=== PATIENT | female | born 1970 | race Caucasian/White ===

== ENCOUNTER 2016-09-13 15:00 | Inpatient (IN) | payer MEDICARE, OTHER ==
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
[2016-09-13 15:48] LABS: Basophils % (A) 1 %; CH 33.2; Eosinophils # (A) 0.1 k/uL (0-0.7); Eosinophils % (A) 1 %; HDW 2.71; HGB 14.3 gm/dL (11.4-16.0); Luc # (Auto) 0.13; Luc % (Auto) 2; Lymphocytes # (A) 1.9 k/uL (1.0-4.8); Lymphocytes % (A) 33 %; MCH 33.4 pg (25.0-35.0); MCV 98.1 fL (80.0-100.0); Mean Platelet Volume 8.1; Monocytes # (A) 0.3 k/uL (0-1.0); Monocytes % (A) 6 %; Neutrophils # (A) 3.3 k/uL (1.3-7.7); Neutrophils % (A) 57 %; RBC 4.28 m/uL (3.80-5.40); RDW 13.9 % (11.5-15.5); WBC 5.8 k/uL (3.8-10.6); WBC (Perox) 5.85
[2016-09-13 15:58] LABS: ALT 16 U/L (9-52); AST 13 U/L (14-36); Alkaline Phosphatase 43 U/L (38-126); Anion Gap 12 mmol/L; Blood Urea Nitrogen 17 mg/dL (7-17); Calcium 9.7 mg/dL (8.4-10.2); Carbon Dioxide 22 mmol/L (22-30); Chloride 106 mmol/L (98-107); Glucose 129 mg/dL (74-99); Magnesium 1.9 mg/dL (1.6-2.3); Non-African American GFR(MDRD) >60 (>60 ml/min/1.73 sqM); Sodium 140 mmol/L (137-145); Total Bilirubin 0.5 mg/dL (0.2-1.3)
[2016-09-13 16:15] LABS: Appearance,Urine Clear (Clear); Bacteria,Urine Rare /hpf; Bilirubin,Urine Negative (Negative); Glucose,Urine (UA) Negative (Negative); Ketones,Urine Negative (Negative); Leukocyte Esterase,Urine Negative (Negative); Mucus,Urine Occasional /hpf; Nitrite,Urine Negative (Negative); PH, Urine 5.5 (5.0-8.0); Particle Count 8878; Protein,Urine Trace (Negative); RBC,Urine >182 /hpf (0-5); Specific Gravity,Urine 1.015 (1.001-1.035); Squamous Epithelial Cell,Urine 1 /hpf (0-4); UA Billing (MACRO vs. MICRO) MICRO; WBC,Urine 2 /hpf (0-5)
--- NOTE | 2016-09-13 16:40 | CT ---
EXAMINATION TYPE: CT brain wo con DATE OF EXAM: 09/13/2016 4:35 PM COMPARISON: 06/30/2016 HISTORY: seizure today CT DLP: 1046 mGycm Automated exposure control for dose reduction was used. FINDINGS: There is diffuse cerebral cortical atrophy. There is no mass effect nor midline shift. There is no ev idence of intracranial hemorrhage. The calvarium is intact. IMPRESSION: Cerebral atrophy. No acute intracranial abnormality. No change.
[2016-09-13] MEDS ORDERED: LORazepam 2 MG/ML SYRINGE IV STA (16:47)
[2016-09-13] MEDS ORDERED: LORazepam 2 MG/ML SYRINGE IV PRN (17:28)
[2016-09-13] MEDS ORDERED: NALOXONE 0.4 MG/ML 1 ML VIAL IV PRN (17:28)
[2016-09-13] MEDS ORDERED: SODIUM CHLORIDE 0.9% 1,000 ML IV ONE (17:28)
[2016-09-13] MEDS ORDERED: diphenhydrAMINE 50 MG CAP PO PRN (19:01)
[2016-09-13] MEDS ORDERED: IBUPROFEN 800 MG TAB PO PRN (19:01)
[2016-09-13] MEDS ORDERED: VALPROATE SODIUM 500 MG in SODIUM CHLORIDE 0.9% 50 ML IVPB STA (19:08)
[2016-09-13] MEDS: CHOLECALCIFEROL 1,000 UNIT TAB PO SCH (20:35)
[2016-09-13] MEDS: TOPIRAMATE 25 MG TAB PO SCH (20:36)
[2016-09-13] MEDS: OXcarbazepine 300 MG TAB PO SCH (20:36)
[2016-09-13] MEDS: DIVALPROEX 250 MG TABLET.DR PO SCH (22:08)
[2016-09-14] MEDS: ACETAMINOPHEN TAB 325 MG TAB PO PRN ×3 (00:24→18:03)
[2016-09-14 01:07] VITALS: BMI 29.0
[2016-09-14] MEDS: OXcarbazepine 300 MG TAB PO SCH ×2 (07:40→21:02)
[2016-09-14] MEDS: FOLIC ACID 1 MG TAB PO SCH (07:40)
[2016-09-14] MEDS: ARIPiprazole 10 MG TAB PO SCH (07:40)
[2016-09-14] MEDS: PANTOPRAZOLE 40 MG TABLET PO SCH (07:40)
[2016-09-14] MEDS: DIVALPROEX 250 MG TABLET.DR PO SCH ×2 (07:40→21:01)
[2016-09-14] MEDS: LEVOTHYROXINE 100 MCG TAB PO SCH (07:40)
[2016-09-14] MEDS: LORATADINE 10 MG TAB PO SCH (07:40)
[2016-09-14] MEDS: TOPIRAMATE 25 MG TAB PO SCH ×2 (07:40→21:01)
[2016-09-14] MEDS ORDERED: VALPROATE SODIUM 1,000 MG in SODIUM CHLORIDE 0.9% 50 ML IVPB STA (14:44)
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
[2016-09-14] MEDS: CHOLECALCIFEROL 1,000 UNIT TAB PO SCH (21:01)
--- NOTE | 2016-09-14 22:55 | HP ---
DATE OF ADMISSION: 09/13/2016 CHIEF COMPLAINT: Seizure disorder. HISTORY OF PRESENT ILLNESS: This is another admission for this 45-year-old mentally incapacitated female from [facility]. She had a seizure. She is on Depakote. REVIEW OF SYSTEMS: She seems fine now and has no complaints of headaches, injuries to the extremities, etc. Past medical history, family history, and personal and social histories are all otherwise unremarkable or unchanged. PHYSICAL EXAM: Blood pressure 135/86 with a pulse of 74, respirations 19, and she is afebrile. GENERAL: She appeared to be overweight and awake and alert. Skin color is normal. Skin is warm and dry. Lymph nodes are not enlarged. Head, ears, eyes, nose, mouth, and throat were normal. NECK: Neck veins not distended. Thyroid is not enlarged. Chest is clear. Cardiac exam is normal. ABDOMEN: Soft and nontender. EXTREMITIES: Normal. IMPRESSION: 1. Seizure disorder. 2. Mental debility. PLAN: 1. Intravenous fluids. 2. Seizure precautions. 3. Increased Depakote.
--- NOTE | 2016-09-14 22:58 | PN ---
DATE OF SERVICE: 09/14/2016 CHIEF COMPLAINT: Seizure disorder. HISTORY OF PRESENT ILLNESS: This lady is doing well. She is having no new problems. She has had no seizures, and she is awake and alert. PHYSICAL EXAMINATION: CHEST: Clear. CARDIAC: Normal. ABDOMEN: Soft, nontender. EXTREMITIES: Normal. IMPRESSION: 1. Seizure disorder. 2. Developmental abnormality. PLAN: Probably back to long-term tomorrow.
[2016-09-15] MEDS: ACETAMINOPHEN TAB 325 MG TAB PO PRN (02:17)
[2016-09-15] MEDS: FOLIC ACID 1 MG TAB PO SCH (08:07)
[2016-09-15] MEDS: LORATADINE 10 MG TAB PO SCH (08:07)
[2016-09-15] MEDS: ARIPiprazole 10 MG TAB PO SCH (08:07)
[2016-09-15] MEDS: DIVALPROEX 250 MG TABLET.DR PO SCH (08:07)
[2016-09-15] MEDS: OXcarbazepine 300 MG TAB PO SCH (08:07)
[2016-09-15] MEDS: LEVOTHYROXINE 100 MCG TAB PO SCH (08:07)
[2016-09-15] MEDS: TOPIRAMATE 25 MG TAB PO SCH (08:07)
[2016-09-15] MEDS: PANTOPRAZOLE 40 MG TABLET PO SCH (08:08)
[2016-09-15 08:55] VITALS: BP 123/73; PULSE 87; RESP 18; TEMP 98
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
--- NOTE | 2016-09-15 14:53 | PN ---
CHIEF COMPLAINT: Grand mal seizure. HISTORY OF PRESENT ILLNESS: This lady is doing well and she is fully awake and alert and can probably go back to the alf today. PHYSICAL EXAM: Chest is clear. Cardiac exam is normal and the abdomen is soft, nontender. IMPRESSION: 1. Questionable grand mal seizure. 2. Developmental abnormality. PLAN: Back to alf today and this will be arranged by the nurse practitioner.
== END 2016-09-15 15:10 | disposition home or self-care (01) | DRG 100 ==
LOC: EC 15:00 → 4MS4W 17:29
PROVIDERS: ADMIT Family Medicine; ATTEND Family Medicine
DX: G40.219 Localization-related (focal) (partial) symptomatic epilepsy and epileptic syndromes with complex partial seizures, intractable, without status epilepticus (principal); G93.40 Encephalopathy, unspecified; E72.20 Disorder of urea cycle metabolism, unspecified; E03.9 Hypothyroidism, unspecified; I27.2 Other secondary pulmonary hypertension; F43.10 Post-traumatic stress disorder, unspecified; F79 Unspecified intellectual disabilities; K21.9 Gastro-esophageal reflux disease without esophagitis; Z79.899 Other long term (current) drug therapy
CPT/HCPCS: 36415; 70450; 80048; 80164; 80165; 80183; 80306; 81001; 81025; 82140; 82247; 83690; 83735; 84075; 84443; 84450; 84460; 85025; 87086; 93005; 96374; 99285

== ENCOUNTER 2016-11-21 12:34 | Inpatient (IN) | payer MEDICARE, OTHER ==
[2016-11-21] MEDS ORDERED: LORazepam 2 MG/ML SYRINGE IV STA (13:32)
[2016-11-21] MEDS ORDERED: SODIUM CHLORIDE 0.9% 1,000 ML IV STA (13:32)
[2016-11-21] MEDS ORDERED: KETOROLAC 30 MG/ML 1 ML VIAL IVP STA (13:35)
--- NOTE | 2016-11-21 13:35 | ED ---
Seizure HPI - General Chief Complaint: Seizure Stated Complaint: Seizure Time Seen by Provider: 11/21/16 13:05 Source: patient, RN notes reviewed Mode of arrival: ambulatory - History of Present Illness Initial Comments: 46-year-old female with a chief complaint of seizure. Patient has history of epilepsy. Patient has had 2 seizures lasting more than 5 minutes over the past few days. The patient is currently being treated with antibiotics for UTI. Patient states that she does have back and neck pain. This is chronic pain however it is flared about possibly following the seizures. There is been no nausea or vomiting and the patient. They deny any fevers. She otherwise been acting appropriately. They were concerned due to the extent patient seizures. They should be evaluated. Patient denies any recent fever, chills, shortness of breath, chest pain, back pain, abdominal pain, nausea vomiting, numbness or tingling, dysuria or hematuria, constipation or diarrhea, headaches or visual changes, or any other current symptoms. - Related Data Home Medications Medication Instructions Recorded Confirmed ARIPiprazole [Abilify] 10 mg PO DAILY@79902/10/15 09/13/16 Folic Acid 1 mg PO DAILY@79902/10/15 09/13/16 Levothyroxine Sodium [Synthroid] 100 mcg PO DAILY@79902/10/15 09/13/16 Omeprazole [PriLOSEC] 20 mg PO DAILY@79902/10/15 09/13/16 Topiramate [Topamax] 25 mg PO BID@799,199902/10/15 09/13/16 OXcarbazepine [Trileptal] 300 mg PO BID@799,199909/09/15 09/13/16 Cholecalciferol [Vitamin D3] 2,000 unit PO HS@199906/30/16 09/13/16 Ibuprofen [Motrin] 800 mg PO TID PRN 06/30/16 09/13/16 Divalproex [Depakote] 750 mg PO BID@08,199909/13/16 09/13/16 Loratadine [Claritin] 10 mg PO DAILY@0800 09/13/16 09/13/16 diphenhydrAMINE [Benadryl] 50 mg PO DAILY PRN 09/13/16 09/13/16 fluvoxaMINE MALEATE [Luvox] 100 mg PO BID@0800,199909/13/16 09/13/16 Previous Rx's Medication Instructions Recorded Acetaminophen Tab [Tylenol] 325 mg PO Q4HR PRN #0 tab 09/15/16 Allergies Allergy/AdvReac Type Severity Reaction Status Date / Time Barbiturates Allergy Unknown Verified 11/21/16 13:18 clindamycin palmitate HCl Allergy Unknown Verified 11/21/16 13:18 [From Cleocin] clindamycin phosphate Allergy Unknown Verified 11/21/16 13:18 [From Cleocin] Penicillins Allergy Unknown Verified 11/21/16 13:18 phenobarbital Allergy Unknown Verified 11/21/16 13:18 Review of Systems ROS Statement: Those systems with pertinent positive or pertinent negative responses have been documented in the HPI. ROS Other: All systems not noted in ROS Statement are negative. Past Medical History Past Medical History: GERD/Reflux, Osteoarthritis (OA), Pneumonia, Seizure Disorder, Thyroid Disorder Additional Past Medical History / Comment(s): Pt is developmentally challenged and has a legal guardian-Jayda Langlade. Per dictation, DANNA Montelongo states pt is to be a full code. She states to use medical history from pt's last admission. TREMORS FROM MEDS, hypothyroid, falls, head injury r/t fall, sinusitis. History of Any Multi-Drug Resistant Organisms: None Reported Past Surgical History: No Surgical Hx Reported Past Anesthesia/Blood Transfusion Reactions: No Reported Reaction Additional Past Anesthesia/Blood Transfusion Reaction / Comment(s): NEVER HAD AA Past Psychological History: Anxiety, Depression, PTSD Additional Psychological History / Comment(s): DEVELOPEMENTALLY CHALLENGED. states pt lives in home of her own with other residence. She has caregivers that take care of her. Pt states she performs her own ADLs and feeds herself. Her caretakers manage her medications. She uses no assistive device. She does not drive-caretakers take her to appts. Smoking Status: Never smoker Past Alcohol Use History: None Reported Past Drug Use History: None Reported - Past Family History Father Additional Family Medical History / Comment(s): WAS A DRINKER FROM CIRRHOSIS Mother Family Medical History: Cancer Additional Family Medical History / Comment(s): BREAST-mother is living. General Exam - General Exam Comments Initial Comments: General: The patient is awake and alert, in no distress, and does not appear acutely ill. Eye: Pupils are equal, round and reactive to light, extra-ocular movements are intact; there is normal conjunctiva bilaterally. No signs of icterus. Ears, nose, mouth and throat: There are moist mucous membranes and no oral lesions. Neck: The neck is supple, there is no tenderness. Cardiovascular: There is a regular rate and rhythm. No murmur, rub or gallop is appreciated. Respiratory: Lungs are clear to auscultation, respirations are non-labored, breath sounds are equal. No wheezes, stridor, rales, or rhonchi. Gastrointestinal: Soft, non-distended, non-tender abdomen without masses or organomegaly noted. There is no rebound or guarding present. No CVA tenderness. Bowel sounds are unremarkable. Back: There is no tenderness to palpation in the midline. There is no obvious deformity. No rashes noted. Musculoskeletal: Normal ROM, no tenderness, There is no pedal edema. There is no calf tenderness or swelling. Sensation intact. Pulses equal bilaterally 2+. Neurological: CN II-XII intact, There are no obvious motor or sensory deficits. Coordination appears grossly intact. Speech is normal. Skin: Skin is warm and dry and no rashes or lesions are noted. Psychiatric: Cooperative, appropriate mood & affect, normal judgment. Course Vital Signs 11/21/16 13:14 Temperature 98.2 F Pulse Rate 72 Respiratory 18 Rate Blood Pressure 118/76 O2 Sat by Pulse 97 Oximetry Medical Decision Making - Medical Decision Making 46-year-old female presents with seizure with history of epilepsy. At this time the patient did present for seizure. This time patient has an elevated Depakote level. This and will continue fluids and have a repeat level in 6 hours to reevaluate. At this time we discussed this with patient and family and they stated they understood. They're going to look into this. - Lab Data Result diagrams: 11/21/16 13:49 11/21/16 13:49 Lab Results 11/21/16 11/21/16 11/21/16 Range/Units 13:49 13:49 13:49 WBC 6.4 (3.8-10.6) k/uL RBC 4.08 (3.80-5.40) m/uL Hgb 13.3 (11.4-16.0) gm/dL Hct 39.9 (34.0-46.0) % MCV 97.7 (80.0-100.0) fL MCH 32.5 (25.0-35.0) pg MCHC 33.3 (31.0-37.0) g/dL RDW 13.2 (11.5-15.5) % Plt Count 138 L (150-450) k/uL Neutrophils % 46 % Lymphocytes % 45 % Monocytes % 5 % Eosinophils % 1 % Basophils % 1 % Neutrophils # 2.9 (1.3-7.7) k/uL Lymphocytes # 2.9 (1.0-4.8) k/uL Monocytes # 0.3 (0-1.0) k/uL Eosinophils # 0.1 (0-0.7) k/uL Basophils # 0.0 (0-0.2) k/uL Sodium 139 (137-145) mmol/L Potassium 5.1 (3.5-5.1) mmol/L Chloride 106 (98-107) mmol/L Carbon Dioxide 26 (22-30) mmol/L Anion Gap 7 mmol/L BUN 23 H (7-17) mg/dL Creatinine 0.90 (0.52-1.04) mg/dL Est GFR (MDRD) Af Amer >60 (>60 ml/min/1.73 sqM) Est GFR (MDRD) Non-Af >60 (>60 ml/min/1.73 sqM) Glucose 78 (74-99) mg/dL Calcium 9.8 (8.4-10.2) mg/dL Total Bilirubin 0.2 (0.2-1.3) mg/dL AST 11 L (14-36) U/L ALT 18 (9-52) U/L Alkaline Phosphatase 43 (38-126) U/L Total Protein 6.3 (6.3-8.2) g/dL Albumin 3.8 (3.5-5.0) g/dL Urine Color Yellow Urine Appearance Turbid H (Clear) Urine pH 7.5 (5.0-8.0) Ur Specific Ferriday 1.017 (1.001-1.035) Urine Protein Trace H (Negative) Urine Glucose (UA) Negative (Negative) Urine Ketones Negative (Negative) Urine Blood Moderate H (Negative) Urine Nitrite Negative (Negative) Urine Bilirubin Negative (Negative) Urine Urobilinogen 3.0 (<2.0) mg/dL Ur Leukocyte Esterase Negative (Negative) Ur Squamous Epith Cells 12 H (0-4) /hpf Urine Bacteria Few H (None) /hpf Urine Yeast (Budding) Many H (None) /hpf Valproic Acid 111.6 H* ug/mL Disposition Clinical Impression: Valproic acid toxicity, Epileptic seizure Disposition: ADMITTED IP TO THIS HOSP Condition: Stable Referrals: None,Stated [Primary Care Provider] - 1-2 days Time of Disposition: 14:56 Decision Date: 11/21/16 Decision Time: 14:56
[2016-11-21 14:08] LABS: Basophils % (A) 1 %; CH 32.6; CHCM 33.5; Eosinophils # (A) 0.1 k/uL (0-0.7); Eosinophils % (A) 1 %; HCT 39.9 % (34.0-46.0); HDW 2.49; HGB 13.3 gm/dL (11.4-16.0); Luc # (Auto) 0.12; Luc % (Auto) 2; Lymphocytes # (A) 2.9 k/uL (1.0-4.8); Lymphocytes % (A) 45 %; MCH 32.5 pg (25.0-35.0); MCHC 33.3 g/dL (31.0-37.0); MCV 97.7 fL (80.0-100.0); Mean Platelet Volume 7.6; Monocytes # (A) 0.3 k/uL (0-1.0); Monocytes % (A) 5 %; Neutrophils # (A) 2.9 k/uL (1.3-7.7); Neutrophils % (A) 46 %; RBC 4.08 m/uL (3.80-5.40); RDW 13.2 % (11.5-15.5); WBC 6.4 k/uL (3.8-10.6); WBC (Perox) 6.19
[2016-11-21 14:11] LABS: Appearance,Urine Turbid (Clear); Bacteria,Urine Few /hpf; Bilirubin,Urine Negative (Negative); Glucose,Urine (UA) Negative (Negative); Ketones,Urine Negative (Negative); Leukocyte Esterase,Urine Negative (Negative); Nitrite,Urine Negative (Negative); PH, Urine 7.5 (5.0-8.0); Particle Count 17422; Protein,Urine Trace (Negative); Specific Gravity,Urine 1.017 (1.001-1.035); Squamous Epithelial Cell,Urine 12 /hpf (0-4); UA Billing (MACRO vs. MICRO) MICRO
[2016-11-21 14:18] LABS: ALT 18 U/L (9-52); AST 11 U/L (14-36); Alkaline Phosphatase 43 U/L (38-126); Anion Gap 7 mmol/L; Blood Urea Nitrogen 23 mg/dL (7-17); Calcium 9.8 mg/dL (8.4-10.2); Carbon Dioxide 26 mmol/L (22-30); Chloride 106 mmol/L (98-107); Glucose 78 mg/dL (74-99); Non-African American GFR(MDRD) >60 (>60 ml/min/1.73 sqM); Potassium 5.1 mmol/L (3.5-5.1); Sodium 139 mmol/L (137-145); Total Bilirubin 0.2 mg/dL (0.2-1.3); Total Protein 6.3 g/dL (6.3-8.2)
[2016-11-21] MEDS ORDERED: ONDANSETRON 4 MG/2 ML VIAL IVP PRN (14:56)
[2016-11-21] MEDS ORDERED: ACETAMINOPHEN TAB 325 MG TAB PO PRN (14:56)
[2016-11-21] MEDS ORDERED: NALOXONE 0.4 MG/ML 1 ML VIAL IV PRN (14:56)
[2016-11-21] MEDS ORDERED: LORazepam 2 MG/ML SYRINGE IV PRN (14:56)
[2016-11-21 16:54] VITALS: BMI 32.9
[2016-11-21] MEDS: SODIUM CHLORIDE 0.9% 1,000 ML IV SCH (17:11)
[2016-11-21] MEDS ORDERED: IBUPROFEN 800 MG TAB PO PRN (17:52)
[2016-11-21] MEDS ORDERED: diphenhydrAMINE 50 MG CAP PO PRN (17:52)
[2016-11-21] MEDS: TOPIRAMATE 25 MG TAB PO SCH (20:31)
[2016-11-21] MEDS: OXcarbazepine 300 MG TAB PO SCH (20:31)
[2016-11-21] MEDS: CHOLECALCIFEROL 1,000 UNIT TAB PO SCH (20:31)
[2016-11-22] MEDS: SODIUM CHLORIDE 0.9% 1,000 ML IV SCH ×3 (00:46→20:09)
[2016-11-22 05:02] LABS: Basophils % (A) 1 %; CH 32.1; CHCM 32.8; Eosinophils # (A) 0.1 k/uL (0-0.7); Eosinophils % (A) 2 %; HCT 39.2 % (34.0-46.0); HDW 2.51; HGB 12.9 gm/dL (11.4-16.0); Luc # (Auto) 0.15; Luc % (Auto) 2; Lymphocytes # (A) 3.8 k/uL (1.0-4.8); Lymphocytes % (A) 57 %; MCH 32.2 pg (25.0-35.0); MCHC 32.8 g/dL (31.0-37.0); MCV 98.3 fL (80.0-100.0); Mean Platelet Volume 7.5; Monocytes # (A) 0.3 k/uL (0-1.0); Monocytes % (A) 5 %; Neutrophils # (A) 2.2 k/uL (1.3-7.7); Neutrophils % (A) 33 %; RBC 3.99 m/uL (3.80-5.40); RDW 13.3 % (11.5-15.5); WBC 6.7 k/uL (3.8-10.6); WBC (Perox) 7.07
[2016-11-22 05:32] LABS: ALT 17 U/L (9-52); AST 9 U/L (14-36); Alkaline Phosphatase 36 U/L (38-126); Anion Gap 7 mmol/L; Blood Urea Nitrogen 23 mg/dL (7-17); Calcium 9.1 mg/dL (8.4-10.2); Carbon Dioxide 23 mmol/L (22-30); Chloride 110 mmol/L (98-107); Glucose 79 mg/dL (74-99); Non-African American GFR(MDRD) >60 (>60 ml/min/1.73 sqM); Potassium 4.7 mmol/L (3.5-5.1); Sodium 140 mmol/L (137-145); Total Bilirubin 0.3 mg/dL (0.2-1.3); Total Protein 5.5 g/dL (6.3-8.2)
[2016-11-22 07:52] VITALS: RESP 16
[2016-11-22] MEDS: LORATADINE 10 MG TAB PO SCH (08:27)
[2016-11-22] MEDS: LEVOTHYROXINE 112 MCG TAB PO SCH (08:27)
[2016-11-22] MEDS: FOLIC ACID 1 MG TAB PO SCH (08:27)
[2016-11-22] MEDS: TOPIRAMATE 25 MG TAB PO SCH ×2 (08:27→20:07)
[2016-11-22] MEDS: PANTOPRAZOLE 40 MG TABLET PO SCH (08:27)
[2016-11-22] MEDS: BENZTROPINE MESYLATE 0.5 MG TAB PO SCH (08:27)
[2016-11-22] MEDS: OXcarbazepine 300 MG TAB PO SCH ×2 (08:27→20:07)
[2016-11-22] MEDS: ARIPiprazole 5 MG TAB PO SCH (08:27)
--- NOTE | 2016-11-22 14:38 | P.CNNES ---
History of Present Illness Consult date: 11/22/16 Requesting physician: Damaso Sarah Reason for Consult: Seizure History of Present Illness: Patient is a pleasant 46-year-old female who is being evaluated by the neurology service on 11/22/2016 per the request of Dr. Sarah for seizures. Patient has history of epilepsy and states she sees Dr. Wayne on an outpatient basis. Patient is developmentally challenged and has a legal guardian. Reportedly patient had 2 tonic-clonic seizures lasting more than 5 minutes over the past few days. Patient informs me she lives in a [facility] with caregivers. Patient is currently being treated with antibiotics for urinary tract infection. Patient came to [facility] emergency room because caregivers were concerned about the extent of the patient's seizures. Labs on admission or WBC 6.4, RBCs 4.08, hemoglobin 13.3, hematocrit 39.9, and platelet count 138. BUN is 23 creatinine is 0.90. Valproic acid level was 111.6. Patient's home medications include Depakote 750 mg twice a day, Trileptal 300 mg twice a day, and Topamax 25 mg twice a day. Patient also takes Cogentin 0.5 mg daily for extrapyramidal movements. At the time of my evaluation, patient's resting comfortably in bed and appears to be in no acute distress. Review of Systems REVIEW OF SYSTEMS: Otherwise unremarkable and noncontributory. Past Medical History Past Medical History: GERD/Reflux, Osteoarthritis (OA), Pneumonia, Seizure Disorder, Thyroid Disorder Additional Past Medical History / Comment(s): Pt is developmentally challenged and has a legal guardian-Jayda Aguirre. Per dictation, DANNA Montelongo states pt is to be a full code. She states to use medical history from pt's last admission. TREMORS FROM MEDS, hypothyroid, falls, head injury r/t fall, sinusitis. PARKINSONS, OCCASIONAL DIZZY SPELLS, PAST RIGHT LEG CELLULITIS, AND DARKENED PIGMENTATION RIGHT LEG. History of Any Multi-Drug Resistant Organisms: None Reported Past Surgical History: No Surgical Hx Reported Past Anesthesia/Blood Transfusion Reactions: No Reported Reaction Additional Past Anesthesia/Blood Transfusion Reaction / Comment(s): NEVER HAD AA Past Psychological History: Anxiety, Depression, PTSD Additional Psychological History / Comment(s): DEVELOPEMENTALLY CHALLENGED. states pt lives in home of her own with other residence. She has caregivers that take care of her. Pt states she performs her own ADLs and feeds herself. Her caretakers manage her medications. She uses no assistive device. She does not drive-caretakers take her to appts. Smoking Status: Never smoker Past Alcohol Use History: None Reported Past Drug Use History: None Reported - Past Family History Father Additional Family Medical History / Comment(s): WAS A DRINKER FROM CIRRHOSIS Mother Family Medical History: Cancer Additional Family Medical History / Comment(s): BREAST-mother is living. Medications and Allergies Home Medications Medication Instructions Recorded Confirmed Type Folic Acid 1 mg PO DAILY@0800 02/10/15 11/21/16 History Omeprazole [PriLOSEC] 20 mg PO DAILY@0800 02/10/15 11/21/16 History Topiramate [Topamax] 25 mg PO BID@0800,199902/10/15 11/21/16 History OXcarbazepine [Trileptal] 300 mg PO BID@0800,199909/09/15 11/21/16 History Cholecalciferol [Vitamin D3] 2,000 unit PO HS@199906/30/16 11/21/16 History Ibuprofen [Motrin] 800 mg PO TID PRN 06/30/16 11/21/16 History Divalproex [Depakote] 750 mg PO BID@0800,199909/13/16 11/21/16 History Loratadine [Claritin] 10 mg PO DAILY@0800 09/13/16 11/21/16 History diphenhydrAMINE [Benadryl] 50 mg PO DAILY PRN 09/13/16 11/21/16 History fluvoxaMINE MALEATE [Luvox] 100 mg PO BID@0800,199909/13/16 11/21/16 History ARIPiprazole [Abilify] 5 mg PO DAILY@0800 11/21/16 11/21/16 History Benztropine Mesylate [Cogentin] 0.5 mg PO DAILY 11/21/16 11/21/16 History Levothyroxine Sodium [Synthroid] 112 mcg PO DAILY@0800 11/21/16 11/21/16 History Allergies Allergy/AdvReac Type Severity Reaction Status Date / Time Barbiturates Allergy Unknown Verified 11/21/16 13:18 clindamycin palmitate HCl Allergy Unknown Verified 11/21/16 13:18 [From Cleocin] clindamycin phosphate Allergy Unknown Verified 11/21/16 13:18 [From Cleocin] Penicillins Allergy Unknown Verified 11/21/16 13:18 Physical Examination - Vital Signs Vital Signs: Vital Signs Temp Pulse Pulse Resp BP BP Pulse Ox 11/22/16 08:00 16 11/22/16 07:00 97.1 F L 92 16 107/57 98 11/22/16 00:00 18 11/21/16 23:00 98.9 F 72 18 119/46 97 11/21/16 17:12 18 11/21/16 16:16 98.2 F 80 18 116/68 98 Intake and Output 11/21/16 11/22/16 11/22/16 22:59 06:59 14:59 Intake Total 325 425 Balance 325 425 Intake: Oral 325 425 Other: # Voids 2 3 # Bowel Movements 2 1 Weight 87.09 kg PHYSICAL EXAM: GENERAL APPEARANCE: Patient is a well-developed, female who appears to be in no acute distress. HEENT: Normocephalic, atraumatic, no facial asymmetry is seen. Neck is supple with no masses felt. CARDIOVASCULAR: Regular rate and rhythm. ABDOMEN: Nontender, nondistended. EXTREMITIES: Show no edema or clubbing. NEUROLOGICAL EXAM: Patient is awake, alert, and oriented 2. Patient does not know the year. Speech and language are normal. Strength is 5-/5 in bilateral upper extremities and 4+/5 in bilateral lower extremities. Sensory exam to light touch is normal in all 4 extremities. No facial asymmetry is seen on cranial nerve testing. Extrapyramidal movements noticed in all 4 extremities. No further seizure activity reported. Results - Laboratory Findings CBC and BMP: 11/22/16 04:47 11/22/16 04:47 Abnormal Lab Findings: Abnormal Labs 11/21/16 11/21/16 11/21/16 13:49 13:49 13:49 Plt Count 138 L Chloride BUN 23 H AST 11 L Alkaline Phosphatase Total Protein Albumin Urine Appearance Turbid H Urine Protein Trace H Urine Blood Moderate H Ur Squamous Epith Cells 12 H Urine Bacteria Few H Urine Yeast (Budding) Many H Valproic Acid 111.6 H* 11/22/16 11/22/16 04:47 04:47 Plt Count 131 L Chloride 110 H BUN 23 H AST 9 L Alkaline Phosphatase 36 L Total Protein 5.5 L Albumin 3.2 L Urine Appearance Urine Protein Urine Blood Ur Squamous Epith Cells Urine Bacteria Urine Yeast (Budding) Valproic Acid Assessment and Plan Plan: Impression: 1. Seizure disorder 2. Tremors 3. Hypothyroid Recommendations: It appears patient experienced 2 seizures lasting 5 minutes each in the home setting. Patient was brought to [facility] for further evaluation. Patient's valproic acid level on admission was 111.6. Even though normal range is 50 to 100, up to 125 is widely accepted. I recommend continuing Depakote at 750 mg twice a day. The seizure was probably caused by the antibiotic she was receiving for her UTI. She currently takes a very small dose of Topamax. I will increase to Topamax 50 mg twice a day. Eventually the goal would be to get to Topamax 100 mg twice a day. This should be titrated up slowly. I will order an EEG and Trileptal level. Continue neurological checks. Continue seizure precautions. I will continue to follow with you. Further recommendations to follow. Thank you for allowing me to participate in the care of your patient. Feel free to call with any questions or concerns. I performed an examination of the patient and discussed the management with the POWER HAIR CLIPPER. I have reviewed the POWER HAIR CLIPPER notes and agree with the findings and plan of care.
--- NOTE | 2016-11-22 16:41 | HP ---
DATE OF ADMISSION: 11/21/2016 PRESENTING COMPLAINT: Recurrent seizure. HISTORY OF PRESENTING COMPLAINT: This is a pleasant 46-year-old patient with a history of some mental retardation, hypothyroid, GERD, and history of grand mal seizures; also some anxiety and depression. Patient has had 2 seizure episodes at the assisted where she lives. She is admitted for the same. Patient's valproic acid level came back at 111.6. Patient admitted for the same. Patient also has a shaking disorder; it is not clear what it is at this time, but apparently patient does follow with Dr. Brian Wayne, ( ). REVIEW OF SYSTEMS: CONSTITUTIONAL: Tired. HEENT: None. RESPIRATORY: None. CARDIOVASCULAR: None. GASTROINTESTINAL: None. GENITOURINARY: None. MUSCULOSKELETAL: None. DERMATOLOGIC: None. HEMATOLOGIC: None. LYMPHATIC: None. PSYCHIATRY: Slightly slow. NEUROLOGICAL: Patient has tremors at rest; somewhat better with activity. PAST MEDICAL HISTORY: 1. GERD. 2. Osteoarthritis. 3. Seizure disorder. 4. Hypothyroid. 5. Developmentally challenged. 6. Tremors from side effects of medications. PAST SURGICAL HISTORY: None. PAST PSYCHOLOGICAL HISTORY: 1. Anxiety. 2. Depression. 3. PTSD. SOCIAL HISTORY: Patient lives in a assisted. Patient has Jayda ( ) as her legal guardian. No smoking. No alcohol. FAMILY HISTORY: Cirrhosis from drinking. HOME MEDICATIONS: 1. Luvox 100 mg p.o. b.i.d. 2. Benadryl 50 mg p.o. daily. 3. Topamax 25 mg p.o. b.i.d. 4. Prilosec 20 mg p.o. daily. 5. Trileptal 300 mg p.o. b.i.d. 6. Claritin 10 mg p.o. daily. 7. Synthroid 112 mcg p.o. daily. 8. Motrin 800 mg p.o. t.i.d. 9. Folic acid 1 mg p.o. daily. 10. Depakote 750 mg p.o. b.i.d. 11. Vitamin D3, 2000 units p.o. at bedtime. 12. Cogentin 0.5 mg p.o. daily. 13. Abilify 5 mg p.o. daily ALLERGIES: 1. BARBITURATES. 2. CLINDAMYCIN. 3. PENICILLIN. PHYSICAL EXAMINATION: VITAL SIGNS ON PRESENTATION: Temperature 98.2, pulse 72, respiration 18, blood pressure 108/76, pulse ox 97% on room air. GENERAL APPEARANCE: Well built; BMI 33.0. Lying in bed. Awake. Some tremors are present. EYES: Pupils equal. Conjunctivae normal. HEENT: Oral cavity normal. NECK: JVD not raised. Mass not palpable. RESPIRATORY: Effort normal. Lungs are clear. CARDIOVASCULAR: First and second sounds normal. No edema. ABDOMEN: Soft, nontender. Liver and spleen not palpable. LYMPHATIC: No lymph node palpable in neck or axillae. PSYCHIATRY: Alert and oriented x3. Mood and affect normal. NEUROLOGICAL: Pupils equal. Cranial grossly intact. Power and sensation grossly intact. Tremors are present, more so at rest. They are not the pill-rolling type, though somewhat better with activity. INVESTIGATIONS: White count 6.7, hemoglobin 12.9, platelets 131. Potassium 4.7. BUN 23, creatinine 0.80. TSH 0.816. Valproic acid - last one was 111.6. Repeat today is 38.4. ASSESSMENT: 1. Recurrent seizure in a patient with known grand mal seizures. 2. Valproic acid toxicity, present on admission. 3. Tremor disorder, side effect of medication. This does not appear to be Parkinson-like. 4. Hypothyroidism. 5. Gastroesophageal reflux disease. 6. Mild mental retardation. 7. Anxiety, depression not otherwise specified. PLAN: Home medications are resumed. Neurology is consulted. Neuro checks are in place. Patient has seizure precautions. Given that patient's TSH is actually on the lower side; it should be closer ( ) will cut back on Synthroid to 100 mcg a day. Care was discussed with the patient.
[2016-11-22] MEDS: CHOLECALCIFEROL 1,000 UNIT TAB PO SCH (20:07)
[2016-11-22] MEDS: DIVALPROEX 250 MG TABLET.DR PO SCH (20:07)
[2016-11-23 07:49] VITALS: BP 93/57; PULSE 85; TEMP 97.5
[2016-11-23] MEDS: LEVOTHYROXINE 112 MCG TAB PO SCH (07:54)
[2016-11-23] MEDS: DIVALPROEX 250 MG TABLET.DR PO SCH (07:54)
[2016-11-23] MEDS: PANTOPRAZOLE 40 MG TABLET PO SCH (07:54)
[2016-11-23] MEDS: TOPIRAMATE 25 MG TAB PO SCH (07:54)
[2016-11-23] MEDS: BENZTROPINE MESYLATE 0.5 MG TAB PO SCH (07:55)
[2016-11-23] MEDS: OXcarbazepine 300 MG TAB PO SCH (07:55)
[2016-11-23] MEDS: ARIPiprazole 5 MG TAB PO SCH (07:55)
[2016-11-23] MEDS: LORATADINE 10 MG TAB PO SCH (07:55)
[2016-11-23] MEDS: FOLIC ACID 1 MG TAB PO SCH (07:55)
--- NOTE | 2016-11-23 10:48 | P.PN ---
Subjective Principal diagnosis: Patient is a pleasant 46-year-old developmentally challenged female who is being followed by the neurology service for seizures. Patient has history of epilepsy and had 2 tonic-clonic seizures lasting more than 5 minutes over the past few days and was brought to [facility]. Patient does live in a care home with caregivers. Patient was being treated as an outpatient for urinary tract infection. Patient has not had any further seizures since admission. Seizure activity most likely related to UTI treatment. At the time of my evaluation, patient is resting comfortably in bed in appears to be in no acute distress. Objective - Vital Signs Vital signs: Vital Signs Temp 97.5 F L 11/23/16 07:00 Pulse 85 11/23/16 07:00 Resp 16 11/23/16 07:58 BP 93/57 11/23/16 07:00 Pulse Ox 97 11/23/16 07:00 Intake & Output 11/22/16 11/23/16 11/23/16 18:59 06:59 18:59 Intake Total 650 Balance 650 Intake: Oral 650 Other: # Voids 5 2 # Bowel Movements 1 - Exam PHYSICAL EXAM: GENERAL APPEARANCE: Patient is a well-developed, developmentally challenged, female who appears to be in no acute distress. HEENT: Normocephalic, atraumatic, no facial asymmetry is seen. Neck is supple with no masses felt. CARDIOVASCULAR: Regular rate and rhythm. ABDOMEN: Nontender, nondistended. EXTREMITIES: Show no edema or clubbing. NEUROLOGICAL EXAM: Patient is awake, alert, and oriented 2. Patient does not recall the year. Speech and language are normal. Strength is 5-/5 in bilateral upper extremities and 4+/5 in bilateral lower extremities. Sensory exam is normal to light touch in all 4 extremities. No facial asymmetry seen on cranial nerve testing. Extrapyramidal movements noted for which she is on Cogentin. No seizure-like activity is seen or reported. - Labs CBC & Chem 7: 11/22/16 04:47 11/22/16 04:47 Labs: Microbiology - Last 24 Hours (Table) 11/21/16 13:49 Urine Culture - Final Urine,Voided Assessment and Plan Plan: Impression: 1. Seizure disorder 2. Tremors 3. Hypothyroid Recommendations: It appears patient experienced 2 seizures lasting 5 minutes each in the home setting. Patient was brought to [facility] for further evaluation. Patient's valproic acid level on admission was 111.6. Even though normal range is 50 to 100, up to 125 is widely accepted. I recommend continuing Depakote at 750 mg twice a day. The seizure was probably caused by the antibiotic she was receiving for her UTI. She currently takes a very small dose of Topamax. I will increase to Topamax 50 mg twice a day. Eventually the goal would be to get to Topamax 100 mg twice a day. This should be titrated up slowly. Continue neurological checks. Continue seizure precautions. I recommend she continue to follow with neurology as an outpatient. I'll continue to follow with you on an as-needed basis. Feel free to call with any questions or concerns. I performed an examination of the patient and discussed the management with the TACK PULLER. I have reviewed the TACK PULLER notes and agree with the findings and plan of care.
[2016-11-23] MEDS: SODIUM CHLORIDE 0.9% 1,000 ML IV SCH (11:47)
--- NOTE | 2016-11-25 09:57 | DS ---
DATE OF ADMISSION: 11/21/2016 DATE OF DISCHARGE: 11/23/2016 FINAL DIAGNOSES: 1. Recurrent seizures in a patient with known grand mal seizures. 2. Valproic acid toxicity present on admission, probably from antibiotics. 3. Tremor disorder, chronic from side effect of medications, does not appear to be Parkinson's. 4. Hypothyroidism. 5. Gastroesophageal reflux disease. 6. Mild mental retardation. 7. Anxiety, depression, not otherwise specified. HOSPITAL COURSE: This patient present with couple of seizure activity, seen by Dr. Ashwini donahue. Vincent to be probably from antibiotics changing the levels of the antiepileptic drugs. The dose of Topamax was increased. Patient doing well at the time of discharge. On exam, lungs are clear. CARDIOVASCULAR: First and second sounds normal. Patient had several tremors which is not that of Parkinson's disease. DISCHARGE MEDICATIONS: 1. Folic acid 1 mg p.o. daily. 2. Prilosec 20 mg p.o. daily. 3. Trileptal 300 mg p.o. b.i.d. 4. Vitamin D3 two thousand p.o. q.h.s. 5. Motrin 800 mg p.o. t.i.d. p.r.n. 6. Depakote 750 mg p.o. b.i.d. 7. Claritin 10 mg a day. 8. Benadryl 50 mg p.o. daily p.r.n. 9. Luvox 100 mg p.o. b.i.d. 10. Abilify 5 mg p.o. daily. 11. Cogentin 0.5 mg p.o. daily. 12. Synthroid 100 mcg p.o. daily, new dose. 13. Topamax 50 mg p.o. b.i.d. Patient is to follow up with her family doctor and follow with Dr. Brian Wayne in 10 days.
== END 2016-11-23 15:17 | disposition home or self-care (01) | DRG 101 ==
LOC: EC 12:34 → 4MS4W 15:23
PROVIDERS: ADMIT Hospitalist; ATTEND Hospitalist
DX: G40.409 Other generalized epilepsy and epileptic syndromes, not intractable, without status epilepticus (principal); N39.0 Urinary tract infection, site not specified; G20 Parkinson's disease; F32.9 Major depressive disorder, single episode, unspecified; E03.9 Hypothyroidism, unspecified; F43.10 Post-traumatic stress disorder, unspecified; G89.29 Other chronic pain; K21.9 Gastro-esophageal reflux disease without esophagitis; M19.90 Unspecified osteoarthritis, unspecified site; M54.2 Cervicalgia; M54.9 Dorsalgia, unspecified; F41.9 Anxiety disorder, unspecified; F70 Mild intellectual disabilities; T42.6X5A Adverse effect of other antiepileptic and sedative-hypnotic drugs, initial encounter; G25.2 Other specified forms of tremor; T50.905A Adverse effect of unspecified drugs, medicaments and biological substances, initial encounter; T36.95XA Adverse effect of unspecified systemic antibiotic, initial encounter; Z79.899 Other long term (current) drug therapy; Z88.1 Allergy status to other antibiotic agents; Z88.0 Allergy status to penicillin; Z88.8 Allergy status to other drugs, medicaments and biological substances; Y92.009 Unspecified place in unspecified non-institutional (private) residence as the place of occurrence of the external cause
CPT/HCPCS: 36415; 80053; 80164; 80183; 81001; 84443; 85025; 87086; 93005

== ENCOUNTER → 2017-02-02 | Outpatient (CLI) | payer MEDICARE, OTHER ==
[2017-02-02 08:52] LABS: Basophils # (A) 0.1 k/uL (0-0.2); Basophils % (A) 1 %; CH 31.3; CHCM 32.7; Eosinophils # (A) 0.1 k/uL (0-0.7); Eosinophils % (A) 1 %; HCT 41.7 % (34.0-46.0); HDW 2.52; Luc # (Auto) 0.13; Luc % (Auto) 2; Lymphocytes # (A) 3.3 k/uL (1.0-4.8); Lymphocytes % (A) 45 %; MCH 32.2 pg (25.0-35.0); MCHC 33.5 g/dL (31.0-37.0); MCV 96.1 fL (80.0-100.0); Mean Platelet Volume 7.4; Monocytes # (A) 0.3 k/uL (0-1.0); Monocytes % (A) 4 %; Neutrophils # (A) 3.4 k/uL (1.3-7.7); Neutrophils % (A) 47 %; RBC 4.34 m/uL (3.80-5.40); RDW 13.8 % (11.5-15.5); WBC 7.3 k/uL (3.8-10.6); WBC (Perox) 8.18
== END | disposition home or self-care (01) ==
LOC: LABWHC1 08:00
PROVIDERS: ATTEND Psychiatry & Neurology Neurology
DX: G40.209 Localization-related (focal) (partial) symptomatic epilepsy and epileptic syndromes with complex partial seizures, not intractable, without status epilepticus (principal)
CPT/HCPCS: 36415; 80164; 80183; 84295; 84450; 84460; 85025

== ENCOUNTER 2017-03-26 16:00 | Emergency (ER) | payer MEDICARE, OTHER ==
[2017-03-26] MEDS ORDERED: SODIUM CHLORIDE 0.9% 500 ML IV ONE (16:44)
[2017-03-26 16:49] LABS: Glucose,Whole Blood 93 mg/dL (75-99)
--- NOTE | 2017-03-26 16:49 | ED ---
General Adult HPI - General Source: RN notes reviewed, Caregiver Mode of arrival: ambulatory Limitations: altered mental status <Aris Craven - Last Filed: 03/26/17 20:03> <Gabriel De Jesus - Last Filed: 03/26/17 23:16> - General Chief complaint: Altered Mental Status Stated complaint: mental health/abdominal pain Time Seen by Provider: 03/26/17 16:15 - History of Present Illness Initial comments: This is a 46-year-old female who comes to the emergency department from a longterm. According to the staff she has a history of seizures PTSD and depression. According to staff she also is normally alert and oriented 2. Staff believes that her mental status is been altered over the last couple of months but more recently over the last 2 weeks is gotten significantly worse. She insists that she just got out of the hospital a few days ago even though that is not true and she is calling people by the wrong name in the longterm. Patient also is noticing things that aren't there such as a cat on her bed which was just a couple of pillows. Patient has had no recent fever or chills she's not complaining of any pain there is no headache there is no chest pain there's no abdominal pain. Patient did have one episode of vomiting last week about one week ago but there has been no diarrhea. There's been no recent falls. The patient had a recent head CT and it was read as normal per the staff I will check into this. (Aris Craven) - Related Data Home Medications Medication Instructions Recorded Confirmed Folic Acid 1 mg PO DAILY@79902/10/15 03/26/17 Omeprazole [PriLOSEC] 20 mg PO DAILY@79902/10/15 03/26/17 OXcarbazepine [Trileptal] 300 mg PO BID@799,199909/09/15 03/26/17 Cholecalciferol [Vitamin D3] 2,000 unit PO HS@199906/30/16 03/26/17 Divalproex [Depakote] 750 mg PO BID@799,199909/13/16 03/26/17 Loratadine [Claritin] 10 mg PO DAILY@79909/13/16 03/26/17 fluvoxaMINE MALEATE [Luvox] 100 mg PO BID@799,199909/13/16 03/26/17 ARIPiprazole [Abilify] 5 mg PO DAILY@0811/21/16 03/26/17 Benztropine Mesylate [Cogentin] 0.5 mg PO DAILY 11/21/16 03/26/17 Acetaminophen Tab [Tylenol Tab] 650 mg PO Q4H PRN 03/26/17 03/26/17 Levothyroxine Sodium [Synthroid] 112 mcg PO DAILY@0803/26/17 03/26/17 Loperamide [Imodium] 2 mg PO QID PRN 03/26/17 03/26/17 Magnesium Hydroxide [Milk of 2,400 mg PO Q6H PRN 03/26/17 03/26/17 Magnesia] Polyethylene Glycol 3350 [Miralax] 17 gm PO DAILY 03/26/17 03/26/17 Sennosides-Docusate Sodium 2 tab PO DAILY PRN 03/26/17 03/26/17 [Senokot-S] Topiramate [Topamax] 50 mg PO BID 03/26/17 03/26/17 Allergies Allergy/AdvReac Type Severity Reaction Status Date / Time Barbiturates Allergy Unknown Verified 03/26/17 17:39 carbamazepine [From Tegretol] Allergy Unknown Verified 03/26/17 17:39 clindamycin palmitate HCl Allergy Unknown Verified 03/26/17 17:39 [From Cleocin] clindamycin phosphate Allergy Unknown Verified 03/26/17 17:39 [From Cleocin] Penicillins Allergy Unknown Verified 03/26/17 17:39 phenobarbital Allergy Unknown Verified 03/26/17 17:39 phenytoin [From Dilantin] Allergy Unknown Verified 03/26/17 17:39 primidone [From Mysoline] Allergy Unknown Verified 03/26/17 17:39 Review of Systems ROS Other: All systems not noted in ROS Statement are negative. <Aris Craven - Last Filed: 03/26/17 20:03> ROS Other: All systems not noted in ROS Statement are negative. <Gabriel De Jesus - Last Filed: 03/26/17 23:16> ROS Statement: Those systems with pertinent positive or pertinent negative responses have been documented in the HPI. Past Medical History Past Medical History: GERD/Reflux, Osteoarthritis (OA), Pneumonia, Seizure Disorder, Thyroid Disorder Additional Past Medical History / Comment(s): Pt is developmentally challenged and has a legal guardian-Jayda Aguirre. Per dictation, DANNA Montelongo states pt is to be a full code. She states to use medical history from pt's last admission. TREMORS FROM MEDS, hypothyroid, falls, head injury r/t fall, sinusitis. PARKINSONS, OCCASIONAL DIZZY SPELLS, PAST RIGHT LEG CELLULITIS, AND DARKENED PIGMENTATION RIGHT LEG. History of Any Multi-Drug Resistant Organisms: None Reported Past Surgical History: No Surgical Hx Reported Past Anesthesia/Blood Transfusion Reactions: No Reported Reaction Additional Past Anesthesia/Blood Transfusion Reaction / Comment(s): NEVER HAD AA Past Psychological History: Anxiety, Depression, PTSD Smoking Status: Never smoker Past Alcohol Use History: None Reported Past Drug Use History: None Reported - Past Family History Father Additional Family Medical History / Comment(s): WAS A DRINKER FROM CIRRHOSIS Mother Family Medical History: Cancer Additional Family Medical History / Comment(s): BREAST-mother is living. <Aris Craven - Last Filed: 03/26/17 20:03> General Exam Limitations: altered mental status <Aris Craven - Last Filed: 03/26/17 20:03> <Gabriel De Jesus - Last Filed: 03/26/17 23:16> - General Exam Comments Initial Comments: GENERAL: Patient is well-developed and well-nourished. Patient is nontoxic and well- hydrated and is in no acute distress. ENT: Neck is soft and supple. No significant lymphadenopathy is noted. Oropharynx is clear. Moist mucous membranes. Neck has full range of motion without eliciting any pain. EYES: The sclera were anicteric and conjunctiva were pink and moist. Extraocular movements were intact and pupils were equal round and reactive to light. Eyelids were unremarkable. PULMONARY: Unlabored respirations. Good breath sounds bilaterally. No audible rales rhonchi or wheezing was noted. CARDIOVASCULAR: There is a regular rate and rhythm without any murmurs gallops or rubs. ABDOMEN: Soft and nontender with normal bowel sounds. No palpable organomegaly was noted. There is no palpable pulsatile mass. SKIN: Skin is clear with no lesions or rashes and otherwise unremarkable. NEUROLOGIC: Patient is alert and oriented 2. Cranial nerves II through XII are grossly intact. Motor and sensory are also intact. Normal speech, volume and content. Symmetrical smile. MUSCULOSKELETAL: Normal extremities with adequate strength and full range of motion. LYMPHATICS: No significant lymphadenopathy is noted PSYCHIATRIC: Patient denies any suicidal homicidal ideations (Aris Craven) Medical Decision Making - Lab Data Result diagrams: 03/26/17 16:55 03/26/17 16:55 <Aris Craven - Last Filed: 03/26/17 20:03> - Lab Data Result diagrams: 03/26/17 16:55 03/26/17 16:55 <Gabriel De Jesus - Last Filed: 03/26/17 23:16> - Medical Decision Making EKG shows normal sinus rhythm at 73 bpm MS interval is on a 34 QRS is 70 QT interval 370 QTC is 407. Patient's EKG shows no ST segment elevation or depression no T-wave abnormalities are noted. Dr. Roach will be taking over the care of this patient at 9 PM (Aris Craven) Receive this patient as a sign out, with the understanding that the patient would be seen by behavioral health and disposition per their discretion as to whether patient would require admission or continuing outpatient care. I did receive a call from behavioral health and they will have the patient seeing psychiatry as an outpatient. (Gabriel De Jesus) - Lab Data Lab Results 03/26/17 03/26/17 03/26/17 Range/Units 16:47 16:55 16:55 WBC 6.8 (3.8-10.6) k/uL RBC 4.17 (3.80-5.40) m/uL Hgb 13.5 (11.4-16.0) gm/dL Hct 39.5 (34.0-46.0) % MCV 94.8 (80.0-100.0) fL MCH 32.4 (25.0-35.0) pg MCHC 34.2 (31.0-37.0) g/dL RDW 13.9 (11.5-15.5) % Plt Count 140 L (150-450) k/uL Neutrophils % 46 % Lymphocytes % 45 % Monocytes % 6 % Eosinophils % 1 % Basophils % 1 % Neutrophils # 3.1 (1.3-7.7) k/uL Lymphocytes # 3.1 (1.0-4.8) k/uL Monocytes # 0.4 (0-1.0) k/uL Eosinophils # 0.1 (0-0.7) k/uL Basophils # 0.0 (0-0.2) k/uL PT (9.0-12.0) sec INR (<1.2) APTT (22.0-30.0) sec Sodium (137-145) mmol/L Potassium (3.5-5.1) mmol/L Chloride (98-107) mmol/L Carbon Dioxide (22-30) mmol/L Anion Gap mmol/L BUN (7-17) mg/dL Creatinine (0.52-1.04) mg/dL Est GFR (MDRD) Af Amer (>60 ml/min/1.73 sqM) Est GFR (MDRD) Non-Af (>60 ml/min/1.73 sqM) Glucose (74-99) mg/dL POC Glucose (mg/dL) 93 (75-99) mg/dL POC Glu Business Banking Officer ID Roxana Wren Calcium (8.4-10.2) mg/dL Total Bilirubin (0.2-1.3) mg/dL AST (14-36) U/L ALT (9-52) U/L Alkaline Phosphatase (38-126) U/L Total Creatine Kinase 29 L (30-135) U/L CK-MB (CK-2) 0.2 (0.0-2.4) ng/mL CK-MB (CK-2) Rel Index 0.7 Troponin I <0.012 (0.000-0.034) ng/mL Total Protein (6.3-8.2) g/dL Albumin (3.5-5.0) g/dL Urine Color Urine Appearance (Clear) Urine pH (5.0-8.0) Ur Specific [place] (1.001-1.035) Urine Protein (Negative) Urine Glucose (UA) (Negative) Urine Ketones (Negative) Urine Blood (Negative) Urine Nitrite (Negative) Urine Bilirubin (Negative) Urine Urobilinogen (<2.0) mg/dL Ur Leukocyte Esterase (Negative) Urine Opiates Screen (NotDetected) Ur Oxycodone Screen (NotDetected) Urine Methadone Screen (NotDetected) Ur Propoxyphene Screen (NotDetected) Ur Barbiturates Screen (NotDetected) Valproic Acid ug/mL U Tricyclic Antidepress (NotDetected) Ur Phencyclidine Scrn (NotDetected) Ur Amphetamines Screen (NotDetected) U Methamphetamines Scrn (NotDetected) U Benzodiazepines Scrn (NotDetected) Urine Cocaine Screen (NotDetected) U Marijuana (THC) Screen (NotDetected) Serum Alcohol mg/dL 03/26/17 03/26/17 03/26/17 Range/Units 16:55 16:55 17:07 WBC (3.8-10.6) k/uL RBC (3.80-5.40) m/uL Hgb (11.4-16.0) gm/dL Hct (34.0-46.0) % MCV (80.0-100.0) fL MCH (25.0-35.0) pg MCHC (31.0-37.0) g/dL RDW (11.5-15.5) % Plt Count (150-450) k/uL Neutrophils % % Lymphocytes % % Monocytes % % Eosinophils % % Basophils % % Neutrophils # (1.3-7.7) k/uL Lymphocytes # (1.0-4.8) k/uL Monocytes # (0-1.0) k/uL Eosinophils # (0-0.7) k/uL Basophils # (0-0.2) k/uL PT 11.1 (9.0-12.0) sec INR 1.1 (<1.2) APTT 25.0 (22.0-30.0) sec Sodium 132 L (137-145) mmol/L Potassium 4.4 (3.5-5.1) mmol/L Chloride 101 (98-107) mmol/L Carbon Dioxide 20 L (22-30) mmol/L Anion Gap 11 mmol/L BUN 18 H (7-17) mg/dL Creatinine 0.80 (0.52-1.04) mg/dL Est GFR (MDRD) Af Amer >60 (>60 ml/min/1.73 sqM) Est GFR (MDRD) Non-Af >60 (>60 ml/min/1.73 sqM) Glucose 89 (74-99) mg/dL POC Glucose (mg/dL) (75-99) mg/dL POC Glu Business Banking Officer ID Calcium 9.5 (8.4-10.2) mg/dL Total Bilirubin 0.2 (0.2-1.3) mg/dL AST 14 (14-36) U/L ALT 18 (9-52) U/L Alkaline Phosphatase 42 (38-126) U/L Total Creatine Kinase (30-135) U/L CK-MB (CK-2) (0.0-2.4) ng/mL CK-MB (CK-2) Rel Index Troponin I (0.000-0.034) ng/mL Total Protein 6.1 L (6.3-8.2) g/dL Albumin 3.7 (3.5-5.0) g/dL Urine Color Yellow Urine Appearance Clear (Clear) Urine pH 7.0 (5.0-8.0) Ur Specific [place] 1.011 (1.001-1.035) Urine Protein Negative (Negative) Urine Glucose (UA) Negative (Negative) Urine Ketones Negative (Negative) Urine Blood Negative (Negative) Urine Nitrite Negative (Negative) Urine Bilirubin Negative (Negative) Urine Urobilinogen <2.0 (<2.0) mg/dL Ur Leukocyte Esterase Negative (Negative) Urine Opiates Screen Not Detected (NotDetected) Ur Oxycodone Screen Not Detected (NotDetected) Urine Methadone Screen Not Detected (NotDetected) Ur Propoxyphene Screen Not Detected (NotDetected) Ur Barbiturates Screen Not Detected (NotDetected) Valproic Acid 103.8 H* ug/mL U Tricyclic Antidepress Not Detected (NotDetected) Ur Phencyclidine Scrn Not Detected (NotDetected) Ur Amphetamines Screen Not Detected (NotDetected) U Methamphetamines Scrn Not Detected (NotDetected) U Benzodiazepines Scrn Not Detected (NotDetected) Urine Cocaine Screen Not Detected (NotDetected) U Marijuana (THC) Screen Not Detected (NotDetected) Serum Alcohol mg/dL 03/26/17 Range/Units 20:50 WBC (3.8-10.6) k/uL RBC (3.80-5.40) m/uL Hgb (11.4-16.0) gm/dL Hct (34.0-46.0) % MCV (80.0-100.0) fL MCH (25.0-35.0) pg MCHC (31.0-37.0) g/dL RDW (11.5-15.5) % Plt Count (150-450) k/uL Neutrophils % % Lymphocytes % % Monocytes % % Eosinophils % % Basophils % % Neutrophils # (1.3-7.7) k/uL Lymphocytes # (1.0-4.8) k/uL Monocytes # (0-1.0) k/uL Eosinophils # (0-0.7) k/uL Basophils # (0-0.2) k/uL PT (9.0-12.0) sec INR (<1.2) APTT (22.0-30.0) sec Sodium (137-145) mmol/L Potassium (3.5-5.1) mmol/L Chloride (98-107) mmol/L Carbon Dioxide (22-30) mmol/L Anion Gap mmol/L BUN (7-17) mg/dL Creatinine (0.52-1.04) mg/dL Est GFR (MDRD) Af Amer (>60 ml/min/1.73 sqM) Est GFR (MDRD) Non-Af (>60 ml/min/1.73 sqM) Glucose (74-99) mg/dL POC Glucose (mg/dL) (75-99) mg/dL POC Glu Business Banking Officer ID Calcium (8.4-10.2) mg/dL Total Bilirubin (0.2-1.3) mg/dL AST (14-36) U/L ALT (9-52) U/L Alkaline Phosphatase (38-126) U/L Total Creatine Kinase (30-135) U/L CK-MB (CK-2) (0.0-2.4) ng/mL CK-MB (CK-2) Rel Index Troponin I (0.000-0.034) ng/mL Total Protein (6.3-8.2) g/dL Albumin (3.5-5.0) g/dL Urine Color Urine Appearance (Clear) Urine pH (5.0-8.0) Ur Specific [place] (1.001-1.035) Urine Protein (Negative) Urine Glucose (UA) (Negative) Urine Ketones (Negative) Urine Blood (Negative) Urine Nitrite (Negative) Urine Bilirubin (Negative) Urine Urobilinogen (<2.0) mg/dL Ur Leukocyte Esterase (Negative) Urine Opiates Screen (NotDetected) Ur Oxycodone Screen (NotDetected) Urine Methadone Screen (NotDetected) Ur Propoxyphene Screen (NotDetected) Ur Barbiturates Screen (NotDetected) Valproic Acid ug/mL U Tricyclic Antidepress (NotDetected) Ur Phencyclidine Scrn (NotDetected) Ur Amphetamines Screen (NotDetected) U Methamphetamines Scrn (NotDetected) U Benzodiazepines Scrn (NotDetected) Urine Cocaine Screen (NotDetected) U Marijuana (THC) Screen (NotDetected) Serum Alcohol <10 mg/dL Disposition <Aris Craven - Last Filed: 03/26/17 20:03> <Gabriel De Jesus - Last Filed: 03/26/17 23:16> Clinical Impression: Altered mental status Disposition: HOME SELF-CARE Condition: Fair Instructions: Altered Mental Status (ED) Referrals: Nick Smith MD [Primary Care Provider] - 1-2 days Rosy Wayne MD [STAFF PHYSICIAN] - 1-2 days
[2017-03-26 17:15] LABS: Basophils % (A) 1 %; CH 32.5; CHCM 34.4; Eosinophils # (A) 0.1 k/uL (0-0.7); Eosinophils % (A) 1 %; HCT 39.5 % (34.0-46.0); HDW 2.53; HGB 13.5 gm/dL (11.4-16.0); Luc # (Auto) 0.14; Luc % (Auto) 2; Lymphocytes # (A) 3.1 k/uL (1.0-4.8); Lymphocytes % (A) 45 %; MCH 32.4 pg (25.0-35.0); MCHC 34.2 g/dL (31.0-37.0); MCV 94.8 fL (80.0-100.0); Mean Platelet Volume 7.1; Monocytes # (A) 0.4 k/uL (0-1.0); Monocytes % (A) 6 %; Neutrophils # (A) 3.1 k/uL (1.3-7.7); Neutrophils % (A) 46 %; RBC 4.17 m/uL (3.80-5.40); RDW 13.9 % (11.5-15.5); WBC 6.8 k/uL (3.8-10.6); WBC (Perox) 7.12
[2017-03-26 17:17] LABS: Appearance,Urine Clear (Clear); Bilirubin,Urine Negative (Negative); Glucose,Urine (UA) Negative (Negative); Ketones,Urine Negative (Negative); Leukocyte Esterase,Urine Negative (Negative); Nitrite,Urine Negative (Negative); Protein,Urine Negative (Negative); Specific Gravity,Urine 1.011 (1.001-1.035); UA Billing (MACRO vs. MICRO) CHEM; Urobilinogen,Urine <2.0 mg/dL (<2.0)
[2017-03-26 17:34] LABS: ALT 18 U/L (9-52); AST 14 U/L (14-36); Alkaline Phosphatase 42 U/L (38-126); Anion Gap 11 mmol/L; Blood Urea Nitrogen 18 mg/dL (7-17); Calcium 9.5 mg/dL (8.4-10.2); Carbon Dioxide 20 mmol/L (22-30); Chloride 101 mmol/L (98-107); Glucose 89 mg/dL (74-99); INR 1.1 (<1.2); Non-African American GFR(MDRD) >60 (>60 ml/min/1.73 sqM); Potassium 4.4 mmol/L (3.5-5.1); Prothrombin Time 11.1 sec (9.0-12.0); Sodium 132 mmol/L (137-145); Total Bilirubin 0.2 mg/dL (0.2-1.3); Total Protein 6.1 g/dL (6.3-8.2)
[2017-03-26 17:41] LABS: Creatine Kinase 29 U/L (30-135)
[2017-03-26 17:54] LABS: Creatine Kinase MB 0.2 ng/mL (0.0-2.4); Troponin I <0.012 ng/mL (0.000-0.034)
--- NOTE | 2017-03-26 18:17 | XR ---
EXAMINATION TYPE: XR chest 2V DATE OF EXAM: 03/26/2017 COMPARISON: 07/01/2016 HISTORY: Altered mental status TECHNIQUE: Frontal and lateral views of the chest are obtained. FINDINGS: Heart and mediastinum are normal. Lungs are clear. Diaphragm is normal. Bony thorax is int act. There is small linear density over the heart on the lateral view that is probably in the right m iddle lobe. IMPRESSION: Minimal right middle lobe subsegmental atelectasis is probably new compared to old exam. Normal heart..
[2017-03-26 19:15] VITALS: RESP 18
--- NOTE | 2017-03-26 19:38 | CT ---
EXAMINATION TYPE: CT brain wo con DATE OF EXAM: 03/26/2017 COMPARISON: 09/13/2016 HISTORY: Altered mental status. Seizure. CT DLP: 930.3 mGycm. Automated Exposure Control for Dose Reduction was Utilized. TECHNIQUE: CT scan of the head is performed without contrast. FINDINGS: There is cerebral cortical atrophy. There is no mass effect nor midline shift. There is n o sign of intracranial hemorrhage. The calvarium is intact. IMPRESSION: Cerebral atrophy. No acute intracranial abnormality. No change..
[2017-03-26] MEDS ORDERED: DIVALPROEX 500 MG TABLET.DR PO STA (21:59)
[2017-03-26] MEDS ORDERED: OXcarbazepine 300 MG TAB PO STA (22:08)
[2017-03-26] MEDS ORDERED: DIVALPROEX 250 MG TABLET.DR PO STA (22:09)
[2017-03-26] MEDS ORDERED: TOPIRAMATE 25 MG TAB PO STA (22:09)
[2017-03-26 22:31] VITALS: BP 122/57; PULSE 65; TEMP 98.1
[2017-03-27] MEDS ORDERED: TOPIRAMATE 25 MG TAB PO SCH (09:00)
[2017-03-27] MEDS ORDERED: OXcarbazepine 300 MG TAB PO SCH (09:00)
== END 2017-03-26 23:20 | disposition home or self-care (01) ==
LOC: EC 16:00
DX: R41.82 Altered mental status, unspecified (principal); F43.10 Post-traumatic stress disorder, unspecified; F32.9 Major depressive disorder, single episode, unspecified; K21.9 Gastro-esophageal reflux disease without esophagitis; M19.90 Unspecified osteoarthritis, unspecified site; E07.9 Disorder of thyroid, unspecified; G40.909 Epilepsy, unspecified, not intractable, without status epilepticus; F41.9 Anxiety disorder, unspecified; Z88.0 Allergy status to penicillin; Z88.1 Allergy status to other antibiotic agents; Z88.8 Allergy status to other drugs, medicaments and biological substances; Z79.899 Other long term (current) drug therapy
CPT/HCPCS: 36415; 70450; 71020; 80053; 80164; 80306; 80320; 81003; 82550; 82553; 84484; 85025; 85610; 85730; 93005; 99285

== ENCOUNTER → 2017-03-31 | Outpatient (CLI) | payer MEDICARE, OTHER ==
--- NOTE | 2017-03-31 07:48 | MR ---
EXAMINATION TYPE: MR brain wo con DATE OF EXAM: 03/31/2017 COMPARISON: CT brain dated 03/26/2017 HISTORY: partial epilepsy, memory loss TECHNIQUE: Multiplanar, multisequence images of the brain and brainstem is performed without intravenous contras t. FINDINGS: Diffusion weighted images demonstrate no evidence of a recent infarct or other diffusion ab normality. There is no extra-axial fluid collection. Mild periventricular white matter changes seen near the atria of the lateral ventricles. No vasogenic or cytotoxic edema. Cerebellopontine angles an d mesial temporal lobes appear symmetric.. The ventricular system and cisternal spaces are symmetric ally prominent with corresponding thinning of the corpus callosum all compatible with mild atrophy. Midline structures demonstrate normal morphology. The craniocervical junction appears within normal limits. The globes are intact. Small amount of mucosal thickening is seen within the maxillary sinuse s and ethmoid sinuses. Frontal and sphenoid sinuses are well aerated. Scant amount of fluid is presen t within the mastoid air cells. IMPRESSION: 1. No evidence of acute territorial infarct, midline shift or mass effect. 2. Mild cerebral atrophy and minimal periventricular nonspecific white matter change. 3. Mild paranasal sinus disease and minimal fluid within the mastoid air cells that should be correla judy clinically for mastoiditis. 4. Unremarkable cerebellopontine angles are mesial temporal lobes.
== END ==
LOC: RADMRIMAIN 05:56
PROVIDERS: ATTEND Psychiatry & Neurology Neurology
DX: G31.9 Degenerative disease of nervous system, unspecified (principal); R90.89 Other abnormal findings on diagnostic imaging of central nervous system
CPT/HCPCS: 70551

== ENCOUNTER → 2017-04-03 | Outpatient (CLI) | payer MEDICARE, OTHER ==
--- NOTE | 2017-04-06 11:29 | MM ---
Reason for exam: screening (asymptomatic). Last mammogram was performed 5 years and 6 months ago. History: Patient is nulliparous. Taking hormonal contraceptives. Physical Findings: A clinical breast exam by your physician is recommended on an annual basis and results should be correlated with mammographic findings. MG Screening Mammo w CAD Bilateral CC and MLO view(s) were taken. Prior study comparison: September 18, 2011, bilateral digital screening mammo w/CAD. January 04, 2007, bilateral screening mammogram w/CAD. The breast tissue is heterogeneously dense. This may lower the sensitivity of mammography. Finding: There are typically benign round calcifications in the left breast. There is no discrete abnormality. ASSESSMENT: Benign, BI-RAD 2 RECOMMENDATION: Routine screening mammogram of both breasts in 1 year.
== END | disposition home or self-care (01) ==
LOC: RADMAMWWP 13:11
PROVIDERS: ATTEND General Practice
DX: Z12.31 Encounter for screening mammogram for malignant neoplasm of breast (principal); E03.9 Hypothyroidism, unspecified; F43.21 Adjustment disorder with depressed mood; F70 Mild intellectual disabilities; G40.909 Epilepsy, unspecified, not intractable, without status epilepticus; J30.2 Other seasonal allergic rhinitis; K21.9 Gastro-esophageal reflux disease without esophagitis; K59.00 Constipation, unspecified; H91.93 Unspecified hearing loss, bilateral; E66.9 Obesity, unspecified

== ENCOUNTER → 2017-09-02 | Outpatient (CLI) | payer MEDICARE, OTHER ==
[2017-09-02 08:11] LABS: HCT 38.2 % (34.0-46.0); MCH 31.4 pg (25.0-35.0); MCHC 33.9 g/dL (31.0-37.0); MCV 92.5 fL (80.0-100.0); Mean Platelet Volume 7.5; Platelet Count 167 k/uL (150-450); RBC 4.13 m/uL (3.80-5.40); RDW 13.9 % (11.5-15.5); WBC 6.6 k/uL (3.8-10.6)
[2017-09-02 08:55] LABS: Anisocytosis (M) Present; Lymphocytes # (M) 4.16 k/uL (1.0-4.8); Myelocytes # (M) 0.07 k/uL (0); Myelocytes % 1 %; Neutrophils # (M) 2.11 k/uL (1.3-7.7); Neutrophils % (M) 32 %; Nucleated Red Blood Cells 0 /100 WBC (0-0); Poikilocytosis (M) Present; Total Cells Counted 200
[2017-09-02 11:20] LABS: Valproic Acid (Depakene) 80.1 ug/mL
== END | disposition home or self-care (01) ==
LOC: LABWHC1 07:23
PROVIDERS: ATTEND Psychiatry & Neurology Neurology
DX: G40.209 Localization-related (focal) (partial) symptomatic epilepsy and epileptic syndromes with complex partial seizures, not intractable, without status epilepticus (principal)
CPT/HCPCS: 36415; 80164; 80183; 80201; 84295; 84450; 84460; 85025

== ENCOUNTER → 2018-03-11 | Outpatient (CLI) | payer MEDICARE, OTHER ==
--- NOTE | 2018-03-11 13:59 | XR ---
Thoracic spine HISTORY: Neck and back pain, unsteady gait, unspecified fall 3 views of the thoracic spine Thoracic vertebral bodies show preserved height and alignment, bone mineralization. There is multilev el spondylosis. Disc spaces are maintained. Some distortion of the posterior left second and third ri bs on the left may represent remote fracture with healing, bone scan could be performed for better ev aluation as indicated. IMPRESSION: No acute fracture or subluxation in the thoracic spine. Suspect old second rib fracture o n the left, possible posterior third rib fracture.
--- NOTE | 2018-03-11 14:03 | XR ---
Cervical spine HISTORY: Neck and back pain 5 views of the cervical spine, correlation thoracic spine same date Posterior left second rib shows irregularity suggestive of fracture possibly with healing. Posterior third rib shows fracture of indeterminate acuity. There is no significant foraminal encroachment on o blique views. Minimal retrolisthesis grade 1 C3-4. Prevertebral soft tissues are normal. Disc heights are maintained. C7-T1 is included on thoracic spine same date. IMPRESSION: Correlate for point tenderness posterior third rib on the left. Minimal listhesis may be physiologic. Follow-up as indicated.
== END | disposition home or self-care (01) ==
LOC: RADXRMAIN 10:46
PROVIDERS: ATTEND Internal Medicine
DX: M54.9 Dorsalgia, unspecified (principal)
CPT/HCPCS: 72050; 72072

== ENCOUNTER → 2018-04-12 | Outpatient (CLI) | payer MEDICARE, OTHER ==
--- NOTE | 2018-04-12 13:35 | MR ---
EXAMINATION TYPE: MR brain wo/w con DATE OF EXAM: 04/12/2018 COMPARISON: MR brain 03/31/2017 HISTORY: partial epilepsy w/impairment of consciousness TECHNIQUE: Multiplanar, multisequence images of the brain and brainstem is performed without and with IV contras t, utilizing 9 mL intravenous Gadavist . FINDINGS: Diffusion weighted images demonstrate no evidence of a recent infarct or other diffusion ab normality. There is no extra-axial fluid collection or significant white matter signal abnormality, brain signal is stable. The ventricular system and cisternal spaces are normal in size and appearanc e. The brain volume is stable, there is some cortical atrophy, cerebellar atrophy could be due to ch ronic Dilantin therapy. Midline structures demonstrate similar morphology, corpus callosum is somewhat thinned as on prior. The craniocervical junction appears within normal limits. Post contrast images demonstrate no abnorm al enhancement. The dural venous sinuses appear patent. The visualized sinuses are remarkable for min imal mucosal disease in the ethmoid air cells, inflammatory change present within the mastoid air leigh ls right greater than left similar to prior exam, and the globes are intact. IMPRESSION: Essentially stable findings. Correlate for possible chronic Dilantin therapy, there is co rtical atrophy, cerebellar atrophy present.
== END | disposition home or self-care (01) ==
LOC: RADMRIMAIN 12:22
PROVIDERS: ATTEND Psychiatry & Neurology Neurology
DX: G31.9 Degenerative disease of nervous system, unspecified (principal); G40.209 Localization-related (focal) (partial) symptomatic epilepsy and epileptic syndromes with complex partial seizures, not intractable, without status epilepticus
CPT/HCPCS: 70553; A9581

== ENCOUNTER → 2018-04-26 | Outpatient (CLI) | payer MEDICARE, OTHER ==
--- NOTE | 2018-04-26 12:14 | US ---
EXAMINATION TYPE: US abdomen complete DATE OF EXAM: 04/26/2018 COMPARISON: NONE CLINICAL HISTORY: D69.6 Thrombocytopenia unspecified. EXAM MEASUREMENTS: Liver Length: 17.0 cm Gallbladder Wall: 0.2 cm CBD: 0.3 cm Spleen: 10.2x 11.3 x 3.2 cm Right Kidney: 10.5 x 6.3 x 4.2 cm Left Kidney: 10.3 x 4.8 x 5.3 cm Pancreas: hyperechoic and tail obscured by overlying bowel gas Liver: no masses seen Gallbladder: wnl; Phrygian Cap is noted Evidence for sonographic Brizuela's sign: no CBD: wnl Spleen: wnl Right Kidney: prominent renal pelvis is noted at 1.1cm A/P and is post void Left Kidney: wnl Upper IVC: wnl Abd Aorta: size is wnl; common iliac bifurcation is gassed out IMPRESSION: 1. Mild prominence of the right renal pelvis on post micturition images.
== END | disposition home or self-care (01) ==
LOC: RADUSWWP 10:48
PROVIDERS: ATTEND Internal Medicine Hematology & Oncology
DX: D69.6 Thrombocytopenia, unspecified (principal); Z88.1 Allergy status to other antibiotic agents; Z88.8 Allergy status to other drugs, medicaments and biological substances
CPT/HCPCS: 76700

== ENCOUNTER 2021-05-29 18:14 | Observation (INO) | payer MEDICARE, OTHER ==
[2021-05-29] MEDS ORDERED: SODIUM CHLORIDE 0.9% 1,000 ML IV ONE (19:06)
[2021-05-29] MEDS ORDERED: ONDANSETRON 4 MG/2 ML VIAL IVP STA (19:08)
[2021-05-29 19:36] LABS: ALT 12 U/L (4-34); AST 56 U/L (14-36); African American GFR (CKD) 63 (>60 ml/min/1.73 sqM); Albumin 4.6 g/dL (3.5-5.0); Alcohol <10 mg/dL; Alkaline Phosphatase 41 U/L (38-126); Anion Gap 12 mmol/L; Blood Urea Nitrogen 18 mg/dL (7-17); Calcium 10.3 mg/dL (8.4-10.2); Carbon Dioxide 28 mmol/L (22-30); Chloride 90 mmol/L (98-107); Glucose 109 mg/dL (74-99); Non-African American GFR(CKD) 55 (>60 ml/min/1.73 sqM); Sodium 130 mmol/L (137-145); Total Bilirubin 1.3 mg/dL (0.2-1.3); Total Protein 7.8 g/dL (6.3-8.2)
[2021-05-29 19:38] LABS: Potassium 3.9 mmol/L (3.5-5.1)
[2021-05-29 21:06] LABS: Glucose,Whole Blood 119 mg/dL (75-99)
[2021-05-29 21:07] LABS: Lactic Acid, Venous 1.2 mmol/L (0.7-2.0)
[2021-05-29 21:07] LABS: Appearance,Urine Clear (Clear); Bilirubin,Urine Negative (Negative); Blood,Urine Negative (Negative); Color,Urine Yellow; Glucose,Urine (UA) Negative (Negative); Ketones,Urine Negative (Negative); Leukocyte Esterase,Urine Negative (Negative); Nitrite,Urine Negative (Negative); Protein,Urine Negative (Negative); Specific Gravity,Urine 1.012 (1.001-1.035); Urobilinogen,Urine <2.0 mg/dL (<2.0)
[2021-05-29 21:19] LABS: Amphetamine Screen,Urine Not Detected (NotDetected); Barbiturate Screen,Urine Not Detected (NotDetected); Benzodiazepines Screen,Urine Not Detected (NotDetected); Cocaine Screen,Urine Not Detected (NotDetected); Methadone Screen, Urine Not Detected (NotDetected); Opiate Screen,Urine Not Detected (NotDetected); Oxycodone Screen, Urine Not Detected (NotDetected); Phencyclidine Screen,Urine Not Detected (NotDetected); Tricyclic Antidepressant,Urine Not Detected (NotDetected); Urn Cannabinoid Scrn Not Detected (NotDetected)
--- NOTE | 2021-05-29 21:35 | XR ---
EXAMINATION TYPE: XR chest 2V DATE OF EXAM: 05/29/2021 COMPARISON: 03/26/2017 HISTORY: Altered mental status TECHNIQUE: FINDINGS: There is no heart failure nor confluent pneumonic infiltrate. There is some mild linear den sity in the lingula left upper lobe. Heart size is normal. There is no pleural effusion. IMPRESSION: Minimal subsegmental atelectasis lingula left upper lobe appears new compared to old exam .
--- NOTE | 2021-05-29 21:38 | CT ---
EXAMINATION TYPE: CT brain wo con DATE OF EXAM: 05/29/2021 COMPARISON: None HISTORY: Behavioral changes CT DLP: 1182.4 mGycm Automated exposure control for dose reduction was used. There is some cerebral cortical atrophy. There is no mass effect nor midline shift. There is no sign of intracranial hemorrhage. Calvarium is intact. There is normal aeration of the mastoid sinuses. Sku ll base is intact. IMPRESSION: Cerebral atrophy. No acute intracranial abnormality. No change.
[2021-05-29 21:56] LABS: Basophils % (A) 0 %; Eosinophils % (A) 0 %; Lymphocytes # (A) 2.9 k/uL (1.0-4.8); Lymphocytes % (A) 30 %; MCH 32.6 pg (25.0-35.0); MCHC 35.2 g/dL (31.0-37.0); MCV 92.4 fL (80.0-100.0); Mean Platelet Volume 8.6; Monocytes # (A) 0.6 k/uL (0-1.0); Monocytes % (A) 6 %; Neutrophils # (A) 5.9 k/uL (1.3-7.7); Neutrophils % (A) 61 %; Platelet Count 274 k/uL (150-450); RDW 14.5 % (11.5-15.5); WBC 9.6 k/uL (3.8-10.6)
[2021-05-29 22:16] LABS: INR 0.9 (<1.2); Prothrombin Time 9.9 sec (9.0-12.0)
[2021-05-29 22:21] LABS: Partial Thromboplastin Time 20.2 sec (22.0-30.0)
--- NOTE | 2021-05-29 22:35 | ED ---
General Adult HPI - General Chief complaint: Altered Mental Status Stated complaint: behavioral changes Time Seen by Provider: 05/29/21 18:43 Source: EMS, RN notes reviewed, old records reviewed Mode of arrival: EMS Limitations: altered mental status - History of Present Illness Initial comments: Patient is a 50-year-old female with past medical history remarkable for seizure disorder, pseudoseizure disorder, developmental delay who presents from [facility] home over concern for possible mental status. Patient was apparently throwing up in her hands at the facility as well as had an episode of incontinence. She does have a history UTIs and he became concerned that she may have one and therefore sent her to the emergency department for evaluation. Patient is a limited historian secondary to her prior medical history. She has no acute complaints at this time though. She is interactive with staff at this time.Per EMS, patient is at her baseline mental status. She is alert and responds in short phrases or 1 words. - Related Data Home Medications Medication Instructions Recorded Confirmed Folic Acid 1 mg PO DAILY 02/10/15 05/29/21 Loratadine [Claritin] 10 mg PO DAILY 09/13/16 05/29/21 fluvoxaMINE MALEATE [Luvox] 100 mg PO BID 09/13/16 05/29/21 ARIPiprazole [Abilify] 5 mg PO DAILY 11/21/16 05/29/21 Acetaminophen Tab [Tylenol Tab] 650 mg PO Q4H PRN 03/26/17 05/29/21 Levothyroxine Sodium [Synthroid] 112 mcg PO DAILY 03/26/17 05/29/21 Loperamide [Imodium] 2 mg PO QID PRN 03/26/17 05/29/21 Topiramate [Topamax] 50 mg PO BID 03/26/17 05/29/21 polyethylene glycoL 3350 [Miralax] 17 gm PO DAILY PRN 03/26/17 05/29/21 ARIPiprazole [Abilify] 20 mg PO DAILY 05/29/21 05/29/21 Albuterol Nebulized [Ventolin 2.5 mg INHALATION RT-Q4H PRN 05/29/21 05/29/21 Nebulized] Albuterol Sulfate [Ventolin HFA] 1 - 2 puff INHALATION RT-Q4H PRN 05/29/21 05/29/21 Atorvastatin [Lipitor] 10 mg PO HS 05/29/21 05/29/21 Benztropine Mesylate [Cogentin] 1 mg PO DAILY 05/29/21 05/29/21 Brivaracetam [Briviact] 25 mg PO BID 05/29/21 05/29/21 Cholecalciferol [Vitamin D3 (25 50 mcg PO HS 05/29/21 05/29/21 Mcg = 1000 Iu)] Divalproex Sodium [Depakote] 500 mg PO BID 05/29/21 05/29/21 Docusate [Colace] 100 mg PO BID 05/29/21 05/29/21 Eslicarbazepine Acetate [Aptiom] 600 mg PO HS 05/29/21 05/29/21 Famotidine 20 mg PO BID 05/29/21 05/29/21 Fenofibrate [Lofibra] 54 mg PO HS 05/29/21 05/29/21 Furosemide [Lasix] 40 mg PO DAILY 05/29/21 05/29/21 Ibuprofen [Motrin] 400 mg PO BID PRN 05/29/21 05/29/21 Meclizine HCl 25 mg PO BID PRN 05/29/21 05/29/21 Melatonin 5 mg PO HS PRN 05/29/21 05/29/21 Midodrine HCl [ProAmatine] 10 mg PO TID@0800,1200,1600 05/29/21 05/29/21 Montelukast [Singulair] 10 mg PO HS 05/29/21 05/29/21 Multivitamins, Thera [Multivitamin 1 tab PO HS 05/29/21 05/29/21 (formulary)] Pantoprazole Sodium 40 mg PO DAILY 05/29/21 05/29/21 Potassium Chloride ER [K-Dur 10] 10 meq PO DAILY 05/29/21 05/29/21 Selenium Sulfide 1% Shampoo 1 applic TOPICAL Q7D 05/29/21 05/29/21 calcium polycarbophiL [Fibercon] 625 mg PO DAILY 05/29/21 05/29/21 metOLazone [Zaroxolyn] 5 mg PO DAILY 05/29/21 05/29/21 Allergies Allergy/AdvReac Type Severity Reaction Status Date / Time Barbiturates Allergy Unknown Verified 05/29/21 21:51 carbamazepine [From Tegretol] Allergy Unknown Verified 05/29/21 21:51 clindamycin palmitate HCl Allergy Unknown Verified 05/29/21 21:51 [From Cleocin] clindamycin phosphate Allergy Unknown Verified 05/29/21 21:51 [From Cleocin] Penicillins Allergy Unknown Verified 05/29/21 21:51 phenobarbital Allergy Unknown Verified 05/29/21 21:51 phenytoin [From Dilantin] Allergy Unknown Verified 05/29/21 21:51 primidone [From Mysoline] Allergy Unknown Verified 05/29/21 21:51 Review of Systems ROS Statement: Those systems with pertinent positive or pertinent negative responses have been documented in the HPI. Difficult to obtain secondary to patient's critical status. Patient does have chronic developmental delay. She has no acute complaints that I can ascertain at this time. ROS Other: All systems not noted in ROS Statement are negative. Past Medical History Past Medical History: GERD/Reflux, Osteoarthritis (OA), Pneumonia, Seizure Disorder, Thyroid Disorder Additional Past Medical History / Comment(s): Pt is developmentally challenged and has a legal guardian-Jaydaher Aguirre. Per dictation, DANNA Montelongo states pt is to be a full code. She states to use medical history from pt's last admission. TREMORS FROM MEDS, hypothyroid, falls, head injury r/t fall, sinusitis. PARKINSONS, OCCASIONAL DIZZY SPELLS, PAST RIGHT LEG CELLULITIS, AND DARKENED PIGMENTATION RIGHT LEG. History of Any Multi-Drug Resistant Organisms: None Reported Past Surgical History: No Surgical Hx Reported Past Anesthesia/Blood Transfusion Reactions: No Reported Reaction Additional Past Anesthesia/Blood Transfusion Reaction / Comment(s): NEVER HAD AA Past Psychological History: Anxiety, Depression, PTSD Past Alcohol Use History: None Reported Past Drug Use History: None Reported - Past Family History Father Additional Family Medical History / Comment(s): WAS A DRINKER FROM CIRRHOSIS Mother Family Medical History: Cancer Additional Family Medical History / Comment(s): BREAST-mother is living. General Exam - General Exam Comments Initial Comments: General: Appears in no acute distress. HEAD: Normal with no signs of head trauma. EYES: PERRLA, EOMI, conjunctiva normal, no discharge. ENT: Hearing grossly intact, normal oropharynx. RESPIRATORY: Clear breath sounds bilaterally. No wheezes, rales, or rhonchi. C/V: Regular rate and rhythm. S1 and S2 auscultated, no edema, peripheral pulses 2+ and intact throughout ABD: Abd is soft, nontender, nondistended EXT: Normal range of motion, no obvious deformity SKIN: No rashes or lesions observed on exposed skin. NEURO: Alert. Acting appropriately with staff. Cooperative. Moving all extremities. No obvious deficits. Appears to be at baseline per EMS. Limitations: altered mental status Course Vital Signs 05/29/21 18:29 Temperature 97.7 F Pulse Rate 85 Respiratory 18 Rate Blood Pressure 109/73 O2 Sat by Pulse 99 Oximetry Medical Decision Making - Medical Decision Making Based on the patient's presentation and physical exam, I'm concerned for acute causes of potential altered mental status. This includes infection. History is limited and therefore brought workup will be obtained. This includes CT head as well as lactate large number of laboratory studies. Patient will be given an IV fluid bolus as well as IV Zofran. She seems to be in agreement with plan. We'll attempt to contact the fpc. EKG shows no signs of acute ischemia. Chest x-ray shows no acute cardiopulmonary process. Head CT shows no acute cranial process. Laboratory studies were remarkable for mild hyponatremia of 130 with hypochloremia of 90. Patient is a mild SALLY with a creatinine of 1.17 which is about her baseline. Remainder of her labs are unremarkable. Urinalysis is negative. Covid is negative. Troponin is indeterminate. Repeat will be obtained. Reevaluation come patient remains unchanged. We were able to contact the patient's before meals home, spoke with the service desk manager. She states that she has frequent episodes of self-induced vomiting and behavioral issues with the desire to come to the emergency department for evaluation. She states that the patient was being cared for by new caretakers who were unfamiliar with her history and actions, who called EMS. Patient appears to be at her baseline based on the description provided to me by the [facility] home performance laborer. She states that the patient is welcome back to the facility whenever medically cleared. I explained that due to her her dehydration, i would like her admitted to observation which she was in agreement. I spoke with the admitting physician, Dr. Henry who accepted the patient. Patient was admitted to observation stable condition. - Lab Data Result diagrams: 05/29/21 21:51 05/29/21 19:24 Lab Results 05/29/21 05/29/21 05/29/21 Range/Units 19:24 19:24 20:35 WBC (3.8-10.6) k/uL RBC (3.80-5.40) m/uL Hgb (11.4-16.0) gm/dL Hct (34.0-46.0) % MCV (80.0-100.0) fL MCH (25.0-35.0) pg MCHC (31.0-37.0) g/dL RDW (11.5-15.5) % Plt Count (150-450) k/uL MPV Neutrophils % % Lymphocytes % % Monocytes % % Eosinophils % % Basophils % % Neutrophils # (1.3-7.7) k/uL Lymphocytes # (1.0-4.8) k/uL Monocytes # (0-1.0) k/uL Eosinophils # (0-0.7) k/uL Basophils # (0-0.2) k/uL PT (9.0-12.0) sec INR (<1.2) APTT (22.0-30.0) sec Sodium 130 L (137-145) mmol/L Potassium 3.9 (3.5-5.1) mmol/L Chloride 90 L (98-107) mmol/L Carbon Dioxide 28 (22-30) mmol/L Anion Gap 12 mmol/L BUN 18 H (7-17) mg/dL Creatinine 1.17 H (0.52-1.04) mg/dL Est GFR (CKD-EPI)AfAm 63 (>60 ml/min/1.73 sqM) Est GFR (CKD-EPI)NonAf 55 (>60 ml/min/1.73 sqM) Glucose 109 H (74-99) mg/dL POC Glucose (mg/dL) (75-99) mg/dL POC Glu Application Design Engineer ID Plasma Lactic Acid Ankur 1.2 (0.7-2.0) mmol/L Calcium 10.3 H (8.4-10.2) mg/dL Total Bilirubin 1.3 (0.2-1.3) mg/dL AST 56 H (14-36) U/L ALT 12 (4-34) U/L Alkaline Phosphatase 41 (38-126) U/L Ammonia 49 H (<30) umol/L Troponin I 0.029 (0.000-0.034) ng/mL Total Protein 7.8 (6.3-8.2) g/dL Albumin 4.6 (3.5-5.0) g/dL Urine Color Urine Appearance (Clear) Urine pH (5.0-8.0) Ur Specific [place] (1.001-1.035) Urine Protein (Negative) Urine Glucose (UA) (Negative) Urine Ketones (Negative) Urine Blood (Negative) Urine Nitrite (Negative) Urine Bilirubin (Negative) Urine Urobilinogen (<2.0) mg/dL Ur Leukocyte Esterase (Negative) Urine HCG, Qual (Not Detectd) Urine Opiates Screen (NotDetected) Ur Oxycodone Screen (NotDetected) Urine Methadone Screen (NotDetected) Ur Propoxyphene Screen (NotDetected) Ur Barbiturates Screen (NotDetected) U Tricyclic Antidepress (NotDetected) Ur Phencyclidine Scrn (NotDetected) Ur Amphetamines Screen (NotDetected) U Methamphetamines Scrn (NotDetected) U Benzodiazepines Scrn (NotDetected) Urine Cocaine Screen (NotDetected) U Marijuana (THC) Screen (NotDetected) Serum Alcohol <10 mg/dL Coronavirus (PCR) (Not Detectd) 05/29/21 05/29/21 05/29/21 Range/Units 21:05 21:51 21:51 WBC 9.6 (3.8-10.6) k/uL RBC 4.00 (3.80-5.40) m/uL Hgb 13.0 (11.4-16.0) gm/dL Hct 37.0 (34.0-46.0) % MCV 92.4 (80.0-100.0) fL MCH 32.6 (25.0-35.0) pg MCHC 35.2 (31.0-37.0) g/dL RDW 14.5 (11.5-15.5) % Plt Count 274 (150-450) k/uL MPV 8.6 Neutrophils % 61 % Lymphocytes % 30 % Monocytes % 6 % Eosinophils % 0 % Basophils % 0 % Neutrophils # 5.9 (1.3-7.7) k/uL Lymphocytes # 2.9 (1.0-4.8) k/uL Monocytes # 0.6 (0-1.0) k/uL Eosinophils # 0.0 (0-0.7) k/uL Basophils # 0.0 (0-0.2) k/uL PT 9.9 (9.0-12.0) sec INR 0.9 (<1.2) APTT 20.2 L (22.0-30.0) sec Sodium (137-145) mmol/L Potassium (3.5-5.1) mmol/L Chloride (98-107) mmol/L Carbon Dioxide (22-30) mmol/L Anion Gap mmol/L BUN (7-17) mg/dL Creatinine (0.52-1.04) mg/dL Est GFR (CKD-EPI)AfAm (>60 ml/min/1.73 sqM) Est GFR (CKD-EPI)NonAf (>60 ml/min/1.73 sqM) Glucose (74-99) mg/dL POC Glucose (mg/dL) 119 H (75-99) mg/dL POC Glu Application Design Engineer ID Dionna Osorio Plasma Lactic Acid Ankur (0.7-2.0) mmol/L Calcium (8.4-10.2) mg/dL Total Bilirubin (0.2-1.3) mg/dL AST (14-36) U/L ALT (4-34) U/L Alkaline Phosphatase (38-126) U/L Ammonia (<30) umol/L Troponin I (0.000-0.034) ng/mL Total Protein (6.3-8.2) g/dL Albumin (3.5-5.0) g/dL Urine Color Urine Appearance (Clear) Urine pH (5.0-8.0) Ur Specific [place] (1.001-1.035) Urine Protein (Negative) Urine Glucose (UA) (Negative) Urine Ketones (Negative) Urine Blood (Negative) Urine Nitrite (Negative) Urine Bilirubin (Negative) Urine Urobilinogen (<2.0) mg/dL Ur Leukocyte Esterase (Negative) Urine HCG, Qual (Not Detectd) Urine Opiates Screen (NotDetected) Ur Oxycodone Screen (NotDetected) Urine Methadone Screen (NotDetected) Ur Propoxyphene Screen (NotDetected) Ur Barbiturates Screen (NotDetected) U Tricyclic Antidepress (NotDetected) Ur Phencyclidine Scrn (NotDetected) Ur Amphetamines Screen (NotDetected) U Methamphetamines Scrn (NotDetected) U Benzodiazepines Scrn (NotDetected) Urine Cocaine Screen (NotDetected) U Marijuana (THC) Screen (NotDetected) Serum Alcohol mg/dL Coronavirus (PCR) (Not Detectd) 05/29/21 05/29/21 05/29/21 Range/Units Unknown Unknown Unknown WBC (3.8-10.6) k/uL RBC (3.80-5.40) m/uL Hgb (11.4-16.0) gm/dL Hct (34.0-46.0) % MCV (80.0-100.0) fL MCH (25.0-35.0) pg MCHC (31.0-37.0) g/dL RDW (11.5-15.5) % Plt Count (150-450) k/uL MPV Neutrophils % % Lymphocytes % % Monocytes % % Eosinophils % % Basophils % % Neutrophils # (1.3-7.7) k/uL Lymphocytes # (1.0-4.8) k/uL Monocytes # (0-1.0) k/uL Eosinophils # (0-0.7) k/uL Basophils # (0-0.2) k/uL PT (9.0-12.0) sec INR (<1.2) APTT (22.0-30.0) sec Sodium (137-145) mmol/L Potassium (3.5-5.1) mmol/L Chloride (98-107) mmol/L Carbon Dioxide (22-30) mmol/L Anion Gap mmol/L BUN (7-17) mg/dL Creatinine (0.52-1.04) mg/dL Est GFR (CKD-EPI)AfAm (>60 ml/min/1.73 sqM) Est GFR (CKD-EPI)NonAf (>60 ml/min/1.73 sqM) Glucose (74-99) mg/dL POC Glucose (mg/dL) (75-99) mg/dL POC Glu Application Design Engineer ID Plasma Lactic Acid [place] (0.7-2.0) mmol/L Calcium (8.4-10.2) mg/dL Total Bilirubin (0.2-1.3) mg/dL AST (14-36) U/L ALT (4-34) U/L Alkaline Phosphatase (38-126) U/L Ammonia (<30) umol/L Troponin I (0.000-0.034) ng/mL Total Protein (6.3-8.2) g/dL Albumin (3.5-5.0) g/dL Urine Color Yellow Urine Appearance Clear (Clear) Urine pH 6.0 (5.0-8.0) Ur Specific [place] 1.012 (1.001-1.035) Urine Protein Negative (Negative) Urine Glucose (UA) Negative (Negative) Urine Ketones Negative (Negative) Urine Blood Negative (Negative) Urine Nitrite Negative (Negative) Urine Bilirubin Negative (Negative) Urine Urobilinogen <2.0 (<2.0) mg/dL Ur Leukocyte Esterase Negative (Negative) Urine HCG, Qual Not Detected (Not Detectd) Urine Opiates Screen Not Detected (NotDetected) Ur Oxycodone Screen Not Detected (NotDetected) Urine Methadone Screen Not Detected (NotDetected) Ur Propoxyphene Screen Not Detected (NotDetected) Ur Barbiturates Screen Not Detected (NotDetected) U Tricyclic Antidepress Not Detected (NotDetected) Ur Phencyclidine Scrn Not Detected (NotDetected) Ur Amphetamines Screen Not Detected (NotDetected) U Methamphetamines Scrn Not Detected (NotDetected) U Benzodiazepines Scrn Not Detected (NotDetected) Urine Cocaine Screen Not Detected (NotDetected) U Marijuana (THC) Screen Not Detected (NotDetected) Serum Alcohol mg/dL Coronavirus (PCR) Not Detected (Not Detectd) - EKG Data -: EKG Interpreted by Me EKG Comments: 12-lead Electrocardiogram Interpretation Note EKG was reviewed and interpreted by myself. 12-lead ECG performed at 1935 is interpreted by me as revealing normal sinus rhythm at a rate of 78 beats per minute. [place] is normal. MO interval is 130 ms, QRS duration 76 ms, QTc is 450 ms.. There were no ST or T wave abnormalities to suggest myocardial ischemia or injury. R wave progression across the precordium was satisfactory. By my interpretation this EKG is non-diagnostic for acute ischemia. There is a good deal of baseline artifact present and some the precordial leads which makes interpretation difficult. Disposition Clinical Impression: SALLY (acute kidney injury), Dehydration Disposition: ADMITTED IP TO THIS HOSP Condition: Stable Referrals: [facility] [Primary Care Provider] - 1-2 days
[2021-05-29] MEDS ORDERED: SODIUM CHLORIDE 0.9% 1,000 ML IV STA (22:43)
[2021-05-29] MEDS ORDERED: NALOXONE 0.4 MG/ML 1 ML VIAL IV PRN (22:45)
[2021-05-29] MEDS ORDERED: ACETAMINOPHEN TAB 325 MG TAB PO PRN (22:46)
[2021-05-29] MEDS ORDERED: LOPERAMIDE 2 MG CAP PO PRN (22:46)
[2021-05-29] MEDS ORDERED: MELATONIN 5 MG TABLET PO PRN (22:46)
[2021-05-29] MEDS ORDERED: MECLIZINE 25 MG TAB PO PRN (22:46)
[2021-05-30 02:40] LABS: Basophils % (A) 0 %; Eosinophils # (A) 0.1 k/uL (0-0.7); Eosinophils % (A) 1 %; HCT 34.9 % (34.0-46.0); Hyperchromasia Slight; Lymphocytes # (A) 2.7 k/uL (1.0-4.8); Lymphocytes % (A) 34 %; MCH 31.9 pg (25.0-35.0); MCHC 34.4 g/dL (31.0-37.0); MCV 92.7 fL (80.0-100.0); Mean Platelet Volume 8.2; Monocytes # (A) 0.6 k/uL (0-1.0); Monocytes % (A) 7 %; Neutrophils # (A) 4.4 k/uL (1.3-7.7); Neutrophils % (A) 56 %; Platelet Count 251 k/uL (150-450); RBC 3.77 m/uL (3.80-5.40); RDW 15.3 % (11.5-15.5); WBC 7.8 k/uL (3.8-10.6)
[2021-05-30 03:03] LABS: Calcium 9.7 mg/dL (8.4-10.2)
[2021-05-30 03:23] LABS: Potassium 2.4 mmol/L (3.5-5.1)
[2021-05-30] MEDS ORDERED: POTASSIUM CHLORIDE ER 20 MEQ TAB.ER PO STA ×3 (04:15→11:36)
[2021-05-30] MEDS: POTASSIUM CHLORIDE 100 ML IVPB SCH ×3 (05:41→11:43)
[2021-05-30] MEDS: LEVOTHYROXINE 112 MCG TAB PO SCH (06:29)
[2021-05-30 07:14] LABS: Basophils % (A) 0 %; Eosinophils % (A) 0 %; HCT 35.6 % (34.0-46.0); HGB 12.1 gm/dL (11.4-16.0); Lymphocytes % (A) 29 %; MCH 31.9 pg (25.0-35.0); MCV 93.9 fL (80.0-100.0); Mean Platelet Volume 8.1; Monocytes # (A) 0.6 k/uL (0-1.0); Monocytes % (A) 8 %; Neutrophils % (A) 60 %; Platelet Count 227 k/uL (150-450); RBC 3.79 m/uL (3.80-5.40); RDW 14.4 % (11.5-15.5); WBC 6.6 k/uL (3.8-10.6)
[2021-05-30 07:52] LABS: African American GFR (CKD) >90 (>60 ml/min/1.73 sqM); Anion Gap 10 mmol/L; Blood Urea Nitrogen 16 mg/dL (7-17); Calcium 9.7 mg/dL (8.4-10.2); Carbon Dioxide 26 mmol/L (22-30); Chloride 93 mmol/L (98-107); Glucose 102 mg/dL (74-99); Non-African American GFR(CKD) 80 (>60 ml/min/1.73 sqM); Sodium 129 mmol/L (137-145)
[2021-05-30 08:12] LABS: Potassium 2.8 mmol/L (3.5-5.1)
[2021-05-30] MEDS ORDERED: FUROSEMIDE 40 MG TAB PO SCH (09:00)
[2021-05-30] MEDS: PANTOPRAZOLE 40 MG TABLET PO SCH (10:06)
[2021-05-30] MEDS: LORATADINE 10 MG TAB PO SCH (10:06)
[2021-05-30] MEDS: FAMOTIDINE 20 MG TAB PO SCH ×2 (10:06→21:19)
[2021-05-30] MEDS: DIVALPROEX 500 MG TABLET.DR PO SCH ×2 (10:06→21:19)
[2021-05-30] MEDS: POTASSIUM CHLORIDE ER 10 MEQ TAB.ER.PRT PO SCH (10:07)
[2021-05-30] MEDS: DOCUSATE 100 MG CAP PO SCH ×2 (10:07→21:19)
[2021-05-30] MEDS: MIDODRINE 5 MG TAB PO SCH ×3 (10:07→17:55)
[2021-05-30] MEDS: metOLazone 5 MG TAB PO SCH (10:09)
[2021-05-30] MEDS: TOPIRAMATE 25 MG TAB PO SCH ×2 (10:10→21:19)
[2021-05-30] MEDS: ARIPiprazole 5 MG TAB PO SCH (10:18)
[2021-05-30] MEDS: BENZTROPINE MESYLATE 1 MG TAB PO SCH (10:18)
--- NOTE | 2021-05-30 10:51 | P.HPIM ---
History of Present Illness H&P Date: 05/30/21 History of present illness 50 years old patient of [facility] with past medical history of seizure disorder, pseudoseizure, developmental delay was brought in by EMS for possible concern for mental status change. Patient was noted to have an episode of vomiting where she apparently threw in her hands he was also noted to have an episode of incontinence. Per EMS patient was at her baseline when she was brought in. She is otherwise alert and responds in short phrases or single words. Patient was evaluated this morning, it appears to be a poor historian but denies any discomfort off any abdominal pain, nausea or vomiting. No episodes of fever noted overnight. Vitals were reviewed patient had a temp of 98 pulse 80 respiratory rate 16 blood pressure 92/60 oxygen saturation 98% labs are reviewed patient has WBC 7.8 hemoglobin 12 platelet 251 sodium 1:30 potassium is 2.4 chloride 92 glucose 105 troponin 2 is negative urine was negative for infection UDS was negative: COVID-19 was negative. ROS Constitutional: Denies chills, Denies fever, Denies lethargy, Denies malaise, Denies poor appetite, Denies weakness, Denies weight loss Eyes: denies decreased vision, denies diplopia, denies discharge, denies pain Ears: deny: decreased hearing Ears, nose, mouth and throat: Denies dental pain, Denies headache, Denies nasal discharge, Denies nose pain Cardiovascular: Denies chest pain, Denies decreased exercise tolerance, Denies edema, Denies high blood pressure, Denies irregular heart beat, Denies palpitations, Denies paroxysmal nocturnal dyspnea, Denies rapid heart beat, Den ies shortness of breath Respiratory: Denies congestion, Denies cough, Denies cough with sputum, Denies dyspnea, Denies home oxygen, Denies wheezing Gastrointestinal: Denies abdominal pain, Denies change in bowel habits, Denies coffee ground emesis, Denies early satiety, Denies excessive gas, Denies heartburn, Denies hematemesis, Denies hematochezia, Denies loss of appetite, Denies nausea, Denies vomiting Genitourinary: Denies dysuria, Denies flank pain, Denies kidney stones, Denies menorrhagia, Denies urgency, Denies urinary frequency Musculoskeletal: Denies gait dysfunction, Denies limitation of motion, Denies morning stiffness, Denies muscle cramps Integumentary: Denies rash, Denies wounds, Denies brittle nails, Denies change in hair/nails, Denies darkening of skin Neurological: Denies balance difficulties, Denies change in speech, Denies double vision, Denies gait dysfunction, Denies loss of vision, Denies motor disturbance, Denies numbness, Denies paralysis, Denies paresthesias, Denies seizures Psychiatric: Denies anxiety, Denies depression Endocrine: Denies excessive sweating, Denies excessive thirst, Denies high blood sugars, Denies palpitations Hematologic/Lymphatic: Denies easy bruising, Denies lymphadenopathy Social history Nonsmoker Nonalcoholic Family history father of cirrhosis mother has breast cancer Physical exam - Constitutional General appearance: cooperative, no acute distress, obese - EENT Eyes: anicteric sclerae, PERRLA, normal appearance ENT: hearing grossly normal - Neck Neck: no lymphadenopathy, normal ROM, no other, no rigidity, no stridor, no thyromegaly - Respiratory Respiratory: bilateral: CTA, negative: diminished, dullness, rales, rhonchi - Cardiovascular Rhythm: regular Heart sounds: normal: S1, S2 Abnormal Heart Sounds: no systolic murmur, no diastolic murmur, no rub, no S3 Gallop, no S4 Gallop, no click, no other - Gastrointestinal General gastrointestinal: normal bowel sounds, soft - Integumentary Integumentary: no rash - Neurologic Neurologic: CNII-XII intact - Musculoskeletal Musculoskeletal: gait normal, strength equal bilaterally - Psychiatric Psychiatric: A&O x's 3, appropriate affect Assessment and plan Intractable nausea and vomiting - Zofran 4 mg IV every 6 hours as needed - Continue IV fluids at 100 mL/h - Patient is able to tolerate regular meal today Critical hypokalemia - Secondary to diuresis hold Lasix and metolazone - Status post 100 mEq of oral potassium - No IV line could be obtained, IV potassium replacement could not be done - 40 mEq potassium twice a day ordered - Repeat CMP tomorrow Seizure - Mentation at baseline -Continue eslicarbamazepine 600 daily at bedtime - Continue Oxandrin milligrams by mouth twice a day - Topamax 25 mg twice a day - On Depakote 500 twice a day - Briviact 25 twice a day - Patient is on multiple psych medication which need follow-up with neurology as outpatient Hypothyroidism Continue Synthyroid 112 g by mouth daily Hyper lipidemia - Continue fenofibrate 54 daily at bedtime Mood disorder - On Abilify 20 mg daily and Abilify 5 mg by mouth daily -On benztropine CODE STATUS full code DVT prophylaxis with heparin every 12 Disposition likely discharge tomorrow More than 30 minutes were spent making assessment and plan for the patient and counseling the patient Past Medical History Past Medical History: GERD/Reflux, Osteoarthritis (OA), Pneumonia, Seizure Di sorder, Thyroid Disorder Additional Past Medical History / Comment(s): Pt is developmentally challenged and has a legal guardian-Jayda Aguirre. Per dictation, DANNA Montelongo states pt is to be a full code. She states to use medical history from pt's last admission. TREMORS FROM MEDS, hypothyroid, falls, head injury r/t fall, sinusitis. PARKINSONS, OCCASIONAL DIZZY SPELLS, PAST RIGHT LEG CELLULITIS, AND DARKENED PIGMENTATION RIGHT LEG. History of Any Multi-Drug Resistant Organisms: None Reported Past Surgical History: No Surgical Hx Reported Past Anesthesia/Blood Transfusion Reactions: No Reported Reaction Additional Past Anesthesia/Blood Transfusion Reaction / Comment(s): NEVER HAD AA Past Psychological History: Anxiety, Depression, PTSD Past Alcohol Use History: None Reported Past Drug Use History: None Reported - Past Family History Father Additional Family Medical History / Comment(s): WAS A DRINKER FROM CIRRHOSIS Mother Family Medical History: Cancer Additional Family Medical History / Comment(s): BREAST-mother is living. Medications and Allergies Home Medications Medication Instructions Recorded Confirmed Type Folic Acid 1 mg PO DAILY 02/10/15 05/29/21 History Loratadine [Claritin] 10 mg PO DAILY 09/13/16 05/29/21 History fluvoxaMINE MALEATE [Luvox] 100 mg PO BID 09/13/16 05/29/21 History ARIPiprazole [Abilify] 5 mg PO DAILY 11/21/16 05/29/21 History Acetaminophen Tab [Tylenol Tab] 650 mg PO Q4H PRN 03/26/17 05/29/21 History Levothyroxine Sodium [Synthroid] 112 mcg PO DAILY 03/26/17 05/29/21 History Loperamide [Imodium] 2 mg PO QID PRN 03/26/17 05/29/21 History Topiramate [Topamax] 50 mg PO BID 03/26/17 05/29/21 History polyethylene glycoL 3350 [Miralax] 17 gm PO DAILY PRN 03/26/17 05/29/21 History ARIPiprazole [Abilify] 20 mg PO DAILY 05/29/21 05/29/21 History Albuterol Nebulized [Ventolin 2.5 mg INHALATION RT-Q4H PRN 05/29/21 05/29/21 History Nebulized] Albuterol Sulfate [Ventolin HFA] 1 - 2 puff INHALATION RT-Q4H PRN 05/29/21 05/29/21 History Atorvastatin [Lipitor] 10 mg PO HS 05/29/21 05/29/21 History Benztropine Mesylate [Cogentin] 1 mg PO DAILY 05/29/21 05/29/21 History Brivaracetam [Briviact] 25 mg PO BID 05/29/21 05/29/21 History Cholecalciferol [Vitamin D3 (25 50 mcg PO HS 05/29/21 05/29/21 History Mcg = 1000 Iu)] Divalproex Sodium [Depakote] 500 mg PO BID 05/29/21 05/29/21 History Docusate [Colace] 100 mg PO BID 05/29/21 05/29/21 History Eslicarbazepine Acetate [Aptiom] 600 mg PO HS 05/29/21 05/29/21 History Famotidine 20 mg PO BID 05/29/21 05/29/21 History Fenofibrate [Lofibra] 54 mg PO HS 05/29/21 05/29/21 History Furosemide [Lasix] 40 mg PO DAILY 05/29/21 05/29/21 History Ibuprofen [Motrin] 400 mg PO BID PRN 05/29/21 05/29/21 History Meclizine HCl 25 mg PO BID PRN 05/29/21 05/29/21 History Melatonin 5 mg PO HS PRN 05/29/21 05/29/21 History Midodrine HCl [ProAmatine] 10 mg PO TID@0800,1200,1600 05/29/21 05/29/21 History Montelukast [Singulair] 10 mg PO HS 05/29/21 05/29/21 History Multivitamins, Thera [Multivitamin 1 tab PO HS 05/29/21 05/29/21 History (formulary)] Pantoprazole Sodium 40 mg PO DAILY 05/29/21 05/29/21 History Potassium Chloride ER [K-Dur 10] 10 meq PO DAILY 05/29/21 05/29/21 History Selenium Sulfide 1% Shampoo 1 applic TOPICAL Q7D 05/29/21 05/29/21 History calcium polycarbophiL [Fibercon] 625 mg PO DAILY 05/29/21 05/29/21 History metOLazone [Zaroxolyn] 5 mg PO DAILY 05/29/21 05/29/21 History Allergies Allergy/AdvReac Type Severity Reaction Status Date / Time Barbiturates Allergy Unknown Verified 05/29/21 21:51 carbamazepine [From Tegretol] Allergy Unknown Verified 05/29/21 21:51 clindamycin palmitate HCl Allergy Unknown Verified 05/29/21 21:51 [From Cleocin] clindamycin phosphate Allergy Unknown Verified 05/29/21 21:51 [From Cleocin] Penicillins Allergy Unknown Verified 05/29/21 21:51 phenobarbital Allergy Unknown Verified 05/29/21 21:51 phenytoin [From Dilantin] Allergy Unknown Verified 05/29/21 21:51 primidone [From Mysoline] Allergy Unknown Verified 05/29/21 21:51 Physical Exam Vitals: Vital Signs Temp Pulse Pulse Resp BP BP Pulse Ox 05/30/21 05:03 98 F 80 16 92/60 98 05/30/21 01:00 97.8 F 81 20 119/71 92 L 05/29/21 23:28 88 17 118/84 100 05/29/21 23:00 80 18 05/29/21 18:29 97.7 F 85 18 109/73 99 Intake and Output 05/29/21 05/30/21 05/30/21 22:59 06:59 14:59 Intake Total 600 Balance 600 Intake: Intake, IV Titration 600 Amount Sodium Chloride 0.9% 1, 600 000 ml @ 100 mls/hr IV . Q10H STA Rx#:[id number] Other: Voiding Method Bedside Commode # Voids 1 Weight 81.647 kg Results CBC & Chem 7: 05/30/21 06:58 05/30/21 06:58 Labs: Abnormal Lab Results - Last 24 Hours (Table) 05/29/21 05/29/21 05/29/21 Range/Units 19:24 20:35 21:05 RBC (3.80-5.40) m/uL APTT (22.0-30.0) sec Sodium 130 L (137-145) mmol/L Potassium (3.5-5.1) mmol/L Chloride 90 L (98-107) mmol/L BUN 18 H (7-17) mg/dL Creatinine 1.17 H (0.52-1.04) mg/dL Glucose 109 H (74-99) mg/dL POC Glucose (mg/dL) 119 H (75-99) mg/dL Calcium 10.3 H (8.4-10.2) mg/dL AST 56 H (14-36) U/L Ammonia 49 H (<30) umol/L 05/29/21 05/30/21 05/30/21 Range/Units 21:51 02:24 02:24 RBC 3.77 L (3.80-5.40) m/uL APTT 20.2 L (22.0-30.0) sec Sodium 130 L (137-145) mmol/L Potassium 2.4 L* (3.5-5.1) mmol/L Chloride 92 L (98-107) mmol/L BUN (7-17) mg/dL Creatinine (0.52-1.04) mg/dL Glucose 105 H (74-99) mg/dL POC Glucose (mg/dL) (75-99) mg/dL Calcium (8.4-10.2) mg/dL AST (14-36) U/L Ammonia (<30) umol/L Thrombosis Risk Factor Assmnt - Choose All That Apply Any of the Below Risk Factors Present?: Yes Each Factor Represents 1 point: Age 41-60 years Thrombosis Risk Factor Assessment Total Risk Factor Score: 1 Thrombosis Risk Factor Assessment Level: Low Risk
[2021-05-30] MEDS: BRIVARACETAM 25 MG PO SCH ×2 (17:55→21:20)
[2021-05-30] MEDS ORDERED: POTASSIUM CHLORIDE ER 20 MEQ TAB.ER PO SCH (21:00)
[2021-05-30] MEDS ORDERED: ATORVASTATIN 10 MG TAB PO SCH (21:00)
[2021-05-30] MEDS ORDERED: NON FORMULARY DRUG (Eslicarbazepine Acetate [Aptiom] 600 MG Tablet) PO SCH (21:00)
[2021-05-30] MEDS ORDERED: MONTELUKAST 10 MG TAB PO SCH (21:00)
[2021-05-31 05:21] VITALS: BP 132/82; PULSE 84; RESP 20; TEMP 97
[2021-05-31] MEDS: LEVOTHYROXINE 112 MCG TAB PO SCH (06:07)
[2021-05-31] MEDS: MIDODRINE 5 MG TAB PO SCH (07:55)
[2021-05-31] MEDS: LORATADINE 10 MG TAB PO SCH (07:56)
[2021-05-31] MEDS: DOCUSATE 100 MG CAP PO SCH (07:56)
[2021-05-31] MEDS: PANTOPRAZOLE 40 MG TABLET PO SCH (07:56)
[2021-05-31] MEDS: FAMOTIDINE 20 MG TAB PO SCH (07:56)
[2021-05-31] MEDS: POTASSIUM CHLORIDE ER 10 MEQ TAB.ER.PRT PO SCH (07:56)
[2021-05-31] MEDS: DIVALPROEX 500 MG TABLET.DR PO SCH (07:56)
[2021-05-31] MEDS: TOPIRAMATE 25 MG TAB PO SCH (07:57)
[2021-05-31] MEDS: ARIPiprazole 5 MG TAB PO SCH (07:57)
[2021-05-31] MEDS: metOLazone 5 MG TAB PO SCH (07:57)
[2021-05-31] MEDS: BENZTROPINE MESYLATE 1 MG TAB PO SCH (07:57)
[2021-05-31] MEDS: BRIVARACETAM 25 MG PO SCH (08:58)
--- NOTE | 2021-05-31 12:10 | P.DS ---
Providers Date of admission: 05/29/21 22:45 Attending physician: Cristina Henry MD Primary care physician: [facility] Course: History of present illness 50 years old patient of [facility] with past medical history of seizure disorder, pseudoseizure, developmental delay was brought in by EMS for possible concern for mental status change. Patient was noted to have an episode of vomiting where she apparently threw in her hands he was also noted to have an episode of incontinence. Per EMS patient was at her baseline when she was brought in. She is otherwise alert and responds in short phrases or single words. Patient was evaluated this morning, it appears to be a poor historian but denies any discomfort off any abdominal pain, nausea or vomiting. No episodes of fever noted overnight. Vitals were reviewed patient had a temp of 98 pulse 80 respiratory rate 16 blood pressure 92/60 oxygen saturation 98% labs are reviewed patient has WBC 7.8 hemoglobin 12 platelet 251 sodium 1:30 potassium is 2.4 chloride 92 glucose 105 troponin 2 is negative urine was negative for infection UDS was negative: COVID-19 was negative. 05/31 patient examined bedside. She denies any use episodes of nausea vomiting since hospitalization. Patient denies any abdominal pain or any urinary discomfort. Patient's a poor historian but appears to be comfortable at this moment. Labs are reviewed patient's potassium replacement. Patient has received has improved to 3.4 with potassium replacement. We'll discharge patient on 40 mEq of potassium every day. We'll hold Zaroxolyn and continue patient on Lasix 40 by mouth daily. Patient to have repeat labs in a week. Follow-up with primary care physician in a week. Physical exam - Constitutional General appearance: cooperative, no acute distress, obese - Neck Neck: no lymphadenopathy, normal ROM, no other, no rigidity, no stridor, no thyromegaly - Respiratory Respiratory: bilateral: CTA, negative: diminished, dullness, rales, rhonchi - Cardiovascular Rhythm: regular Heart sounds: normal: S1, S2 Abnormal Heart Sounds: no systolic murmur, no diastolic murmur, no rub, no S3 Gallop, no S4 Gallop, no click, no other - Gastrointestinal General gastrointestinal: normal bowel sounds, soft - Psychiatric Psychiatric: A&O x's 3, appropriate affect Discharge diagnosis Intractable nausea and vomiting Critical hypokalemia Seizure Hypothyroidism Hyper lipidemia Mood disorder Disposition discharge to assisted living facility today More than 30 minutes were spent making assessment and plan for the patient and counseling the patient Patient Condition at Discharge: Stable Plan - Discharge Summary New Discharge Prescriptions: Continue Folic Acid 1 mg PO DAILY fluvoxaMINE MALEATE [Luvox] 100 mg PO BID Loratadine [Claritin] 10 mg PO DAILY ARIPiprazole [Abilify] 5 mg PO DAILY Acetaminophen Tab [Tylenol] 650 mg PO Q4H PRN PRN Reason: Pain Levothyroxine Sodium [Synthroid] 112 mcg PO DAILY Loperamide [Imodium] 2 mg PO QID PRN PRN Reason: Loose Stool polyethylene glycoL 3350 [Miralax] 17 gm PO DAILY PRN PRN Reason: Constipation Topiramate [Topamax] 50 mg PO BID Multivitamins, Thera [Multivitamin (formulary)] 1 tab PO HS Selenium Sulfide 1% Shampoo 1 applic TOPICAL Q7D Famotidine 20 mg PO BID Meclizine HCl 25 mg PO BID PRN PRN Reason: Vertigo Furosemide [Lasix] 40 mg PO DAILY Benztropine Mesylate [Cogentin] 1 mg PO DAILY Albuterol Sulfate [Ventolin HFA] 1 - 2 puff INHALATION RT-Q4H PRN PRN Reason: Shortness Of Breath ARIPiprazole [Abilify] 20 mg PO DAILY Brivaracetam [Briviact] 25 mg PO BID Divalproex Sodium [Depakote] 500 mg PO BID Eslicarbazepine Acetate [Aptiom] 600 mg PO HS Midodrine HCl [ProAmatine] 10 mg PO TID@0800,1200,1600 Cholecalciferol [Vitamin D3 (25 Mcg = 1000 Iu)] 50 mcg PO HS Montelukast [Singulair] 10 mg PO HS Melatonin 5 mg PO HS PRN PRN Reason: SLEEP Ibuprofen [Motrin] 400 mg PO BID PRN PRN Reason: Pain Or Fever > 100.5 Atorvastatin [Lipitor] 10 mg PO HS Fenofibrate [Lofibra] 54 mg PO HS Albuterol Nebulized [Ventolin Nebulized] 2.5 mg INHALATION RT-Q4H PRN PRN Reason: Shortness Of Breath calcium polycarbophiL [Fibercon] 625 mg PO DAILY Docusate [Colace] 100 mg PO BID Pantoprazole Sodium 40 mg PO DAILY Changed Potassium Chloride ER [K-Dur 10] 40 meq PO DAILY #0 Discontinued metOLazone [Zaroxolyn] 5 mg PO DAILY Discharge Medication List Folic Acid 1 mg PO DAILY 02/10/15 [History] Loratadine [Claritin] 10 mg PO DAILY 09/13/16 [History] fluvoxaMINE MALEATE [Luvox] 100 mg PO BID 09/13/16 [History] ARIPiprazole [Abilify] 5 mg PO DAILY 11/21/16 [History] Acetaminophen Tab [Tylenol] 650 mg PO Q4H PRN 03/26/17 [History] Levothyroxine Sodium [Synthroid] 112 mcg PO DAILY 03/26/17 [History] Loperamide [Imodium] 2 mg PO QID PRN 03/26/17 [History] Topiramate [Topamax] 50 mg PO BID 03/26/17 [History] polyethylene glycoL 3350 [Miralax] 17 gm PO DAILY PRN 03/26/17 [History] ARIPiprazole [Abilify] 20 mg PO DAILY 05/29/21 [History] Albuterol Nebulized [Ventolin Nebulized] 2.5 mg INHALATION RT-Q4H PRN 05/29/21 [History] Albuterol Sulfate [Ventolin HFA] 1 - 2 puff INHALATION RT-Q4H PRN 05/29/21 [Hi story] Atorvastatin [Lipitor] 10 mg PO HS 05/29/21 [History] Benztropine Mesylate [Cogentin] 1 mg PO DAILY 05/29/21 [History] Brivaracetam [Briviact] 25 mg PO BID 05/29/21 [History] Cholecalciferol [Vitamin D3 (25 Mcg = 1000 Iu)] 50 mcg PO HS 05/29/21 [History] Divalproex Sodium [Depakote] 500 mg PO BID 05/29/21 [History] Docusate [Colace] 100 mg PO BID 05/29/21 [History] Eslicarbazepine Acetate [Aptiom] 600 mg PO HS 05/29/21 [History] Famotidine 20 mg PO BID 05/29/21 [History] Fenofibrate [Lofibra] 54 mg PO HS 05/29/21 [History] Furosemide [Lasix] 40 mg PO DAILY 05/29/21 [History] Ibuprofen [Motrin] 400 mg PO BID PRN 05/29/21 [History] Meclizine HCl 25 mg PO BID PRN 05/29/21 [History] Melatonin 5 mg PO HS PRN 05/29/21 [History] Midodrine HCl [ProAmatine] 10 mg PO TID@0800,1200,1600 05/29/21 [History] Montelukast [Singulair] 10 mg PO HS 05/29/21 [History] Multivitamins, Thera [Multivitamin (formulary)] 1 tab PO HS 05/29/21 [History] Pantoprazole Sodium 40 mg PO DAILY 05/29/21 [History] Selenium Sulfide 1% Shampoo 1 applic TOPICAL Q7D 05/29/21 [History] calcium polycarbophiL [Fibercon] 625 mg PO DAILY 05/29/21 [History] Potassium Chloride ER [K-Dur 10] 40 meq PO DAILY #0 05/31/21 [Rx] Follow up Appointment(s)/Referral(s): [facility] [Primary Care Provider] - 1-2 days Activity/Diet/Wound Care/Special Instructions: pt will be d/c via wheel chair van - to [address], [id number] - phone number to martín (caregiver) Discharge Disposition: HOME SELF-CARE
== END 2021-05-31 11:58 | disposition home or self-care (01) ==
LOC: EC 18:14 → 5NMEDONC 22:45
PROVIDERS: ADMIT Internal Medicine; ATTEND Internal Medicine
DX: R11.2 Nausea with vomiting, unspecified (principal); T50.2X5A Adverse effect of carbonic-anhydrase inhibitors, benzothiadiazides and other diuretics, initial encounter; E87.6 Hypokalemia; E03.9 Hypothyroidism, unspecified; G20 Parkinson's disease; F02.80 Dementia in other diseases classified elsewhere, unspecified severity, without behavioral disturbance, psychotic disturbance, mood disturbance, and anxiety; E86.0 Dehydration; R62.50 Unspecified lack of expected normal physiological development in childhood; K21.9 Gastro-esophageal reflux disease without esophagitis; G40.909 Epilepsy, unspecified, not intractable, without status epilepticus; M19.90 Unspecified osteoarthritis, unspecified site; E78.5 Hyperlipidemia, unspecified; N17.9 Acute kidney failure, unspecified; Z20.822 Contact with and (suspected) exposure to COVID-19; E87.1 Hypo-osmolality and hyponatremia; F32.A Depression, unspecified; R32 Unspecified urinary incontinence; E87.8 Other disorders of electrolyte and fluid balance, not elsewhere classified; J98.11 Atelectasis; F43.10 Post-traumatic stress disorder, unspecified; Z79.899 Other long term (current) drug therapy; Z79.890 Hormone replacement therapy; Z88.0 Allergy status to penicillin; Z88.1 Allergy status to other antibiotic agents; Z88.5 Allergy status to narcotic agent; Z88.8 Allergy status to other drugs, medicaments and biological substances; Z88.4 Allergy status to anesthetic agent; Z87.440 Personal history of urinary (tract) infections; Z87.01 Personal history of pneumonia (recurrent); Z80.3 Family history of malignant neoplasm of breast; Z83.79 Family history of other diseases of the digestive system; Y84.8 Other medical procedures as the cause of abnormal reaction of the patient, or of later complication, without mention of misadventure at the time of the procedure
CPT/HCPCS: 99285; 96361 ×2; 96374; 36415; 93005; 80164; 80053; 80048; 82140; 83605; 83735; 84132; 84484 ×2; 85025 ×2; 85610; 85730; 81003; 81025; 87040; 80306; 87635; 71046; 70450; G0378 ×3; G0480; J2405; J3480; 80320

== ENCOUNTER → 2022-01-02 | Outpatient (CLI) | payer MEDICARE, OTHER ==
--- NOTE | 2022-01-03 14:35 | MM ---
Reason for Exam: Screening (asymptomatic). Last mammogram was performed 4 year(s) and 9 month(s) ago. Patient History: Menarche at age 13. Patient has no children. Currently using Hormonal Contraceptives. Risk Values: Fifi 5 year model risk: 1.1%. NCI Lifetime model risk: 9.9%. Prior Study Comparison: 01/04/2007 Bilateral Screening Mammogram, [facility]. 09/18/2011 Bilateral Screening Mammogram, [facility]. 04/03/2017 Bilateral Screening Mammogram, [facility]. Tissue Density: The breast tissue is extremely dense which could obscure a lesion on mammography. Findings: Analyzed By CAD. Findings are symmetrical and stable. Benign calcifications present within the bilateral breasts. No suspicious groups of microcalcifications, spiculated or lobular masses, architectural distortion or other secondary signs of malignancy are mammographically apparent. Overall Assessment: Benign, BI-RAD 2 Management: Screening Mammogram of both breasts in 1 year. A negative mammogram report should not preclude additional follow up of suspicious palpable abnormalities. Patient should continue monthly self breast exam. A clinical breast exam by your physician is recommended on an annual basis and results should be correlated with mammographic findings. Electronically signed and approved by: Subhash Wang D.O. Radiologis
== END | disposition home or self-care (01) ==
LOC: RADMAMWWP 12:54
PROVIDERS: ATTEND Family Medicine
DX: Z12.31 Encounter for screening mammogram for malignant neoplasm of breast (principal)
CPT/HCPCS: 77067

== ENCOUNTER 2022-10-07 17:44 | Emergency (ER) | payer MEDICARE, OTHER ==
[2022-10-07 18:04] VITALS: RESP 18; TEMP 97.5
[2022-10-07] MEDS ORDERED: SODIUM CHLORIDE 0.9% 500 ML 500 ML IV STA (18:18)
[2022-10-07 18:59] VITALS: BP 132/87; PULSE 104
[2022-10-07] MEDS ORDERED: levETIRAcetam IV 1,000 MG in SALINE 1 100ML.BAG IVPB STA (19:05)
--- NOTE | 2022-10-07 19:05 | ED ---
Seizure HPI - General Chief Complaint: Seizure Stated Complaint: Seizures Time Seen by Provider: 10/07/22 18:17 Source: EMS, RN notes reviewed, old records reviewed Mode of arrival: EMS Limitations: no limitations - History of Present Illness Initial Comments: This is a 59-year-old female to the emergency department for evaluation patient presents today for evaluation regards to underlying altered mental status, patient presents for recurrent seizures known history of seizures and increasing seizure about. Patient is a poor historian history obtained by caregiver at bedside MD Complaint: seizure, possible seizure, shaking -: unknown Description of Episode: tonic-clonic movement -: second(s), minutes(s) Witnessed: yes - by bystander Seizure History: known seizure disorder Place: home Possible Precipitating Event: none Associated Symptoms: chest pain Treatments Prior to Arrival: none - Related Data Home Medications Medication Instructions Recorded Confirmed Folic Acid 1 mg PO DAILY 02/10/15 05/29/21 Loratadine [Claritin] 10 mg PO DAILY 09/13/16 05/29/21 fluvoxaMINE MALEATE [Luvox] 100 mg PO BID 09/13/16 05/29/21 ARIPiprazole [Abilify] 5 mg PO DAILY 11/21/16 05/29/21 Acetaminophen Tab [Tylenol] 650 mg PO Q4H PRN 03/26/17 05/29/21 Levothyroxine Sodium [Synthroid] 112 mcg PO DAILY 03/26/17 05/29/21 Loperamide [Imodium] 2 mg PO QID PRN 03/26/17 05/29/21 Topiramate [Topamax] 50 mg PO BID 03/26/17 05/29/21 polyethylene glycoL 3350 [Miralax] 17 gm PO DAILY PRN 03/26/17 05/29/21 ARIPiprazole [Abilify] 20 mg PO DAILY 05/29/21 05/29/21 Albuterol Nebulized [Ventolin 2.5 mg INHALATION RT-Q4H PRN 05/29/21 05/29/21 Nebulized] Albuterol Sulfate [Ventolin HFA] 1 - 2 puff INHALATION RT-Q4H PRN 05/29/21 05/29/21 Atorvastatin [Lipitor] 10 mg PO HS 05/29/21 05/29/21 Benztropine Mesylate [Cogentin] 1 mg PO DAILY 05/29/21 05/29/21 Brivaracetam [Briviact] 25 mg PO BID 05/29/21 05/29/21 Cholecalciferol [Vitamin D3 (25 50 mcg PO HS 05/29/21 05/29/21 Mcg = 1000 Iu)] Divalproex Sodium [Depakote] 500 mg PO BID 05/29/21 05/29/21 Docusate [Colace] 100 mg PO BID 05/29/21 05/29/21 Eslicarbazepine Acetate [Aptiom] 600 mg PO HS 05/29/21 05/29/21 Famotidine 20 mg PO BID 05/29/21 05/29/21 Fenofibrate [Lofibra] 54 mg PO HS 05/29/21 05/29/21 Furosemide [Lasix] 40 mg PO DAILY 05/29/21 05/29/21 Ibuprofen [Motrin] 400 mg PO BID PRN 05/29/21 05/29/21 Meclizine HCl 25 mg PO BID PRN 05/29/21 05/29/21 Melatonin 5 mg PO HS PRN 05/29/21 05/29/21 Midodrine HCl [ProAmatine] 10 mg PO TID@0800,1200,1600 05/29/21 05/29/21 Montelukast [Singulair] 10 mg PO HS 05/29/21 05/29/21 Multivitamins, Thera [Multivitamin 1 tab PO HS 05/29/21 05/29/21 (formulary)] Pantoprazole Sodium 40 mg PO DAILY 05/29/21 05/29/21 Selenium Sulfide 1% Shampoo 1 applic TOPICAL Q7D 05/29/21 05/29/21 calcium polycarbophiL [Fibercon] 625 mg PO DAILY 05/29/21 05/29/21 Previous Rx's Medication Instructions Recorded Potassium Chloride ER [K-Dur 10] 40 meq PO DAILY #0 05/31/21 Allergies Allergy/AdvReac Type Severity Reaction Status Date / Time Barbiturates Allergy Unknown Verified 10/07/22 18:04 carbamazepine [From Tegretol] Allergy Unknown Verified 10/07/22 18:04 clindamycin palmitate HCl Allergy Unknown Verified 10/07/22 18:04 [From Cleocin] clindamycin phosphate Allergy Unknown Verified 10/07/22 18:04 [From Cleocin] Penicillins Allergy Unknown Verified 10/07/22 18:04 phenobarbital Allergy Unknown Verified 10/07/22 18:04 phenytoin [From Dilantin] Allergy Unknown Verified 10/07/22 18:04 primidone [From Mysoline] Allergy Unknown Verified 10/07/22 18:04 Review of Systems ROS Statement: Those systems with pertinent positive or pertinent negative responses have been documented in the HPI. ROS Other: All systems not noted in ROS Statement are negative. Past Medical History Past Medical History: GERD/Reflux, Osteoarthritis (OA), Pneumonia, Seizure Disorder, Thyroid Disorder Additional Past Medical History / Comment(s): Pt is developmentally challenged and has a legal guardian-Jayda Aguirre. Per dictation, DANNA Montelongo states pt is to be a full code. She states to use medical history from pt's last admission. TREMORS FROM MEDS, hypothyroid, falls, head injury r/t fall, sinusitis. PARKINSONS, OCCASIONAL DIZZY SPELLS, PAST RIGHT LEG CELLULITIS, AND DARKENED PIGMENTATION RIGHT LEG. History of Any Multi-Drug Resistant Organisms: None Reported Past Surgical History: No Surgical Hx Reported Past Anesthesia/Blood Transfusion Reactions: No Reported Reaction Additional Past Anesthesia/Blood Transfusion Reaction / Comment(s): NEVER HAD AA Past Psychological History: Anxiety, Depression, PTSD Past Alcohol Use History: None Reported Past Drug Use History: None Reported - Past Family History Father Additional Family Medical History / Comment(s): WAS A DRINKER FROM CIRRHOSIS Mother Family Medical History: Cancer Additional Family Medical History / Comment(s): BREAST-mother is living. General Exam General appearance: alert, in no apparent distress Head exam: Present: atraumatic, normocephalic, normal inspection Eye exam: Present: normal appearance, PERRL, EOMI. Absent: scleral icterus, conjunctival injection, periorbital swelling ENT exam: Present: normal exam, mucous membranes moist Neck exam: Present: normal inspection. Absent: tenderness, meningismus, lymphadenopathy Respiratory exam: Present: normal lung sounds bilaterally. Absent: respiratory distress, wheezes, rales, rhonchi, stridor Cardiovascular Exam: Present: normal rhythm, tachycardia, normal heart sounds. Absent: systolic murmur, diastolic murmur, rubs, gallop, clicks GI/Abdominal exam: Present: soft, normal bowel sounds. Absent: distended, tenderness, guarding, rebound, rigid Extremities exam: Present: normal inspection, full ROM, normal capillary refill. Absent: tenderness, pedal edema, joint swelling, calf tenderness Back exam: Present: normal inspection Neurological exam: Present: alert, oriented X3, CN II-XII intact Psychiatric exam: Present: normal affect, normal mood Skin exam: Present: warm, dry, intact, normal color. Absent: rash Course Vital Signs 10/07/22 10/07/22 18:00 18:59 Temperature 97.5 F L Pulse Rate 115 H 104 H Respiratory 18 18 Rate Blood Pressure 128/90 132/87 O2 Sat by Pulse 96 95 Oximetry - Reevaluation(s) Reevaluation #1: 10/07/22 19:02 medical record is reviewed Reevaluation #2: 10/07/22 19:03 No recurrent seizures here in the ER Reevaluation #3: 10/07/22 20:36 Patient informed results and questions answered Reevaluation #4: 10/07/22 19:03 Was pt. sent in by a medical professional or institution? @ -no Did you speak to anyone other than the patient for history? @ -no Did you review nursing and triage notes? @ -agree Were old charts reviewed? @ -yes prior ED visits and admits Differential Diagnosis? @ -no EKG interpreted by me (3pts min.)? @ -no X-rays interpreted by me (1pt min.)? @ -no CT interpreted by me (1pt min.)? @ -no U/S interpreted by me (1pt. min.)? @ -no What testing was considered but not performed? (CT, X-rays, U/S, labs)? Why? @ no What meds were considered but not given? Why? @ -no Did you discuss the management of the patient with other professionals? @ -no Did you reconcile home meds? @ -no Was smoking cessation discussed for >3mins.? @ -no Was critical care preformed (if so, how long)? @ -no Were there social determinants of health that impacted care today? How? (Homelessness, low income, unemployed, alcoholism, drug addiction, transportation, low edu. Level, literacy, decrease access to med. care, residential, rehab)? @ -no Was there de-escalation of care discussed even if they declined? (Discuss DNR or withdrawal of care, Hospice)? @ -no What co-morbidities impacted this encounter? (DM, HTN, Smoking, COPD, CAD, Cancer, CVA, Hep., AIDS, mental health diagnosis, sleep apnea, morbid obesity)? @ -no Was patient admitted / discharged? @ -dc Undiagnosed new problem with uncertain prognosis? @ -no Drug Therapy requiring intensive monitoring for toxicity (Heparin, Nitro, Insulin, Cardizem)? @ -no Were any procedures done? @ -no Diagnosis/symptom? @ -recurrent sizures Acute, or Chronic, or Acute on Chronic? @ -chronic Uncomplicated (without systemic symptoms) or Complicated (systemic symptoms)? @ -uncomplicated Side effects of treatment? @ -no Exacerbation, Progression, or Severe Exacerbation] @ -exacerbation Poses a threat to life or bodily function? @ -[no] Medical Decision Making - Medical Decision Making 52 female with recurrent seizure-like activity, patient has no recurrent seizures here in the ER patient informed results questions answered patient can be discharged home - Lab Data Result diagrams: 10/07/22 18:30 Lab Results 10/07/22 10/07/22 Range/Units 18:30 18:30 WBC 5.6 (3.8-10.6) k/uL RBC 4.82 (3.80-5.40) m/uL Hgb 14.7 (11.4-16.0) gm/dL Hct 44.7 (34.0-46.0) % MCV 92.7 (80.0-100.0) fL MCH 30.5 (25.0-35.0) pg MCHC 32.9 (31.0-37.0) g/dL RDW 13.8 (11.5-15.5) % Plt Count 134 L (150-450) k/uL MPV 9.6 Neutrophils % 60 % Lymphocytes % 31 % Monocytes % 4 % Eosinophils % 1 % Basophils % 1 % Neutrophils # 3.4 (1.3-7.7) k/uL Lymphocytes # 1.7 (1.0-4.8) k/uL Monocytes # 0.2 (0-1.0) k/uL Eosinophils # 0.1 (0-0.7) k/uL Basophils # 0.0 (0-0.2) k/uL Urine Color Yellow Urine Appearance Clear (Clear) Urine pH 6.5 (5.0-8.0) Ur Specific [place] 1.018 (1.001-1.035) Urine Protein Negative (Negative) Urine Glucose (UA) Negative (Negative) Urine Ketones Negative (Negative) Urine Blood Negative (Negative) Urine Nitrite Negative (Negative) Urine Bilirubin Negative (Negative) Urine Urobilinogen 2.0 (<2.0) mg/dL Ur Leukocyte Esterase Large H (Negative) Urine RBC 2 (0-5) /hpf Urine WBC 27 H (0-5) /hpf Ur Squamous Epith Cells 1 (0-4) /hpf Urine Bacteria Rare H (None) /hpf Hyaline Casts 5 H (0-2) /lpf Urine Mucus Rare H (None) /hpf Urine Opiates Screen Not Detected (NotDetected) Ur Oxycodone Screen Not Detected (NotDetected) Urine Methadone Screen Not Detected (NotDetected) Ur Propoxyphene Screen Not Detected (NotDetected) Ur Barbiturates Screen Not Detected (NotDetected) U Tricyclic Antidepress Not Detected (NotDetected) Ur Phencyclidine Scrn Not Detected (NotDetected) Ur Amphetamines Screen Not Detected (NotDetected) U Methamphetamines Scrn Not Detected (NotDetected) U Benzodiazepines Scrn Not Detected (NotDetected) Urine Cocaine Screen Not Detected (NotDetected) U Marijuana (THC) Screen Not Detected (NotDetected) Disposition Clinical Impression: New onset seizure, Dehydration Disposition: HOME SELF-CARE Instructions (If sedation given, give patient instructions): Seizure/Epilepsy Discharge Instructions & Follow-Up, Recurrent Seizures in Adults (ED) Is patient prescribed a controlled substance at d/c from ED?: No Referrals: Demond Kline MD [Primary Care Provider] - 1-2 days Time of Disposition: 20:35
[2022-10-07 19:16] LABS: Basophils % (A) 1 %; Eosinophils # (A) 0.1 k/uL (0-0.7); Eosinophils % (A) 1 %; HCT 44.7 % (34.0-46.0); HGB 14.7 gm/dL (11.4-16.0); Lymphocytes # (A) 1.7 k/uL (1.0-4.8); Lymphocytes % (A) 31 %; MCH 30.5 pg (25.0-35.0); MCHC 32.9 g/dL (31.0-37.0); MCV 92.7 fL (80.0-100.0); Mean Platelet Volume 9.6; Monocytes # (A) 0.2 k/uL (0-1.0); Monocytes % (A) 4 %; Neutrophils # (A) 3.4 k/uL (1.3-7.7); Neutrophils % (A) 60 %; Platelet Count 134 k/uL (150-450); RBC 4.82 m/uL (3.80-5.40); RDW 13.8 % (11.5-15.5); WBC 5.6 k/uL (3.8-10.6)
[2022-10-07 19:37] LABS: Appearance,Urine Clear (Clear); Bacteria,Urine Rare /hpf; Bilirubin,Urine Negative (Negative); Blood,Urine Negative (Negative); Color,Urine Yellow; Glucose,Urine (UA) Negative (Negative); Hyaline Casts,Urine 5 /lpf (0-2); Ketones,Urine Negative (Negative); Leukocyte Esterase,Urine Large (Negative); Mucus,Urine Rare /hpf; Nitrite,Urine Negative (Negative); PH, Urine 6.5 (5.0-8.0); Protein,Urine Negative (Negative); RBC,Urine 2 /hpf (0-5); Specific Gravity,Urine 1.018 (1.001-1.035); Squamous Epithelial Cell,Urine 1 /hpf (0-4); WBC,Urine 27 /hpf (0-5)
[2022-10-07 19:38] LABS: Amphetamine Screen,Urine Not Detected (NotDetected); Barbiturate Screen,Urine Not Detected (NotDetected); Benzodiazepines Screen,Urine Not Detected (NotDetected); Cocaine Screen,Urine Not Detected (NotDetected); Methadone Screen, Urine Not Detected (NotDetected); Opiate Screen,Urine Not Detected (NotDetected); Oxycodone Screen, Urine Not Detected (NotDetected); Phencyclidine Screen,Urine Not Detected (NotDetected); Tricyclic Antidepressant,Urine Not Detected (NotDetected); Urn Cannabinoid Scrn Not Detected (NotDetected)
[2022-10-07] MEDS ORDERED: ACETAMINOPHEN TAB 325 MG TAB PO STA (19:55)
[2022-10-07 20:39] LABS: ALT 10 U/L (4-34); AST 22 U/L (14-36); African American GFR (CKD) 76 (>60 ml/min/1.73 sqM); Albumin 3.9 g/dL (3.5-5.0); Alcohol <10 mg/dL; Alkaline Phosphatase 53 U/L (38-126); Anion Gap 5 mmol/L; Blood Urea Nitrogen 32 mg/dL (7-17); Calcium 9.2 mg/dL (8.4-10.2); Carbamazepine (Tegretol) <3.0 ug/mL; Carbon Dioxide 29 mmol/L (22-30); Chloride 103 mmol/L (98-107); Glucose 94 mg/dL (74-99); Magnesium 2.2 mg/dL (1.6-2.3); Non-African American GFR(CKD) 66 (>60 ml/min/1.73 sqM); Phenytoin (Dilantin) <3.0 ug/mL; Potassium 4.4 mmol/L (3.5-5.1); Salicylate <1.0 mg/dL; Sodium 137 mmol/L (137-145); Total Bilirubin 0.3 mg/dL (0.2-1.3); Total Protein 6.4 g/dL (6.3-8.2)
[2022-10-07 20:42] LABS: Valproic Acid (Depakene) 53.1 ug/mL
== END 2022-10-07 21:06 | disposition home or self-care (01) ==
LOC: EC 17:44
DX: R56.9 Unspecified convulsions (principal); E86.0 Dehydration; E03.9 Hypothyroidism, unspecified; K21.9 Gastro-esophageal reflux disease without esophagitis; M19.90 Unspecified osteoarthritis, unspecified site; F41.9 Anxiety disorder, unspecified; F32.A Depression, unspecified; Z88.0 Allergy status to penicillin; Z88.1 Allergy status to other antibiotic agents; Z88.8 Allergy status to other drugs, medicaments and biological substances; Z79.890 Hormone replacement therapy; Z79.899 Other long term (current) drug therapy
CPT/HCPCS: 36415; 80156; 80164; 80053; 80185; 83735; 85025; 81001; 80306; 80179; 99285; 96374; 96361; G0480; J1953; 80320

== ENCOUNTER → 2023-01-12 | Outpatient (CLI) | payer MEDICARE, OTHER ==
--- NOTE | 2023-01-15 11:42 | MM ---
Reason for Exam: Screening (asymptomatic). Last mammogram was performed 1 year(s) and 1 month(s) ago. Patient History: Menarche at age 13. Patient has no children. Currently using Hormonal Contraceptives. Risk Values: Fifi 5 year model risk: 1.1%. NCI Lifetime model risk: 9.7%. Prior Study Comparison: 09/18/2011 Bilateral Screening Mammogram, [facility]. 04/03/2017 Bilateral Screening Mammogram, [facility]. 01/02/2022 Bilateral MG screening mammo w CAD, [facility]. Tissue Density: The breast tissue is heterogeneously dense. This may lower the sensitivity of mammography. Findings: Analyzed By CAD. There is no suspicious group of microcalcifications or new suspicious mass in either breast. Overall Assessment: Negative, BI-RAD 1 Management: Screening Mammogram of both breasts in [address] [facility] will attempt to contact patient to return for supplemental views and ultrasound if indicated. Patient should continue monthly self-breast exams. A clinical breast exam by your physician is recommended on an annual basis. This exam should not preclude additional follow-up of suspicious palpable abnormalities. Note on Fifi scores and lifetime risk: 1. A Fifi score greater than 3% is considered moderate risk. If this is the case, consider specialist referral to assess eligibility for a risk reducing agent. 2. If overall lifetime risk for the development of breast cancer is 20% or higher, the patient may qualify for future screening with alternating mammogram and breast MRI. Electronically signed and approved by: Hasmukh Narvaez DO
== END | disposition home or self-care (01) ==
LOC: RADMAMWWP 09:32
PROVIDERS: ATTEND General Practice
DX: Z12.31 Encounter for screening mammogram for malignant neoplasm of breast (principal)
CPT/HCPCS: 77067

== ENCOUNTER → 2023-03-17 | Outpatient (CLI) | payer MEDICARE, OTHER ==
--- NOTE | 2023-03-17 11:25 | MR ---
EXAMINATION TYPE: MR brain wo con DATE OF EXAM: 03/17/2023 COMPARISON: CT scan 03/31/2017, MR brain 03/31/2017 HISTORY: Seizures TECHNIQUE: T1-weighted sagittal, T2, FLAIR, and diffusion axial, and T2 coronal coronal views of the brain are submitted. FINDINGS: There is no evidence of acute ischemia. There is diffuse cerebellar atrophy. Moderate generalized cerebral atrophy. Medial temporal lobes are symmetric with no abnormal signal. Prominent cisterna magna. Sella turcica is normal. Craniocervical junction maintained. On changes of chronic mastoiditis. Mild changes of chronic sinusitis. Orbits are symmetric. IMPRESSION: 1. No acute intracranial process. There is generalized moderate degenerative change with a greater ce rebellar component. Findings similar to prior exams.
== END | disposition home or self-care (01) ==
LOC: RADMRIMAIN 09:39
PROVIDERS: ATTEND Psychiatry & Neurology Neurology
DX: G40.011 Localization-related (focal) (partial) idiopathic epilepsy and epileptic syndromes with seizures of localized onset, intractable, with status epilepticus (principal); Z86.79 Personal history of other diseases of the circulatory system
CPT/HCPCS: 70551

== ENCOUNTER → 2023-07-23 | Outpatient (CLI) | payer MEDICARE, OTHER ==
--- NOTE | 2023-07-24 08:33 | NM ---
EXAMINATION TYPE: NM DatScan Brain SPECT DATE OF EXAM: 07/23/2023 COMPARISON: NONE HISTORY: Tremor TECHNIQUE: 10 drops of Lugol's solution was administered 1 hour prior to injection as a thyroid bloc dany agent. After the administration of 4.37 mCi I-123 Ioflupane DaTscan. Images obtained 3 hours p ost injection. SPECT images of the brain were acquired with axial and coronal reconstructions. FINDINGS: The axial SPECT images demonstrate normal background activity. Accounting for head tilt, t here appears to be slight asymmetrically blunted comma-shaped appearance of the left corpus striatum. Z score analysis was performed. IMPRESSION: Slightly blunted striatal activity on the left may indicate early changes of idiopathic P arkinson's disease or Parkinsonian syndrome.
== END | disposition home or self-care (01) ==
LOC: RADNMMAIN 10:55
PROVIDERS: ATTEND Psychiatry & Neurology Neurology
DX: R25.1 Tremor, unspecified (principal)
CPT/HCPCS: 78803; A9584

== ENCOUNTER → 2023-08-07 | Outpatient (CLI) | payer MEDICARE, OTHER ==
[2023-08-07 16:33] LABS: ALT <5 U/L (8-44); AST 16 U/L (13-35); Albumin 4.3 g/dL (3.8-4.9); Albumin/Globulin Ratio 1.95 Ratio (1.60-3.17); Alkaline Phosphatase 39 U/L (41-126); Blood Urea Nitrogen 17.6 mg/dL (9.0-27.0); Calcium 10.2 mg/dL (8.7-10.3); Carbon Dioxide 23.1 mmol/L (21.6-31.8); Chloride 104 mmol/L (96-109); Globulin 2.2 g/dL (1.6-3.3); Glucose 87 mg/dL (70-110); Potassium 4.7 mmol/L (3.5-5.5); Sodium 137 mmol/L (135-145); Total Bilirubin 0.3 mg/dL (0.3-1.2); Total Protein 6.5 g/dL (6.2-8.2)
[2023-08-07 18:03] LABS: Valproic Acid (Depakene) 47.8 UG/ML (50.0-100.0)
== END | disposition home or self-care (01) ==
LOC: LABWHC1 08:24
PROVIDERS: ATTEND Nurse Practitioner Family
DX: E72.20 Disorder of urea cycle metabolism, unspecified (principal)
CPT/HCPCS: 36415; 80053; 80164; 80201; 82140

== ENCOUNTER → 2023-08-14 | Outpatient (CLI) | payer MEDICARE, OTHER ==
--- NOTE | 2023-08-14 08:41 | US ---
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 FINDINGS: EXAM MEASUREMENTS: Liver Length: 15.3 cm Gallbladder Wall: 0.3 cm CBD: 0.4 cm Spleen: 9.0 cm Right Kidney: 9.9 x 4.5 x 4.3 cm Left Kidney: 10.8 x 5.3 x 4.4 cm STRATEGIC PLANNING CONSULTANT NOTES: Pt has difficult mobility, difficult to scan Pancreas: wnl, tail obscured by overlying bowel gas Liver: Visualized portions appeared wnl Gallbladder: Probable polyps anterior wall Evidence for sonographic Brizuela's sign: No CBD: wnl Spleen: wnl Right Kidney: Mildly dilated renal pelvis Left Kidney: No evidence of hydro, difficult to visualize due to overlying bowel gas Upper IVC: wnl Abd Aorta: Proximal portion wnl, mid and distal portions gassed out The liver is homogenous. The intrahepatic portion of the IVC and proximal abdominal aorta are within normal limits. There is no evidence of cholelithiasis. Common bile duct is unremarkable. The visu alized portions of the pancreas are homogenous. The spleen is unremarkable. No renal lesions are see n. IMPRESSION: Mild dilatation right renal pelvis. Small gallbladder polyps difficult to exclude.
== END | disposition home or self-care (01) ==
LOC: RADUSWWP 08:00
PROVIDERS: ATTEND Family Medicine
DX: N28.89 Other specified disorders of kidney and ureter (principal); E72.20 Disorder of urea cycle metabolism, unspecified
CPT/HCPCS: 76700

== ENCOUNTER 2023-09-26 19:48 | Emergency (ER) | payer MEDICARE, OTHER ==
[2023-09-26 22:51] LABS: Basophils % (A) 1 %; Eosinophils # (A) 0.1 k/uL (0-0.7); Eosinophils % (A) 2 %; HCT 37.4 % (34.0-46.0); HGB 12.6 gm/dL (11.4-16.0); Lymphocytes % (A) 46 %; MCH 32.7 pg (25.0-35.0); MCHC 33.8 g/dL (31.0-37.0); MCV 96.9 fL (80.0-100.0); Monocytes # (A) 0.2 k/uL (0-1.0); Monocytes % (A) 4 %; Neutrophils # (A) 2.1 k/uL (1.3-7.7); Neutrophils % (A) 46 %; Platelet Count 102 k/uL (150-450); RBC 3.86 m/uL (3.80-5.40); RDW 13.2 % (11.5-15.5); WBC 4.4 k/uL (3.8-10.6)
[2023-09-26 23:05] LABS: ALT 9 U/L (4-34); AST 30 U/L (14-36); African American GFR (CKD) 83 (>60 ml/min/1.73 sqM); Albumin 3.6 g/dL (3.5-5.0); Alkaline Phosphatase 44 U/L (38-126); Anion Gap 7 mmol/L; Blood Urea Nitrogen 19 mg/dL (7-17); Calcium 9.4 mg/dL (8.4-10.2); Carbon Dioxide 20 mmol/L (22-30); Chloride 109 mmol/L (98-107); Glucose 82 mg/dL (74-99); Magnesium 1.9 mg/dL (1.6-2.3); Non-African American GFR(CKD) 72 (>60 ml/min/1.73 sqM); Potassium 4.3 mmol/L (3.5-5.1); Sodium 136 mmol/L (137-145); Total Bilirubin 0.6 mg/dL (0.2-1.3); Total Protein 5.9 g/dL (6.3-8.2)
--- NOTE | 2023-09-26 23:34 | ED ---
Seizure HPI - General Chief Complaint: Seizure Stated Complaint: Seizure Time Seen by Provider: 09/26/23 19:56 Source: patient, EMS Mode of arrival: EMS Limitations: altered mental status - History of Present Illness Initial Comments: This patient is 53-year-old woman with history of seizure disorder who arrives to have evaluation for having had seizure. Patient from [facility] home. They did give the patient dose of Valium with when they called EMS and the seizure did stop. Patient reported to be compliant with medications. No injury as result of seizure. MD Complaint: seizure -: minutes(s) Description of Episode: loss of consciousness, tonic-clonic movement -: minutes(s) Witnessed: yes - by bystander Trauma: No Seizure History: known seizure disorder Place: home Associated Symptoms: denies other symptoms Treatments Prior to Arrival: benzodiazepines - Related Data Home Medications Medication Instructions Recorded Confirmed Folic Acid 1 mg PO DAILY 02/10/15 05/29/21 Loratadine [Claritin] 10 mg PO DAILY 09/13/16 05/29/21 fluvoxaMINE MALEATE [Luvox] 100 mg PO BID 09/13/16 05/29/21 ARIPiprazole [Abilify] 5 mg PO DAILY 11/21/16 05/29/21 Acetaminophen Tab [Tylenol] 650 mg PO Q4H PRN 03/26/17 05/29/21 Levothyroxine Sodium [Synthroid] 112 mcg PO DAILY 03/26/17 05/29/21 Loperamide [Imodium] 2 mg PO QID PRN 03/26/17 05/29/21 Topiramate [Topamax] 50 mg PO BID 03/26/17 05/29/21 polyethylene glycoL 3350 [Miralax] 17 gm PO DAILY PRN 03/26/17 05/29/21 ARIPiprazole [Abilify] 20 mg PO DAILY 05/29/21 05/29/21 Albuterol Nebulized [Ventolin 2.5 mg INHALATION RT-Q4H PRN 05/29/21 05/29/21 Nebulized] Albuterol Sulfate [Ventolin HFA] 1 - 2 puff INHALATION RT-Q4H PRN 05/29/21 05/29/21 Atorvastatin [Lipitor] 10 mg PO HS 05/29/21 05/29/21 Benztropine Mesylate [Cogentin] 1 mg PO DAILY 05/29/21 05/29/21 Brivaracetam [Briviact] 25 mg PO BID 05/29/21 05/29/21 Cholecalciferol [Vitamin D3 (25 50 mcg PO HS 05/29/21 05/29/21 Mcg = 1000 Iu)] Divalproex Sodium [Depakote] 500 mg PO BID 05/29/21 05/29/21 Docusate [Colace] 100 mg PO BID 05/29/21 05/29/21 Eslicarbazepine Acetate [Aptiom] 600 mg PO HS 05/29/21 05/29/21 Famotidine 20 mg PO BID 05/29/21 05/29/21 Fenofibrate [Lofibra] 54 mg PO HS 05/29/21 05/29/21 Furosemide [Lasix] 40 mg PO DAILY 05/29/21 05/29/21 Ibuprofen [Motrin] 400 mg PO BID PRN 05/29/21 05/29/21 Meclizine HCl 25 mg PO BID PRN 05/29/21 05/29/21 Melatonin 5 mg PO HS PRN 05/29/21 05/29/21 Midodrine HCl [ProAmatine] 10 mg PO TID@0800,1200,1600 05/29/21 05/29/21 Montelukast [Singulair] 10 mg PO HS 05/29/21 05/29/21 Multivitamins, Thera [Multivitamin 1 tab PO HS 05/29/21 05/29/21 (formulary)] Pantoprazole Sodium 40 mg PO DAILY 05/29/21 05/29/21 Selenium Sulfide 1% Shampoo 1 applic TOPICAL Q7D 05/29/21 05/29/21 calcium polycarbophiL [Fibercon] 625 mg PO DAILY 05/29/21 05/29/21 Previous Rx's Medication Instructions Recorded Potassium Chloride ER [K-Dur 10] 40 meq PO DAILY #0 05/31/21 Allergies Allergy/AdvReac Type Severity Reaction Status Date / Time Barbiturates Allergy Unknown Verified 10/07/22 18:04 carbamazepine [From Tegretol] Allergy Unknown Verified 10/07/22 18:04 clindamycin palmitate HCl Allergy Unknown Verified 10/07/22 18:04 [From Cleocin] clindamycin phosphate Allergy Unknown Verified 10/07/22 18:04 [From Cleocin] Penicillins Allergy Unknown Verified 10/07/22 18:04 phenobarbital Allergy Unknown Verified 10/07/22 18:04 phenytoin [From Dilantin] Allergy Unknown Verified 10/07/22 18:04 primidone [From Mysoline] Allergy Unknown Verified 10/07/22 18:04 Review of Systems ROS Statement: Those systems with pertinent positive or pertinent negative responses have been documented in the HPI. ROS Other: All systems not noted in ROS Statement are negative. Limitations: ROS unobtainable due to patients medical condition Cardiovascular: Denies: chest pain Gastrointestinal: Denies: abdominal pain Musculoskeletal: Denies: back pain Neurological: Denies: headache Past Medical History Past Medical History: GERD/Reflux, Osteoarthritis (OA), Pneumonia, Seizure Disorder, Thyroid Disorder Additional Past Medical History / Comment(s): Pt is developmentally challenged and has a legal guardian-Jayda Aguirre. Per dictation, DANNA Montelongo states pt is to be a full code. She states to use medical history from pt's last admission. TREMORS FROM MEDS, hypothyroid, falls, head injury r/t fall, sinusitis. P ARKINSONS, OCCASIONAL DIZZY SPELLS, PAST RIGHT LEG CELLULITIS, AND DARKENED PIGMENTATION RIGHT LEG. History of Any Multi-Drug Resistant Organisms: None Reported Past Surgical History: No Surgical Hx Reported Past Anesthesia/Blood Transfusion Reactions: No Reported Reaction Additional Past Anesthesia/Blood Transfusion Reaction / Comment(s): NEVER HAD AA Past Psychological History: Anxiety, Depression, PTSD Past Alcohol Use History: None Reported Past Drug Use History: None Reported - Past Family History Father Additional Family Medical History / Comment(s): WAS A DRINKER FROM CIRRHOSIS Mother Family Medical History: Cancer Additional Family Medical History / Comment(s): BREAST-mother is living. General Exam Limitations: no limitations General appearance: alert, in no apparent distress Head exam: Present: atraumatic, normocephalic Eye exam: Present: normal appearance. Absent: scleral icterus, conjunctival injection ENT exam: Present: normal oropharynx Neck exam: Present: normal inspection, full ROM. Absent: tenderness Respiratory exam: Present: normal lung sounds bilaterally. Absent: respiratory distress, wheezes, rales, rhonchi, stridor Cardiovascular Exam: Present: regular rate, normal rhythm, normal heart sounds. Absent: systolic murmur, diastolic murmur, rubs, gallop GI/Abdominal exam: Present: soft. Absent: distended, tenderness, guarding, rebound, rigid, mass Extremities exam: Present: normal inspection, normal capillary refill. Absent: pedal edema, calf tenderness Back exam: Present: normal inspection. Absent: CVA tenderness (R), CVA tenderness (L), vertebral tenderness Neurological exam: Present: alert, CN II-XII intact. Absent: motor sensory deficit Expanded Patient oriented to: Present: person, place Speech: Present: fluid speech Cranial nerves: EOM's Intact: Normal Sensory exam: Upper Extremity Light Touch: Normal, Lower Extremity Light Touch: Normal Motor strength exam: RUE: 5, LUE: 5, RLE: 5, LLE: 5 Eye Response: (4) open spontaneously Motor Response: (6) obeys commands Verbal Response: (4) confused conversation Skin exam: Present: warm, dry, intact, normal color. Absent: rash Course Vital Signs 09/26/23 09/26/23 09/27/23 19:51 20:13 00:43 Temperature 97.7 F 97.9 F Pulse Rate 91 79 Respiratory 18 14 Rate Blood Pressure 183/120 161/120 117/90 O2 Sat by Pulse 100 97 Oximetry Medical Decision Making - Medical Decision Making Patient is 53-year-old woman with history of seizure disorder who did have what sounds like breakthrough seizure. Patient has returned to baseline. No injury as result of seizure. At this point stable for returning back to [facility]. The patient does have upcoming specialist appointment. Was pt. sent in by a medical professional or institution (, PA, ASSOCIATE DIRECTOR REGULATORY AFFAIRS, urgent care, hospital, or senior care...) When possible be specific @ -The patient is sent from [facility] home to have evaluation Did you speak to anyone other than the patient for history (EMS, parent, family, police, friend...)? What history was obtained from this source @ -[No] Did you review nursing and triage notes (agree or disagree)? Why? @ -[I reviewed and agree with nursing and triage notes] Were old charts reviewed (outside hosp., previous admission, EMS record, old EKG, old radiological studies, urgent care reports/EKG's, senior care records)? Report findings @ -[No old charts were reviewed] Differential Diagnosis (chest pain, altered mental status, abdominal pain women, abdominal pain men, vaginal bleeding, weakness, fever, dyspnea, syncope, headache, dizziness, GI bleed, back pain, seizure, CVA, palpatations, mental health, musculoskeletal)? @ -[Differential Seizure: Recurrent seizure disorder, febrile seizure, alcohol withdrawal, stimulants, meningitis, encephalitis, intercranial hemorrhage, intracranial tumor, stroke, eclampsia, thyrotoxicosis, hypocalcemia, hyponatremia, hypernatremia, hypomagnesemia, psychogenic, this is not meant to be an all-inclusive list. EKG interpreted by me (3pts min.). @ -[I interpreted as above] X-rays interpreted by me (1pt min.). @ -[None done] CT interpreted by me (1pt min.). @ -[None done] U/S interpreted by me (1pt. min.). @ -[None done] What testing was considered but not performed or refused? (CT, X-rays, U/S, labs)? Why? @ -[None] What meds were considered but not given or refused? Why? @ -[None] Did you discuss the management of the patient with other professionals (professionals i.e. , PA, ASSOCIATE DIRECTOR REGULATORY AFFAIRS, lab, RT, psych nurse, social sciences research scientist, barber instructor, teacher, chief sales officer, piano case maker)? Give summary @ -[No] Was smoking cessation discussed for >3mins.? @ -[No] Was critical care preformed (if so, how long)? @ -[No] Were there social determinants of health that impacted care today? How? (Homele ssness, low income, unemployed, alcoholism, drug addiction, transportation, low edu. Level, literacy, decrease access to med. care, fdc, rehab)? @ -[No] Was there de-escalation of care discussed even if they declined (Discuss DNR or withdrawal of care, Hospice)? DNR status @ -[No] What co-morbidities impacted this encounter? (DM, HTN, Smoking, COPD, CAD, Cancer, CVA, ARF, Chemo, Hep., AIDS, mental health diagnosis, sleep apnea, morbid obesity)? @ -[Seizure disorder Was patient admitted / discharged? Hospital course, mention meds given and route, prescriptions, significant lab abnormalities, going to OR and other pertinent info. @ -As above Undiagnosed new problem with uncertain prognosis? @ -[No] Drug Therapy requiring intensive monitoring for toxicity (Heparin, Nitro, Insulin, Cardizem)? @ -[No] Were any procedures done? @ -[No] Diagnosis/symptom? @ -[Generalized tonic-clonic seizure Acute, or Chronic, or Acute on Chronic? @ -[Acute on chronic Uncomplicated (without systemic symptoms) or Complicated (systemic symptoms)? @ -[Uncomplicated Side effects of treatment? @ -[No] Exacerbation, Progression, or Severe Exacerbation? @ -[No] Poses a threat to life or bodily function? How? (Chest pain, USA, IA, pneumonia, PE, COPD, DKA, ARF, appy, cholecystitis, CVA, Diverticulitis, Homicidal, Suicidal, threat to staff... and all critical care pts) @ -[No] - Lab Data Result diagrams: 09/26/23 22:40 09/26/23 22:40 Lab Results 09/26/23 09/26/23 Range/Units 22:40 22:40 WBC 4.4 (3.8-10.6) k/uL RBC 3.86 (3.80-5.40) m/uL Hgb 12.6 (11.4-16.0) gm/dL Hct 37.4 (34.0-46.0) % MCV 96.9 (80.0-100.0) fL MCH 32.7 (25.0-35.0) pg MCHC 33.8 (31.0-37.0) g/dL RDW 13.2 (11.5-15.5) % Plt Count 102 L (150-450) k/uL MPV 10.0 Neutrophils % 46 % Lymphocytes % 46 % Monocytes % 4 % Eosinophils % 2 % Basophils % 1 % Neutrophils # 2.1 (1.3-7.7) k/uL Lymphocytes # 2.0 (1.0-4.8) k/uL Monocytes # 0.2 (0-1.0) k/uL Eosinophils # 0.1 (0-0.7) k/uL Basophils # 0.0 (0-0.2) k/uL Sodium 136 L (137-145) mmol/L Potassium 4.3 (3.5-5.1) mmol/L Chloride 109 H (98-107) mmol/L Carbon Dioxide 20 L (22-30) mmol/L Anion Gap 7 mmol/L BUN 19 H (7-17) mg/dL Creatinine 0.92 (0.52-1.04) mg/dL Est GFR (CKD-EPI)AfAm 83 (>60 ml/min/1.73 sqM) Est GFR (CKD-EPI)NonAf 72 (>60 ml/min/1.73 sqM) Glucose 82 (74-99) mg/dL Calcium 9.4 (8.4-10.2) mg/dL Magnesium 1.9 (1.6-2.3) mg/dL Total Bilirubin 0.6 (0.2-1.3) mg/dL AST 30 (14-36) U/L ALT 9 (4-34) U/L Alkaline Phosphatase 44 (38-126) U/L Total Protein 5.9 L (6.3-8.2) g/dL Albumin 3.6 (3.5-5.0) g/dL - EKG Data -: EKG Interpreted by [facility] EKG shows normal: sinus rhythm, axis (Normal), intervals (Normal), QRS complexes (Normal) Rate: normal (Rate 82 bpm) Disposition Clinical Impression: Seizure Disposition: HOME SELF-CARE Condition: Good Instructions (If sedation given, give patient instructions): Recurrent Seizures in Adults (ED) Is patient prescribed a controlled substance at d/c from ED?: No Referrals: Demond Kline MD [Primary Care Provider] - 1-2 days Rosy Wayne MD [REFERRING] - 1-2 days
[2023-09-27 00:56] VITALS: BP 117/90; PULSE 79; RESP 14; TEMP 97.9
== END 2023-09-27 01:21 | disposition home or self-care (01) ==
LOC: EC 19:48
DX: G40.409 Other generalized epilepsy and epileptic syndromes, not intractable, without status epilepticus (principal); Z88.1 Allergy status to other antibiotic agents; Z88.0 Allergy status to penicillin; Z88.8 Allergy status to other drugs, medicaments and biological substances
CPT/HCPCS: 36415; 80053; 83735; 85025; 93005; 99284

== ENCOUNTER 2023-11-05 21:23 | Emergency (ER) | payer MEDICARE, OTHER ==
--- NOTE | 2023-11-05 22:12 | ED ---
Abdominal Pain HPI - General Chief Complaint: Abdominal Pain Stated Complaint: Constipation Time Seen by Provider: 11/05/23 21:32 Source: EMS Mode of arrival: EMS Limitations: no limitations - History of Present Illness Initial Comments: 53-year-old female with history of developmental delay is presenting via EMS from her snf for evaluation of constipation. Patient is accompanied by the [employer] home sales representative. The coordinator states that the patient's last bowel movement was 5 days ago. They have given her 2 suppositories and 1 Fleet enema and she has still not had a bowel movement with these interventions. Last week she did have an episode of vomiting, she has had no vomiting this week. She has had no complaints of abdominal pain. She has been eating and drinking normally. The patient is currently on stool softeners. History of co nstipation. She is scheduled for EGD and colonoscopy with Dr. Pham later this month. - Related Data Home Medications Medication Instructions Recorded Confirmed Folic Acid 1 mg PO DAILY 02/10/15 05/29/21 Loratadine [Claritin] 10 mg PO DAILY 09/13/16 05/29/21 fluvoxaMINE MALEATE [Luvox] 100 mg PO BID 09/13/16 05/29/21 ARIPiprazole [Abilify] 5 mg PO DAILY 11/21/16 05/29/21 Acetaminophen Tab [Tylenol] 650 mg PO Q4H PRN 03/26/17 05/29/21 Levothyroxine Sodium [Synthroid] 112 mcg PO DAILY 03/26/17 05/29/21 Loperamide [Imodium] 2 mg PO QID PRN 03/26/17 05/29/21 Topiramate [Topamax] 50 mg PO BID 03/26/17 05/29/21 polyethylene glycoL 3350 [Miralax] 17 gm PO DAILY PRN 03/26/17 05/29/21 ARIPiprazole [Abilify] 20 mg PO DAILY 05/29/21 05/29/21 Albuterol Nebulized [Ventolin 2.5 mg INHALATION RT-Q4H PRN 05/29/21 05/29/21 Nebulized] Albuterol Sulfate [Ventolin HFA] 1 - 2 puff INHALATION RT-Q4H PRN 05/29/21 05/29/21 Atorvastatin [Lipitor] 10 mg PO HS 05/29/21 05/29/21 Benztropine Mesylate [Cogentin] 1 mg PO DAILY 05/29/21 05/29/21 Brivaracetam [Briviact] 25 mg PO BID 05/29/21 05/29/21 Cholecalciferol [Vitamin D3 (25 50 mcg PO HS 05/29/21 05/29/21 Mcg = 1000 Iu)] Divalproex Sodium [Depakote] 500 mg PO BID 05/29/21 05/29/21 Docusate [Colace] 100 mg PO BID 05/29/21 05/29/21 Eslicarbazepine Acetate [Aptiom] 600 mg PO HS 05/29/21 05/29/21 Famotidine 20 mg PO BID 05/29/21 05/29/21 Fenofibrate [Lofibra] 54 mg PO HS 05/29/21 05/29/21 Furosemide [Lasix] 40 mg PO DAILY 05/29/21 05/29/21 Ibuprofen [Motrin] 400 mg PO BID PRN 05/29/21 05/29/21 Meclizine HCl 25 mg PO BID PRN 05/29/21 05/29/21 Melatonin 5 mg PO HS PRN 05/29/21 05/29/21 Midodrine HCl [ProAmatine] 10 mg PO TID@0800,1200,1600 05/29/21 05/29/21 Montelukast [Singulair] 10 mg PO HS 05/29/21 05/29/21 Multivitamins, Thera [Multivitamin 1 tab PO HS 05/29/21 05/29/21 (formulary)] Pantoprazole Sodium 40 mg PO DAILY 05/29/21 05/29/21 Selenium Sulfide 1% Shampoo 1 applic TOPICAL Q7D 05/29/21 05/29/21 calcium polycarbophiL [Fibercon] 625 mg PO DAILY 05/29/21 05/29/21 Previous Rx's Medication Instructions Recorded Potassium Chloride ER [K-Dur 10] 40 meq PO DAILY #0 05/31/21 Cephalexin [Keflex] 500 mg PO Q6HR #28 cap 11/08/23 Allergies Allergy/AdvReac Type Severity Reaction Status Date / Time Barbiturates Allergy Unknown Verified 11/07/23 17:11 carbamazepine [From Tegretol] Allergy Unknown Verified 11/07/23 17:11 clindamycin palmitate HCl Allergy Unknown Verified 11/07/23 17:11 [From Cleocin] clindamycin phosphate Allergy Unknown Verified 11/07/23 17:11 [From Cleocin] Penicillins Allergy Unknown Verified 11/07/23 17:11 phenobarbital Allergy Unknown Verified 11/07/23 17:11 phenytoin [From Dilantin] Allergy Unknown Verified 11/07/23 17:11 primidone [From Mysoline] Allergy Unknown Verified 11/07/23 17:11 Review of Systems ROS Statement: Those systems with pertinent positive or pertinent negative responses have been documented in the HPI. ROS Other: All systems not noted in ROS Statement are negative. Past Medical History Past Medical History: GERD/Reflux, Osteoarthritis (OA), Pneumonia, Seizure Disorder, Thyroid Disorder Additional Past Medical History / Comment(s): Pt is developmentally challenged and has a legal guardian-Jayda Aguirre. Per dictation, DANNA Montelongo states pt is to be a full code. She states to use medical history from pt's last admission. TREMORS FROM MEDS, hypothyroid, falls, head injury r/t fall, sinusitis. PARKINSONS, OCCASIONAL DIZZY SPELLS, PAST RIGHT LEG CELLULITIS, AND DARKENED PIGMENTATION RIGHT LEG. History of Any Multi-Drug Resistant Organisms: None Reported Past Surgical History: No Surgical Hx Reported Past Anesthesia/Blood Transfusion Reactions: No Reported Reaction Additional Past Anesthesia/Blood Transfusion Reaction / Comment(s): NEVER HAD AA Past Psychological History: Anxiety, Depression, PTSD Past Alcohol Use History: None Reported Past Drug Use History: None Reported - Past Family History Father Additional Family Medical History / Comment(s): WAS A DRINKER FROM CIRRHOSIS Mother Family Medical History: Cancer Additional Family Medical History / Comment(s): BREAST-mother is living. General Exam Limitations: physical limitation General appearance: alert, in no apparent distress Head exam: Present: atraumatic, normocephalic Eye exam: Present: normal appearance, EOMI Neck exam: Present: normal inspection. Absent: meningismus Respiratory exam: Absent: respiratory distress Cardiovascular Exam: Present: regular rate GI/Abdominal exam: Present: soft, distended. Absent: tenderness, guarding, rebound, rigid Neurological exam: Present: alert (Baseline mental status) Psychiatric exam: Present: normal affect, normal mood Skin exam: Present: warm, dry Course Vital Signs 11/05/23 11/05/23 11/06/23 21:25 22:29 00:00 Temperature 98.5 F Pulse Rate 99 102 H 77 Respiratory 18 16 18 Rate Blood Pressure 109/96 93/53 101/62 O2 Sat by Pulse 97 96 96 Oximetry 11/06/23 11/06/23 11/06/23 02:00 03:00 04:00 Temperature Pulse Rate 71 73 87 Respiratory 18 18 18 Rate Blood Pressure 102/62 100/66 105/63 O2 Sat by Pulse 96 95 Oximetry 11/06/23 11/06/23 05:00 08:06 Temperature 98.2 F Pulse Rate 74 78 Respiratory 74 H 18 Rate Blood Pressure 96/59 130/77 O2 Sat by Pulse 95 99 Oximetry Medical Decision Making - Medical Decision Making Was pt. sent in by a medical professional or institution (, PA, MORTUARY TECHNICIAN, urgent care, hospital, or residential...) When possible be specific @ -[No] Did you speak to anyone other than the patient for history (EMS, parent, family, police, friend...)? What history was obtained from this source @ -[No] Did you review nursing and triage notes (agree or disagree)? Why? @ -[I reviewed and agree with nursing and triage notes] Were old charts reviewed (outside hosp., previous admission, EMS record, old EKG, old radiological studies, urgent care reports/EKG's, residential records)? Report findings @ -[No old charts were reviewed] Differential Diagnosis (chest pain, altered mental status, abdominal pain women, abdominal pain men, vaginal bleeding, weakness, fever, dyspnea, syncope, headache, dizziness, GI bleed, back pain, seizure, CVA, palpatations, mental health, musculoskeletal)? @ -MDM Differential Abdominal Pain Women: Appendicitis, Cholecystitis, diverticulosis, ischemic bowel, pancreatitis, hepatitis, UTI, gastroenteritis, AAA, incarcerated hernia, bowel obstruction, constipation, inflammatory bowel, hepatitis, peptic ulcer disease, splenic infarction, perforated viscus, vulvitis, ovarian torsion, PID, kidney stone, placenta abruption... This is not meant to be an all-inclusive list EKG interpreted by me (3pts min.). @ -[As above] X-rays interpreted by me (1pt min.). @ -KUB x-ray shows overall nonspecific but favor nonobstructive bowel gas pattern. Mild to moderate mid colonic fecal stasis or constipation is seen CT interpreted by me (1pt min.). @ -Final report is pending, does appear to show great deal of constipation U/S interpreted by me (1pt. min.). @ -[None done] What testing was considered but not performed or refused? (CT, X-rays, U/S, labs)? Why? @ -[None] What meds were considered but not given or refused? Why? @ -[None] Did you discuss the management of the patient with other professionals (professionals i.e. DrKosta, PA, MORTUARY TECHNICIAN, lab, RT, psych nurse, mental health social worker, visual inspector, t eacher, radiation officer, bottle caser)? Give summary @ -[No] Was smoking cessation discussed for >3mins.? @ -[No] Was critical care preformed (if so, how long)? @ -[No] Were there social determinants of health that impacted care today? How? (Homelessness, low income, unemployed, alcoholism, drug addiction, transportation, low edu. Level, literacy, decrease access to med. care, detention, rehab)? @ -[No] Was there de-escalation of care discussed even if they declined (Discuss DNR or withdrawal of care, Hospice)? DNR status @ -[No] What co-morbidities impacted this encounter? (DM, HTN, Smoking, COPD, CAD, Cancer, CVA, ARF, Chemo, Hep., AIDS, mental health diagnosis, sleep apnea, morbid obesity)? @ -[None] Was patient admitted / discharged? Hospital course, mention meds given and route, prescriptions, significant lab abnormalities, going to OR and other pertinent info. @ -53-year-old female presenting with chief complaint of constipation. She is brought in by her [employer] home sales representative. KUB x-ray shows evidence of constipation. Patient was given an enema with no successful evacuation. The patient's developmental delay resulting in communication barrier, labs and CT were obtained. Lab work shows no leukocytosis or anemia. Final CT report is pending. By my interpretation this does appear consistent with constipation my attending Dr. De Jesus will follow up for the final reading prior to discharge. Undiagnosed new problem with uncertain prognosis? @ -[No] Drug Therapy requiring intensive monitoring for toxicity (Heparin, Nitro, Insulin, Cardizem)? @ -[No] Were any procedures done? @ -[No] Diagnosis/symptom? @ -[default] Acute, or Chronic, or Acute on Chronic? @ -[default] Uncomplicated (without systemic symptoms) or Complicated (systemic symptoms)? @ -[default] Side effects of treatment? @ -[No] Exacerbation, Progression, or Severe Exacerbation? @ -[No] Poses a threat to life or bodily function? How? (Chest pain, USA, NV, pneumonia, PE, COPD, DKA, ARF, appy, cholecystitis, CVA, Diverticulitis, Homicidal, Suicidal, threat to staff... and all critical care pts) @ -[No] - Lab Data Result diagrams: 11/06/23 02:02 11/06/23 02:02 Lab Results 11/06/23 11/06/23 11/06/23 Range/Units 02:02 02:02 02:02 WBC 6.6 (3.8-10.6) k/uL RBC 3.99 (3.80-5.40) m/uL Hgb 13.2 (11.4-16.0) gm/dL Hct 39.7 (34.0-46.0) % MCV 99.6 (80.0-100.0) fL MCH 33.0 (25.0-35.0) pg MCHC 33.1 (31.0-37.0) g/dL RDW 14.3 (11.5-15.5) % Plt Count 81 L (150-450) k/uL MPV 10.7 Neutrophils % 52 % Lymphocytes % 41 % Monocytes % 3 % Eosinophils % 1 % Basophils % 0 % Neutrophils # 3.5 (1.3-7.7) k/uL Lymphocytes # 2.7 (1.0-4.8) k/uL Monocytes # 0.2 (0-1.0) k/uL Eosinophils # 0.1 (0-0.7) k/uL Basophils # 0.0 (0-0.2) k/uL Macrocytosis Slight Sodium 140 (137-145) mmol/L Potassium 3.6 (3.5-5.1) mmol/L Chloride 112 H (98-107) mmol/L Carbon Dioxide 21 L (22-30) mmol/L Anion Gap 7 mmol/L BUN 13 (7-17) mg/dL Creatinine 0.90 (0.52-1.04) mg/dL Est GFR (CKD-EPI)AfAm 85 (>60 ml/min/1.73 sqM) Est GFR (CKD-EPI)NonAf 74 (>60 ml/min/1.73 sqM) Glucose 93 (74-99) mg/dL Calcium 9.8 (8.4-10.2) mg/dL Total Bilirubin 0.5 (0.2-1.3) mg/dL AST 24 (14-36) U/L ALT 10 (4-34) U/L Alkaline Phosphatase 48 (38-126) U/L Ammonia 15 (<30) umol/L Total Protein 6.2 L (6.3-8.2) g/dL Albumin 3.7 (3.5-5.0) g/dL Disposition Clinical Impression: Constipation Disposition: HOME SELF-CARE Condition: Good Instructions (If sedation given, give patient instructions): Constipation (ED) Additional Instructions: Follow-up with PCP and GI. Report back to ER with any new or worsening symptoms. Follow directions for preparation of GoLytely solution. Give 8 ounces every 4 hours until constipation is relieved. Is patient prescribed a controlled substance at d/c from ED?: No Referrals: Zuly Vega FNPBC [REFERRING] - 1-2 days
--- NOTE | 2023-11-05 22:28 | XR ---
EXAMINATION TYPE: XR KUB DATE OF EXAM: 11/05/2023 10:20 PM CLINICAL HISTORY: Constipation. TECHNIQUE: Two supine KUB images of the abdomen are obtained. COMPARISON: None. FINDINGS: Gas is seen in nondistended stomach. Scattered gas is seen in non-distended small bowel loo ps. Gas and fecal material is seen in non-distended colon. Mild to moderate fecal prominence in the t ransverse colon. Slightly prominent gas-filled colonic loops in the right abdomen. Dextroconvex scoli osis centered at L2-L3 level is identified. No suspicious calcifications. Lung bases are not included in field of view IMPRESSION: Overall nonspecific but favor nonobstructive bowel gas pattern. [id number] mid colonic fecal st asis or constipation is seen.
[2023-11-06 02:25] LABS: Basophils % (A) 0 %; Eosinophils # (A) 0.1 k/uL (0-0.7); Eosinophils % (A) 1 %; HCT 39.7 % (34.0-46.0); HGB 13.2 gm/dL (11.4-16.0); Lymphocytes # (A) 2.7 k/uL (1.0-4.8); Lymphocytes % (A) 41 %; MCHC 33.1 g/dL (31.0-37.0); MCV 99.6 fL (80.0-100.0); Macrocytosis Slight; Mean Platelet Volume 10.7; Monocytes # (A) 0.2 k/uL (0-1.0); Monocytes % (A) 3 %; Neutrophils # (A) 3.5 k/uL (1.3-7.7); Neutrophils % (A) 52 %; RBC 3.99 m/uL (3.80-5.40); RDW 14.3 % (11.5-15.5); WBC 6.6 k/uL (3.8-10.6)
[2023-11-06 02:28] LABS: Platelet Count 81 k/uL (150-450)
[2023-11-06 02:33] LABS: ALT 10 U/L (4-34); AST 24 U/L (14-36); African American GFR (CKD) 85 (>60 ml/min/1.73 sqM); Albumin 3.7 g/dL (3.5-5.0); Alkaline Phosphatase 48 U/L (38-126); Anion Gap 7 mmol/L; Blood Urea Nitrogen 13 mg/dL (7-17); Calcium 9.8 mg/dL (8.4-10.2); Carbon Dioxide 21 mmol/L (22-30); Chloride 112 mmol/L (98-107); Glucose 93 mg/dL (74-99); Non-African American GFR(CKD) 74 (>60 ml/min/1.73 sqM); Potassium 3.6 mmol/L (3.5-5.1); Sodium 140 mmol/L (137-145); Total Bilirubin 0.5 mg/dL (0.2-1.3); Total Protein 6.2 g/dL (6.3-8.2)
[2023-11-06] MEDS: PEG 3350 (236 GM/BTL) + LYTES 4,000 ML BOTTLE PO ONE (05:48)
--- NOTE | 2023-11-06 07:42 | CT ---
EXAMINATION TYPE: CT abdomen pelvis w con CT DLP: 995.4 mGycm, Automated exposure control for dose reduction was used. DATE OF EXAM: 11/06/2023 3:14 AM COMPARISON: None CLINICAL INDICATION:Female, 53 years old with history of no BM 1 week; pt arrives to ED via EMS frm [facility] for constipation LBM in 5 days. pt had suppose and enema w/ no reli ef. TECHNIQUE: Axial CT abdomen pelvis w con;Sagittal and coronal reformats were created on a separate w orkstation. Contrast used:100ml mL of Isovue 300 with IV Contrast, (none if empty) Oral contrast used: without Oral Contrast (none if empty) FINDINGS: LOWER CHEST: Unremarkable ABDOMEN LIVER: Unremarkable GALLBLADDER AND BILE DUCTS: Unremarkable. PANCREAS: Unremarkable. SPLEEN: Unremarkable. ADRENAL GLANDS: Unremarkable. KIDNEYS AND URETERS: No evidence of hydronephrosis or renal calculus. The ureters are unremarkable. PELVIS BLADDER: Unremarkable REPRODUCTIVE: Unremarkable. ABDOMEN & PELVIS STOMACH AND BOWEL: No evidence of bowel obstruction. Stool throughout the colon. PERITONEUM/RETROPERITONEUM: No evidence of pneumoperitoneum or free fluid. VASCULATURE: No evidence of aortic aneurysm. MUSCULOSKELETAL: No acute osseous abnormalities LYMPH NODES: No gross evidence for lymphadenopathy. SOFT TISSUE/ABDOMINAL WALL: Unremarkable IMPRESSION: 1. No evidence for acute process in the abdomen or pelvis. 2. Large amount of stool throughout the colon.
[2023-11-06 08:12] VITALS: BP 130/77; PULSE 78; RESP 18; TEMP 98.2
== END 2023-11-06 08:25 | disposition home or self-care (01) ==
LOC: EC 21:23 → SUPCPDRO 21:23 → EC 11-06 08:25
DX: K59.00 Constipation, unspecified (principal); Z88.1 Allergy status to other antibiotic agents; Z88.0 Allergy status to penicillin; Z88.8 Allergy status to other drugs, medicaments and biological substances
CPT/HCPCS: 36415; 80053; 82140; 85025; 74018; 74177; 99285; Q9967

== ENCOUNTER 2023-11-07 17:04 | Emergency (ER) | payer MEDICARE, OTHER ==
--- NOTE | 2023-11-07 18:39 | XR ---
EXAMINATION TYPE: XR abdomen 2V DATE OF EXAM: 11/07/2023 COMPARISON: 11/05/2023 INDICATION: Constipation x1 week TECHNIQUE: Abdomen is examined in supine and upright views FINDINGS: Nonspecific bowel gas pattern is present. No dilated loops of bowel are evident. No suspicious air-fl uid levels or differential air-fluid levels are present. No free air is evident and no mass effect is evident. No significant fecal retention is present. Psoas margins are normal. No organomegaly is present. IMPRESSION: 1. Nonspecific abdomen. 2. No suspicious changes for constipation or obstruction.
--- NOTE | 2023-11-07 18:53 | ED ---
General Adult HPI - General Source: EMS, RN notes reviewed, old records reviewed, Caregiver Mode of arrival: EMS Limitations: no limitations <Hasmukh Cyr - Last Filed: 11/08/23 16:17> <Gabriel De Jesus - Last Filed: 11/09/23 05:11> - General Chief complaint: Abdominal Pain Stated complaint: Constipation Time Seen by Provider: 11/07/23 17:42 - History of Present Illness Initial comments: 53-year-old female with a history of developmental delay history of seizures kidney injury dehydration UTI posttraumatic stress disorder anxiety depression who is here because of constipation. She apparently has not had a bowel movement since 30 October she had a tooth extracted last week she has been given multiple medications including suppositories enemas and GoLytely without apparent effect. Reports nausea vomiting fevers chills sweats she apparently's been eating and drinking normally. The patient himself is a poor historian. (Hasmukh Cyr) - Related Data Home Medications Medication Instructions Recorded Confirmed Folic Acid 1 mg PO DAILY 02/10/15 05/29/21 Loratadine [Claritin] 10 mg PO DAILY 09/13/16 05/29/21 fluvoxaMINE MALEATE [Luvox] 100 mg PO BID 09/13/16 05/29/21 ARIPiprazole [Abilify] 5 mg PO DAILY 11/21/16 05/29/21 Acetaminophen Tab [Tylenol] 650 mg PO Q4H PRN 03/26/17 05/29/21 Levothyroxine Sodium [Synthroid] 112 mcg PO DAILY 03/26/17 05/29/21 Loperamide [Imodium] 2 mg PO QID PRN 03/26/17 05/29/21 Topiramate [Topamax] 50 mg PO BID 03/26/17 05/29/21 polyethylene glycoL 3350 [Miralax] 17 gm PO DAILY PRN 03/26/17 05/29/21 ARIPiprazole [Abilify] 20 mg PO DAILY 05/29/21 05/29/21 Albuterol Nebulized [Ventolin 2.5 mg INHALATION RT-Q4H PRN 05/29/21 05/29/21 Nebulized] Albuterol Sulfate [Ventolin HFA] 1 - 2 puff INHALATION RT-Q4H PRN 05/29/21 05/29/21 Atorvastatin [Lipitor] 10 mg PO HS 05/29/21 05/29/21 Benztropine Mesylate [Cogentin] 1 mg PO DAILY 05/29/21 05/29/21 Brivaracetam [Briviact] 25 mg PO BID 05/29/21 05/29/21 Cholecalciferol [Vitamin D3 (25 50 mcg PO HS 05/29/21 05/29/21 Mcg = 1000 Iu)] Divalproex Sodium [Depakote] 500 mg PO BID 05/29/21 05/29/21 Docusate [Colace] 100 mg PO BID 05/29/21 05/29/21 Eslicarbazepine Acetate [Aptiom] 600 mg PO HS 05/29/21 05/29/21 Famotidine 20 mg PO BID 05/29/21 05/29/21 Fenofibrate [Lofibra] 54 mg PO HS 05/29/21 05/29/21 Furosemide [Lasix] 40 mg PO DAILY 05/29/21 05/29/21 Ibuprofen [Motrin] 400 mg PO BID PRN 05/29/21 05/29/21 Meclizine HCl 25 mg PO BID PRN 05/29/21 05/29/21 Melatonin 5 mg PO HS PRN 05/29/21 05/29/21 Midodrine HCl [ProAmatine] 10 mg PO TID@0800,1200,1600 05/29/21 05/29/21 Montelukast [Singulair] 10 mg PO HS 05/29/21 05/29/21 Multivitamins, Thera [Multivitamin 1 tab PO HS 05/29/21 05/29/21 (formulary)] Pantoprazole Sodium 40 mg PO DAILY 05/29/21 05/29/21 Selenium Sulfide 1% Shampoo 1 applic TOPICAL Q7D 05/29/21 05/29/21 calcium polycarbophiL [Fibercon] 625 mg PO DAILY 05/29/21 05/29/21 Previous Rx's Medication Instructions Recorded Potassium Chloride ER [K-Dur 10] 40 meq PO DAILY #0 05/31/21 Cephalexin [Keflex] 500 mg PO Q6HR #28 cap 11/08/23 Allergies Allergy/AdvReac Type Severity Reaction Status Date / Time Barbiturates Allergy Unknown Verified 11/07/23 17:11 carbamazepine [From Tegretol] Allergy Unknown Verified 11/07/23 17:11 clindamycin palmitate HCl Allergy Unknown Verified 11/07/23 17:11 [From Cleocin] clindamycin phosphate Allergy Unknown Verified 11/07/23 17:11 [From Cleocin] Penicillins Allergy Unknown Verified 11/07/23 17:11 phenobarbital Allergy Unknown Verified 11/07/23 17:11 phenytoin [From Dilantin] Allergy Unknown Verified 11/07/23 17:11 primidone [From Mysoline] Allergy Unknown Verified 11/07/23 17:11 Review of Systems ROS Other: All systems not noted in ROS Statement are negative. <Hasmukh Cyr - Last Filed: 11/08/23 16:17> ROS Other: All systems not noted in ROS Statement are negative. <Gabriel De Jesus - Last Filed: 11/09/23 05:11> ROS Statement: Those systems with pertinent positive or pertinent negative responses have been documented in the HPI. Past Medical History Past Medical History: GERD/Reflux, Osteoarthritis (OA), Pneumonia, Seizure Disorder, Thyroid Disorder Additional Past Medical History / Comment(s): Pt is developmentally challenged and has a legal guardian-Jayda Timothy. Per dictation, DANNA Jayda states pt is to be a full code. She states to use medical history from pt's last admission. TREMORS FROM MEDS, hypothyroid, falls, head injury r/t fall, sinusitis. PARKINSONS, OCCASIONAL DIZZY SPELLS, PAST RIGHT LEG CELLULITIS, AND DARKENED PIGMENTATION RIGHT LEG. History of Any Multi-Drug Resistant Organisms: None Reported Past Surgical History: No Surgical Hx Reported Past Anesthesia/Blood Transfusion Reactions: No Reported Reaction Additional Past Anesthesia/Blood Transfusion Reaction / Comment(s): NEVER HAD AA Past Psychological History: Anxiety, Depression, PTSD Smoking Status: Never smoker Past Alcohol Use History: None Reported Past Drug Use History: None Reported - Past Family History Father Additional Family Medical History / Comment(s): WAS A DRINKER FROM CIR RHOSIS Mother Family Medical History: Cancer Additional Family Medical History / Comment(s): BREAST-mother is living. <Hasmukh Cyr - Last Filed: 11/08/23 16:17> General Exam Limitations: no limitations General appearance: alert, in no apparent distress Head exam: Present: atraumatic, normocephalic, normal inspection Eye exam: Present: normal appearance, PERRL, EOMI. Absent: scleral icterus, conjunctival injection, periorbital swelling ENT exam: Present: mucous membranes dry, other (Emanation of oropharynx reveals the site of the tooth extraction on the right lower jaw no exudate seen mild tenderness of palpation no exudate) Neck exam: Present: normal inspection, full ROM. Absent: tenderness, meningismus, lymphadenopathy Respiratory exam: Present: normal lung sounds bilaterally. Absent: respiratory distress, wheezes, rales, rhonchi, stridor Cardiovascular Exam: Present: regular rate, normal rhythm, normal heart sounds. Absent: systolic murmur, diastolic murmur, rubs, gallop, clicks GI/Abdominal exam: Present: soft, normal bowel sounds. Absent: distended, te nderness, guarding, rebound, rigid, bruit, pulsatile mass Rectal exam: Present: normal inspection, normal rectal tone, other (The rectal vault is clear of obstruction masses or stool.). Absent: fecal impaction, mass, tenderness Extremities exam: Present: normal inspection, full ROM, normal capillary refill. Absent: tenderness, pedal edema, joint swelling, calf tenderness Back exam: Present: normal inspection Neurological exam: Present: alert, oriented X3, CN II-XII intact Psychiatric exam: Present: normal affect, normal mood Skin exam: Present: warm, dry, intact, other (Erythema noted to the right side of the forehead face some jaw tenderness noted also a rash over the integument underneath reassured.). Absent: rash <Hasmukh Cyr - Last Filed: 11/08/23 16:17> - General Exam Comments Initial Comments: This is a well-developed well-nourished awake alert female (Hasmukh Cyr) Course Vital Signs 11/07/23 11/07/23 11/07/23 17:06 17:27 20:00 Temperature 98.2 F 98.4 F Pulse Rate 76 73 63 Respiratory 18 18 20 Rate Blood Pressure 85/57 147/75 80/54 O2 Sat by Pulse 98 97 100 Oximetry 11/07/23 11/07/23 11/08/23 21:03 21:37 00:44 Temperature 98.5 F 98.4 F Pulse Rate 73 20 L 74 Respiratory 17 16 16 Rate Blood Pressure 91/56 96/53 98/74 O2 Sat by Pulse 98 82 L Oximetry Medical Decision Making - Lab Data Result diagrams: 11/07/23 20:42 <Hasmukh Cyr - Last Filed: 11/08/23 16:17> - Lab Data Result diagrams: 11/07/23 20:42 <Gabriel De Jesus - Last Filed: 11/09/23 05:11> - Medical Decision Making The IV was finally obtained by nursing with ultrasound guidance. Labs are pending. Patient does demonstrate some evidence of cellulitic processes. She did have the tooth extraction yesterday [facility]. IV Rocephin was given. Labs are pending I did review the x-ray which is nonspecific of the abdomen. The case is endorsed to Dr. De Jesus at her shift change. Of note the patient is afebrile at this time. The findings thus far and case discussed with the caregiver. Was pt. sent in by a medical professional or institution (, PA, CHEMIST INSTRUMENTATION, urgent care, hospital, or longterm...) When possible be specific @ -Yes Did you speak to anyone other than the patient for history (EMS, parent, family, police, friend...)? What history was obtained from this source @ -No Did you review nursing and triage notes (agree or disagree)? Why? @ -I reviewed and agree with nursing and triage notes Were old charts reviewed (outside hosp., previous admission, EMS record, old EKG, old radiological studies, urgent care reports/EKG's, longterm records)? Report findings @ -Old charts were reviewed Differential Diagnosis (chest pain, altered mental status, abdominal pain women, abdominal pain men, vaginal bleeding, weakness, fever, dyspnea, syncope, headache, dizziness, GI bleed, back pain, seizure, CVA, palpatations, mental health, musculoskeletal)? @ -Not applicable EKG interpreted by me (3pts min.). @ -Not indicated X-rays interpreted by me (1pt min.). @ -UB interpreted by me nonspecific bowel gas pattern] CT interpreted by me (1pt min.). @ -None done U/S interpreted by me (1pt. min.). @ -None done What testing was considered but not performed or refused? (CT, X-rays, U/S, labs)? Why? @ -None What meds were considered but not given or refused? Why? @ -None Did you discuss the management of the patient with other professionals (professionals i.e. DrKosta, PA, CHEMIST INSTRUMENTATION, lab, RT, psych nurse, web content & social media manager, esthetician permanent makeup artist, teacher, commissary officer, showcase maker)? Give summary @ -History with Dr. De Jesus at shift change Was smoking cessation discussed for >3mins.? @ -No Was critical care preformed (if so, how long)? @ -No Were there social determinants of health that impacted care today? How? (Homelessness, low income, unemployed, alcoholism, drug addiction, transportation, low edu. Level, literacy, decrease access to med. care, shelter, rehab)? @ -No Was there de-escalation of care discussed even if they declined (Discuss DNR or withdrawal of care, Hospice)? DNR status @ -No What co-morbidities impacted this encounter? (DM, HTN, Smoking, COPD, CAD, Cancer, CVA, ARF, Chemo, Hep., AIDS, mental health diagnosis, sleep apnea, morbid obesity)? @ -History of developmental delay, constipation Was patient admitted / discharged? Hospital course, mention meds given and route, prescriptions, significant lab abnormalities, going to OR and other pertinent info. @ -Hospital course patient was discharged home on antibiotics and instructed to follow-up with her doctor Undiagnosed new problem with uncertain prognosis? @ -Dental infection status postextraction Drug Therapy requiring intensive monitoring for toxicity (Heparin, Nitro, I nsulin, Cardizem)? @ -No Were any procedures done? @ -No Diagnosis/symptom? @ -Constipation, dental infection post tooth extraction Acute, or Chronic, or Acute on Chronic? @ -Acutechronic Uncomplicated (without systemic symptoms) or Complicated (systemic symptoms)? @ -Default Side effects of treatment? @ -No Exacerbation, Progression, or Severe Exacerbation? @ -No Poses a threat to life or bodily function? How? (Chest pain, [place], [place], pneumonia, PE, COPD, DKA, ARF, appy, cholecystitis, CVA, Diverticulitis, Homicidal, Suicidal, threat to staff... and all critical care pts) @ -No (Hasmukh Cyr) - Lab Data Lab Results 11/07/23 Range/Units 20:42 WBC 5.9 (3.8-10.6) k/uL RBC 4.10 (3.80-5.40) m/uL Hgb 13.1 (11.4-16.0) gm/dL Hct 40.6 (34.0-46.0) % MCV 99.0 (80.0-100.0) fL MCH 31.8 (25.0-35.0) pg MCHC 32.1 (31.0-37.0) g/dL RDW 13.9 (11.5-15.5) % Plt Count 88 L (150-450) k/uL MPV 9.8 Neutrophils % 66 % Lymphocytes % 23 % Monocytes % 3 % Eosinophils % 7 % Basophils % 0 % Neutrophils # 3.9 (1.3-7.7) k/uL Lymphocytes # 1.3 (1.0-4.8) k/uL Monocytes # 0.2 (0-1.0) k/uL Eosinophils # 0.4 (0-0.7) k/uL Basophils # 0.0 (0-0.2) k/uL Disposition Is patient prescribed a controlled substance at d/c from ED?: No Decision Date: 11/07/23 <Hasmukh Cyr - Last Filed: 11/08/23 16:17> <Gabriel De Jesus - Last Filed: 11/09/23 05:11> Clinical Impression: Constipation, Dental infection Disposition: HOME SELF-CARE Condition: Good Prescriptions: Cephalexin [Keflex] 500 mg PO Q6HR #28 cap Referrals: Ingrid Womack MD [Primary Care Provider] - 1-2 days
[2023-11-07] MEDS: SODIUM CHLORIDE 0.9% 1,000 ML IV STA (20:50)
[2023-11-07 20:58] LABS: Basophils % (A) 0 %; Eosinophils # (A) 0.4 k/uL (0-0.7); Eosinophils % (A) 7 %; HCT 40.6 % (34.0-46.0); HGB 13.1 gm/dL (11.4-16.0); Lymphocytes # (A) 1.3 k/uL (1.0-4.8); Lymphocytes % (A) 23 %; MCH 31.8 pg (25.0-35.0); MCHC 32.1 g/dL (31.0-37.0); Mean Platelet Volume 9.8; Monocytes # (A) 0.2 k/uL (0-1.0); Monocytes % (A) 3 %; Neutrophils # (A) 3.9 k/uL (1.3-7.7); Neutrophils % (A) 66 %; RDW 13.9 % (11.5-15.5); WBC 5.9 k/uL (3.8-10.6)
[2023-11-07] MEDS: ACETAMINOPHEN TAB 325 MG TAB PO STA (20:58)
[2023-11-07 21:05] LABS: Platelet Count 88 k/uL (150-450)
[2023-11-07] MEDS: cefTRIAXone IN SWFI 1,000 MG/10 ML SYRINGE IVP STA (21:39)
[2023-11-07 22:11] VITALS: RESP 16
[2023-11-08] MEDS: PEG 3350 (236 GM/BTL) + LYTES 4,000 ML BOTTLE PO ONE (00:36)
[2023-11-08 01:10] VITALS: BP 98/74; PULSE 74; TEMP 98.4
== END 2023-11-08 00:44 | disposition home or self-care (01) ==
LOC: EC 17:04
DX: K59.00 Constipation, unspecified (principal); K04.7 Periapical abscess without sinus; R21 Rash and other nonspecific skin eruption; Z88.8 Allergy status to other drugs, medicaments and biological substances; Z88.1 Allergy status to other antibiotic agents; Z88.0 Allergy status to penicillin
CPT/HCPCS: 36415; 85025; 74019; 99285; 96374; 96361 ×3; J0696

== ENCOUNTER 2023-11-25 11:46 | Day surgery (SDC) | payer MEDICARE, OTHER ==
[~2023-11-25 11:46] MED LIST: LIDOCAINE 1% (10MG/ML) FOR IV START INTRADERMA PRN
[2023-11-25 12:36] VITALS: RESP 16; TEMP 96.6
[2023-11-25] MEDS: LACTATED RINGERS 1,000 ML IV SCH (12:42)
[2023-11-25] MEDS ORDERED: PROPOFOL 10 MG/ML 20 ML VIAL IV ONE (13:47)
--- NOTE | 2023-11-25 14:15 | P.PCN ---
Date of Procedure: 11/25/23 Procedure(s) Performed: Brief history: Patient is a pleasant 53-year-old white female scheduled for an elective upper endoscopy as well as colonoscopy as a part of evaluation of intermittent episodes of nausea vomiting and change in bowel habits. Procedure performed: Esophagogastroduodenoscopy with biopsy Colonoscopy with biopsy Preoperative diagnosis: Intermittent episodes of nausea vomiting Change in bowel habits Anesthesia: MAC Procedure: After informed consent was obtained from the patient was brought into the endoscopy unit and IV sedation was administered by anesthesia under continuous monitoring. Initially upper endoscopy was done. The Olympus GF 160 video endoscope was inserted inserted into the mouth and esophagus intubated without any difficulty and was gradually advanced into the stomach and duodenum and carefully examined. The bulb and second part of the duodenum appeared normal. The scope was then withdrawn into the stomach adequately insufflated with air and upon careful examination the antrum had mild diffuse gastritis and biopsies were done from this area. Mucosa of the body, cardia and fundus appeared normal. The scope was then withdrawn into the esophagus. The GE junction was located at 40 cm to the incisors. It appeared regular with no erythema erosions or ulcerations. Rest of the esophagus appeared normal. Patient tolerated the procedure well. At this time the patient continued to remain sedation. Initial digital rectal examination was normal. Olympus CF 160 video colonoscope was then inserted into the rectum and gradually advanced to the cecum without any difficulty. Careful examination was performed as the scope was gradually being withdrawn. The prep was poor throughout the entire colon the cecum, small polyps measuring 3 and 4 mm in size were removed by cold biopsy. Rest of the ascending colon, transverse colon, descending colon, sigmoid colon and rectum appeared normal. Retroflexion was performed in the rectum and no lesions were noted. Patient tolerated the procedure well. Impression: 1. Upper endoscopy revealed mild diffuse gastritis but no evidence of esophagitis or peptic ulcer disease 2. Colonoscopy revealed 3 mm and 4 mm cecal polyp status post removal by cold biopsy and poor prep throughout the entire colon Recommendations: Findings of this examination were discussed with the patient as well as her caregiver. Advised to follow-up with the biopsy results. Follow-up in the office in 3 to 4 weeks. Repeat colonoscopy in 3 years because of the poor prep
[2023-11-25 15:32] VITALS: BP 110/78; PULSE 70
== END 2023-11-25 14:40 | disposition home or self-care (01) ==
LOC: ORWHC2ENDO 11:46
PROVIDERS: ATTEND Internal Medicine Gastroenterology
DX: D12.2 Benign neoplasm of ascending colon (principal); K29.50 Unspecified chronic gastritis without bleeding; K52.9 Noninfective gastroenteritis and colitis, unspecified; K21.00 Gastro-esophageal reflux disease with esophagitis, without bleeding; I25.10 Atherosclerotic heart disease of native coronary artery without angina pectoris; G20.A1 Parkinson's disease without dyskinesia, without mention of fluctuations; E07.9 Disorder of thyroid, unspecified; G40.909 Epilepsy, unspecified, not intractable, without status epilepticus; Z95.5 Presence of coronary angioplasty implant and graft; Z79.890 Hormone replacement therapy; Z79.899 Other long term (current) drug therapy; Z79.02 Long term (current) use of antithrombotics/antiplatelets; Z88.0 Allergy status to penicillin; Z88.8 Allergy status to other drugs, medicaments and biological substances
CPT/HCPCS: 81025; 88305; 84703; 45380; 43239; J2704

== ENCOUNTER 2023-12-04 08:51 | Inpatient (IN) | payer MEDICARE, OTHER ==
--- NOTE | 2023-12-04 09:59 | ED ---
General Adult HPI - General Chief complaint: Weakness Stated complaint: Weakness Time Seen by Provider: 12/04/23 09:04 Source: EMS, RN notes reviewed Mode of arrival: EMS Limitations: altered mental status - History of Present Illness Initial comments: Patient is a 53-year-old female present to the emergency department from care facility with concerns for weakness and confusion. Patient has had similar problems multiple times previously associated with hyperammonia. Patient is slightly drowsy. Patient has difficulty answering simple questions. Patient reportedly has not been walking the last couple of days. Patient has chronic constipation, no change with this. Patient is currently on lactulose 45 mg 3-4 times daily. - Related Data Home Medications Medication Instructions Recorded Confirmed Folic Acid 1 mg PO DAILY@0800 02/10/15 12/04/23 Loratadine [Claritin] 10 mg PO DAILY@0800 09/13/16 12/04/23 fluvoxaMINE MALEATE [Luvox] 100 mg PO BID@0800,199909/13/16 12/04/23 Levothyroxine Sodium [Synthroid] 112 mcg PO DAILY@0800 03/26/17 12/04/23 Atorvastatin [Lipitor] 10 mg PO HS@199905/29/21 12/04/23 Cholecalciferol [Vitamin D3 (25 50 mcg PO HS@199905/29/21 12/04/23 Mcg = 1000 Iu)] Divalproex Sodium [Depakote] 500 mg PO BID@0800,199905/29/21 12/04/23 Docusate [Colace] 100 mg PO BID@0800,199905/29/21 12/04/23 Famotidine 20 mg PO BID@0800,199905/29/21 12/04/23 Fenofibrate [Lofibra] 54 mg PO HS@199905/29/21 12/04/23 Montelukast [Singulair] 10 mg PO HS@199905/29/21 12/04/23 Multivitamins, Thera [Multivitamin 1 tab PO HS@199905/29/21 12/04/23 (formulary)] Aspirin [Adult Low Dose Aspirin EC] 81 mg PO DAILY@0800 11/23/23 12/04/23 Lactulose [Cephulac] 30 ml PO QID@08,12,14,20 11/23/23 12/04/23 PARoxetine HCL 30 mg PO DAILY@0800 11/23/23 12/04/23 Pregabalin [Lyrica] 150 mg PO TID@0800,1400,199911/23/23 12/04/23 rOPINIRole HCL [Requip] 3 mg PO TID@0800,1400,199911/23/23 12/04/23 ARIPiprazole [Abilify] 10 mg PO DAILY@0800 12/04/23 12/04/23 Brivaracetam [Briviact] 100 mg PO BID@0800,199912/04/23 12/04/23 Eslicarbazepine Acetate [Aptiom] 800 mg PO HS@199912/04/23 12/04/23 Sennosides [Senokot] 8.6 mg PO HS@199912/04/23 12/04/23 Topiramate [Topamax] 100 mg PO BID@0800,199912/04/23 12/04/23 diazePAM [Valtoco] 15 mg NASAL DIRECTED PRN 12/04/23 12/04/23 Allergies Allergy/AdvReac Type Severity Reaction Status Date / Time Barbiturates Allergy Unknown Verified 12/04/23 11:44 carbamazepine [From Tegretol] Allergy Unknown Verified 12/04/23 11:44 clindamycin palmitate HCl Allergy Unknown Verified 12/04/23 11:44 [From Cleocin] clindamycin phosphate Allergy Unknown Verified 12/04/23 11:44 [From Cleocin] lincomycin Allergy Unknown Verified 12/04/23 11:44 Penicillins Allergy Unknown Verified 12/04/23 11:44 phenobarbital Allergy Unknown Verified 12/04/23 11:44 phenytoin [From Dilantin] Allergy Unknown Verified 12/04/23 11:44 primidone [From Mysoline] Allergy Unknown Verified 12/04/23 11:44 Review of Systems ROS Statement: Those systems with pertinent positive or pertinent negative responses have been documented in the HPI. ROS Other: All systems not noted in ROS Statement are negative. Respiratory: Denies: cough, dyspnea Gastrointestinal: Reports: constipation. Denies: vomiting Past Medical History Past Medical History: GERD/Reflux, Musculoskeletal Disorder, Neurologic Disorder, Osteoarthritis (OA), Pneumonia, Seizure Disorder, Thyroid Disorder Additional Past Medical History / Comment(s): Pt is developmentally challenged and has a [facility] public legal guardian, Bambi Davis, who states to get PMH etc from caregiver, Alison Chaudhry. TREMORS FROM MEDS, hypothyroid, falls, head injury r/t fall, PARKINSONS, OCCASIONAL DIZZY SPELLS, PAST RIGHT LEG CELLULITIS, AND D ARKENED PIGMENTATION RIGHT LEG, last seizure 09/26/23 History of Any Multi-Drug Resistant Organisms: None Reported Past Surgical History: Heart Catheterization With Stent Additional Past Surgical History / Comment(s): possible cardiac stent, tooth extraction [facility] 11/04/23, bilateral cataract surgery in 2018 Past Anesthesia/Blood Transfusion Reactions: No Reported Reaction Additional Past Anesthesia/Blood Transfusion Reaction / Comment(s): NEVER HAD AA Date of Last Stent Placement:: 2016 or 2017 Past Psychological History: Anxiety, Depression, PTSD Smoking Status: Never smoker - Past Family History Father Additional Family Medical History / Comment(s): WAS A DRINKER FROM CIRRHOSIS Mother Family Medical History: Cancer Additional Family Medical History / Comment(s): BREAST-mother is living. General Exam Limitations: altered mental status General appearance: alert, in no apparent distress Head exam: Present: normocephalic Eye exam: Present: normal appearance, PERRL, EOMI ENT exam: Present: normal oropharynx Neck exam: Present: normal inspection. Absent: tenderness, meningismus Respiratory exam: Present: normal lung sounds bilaterally Cardiovascular Exam: Present: regular rate, normal rhythm GI/Abdominal exam: Present: soft, normal bowel sounds. Absent: tenderness Extremities exam: Present: normal inspection Neurological exam: Present: alert. Absent: motor sensory deficit Expanded Patient oriented to: Present: person. Absent: place, time Cranial nerves: EOM's Intact: Normal Motor strength exam: RUE: 5, LUE: 5, RLE: 5, LLE: 5 Psychiatric exam: Present: flat affect Skin exam: Present: normal color Course Vital Signs 12/04/23 12/04/23 08:52 12:00 Temperature 98.1 F Pulse Rate 71 74 Respiratory 16 16 Rate Blood Pressure 98/59 106/96 O2 Sat by Pulse 100 100 Oximetry EKG Findings - EKG Results: EKG: interpreted by ERMD, sinus rhythm, normal axis, normal QRS, normal ST/T Medical Decision Making - Medical Decision Making Was pt. sent in by a medical professional or institution (NIKKO Rodney, COMMUNITY DEVELOPMENT SPECIALIST, urgent care, hospital, or fpc...) When possible be specific @ -Patient sent from fpc Did you speak to anyone other than the patient for history (EMS, parent, family, police, friend...)? What history was obtained from this source @ -Surplus Property Disposal Agent provides majority of history and is a superior historian Did you review nursing and triage notes (agree or disagree)? Why? @ -[I reviewed and agree with nursing and triage notes] Were old charts reviewed (outside hosp., previous admission, EMS record, old EKG, old radiological studies, urgent care reports/EKG's, fpc records)? Report findings @ -[No old charts were reviewed] Differential Diagnosis (chest pain, altered mental status, abdominal pain women, abdominal pain men, vaginal bleeding, weakness, fever, dyspnea, syncope, headache, dizziness, GI bleed, back pain, seizure, CVA, palpatations, mental health, musculoskeletal)? @ -Differential Altered Mental Status: Hypoglycemia, DKA, hypercapnia, ETOH, overdose, CO poisoning, trauma, myxedema coma, HTN encephalopathy, infection, encephalitis, psychosis, intercranial hemorrhage, hepatic encephalopathy, meningitis, CVA, this is not meant to be an all-inclusive list EKG interpreted by me (3pts min.). @ -[As above] X-rays interpreted by me (1pt min.). @ -Chest x-ray shows nonspecific minimal interstitial change CT interpreted by me (1pt min.). @ -[None done] U/S interpreted by me (1pt. min.). @ -[None done] What testing was considered but not performed or refused? (CT, X-rays, U/S, labs)? Why? @ -[None] What meds were considered but not given or refused? Why? @ -[None] Did you discuss the management of the patient with other professionals (professionals i.e. NIKKO Rodney, COMMUNITY DEVELOPMENT SPECIALIST, lab, RT, psych nurse, social science teacher, torque tester, teacher, building drafting officer, shelter case manager)? Give summary @ -Case was discussed with Dr. Edwards who will admit covering hospital call Was smoking cessation discussed for >3mins.? @ -[No] Was critical care preformed (if so, how long)? @ -[No] Were there social determinants of health that impacted care today? How? (Homelessness, low income, unemployed, alcoholism, drug addiction, transport ation, low edu. Level, literacy, decrease access to med. care, long-term, rehab)? @ -[No] Was there de-escalation of care discussed even if they declined (Discuss DNR or withdrawal of care, Hospice)? DNR status @ -[No] What co-morbidities impacted this encounter? (DM, HTN, Smoking, COPD, CAD, Cancer, CVA, ARF, Chemo, Hep., AIDS, mental health diagnosis, sleep apnea, morbid obesity)? @ -[None] Was patient admitted / discharged? Hospital course, mention meds given and route, prescriptions, significant lab abnormalities, going to OR and other pertinent info. @ -Patient reevaluated. Patient and senior speech pathologist updated. Patient will be admitted. Admission orders written. Patient will need further investigation as far as causes of elevated ammonia levels. Possibly could be related to medications. Depakote will be held. Psychiatry will also be consulted. Undiagnosed new problem with uncertain prognosis? @ -[No] Drug Therapy requiring intensive monitoring for toxicity (Heparin, Nitro, Insulin, Cardizem)? @ -[No] Were any procedures done? @ -[No] Diagnosis/symptom? @ -Hyperammonia Acute, or Chronic, or Acute on Chronic? @ -Acute Uncomplicated (without systemic symptoms) or Complicated (systemic symptoms)? @ -Complicated with weakness and mental status change Side effects of treatment? @ -[No] Exacerbation, Progression, or Severe Exacerbation? @ -[No] Poses a threat to life or bodily function? How? (Chest pain, USA, GA, pneumonia, PE, COPD, DKA, ARF, appy, cholecystitis, CVA, Diverticulitis, Homicidal, Suicidal, threat to staff... and all critical care pts) @ -Threat to cognition and life - Lab Data Result diagrams: 12/04/23 11:20 12/04/23 11:20 Lab Results 12/04/23 12/04/23 12/04/23 Range/Units 11:00 11:20 11:20 WBC 4.2 (3.8-10.6) k/uL RBC 3.61 L (3.80-5.40) m/uL Hgb 11.5 (11.4-16.0) gm/dL Hct 36.3 (34.0-46.0) % MCV 100.3 H (80.0-100.0) fL MCH 31.9 (25.0-35.0) pg MCHC 31.8 (31.0-37.0) g/dL RDW 14.4 (11.5-15.5) % Plt Count 90 L (150-450) k/uL MPV 10.8 Neutrophils % 47 % Lymphocytes % 42 % Monocytes % 5 % Eosinophils % 4 % Basophils % 1 % Neutrophils # 2.0 (1.3-7.7) k/uL Lymphocytes # 1.8 (1.0-4.8) k/uL Monocytes # 0.2 (0-1.0) k/uL Eosinophils # 0.2 (0-0.7) k/uL Basophils # 0.0 (0-0.2) k/uL Manual Slide Review Performed Macrocytosis Slight PT 10.7 (10.0-12.5) sec INR 1.0 (<1.2) APTT 23.1 (22.0-30.0) sec Sodium (137-145) mmol/L Potassium (3.5-5.1) mmol/L Chloride (98-107) mmol/L Carbon Dioxide (22-30) mmol/L Anion Gap mmol/L BUN (7-17) mg/dL Creatinine (0.52-1.04) mg/dL Est GFR (CKD-EPI)AfAm (>60 ml/min/1.73 sqM) Est GFR (CKD-EPI)NonAf (>60 ml/min/1.73 sqM) Glucose (74-99) mg/dL Plasma Lactic Acid Ankur (0.7-2.0) mmol/L Calcium (8.4-10.2) mg/dL Phosphorus (2.5-4.5) mg/dL Magnesium (1.6-2.3) mg/dL Total Bilirubin (0.2-1.3) mg/dL AST (14-36) U/L ALT (4-34) U/L Alkaline Phosphatase (38-126) U/L Ammonia (<30) umol/L Troponin I (0.000-0.034) ng/mL Total Protein (6.3-8.2) g/dL Albumin (3.5-5.0) g/dL TSH (0.465-4.680) mIU/L Urine Color Yellow Urine Appearance Cloudy H (Clear) Urine pH 6.5 (5.0-8.0) Ur Specific [place] 1.016 (1.001-1.035) Urine Protein Negative (Negative) Urine Glucose (UA) Negative (Negative) Urine Ketones Negative (Negative) Urine Blood Negative (Negative) Urine Nitrite Negative (Negative) Urine Bilirubin Negative (Negative) Urine Urobilinogen 3.0 (<2.0) mg/dL Ur Leukocyte Esterase Moderate H (Negative) Urine WBC 14 H (0-5) /hpf Ur Squamous Epith Cells 1 (0-4) /hpf Amorphous Sediment Occasional H (None) /hpf Urine Bacteria Moderate H (None) /hpf Urine Mucus Rare H (None) /hpf Valproic Acid ug/mL 12/04/23 12/04/23 12/04/23 Range/Units 11:20 11:20 11:20 WBC (3.8-10.6) k/uL RBC (3.80-5.40) m/uL Hgb (11.4-16.0) gm/dL Hct (34.0-46.0) % MCV (80.0-100.0) fL MCH (25.0-35.0) pg MCHC (31.0-37.0) g/dL RDW (11.5-15.5) % Plt Count (150-450) k/uL MPV Neutrophils % % Lymphocytes % % Monocytes % % Eosinophils % % Basophils % % Neutrophils # (1.3-7.7) k/uL Lymphocytes # (1.0-4.8) k/uL Monocytes # (0-1.0) k/uL Eosinophils # (0-0.7) k/uL Basophils # (0-0.2) k/uL Manual Slide Review Macrocytosis PT (10.0-12.5) sec INR (<1.2) APTT (22.0-30.0) sec Sodium 144 (137-145) mmol/L Potassium 3.9 (3.5-5.1) mmol/L Chloride 114 H (98-107) mmol/L Carbon Dioxide 22 (22-30) mmol/L Anion Gap 8 mmol/L BUN 23 H (7-17) mg/dL Creatinine 0.88 (0.52-1.04) mg/dL Est GFR (CKD-EPI)AfAm 88 (>60 ml/min/1.73 sqM) Est GFR (CKD-EPI)NonAf 76 (>60 ml/min/1.73 sqM) Glucose 71 L (74-99) mg/dL Plasma Lactic Acid Ankur 1.0 (0.7-2.0) mmol/L Calcium 9.7 (8.4-10.2) mg/dL Phosphorus 3.9 (2.5-4.5) mg/dL Magnesium 2.1 (1.6-2.3) mg/dL Total Bilirubin 0.6 (0.2-1.3) mg/dL AST 28 (14-36) U/L ALT 9 (4-34) U/L Alkaline Phosphatase 52 (38-126) U/L Ammonia 119 H (<30) umol/L Troponin I <0.012 (0.000-0.034) ng/mL Total Protein 6.1 L (6.3-8.2) g/dL Albumin 3.6 (3.5-5.0) g/dL TSH 0.886 (0.465-4.680) mIU/L Urine Color Urine Appearance (Clear) Urine pH (5.0-8.0) Ur Specific [place] (1.001-1.035) Urine Protein (Negative) Urine Glucose (UA) (Negative) Urine Ketones (Negative) Urine Blood (Negative) Urine Nitrite (Negative) Urine Bilirubin (Negative) Urine Urobilinogen (<2.0) mg/dL Ur Leukocyte Esterase (Negative) Urine WBC (0-5) /hpf Ur Squamous Epith Cells (0-4) /hpf Amorphous Sediment (None) /hpf Urine Bacteria (None) /hpf Urine Mucus (None) /hpf Valproic Acid 65.4 ug/mL Disposition Clinical Impression: Hyperammonemia Disposition: ADMITTED IP TO THIS HOSP Is patient prescribed a controlled substance at d/c from ED?: No Referrals: None,Stated [Primary Care Provider] - 1-2 days Time of Disposition: 14:23
--- NOTE | 2023-12-04 10:36 | XR ---
EXAMINATION TYPE: XR chest 2V DATE OF EXAM: 12/04/2023 COMPARISON: 05/29/2021 TECHNIQUE: PA and lateral views submitted. HISTORY: Weakness FINDINGS: Limited inspiration with perihilar interstitial changes. Thickening or tiny amount of fluid in the mi nor fissure. Chronic deformity of the right clavicle with elevation of the clavicle correlate for AC joint separation or prior fracture\trauma. Chronic deformity of the left rib cage.. Osseous structure s demonstrate hypertrophic and degenerative changes of the spine. IMPRESSION: 1. Perihilar interstitial changes could be on the basis of reduced inspiration. Mild venous congestio n or interstitial pneumonitis not excluded.
[2023-12-04 11:32] LABS: Amorphous Sediment,Urine Occasional /hpf; Appearance,Urine Cloudy (Clear); Bacteria,Urine Moderate /hpf; Bilirubin,Urine Negative (Negative); Blood,Urine Negative (Negative); Color,Urine Yellow; Glucose,Urine (UA) Negative (Negative); Ketones,Urine Negative (Negative); Leukocyte Esterase,Urine Moderate (Negative); Mucus,Urine Rare /hpf; Nitrite,Urine Negative (Negative); PH, Urine 6.5 (5.0-8.0); Protein,Urine Negative (Negative); Specific Gravity,Urine 1.016 (1.001-1.035); Squamous Epithelial Cell,Urine 1 /hpf (0-4); WBC,Urine 14 /hpf (0-5)
[2023-12-04 11:45] LABS: ALT 9 U/L (4-34); AST 28 U/L (14-36); African American GFR (CKD) 88 (>60 ml/min/1.73 sqM); Albumin 3.6 g/dL (3.5-5.0); Alkaline Phosphatase 52 U/L (38-126); Blood Urea Nitrogen 23 mg/dL (7-17); Calcium 9.7 mg/dL (8.4-10.2); Carbon Dioxide 22 mmol/L (22-30); Glucose 71 mg/dL (74-99); Magnesium 2.1 mg/dL (1.6-2.3); Non-African American GFR(CKD) 76 (>60 ml/min/1.73 sqM); Phosphorus 3.9 mg/dL (2.5-4.5); Total Bilirubin 0.6 mg/dL (0.2-1.3); Total Protein 6.1 g/dL (6.3-8.2)
[2023-12-04 11:50] LABS: Valproic Acid (Depakene) 65.4 ug/mL
[2023-12-04 11:55] LABS: Anion Gap 8 mmol/L; Chloride 114 mmol/L (98-107); Partial Thromboplastin Time 23.1 sec (22.0-30.0); Potassium 3.9 mmol/L (3.5-5.1); Prothrombin Time 10.7 sec (10.0-12.5); Sodium 144 mmol/L (137-145)
[2023-12-04 12:04] LABS: Basophils % (A) 1 %; Eosinophils # (A) 0.2 k/uL (0-0.7); Eosinophils % (A) 4 %; HCT 36.3 % (34.0-46.0); HGB 11.5 gm/dL (11.4-16.0); Lymphocytes # (A) 1.8 k/uL (1.0-4.8); Lymphocytes % (A) 42 %; MCH 31.9 pg (25.0-35.0); MCHC 31.8 g/dL (31.0-37.0); MCV 100.3 fL (80.0-100.0); Macrocytosis Slight; Mean Platelet Volume 10.8; Monocytes # (A) 0.2 k/uL (0-1.0); Monocytes % (A) 5 %; Neutrophils % (A) 47 %; RBC 3.61 m/uL (3.80-5.40); RDW 14.4 % (11.5-15.5); WBC 4.2 k/uL (3.8-10.6)
[2023-12-04] MEDS: SODIUM CHLORIDE 0.9% 1,000 ML IV STA (13:09)
[2023-12-04 13:45] LABS: Platelet Count 90 k/uL (150-450)
[2023-12-04] MEDS ORDERED: DIAZEPAM MISCELLANE PRN (14:23)
[2023-12-04] MEDS ORDERED: NALOXONE 0.4 MG/ML 1 ML VIAL IV PRN (14:25)
[2023-12-04] MEDS: LACTULOSE 20 GM/30 ML CUP PO SCH (15:50)
[2023-12-04] MEDS: PREGABALIN 75 MG CAP PO SCH (19:41)
[2023-12-04] MEDS: SENNOSIDES 8.6 MG TAB PO SCH (19:41)
[2023-12-04] MEDS: ATORVASTATIN 10 MG TAB PO SCH (19:41)
[2023-12-04] MEDS: CHOLECALCIFEROL 25 MCG (1000 IU) TABLET PO SCH (19:41)
[2023-12-04] MEDS: MONTELUKAST 10 MG TAB PO SCH (19:41)
[2023-12-04] MEDS: MULTIVITAMINS, THERA 1 EACH TAB PO SCH (19:42)
[2023-12-04] MEDS: TOPIRAMATE 100 MG TAB PO SCH (19:42)
[2023-12-04] MEDS: FAMOTIDINE 20 MG TAB PO SCH (19:42)
[2023-12-04] MEDS: DOCUSATE 100 MG CAP PO SCH (19:42)
[2023-12-04] MEDS: SODIUM CHLORIDE 0.9% 1,000 ML IV SCH (19:52)
[2023-12-04] MEDS: ESLICARBAZEPINE ACETATE 800 MG PO SCH (21:17)
[2023-12-04] MEDS: FENOFIBRATE 54 MG TAB PO SCH (21:17)
[2023-12-04] MEDS: NON FORMULARY DRUG (Brivaracetam [Briviact] 100 MG Tablet) PO SCH (21:17)
--- NOTE | 2023-12-05 02:59 | HP ---
HISTORY AND PHYSICAL CHIEF COMPLAINT: Weakness. HISTORY OF PRESENT ILLNESS: This is a 53-year-old woman who was admitted with what appeared to be history of seizure disorder, was getting progressively weak. Apparently, the caregivers have been helping her out. Because of increasing weakness, the patient was taken to [facility] and was admitted for further evaluation and treatment. Serum ammonia level was found to be 119. The patient confused also. The patient has uncontrollable movement also. There is no history of any fever, rigors, or chills at this time. The patient is also taking lactulose previously. The patient had MRI of the brain, which showed degenerative changes with a greater cerebellar component. A SPECT scan was also done, early changes with idiopathic Parkinson's was suspected. There is no history of any fever, rigors, or chills. The patient is unable to give a coherent history, most history is taken by discussion with staff and discussion with the ER physician. The patient is also taking gabapentin. PAST MEDICAL HISTORY: Reviewed include neurologic disorder, seizure disorder. HOME MEDICATIONS: Reviewed include Valtoco, dose and rest of medications reviewed. ALLERGIES: Barbiturates, rest of allergies noted. Family history, social history, and review of systems could not be taken. PHYSICAL EXAMINATION: VITAL SIGNS: Pulse is 74, blood pressure 106/90, respirations 16. HEENT: Conjunctivae normal. NECK: No jugular venous distention. CARDIOVASCULAR: S1, S2. RESPIRATIONS: Diminished at the bases. ABDOMEN: Soft, nontender. LEGS: No edema, no swelling. NERVOUS SYSTEM: Diffusely weak, tremors, and abnormal movement present. SKIN: No ulcer, rash, bleeding. JOINTS: No active deforming arthropathy. LABORATORY DATA: WBC hemoglobin 11.2, rest of the labs are noted. ASSESSMENT: 1. Change in mental status and weakness, hyperammonemia. 2. Rule out congenital ammonia urea cycle enzyme deficiencies. 3. Possible idiopathic Parkinsonism on the SPECT scan. 4. 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 5. History of seizure disorder. 6. Family history of cirrhosis, rule out hemochromatosis. 7. History of DJD. 8. History of seizure disorder. 9. History of challenge. 10.Hypothyroidism. 11.History of CAD stent. 12.Anxiety, depression, PTSD. RECOMMENDATIONS AND DISCUSSION: This 53-year-old woman presented with multiple complex medical issues, we will monitor the patient closely. Continue the current management, continue symptomatic treatment with lactulose. Otherwise, we will hold the Depakote at this time per Neurology consultation. I would also recommend serum ceruloplasmin as well as copper estimation also. The prognosis is guarded. Further recommendations to follow. See orders for details. MMOSCARL / IJN: [id number] / MTDD
[2023-12-05] MEDS: LEVOTHYROXINE 112 MCG TAB PO SCH (07:52)
[2023-12-05] MEDS: FOLIC ACID 1 MG TAB PO SCH (07:53)
[2023-12-05] MEDS: PARoxetine 10 MG TAB PO SCH (07:53)
[2023-12-05] MEDS: ARIPiprazole 10 MG TAB PO SCH (07:53)
[2023-12-05] MEDS: LORATADINE 10 MG TAB PO SCH (07:53)
[2023-12-05] MEDS: ASPIRIN 81 MG PO SCH (07:53)
[2023-12-05 08:03] LABS: ALT 8 U/L (4-34); AST 24 U/L (14-36); African American GFR (CKD) 78 (>60 ml/min/1.73 sqM); Albumin 3.1 g/dL (3.5-5.0); Albumin/Globulin Ratio 1.5; Alkaline Phosphatase 52 U/L (38-126); Anion Gap 4 mmol/L; Blood Urea Nitrogen 24 mg/dL (7-17); Calcium 8.8 mg/dL (8.4-10.2); Carbon Dioxide 20 mmol/L (22-30); Chloride 116 mmol/L (98-107); Globulin 2.1 g/dL; Glucose 81 mg/dL (74-99); Non-African American GFR(CKD) 68 (>60 ml/min/1.73 sqM); Potassium 4.3 mmol/L (3.5-5.1); Sodium 140 mmol/L (137-145); Total Bilirubin 0.7 mg/dL (0.2-1.3); Total Protein 5.2 g/dL (6.3-8.2)
[2023-12-05 08:14] LABS: Basophils % (A) 1 %; Eosinophils # (A) 0.2 k/uL (0-0.7); Eosinophils % (A) 5 %; HCT 34.4 % (34.0-46.0); Hypochromasia Slight; Lymphocytes # (A) 2.1 k/uL (1.0-4.8); Lymphocytes % (A) 48 %; MCH 33.1 pg (25.0-35.0); MCHC 32.1 g/dL (31.0-37.0); MCV 103.2 fL (80.0-100.0); Macrocytosis Slight; Mean Platelet Volume 11.6; Monocytes # (A) 0.3 k/uL (0-1.0); Monocytes % (A) 6 %; Neutrophils # (A) 1.6 k/uL (1.3-7.7); Neutrophils % (A) 38 %; RBC 3.33 m/uL (3.80-5.40); RDW 14.2 % (11.5-15.5); WBC 4.4 k/uL (3.8-10.6)
[2023-12-05 08:20] LABS: Platelet Count 79 k/uL (150-450)
[2023-12-05] MEDS: SODIUM CHLORIDE 0.9% 500 ML 500 ML IV ONE ×3 (12:27→14:59)
--- NOTE | 2023-12-05 15:15 | XR ---
EXAMINATION TYPE: XR chest 1V portable DATE OF EXAM: 12/05/2023 COMPARISON: 12/04/2023 INDICATION: CHF TECHNIQUE: Single frontal view of the chest is obtained. FINDINGS: The heart size is normal. The pulmonary vasculature is normal. The lungs are clear. IMPRESSION: 1. No acute pulmonary process.
[2023-12-05] MEDS: levETIRAcetam 500 MG TAB PO SCH (15:48)
--- NOTE | 2023-12-05 15:48 | P.CN ---
Psychiatric Consult - . Consult date: 12/05/23 Consult:: 12/05/23 15:44 This is a 53-year-old female who was requested for a psychiatric assessment The reason for follow-up was given as psych history However patient is unable to participate in this assessment due to weakness and confusion Following is an excerpt from the assessment Done by the incinerator plant laborer which is included here for completeness: Patient has had similar problems multiple times previously associated with hyperammonia. Patient is slightly drowsy. Patient has difficulty answering simple questions. Patient reportedly has not been walking the last couple of days. Patient has chronic constipation, no change with this. Patient is currently on lactulose 45 mg 3-4 times daily. Mental status examination reveals a middle-aged female who appears very drowsy Patient made an attempt to respond to questions but her speech remains very halting and limited Patient only utters a few words and continues to repeat it over and over without giving any information Patient at this time does not appear to be stable for any further psychiatric assessment Diagnostic impression: Major neurocognitive disorder acute Developmental disorder Plan: The patient at this time may still be exhibiting signs of delirium and confusion related to hyperammonia and does not appear to be stable for psychiatric assessment at this time Please contact us for a reassessment when patient is medically stabilized Will also check on her periodically Thank you very much for your kind referral and please feel free to contact me if you have any further questions Harmeet Borges MD Active Medications Generic Name Dose Route Start Last Admin Trade Name Freq PRN Reason Stop Dose Admin Aripiprazole 10 mg 12/05/23 08:00 12/05/23 07:53 Aripiprazole 10 Mg Tab PO 10 mg DAILY@0800 [facility] Administration Aspirin 81 mg 12/05/23 08:00 12/05/23 07:53 Aspirin 81 Mg PO 81 mg DAILY@0800 [facility] Administration Atorvastatin Calcium 10 mg 12/04/23 20:00 12/04/23 19:41 Atorvastatin 10 Mg Tab PO 10 mg HS@1999 [facility] Administration Cholecalciferol 50 mcg 12/04/23 20:00 12/04/23 19:41 Cholecalciferol 25 Mcg (1000 Iu) Tablet PO 50 mcg HS@1999 [facility] Administration Docusate Sodium 100 mg 12/04/23 20:00 12/05/23 07:53 Docusate 100 Mg Cap PO 100 mg BID@ [facility] Administration Famotidine 20 mg 12/04/23 20:00 12/05/23 07:53 Famotidine 20 Mg Tab PO 20 mg BID@ [facility] Administration Fenofibrate 54 mg 12/04/23 20:00 12/04/23 21:17 Fenofibrate 54 Mg Tab PO 54 mg HS@1999 [facility] Administration Fluvoxamine Maleate 100 mg 12/04/23 20:00 12/05/23 07:53 Fluvoxamine 50 Mg Tab PO 100 mg BID@ [facility] Administration Folic Acid 1 mg 12/05/23 08:00 12/05/23 07:53 Folic Acid 1 Mg Tab PO 1 mg DAILY@08 [facility] Administration Sodium Chloride 1,000 mls @ 100 mls/hr 12/04/23 14:30 12/05/23 06:33 Saline 0.9% IV Not Given .Q10H [facility] Ceftriaxone Sodium 1 gm/ 50 mls @ 100 mls/hr 12/05/23 15:00 12/05/23 15:46 Sodium Chloride IVPB 100 mls/hr Q24H [facility] Administration Protocol Lactulose 30 gm 12/04/23 14:30 12/05/23 13:48 Lactulose 20 Gm/30 Ml Cup PO 30 gm QID [facility] Administration Levetiracetam 1,000 mg 12/05/23 16:00 Levetiracetam 500 Mg Tab PO Q12HR [facility] Levothyroxine Sodium 112 mcg 12/05/23 08:00 12/05/23 07:52 Levothyroxine 112 Mcg Tab PO 112 mcg DAILY@08 [facility] Administration Loratadine 10 mg 12/05/23 08:00 12/05/23 07:53 Loratadine 10 Mg Tab PO 10 mg DAILY@0800 [facility] Administration Montelukast Sodium 10 mg 12/04/23 20:00 12/04/23 19:41 Montelukast 10 Mg Tab PO 10 mg HS@1999 [facility] Administration Multivitamins 1 each 12/04/23 20:00 12/04/23 19:42 Multivitamins, Thera 1 Each Tab PO 1 each HS@1999 [facility] Administration Naloxone HCl 0.2 mg 12/04/23 14:25 Naloxone 0.4 Mg/Ml 1 Ml Vial IV Q2M PRN Opioid Reversal Non-Formulary Medication 100 mg 12/04/23 20:00 12/05/23 07:59 Brivaracetam [Briviact] PO Not Given BID@ [facility] Non-Formulary Medication 15 mg 12/04/23 14:23 Diazepam [Valtoco] MISCELLANE DAILY PRN seizure Non-Formulary Medication 800 mg 12/04/23 20:00 12/04/23 21:17 Eslicarbazepine Acetate [Aptiom] PO Not Given HS@1999 [facility] Paroxetine HCl 30 mg 12/05/23 08:00 12/05/23 07:53 Paroxetine 10 Mg Tab PO 30 mg DAILY@0800 [facility] Administration Pregabalin 150 mg 12/04/23 20:00 12/05/23 14:31 Pregabalin 75 Mg Cap PO Not Given TID@0800, [facility] Ropinirole HCl 3 mg 12/04/23 20:00 12/05/23 14:32 Ropinirole Hcl 1 Mg Tab PO Not Given TID@0800, [facility] Senna 8.6 mg 12/04/23 20:00 12/04/23 19:41 Sennosides 8.6 Mg Tab PO 8.6 mg HS@1999 [facility] Administration Topiramate 100 mg 12/04/23 20:00 12/05/23 07:53 Topiramate 100 Mg Tab PO 100 mg BID@ [facility] Administration
[2023-12-05] MEDS: ACETAMINOPHEN TAB 325 MG TAB PO PRN (18:22)
[2023-12-05] MEDS: ZINC OXIDE PASTE (Z-GUARD) 1 APPLIC TOPICAL SCH (18:22)
[2023-12-05] MEDS ORDERED: levETIRAcetam IV 1,000 MG in SODIUM CHLORIDE 0.9% 250 ML IVPB SCH (21:00)
--- NOTE | 2023-12-05 22:02 | PN ---
PROGRESS NOTE DATE OF SERVICE: 12/05/2023 SUBJECTIVE: This is a 53-year-old woman, who was admitted with hyperammonemia, change in mental status, being closely monitored at this time. The patient is hypotensive also. The patient's hypotension persists even after 2 boluses. White count is normal, but however, the patient has abnormal urine. PAST MEDICAL HISTORY: Reviewed. REVIEW OF SYSTEMS: Could not be taken. The patient is confused. CURRENT MEDICATIONS: Reviewed include Lipitor, dose and rest of medications noted. PHYSICAL EXAMINATION: VITAL SIGNS: Pulse is 64, blood pressure 88/53, respirations 17. HEENT: Conjunctivae normal. NECK: No JVD. CARDIOVASCULAR: S1, S2. RESPIRATIONS: Breath sounds diminished at the bases. A few scattered rhonchi. ABDOMEN: Soft. NERVOUS SYSTEM: Nonfocal. LABORATORY DATA: Noted. ASSESSMENT: 1. Change in mental status, weakness with possible hyperammonemia. 2. Hypotension, possible sepsis and urinary tract infection. 3. Rule out congenital ammonia urea cycle enzyme deficiencies. 4. Possible idiopathic Parkinsonism on SPECT scan recently. 5. 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 6. History of seizure disorder. 7. Family history of cirrhosis, rule out hemochromatosis. 8. History of degenerative joint disease. 9. History of seizure disorder. 10.History of hypothyroidism. 11.History of coronary artery disease stent. 12.Anxiety, depression, posttraumatic stress disorder. RECOMMENDATIONS AND DISCUSSION: Recommend to continue current medications and continue symptomatic treatment. Otherwise, at this time I will recommend continue with current medications. Continue symptomatic treatment. Otherwise, empiric antibiotics, cultures, Infectious Disease, Pulmonary, and Cardiology consultations. Prognosis extremely guarded. Neurology also has been consulted. I would also recommend a 2D echo and portable chest x-ray. See orders for further details. MMODL / IJN: [id number] /
--- NOTE | 2023-12-05 22:20 | P.CONS ---
History of Present Illness - Reason for Consult Consult date: 12/05/23 - History of Present Illness Patient is a 53-year-old female with a past medical history significant for developmentally challenged and did have a public guardian history of seizure disorder pneumonia and reflux patient has been brought into the hospital yesterday morning from the care facility for evaluation of weakness and confusion and this patient symptom has been going on for a day or 2 before the patient was brought into the hospital patient noticed to be more confused but no clear history of any fever patient at time of evaluation was afebrile when asked specifically she denies having any headache or URI symptoms no chest pain shortness of breath or cough some nausea but no vomiting no abdominal pain and no diarrhea has been reported not very clear about any urinary symptoms patient has been afebrile not tachycardic mildly hypotensive getting some fluid boluses not hypoxic or need for supplemental oxygen patient did have white count of 4.2 creatinine has been 0.88 liver enzymes are normal ammonia level is 119 repeat is 128 urine has been mildly positive patient did have a chest x-ray no acute cardiopulmonary process infectious disease was consulted this afternoon concerning for possible sepsis by admitting physician history is currently limited as the patient overall not a very good historian Past Medical History Past Medical History: GERD/Reflux, Musculoskeletal Disorder, Neurologic Disorder, Osteoarthritis (OA), Pneumonia, Seizure Disorder, Thyroid Disorder Additional Past Medical History / Comment(s): Pt is developmentally challenged and has a [facility] public legal guardian, Bambi Davis, who states to get PMH etc from caregiver, Alison Chaudhry. TREMORS FROM MEDS, hypothyroid, falls, head injury r/t fall, PARKINSONS, OCCASIONAL DIZZY SPELLS, PAST RIGHT LEG CELLULITIS, AND DARKENED PIGMENTATION RIGHT LEG, last seizure 09/26/23 History of Any Multi-Drug Resistant Organisms: None Reported Past Surgical History: Heart Catheterization With Stent Additional Past Surgical History / Comment(s): possible cardiac stent, tooth extraction [facility] 11/04/23, bilateral cataract surgery in 2018 Past Anesthesia/Blood Transfusion Reactions: No Reported Reaction Additional Past Anesthesia/Blood Transfusion Reaction / Comm: NEVER HAD AA Date of Last Stent Placement:: 2017 or 2018 Past Psychological History: Anxiety, Depression, PTSD Additional Psychological History / Comment(s): DEVELOPEMENTALLY CHALLENGED. LG states pt lives in home of her own with another residence at [facility]. She has caregivers that take care of her. Performs her own ADLs and feeds herself. Her caretakers manage her medications. She uses walker occasionally. She does not drive-caretakers take her to appts. Smoking Status: Never smoker Past Alcohol Use History: None Reported Past Drug Use History: None Reported - Past Family History Father Additional Family Medical History / Comment(s): WAS A DRINKER FROM CIRRHOSIS Mother Family Medical History: Cancer Additional Family Medical History / Comment(s): BREAST-mother is living. Medications and Allergies Home Medications Medication Instructions Recorded Confirmed Type Folic Acid 1 mg PO DAILY@0800 02/10/15 12/04/23 History Loratadine [Claritin] 10 mg PO DAILY@0800 09/13/16 12/04/23 History fluvoxaMINE MALEATE [Luvox] 100 mg PO BID@0800,199909/13/16 12/04/23 History Levothyroxine Sodium [Synthroid] 112 mcg PO DAILY@0800 03/26/17 12/04/23 History Atorvastatin [Lipitor] 10 mg PO HS@199905/29/21 12/04/23 History Cholecalciferol [Vitamin D3 (25 50 mcg PO HS@199905/29/21 12/04/23 History Mcg = 1000 Iu)] Divalproex Sodium [Depakote] 500 mg PO BID@0800,199905/29/21 12/04/23 History Docusate [Colace] 100 mg PO BID@0800,199905/29/21 12/04/23 History Famotidine 20 mg PO BID@0800,199905/29/21 12/04/23 History Fenofibrate [Lofibra] 54 mg PO HS@199905/29/21 12/04/23 History Montelukast [Singulair] 10 mg PO HS@199905/29/21 12/04/23 History Multivitamins, Thera [Multivitamin 1 tab PO HS@199905/29/21 12/04/23 History (formulary)] Aspirin [Adult Low Dose Aspirin EC] 81 mg PO DAILY@0800 11/23/23 12/04/23 History Lactulose [Cephulac] 30 ml PO QID@08,12,14,20 11/23/23 12/04/23 History PARoxetine HCL 30 mg PO DAILY@0800 11/23/23 12/04/23 History Pregabalin [Lyrica] 150 mg PO TID@0800,1400,199911/23/23 12/04/23 History rOPINIRole HCL [Requip] 3 mg PO TID@0800,1400,199911/23/23 12/04/23 History ARIPiprazole [Abilify] 10 mg PO DAILY@0800 12/04/23 12/04/23 History Brivaracetam [Briviact] 100 mg PO BID@0800,199912/04/23 12/04/23 History Eslicarbazepine Acetate [Aptiom] 800 mg PO HS@199912/04/23 12/04/23 History Sennosides [Senokot] 8.6 mg PO HS@199912/04/23 12/04/23 History Topiramate [Topamax] 100 mg PO BID@0800,199912/04/23 12/04/23 History diazePAM [Valtoco] 15 mg NASAL DIRECTED PRN 12/04/23 12/04/23 History Allergies Allergy/AdvReac Type Severity Reaction Status Date / Time Barbiturates Allergy Unknown Verified 12/04/23 11:44 carbamazepine [From Tegretol] Allergy Unknown Verified 12/04/23 11:44 clindamycin palmitate HCl Allergy Unknown Verified 12/04/23 11:44 [From Cleocin] clindamycin phosphate Allergy Unknown Verified 12/04/23 11:44 [From Cleocin] lincomycin Allergy Unknown Verified 12/04/23 11:44 Penicillins Allergy Unknown Verified 12/04/23 11:44 phenobarbital Allergy Unknown Verified 12/04/23 11:44 phenytoin [From Dilantin] Allergy Unknown Verified 12/04/23 11:44 primidone [From Mysoline] Allergy Unknown Verified 12/04/23 11:44 Physical Exam Vitals: Vital Signs Temp Pulse Pulse Resp BP BP Pulse Ox 12/05/23 14:32 73 86/56 12/05/23 13:01 97.8 F 64 17 88/53 98 12/05/23 07:04 97.6 F 74 17 82/51 100 12/05/23 02:00 16 88/55 97 12/04/23 18:18 97.4 F L 75 19 92/52 98 12/04/23 16:31 97.5 F L 63 19 92/55 97 12/04/23 16:00 98.4 F 67 18 92/56 100 Intake and Output 12/04/23 12/05/23 12/05/23 22:59 06:59 14:59 Intake Total 120 Balance 120 Intake: Oral 120 Other: Voiding Method Bedpan Incontinent Diaper External Catheter # Voids 2 1 # Bowel Movements 2 Weight 71.668 kg Results CBC & Chem 7: 12/05/23 07:11 12/05/23 07:11 Labs: Abnormal Lab Results - Last 24 Hours (Table) 12/05/23 12/05/23 12/05/23 Range/Units 07:11 07:11 07:11 RBC 3.33 L (3.80-5.40) m/uL Hgb 11.0 L (11.4-16.0) gm/dL MCV 103.2 H (80.0-100.0) fL Plt Count 79 L (150-450) k/uL Chloride 116 H (98-107) mmol/L Carbon Dioxide 20 L (22-30) mmol/L BUN 24 H (7-17) mg/dL Ammonia 128 H (<30) umol/L Total Protein 5.2 L (6.3-8.2) g/dL Albumin 3.1 L (3.5-5.0) g/dL Assessment and Plan Plan: 1patient presented to hospital with mental status changes in this patient who did have evidence of elevated ammonia level and apparently did have previous admission to the hospital with similar symptoms patient is currently not running any fever or any elevated white count mildly hypotensive did have a positive UA concerning for possible component of symptomatic UTI as currently no other obvious focus of infection abdomen was soft on clinical lamination chest x-ray negative no evidence of any cellulitis or joint swelling 2-patient with multiple antibiotic ALLERGIES that would limit the number of antibiotic safe to use 3-we will obtain inflammatory markers cultures obtained results will be followed 4-Rocephin 1 g daily while waiting for the culture to finalize We will follow on clinical condition and cultures to further adjust medication if needed Thank you for this consultation we will follow the patient along with you Dictation was produced using [employer] software. please excuse any grammatical, word or spelling errors. Time with Patient: Greater than 30
[2023-12-05] MEDS: BRIVARACETAM 100 MG PO SCH (22:42)
[2023-12-06 09:29] LABS: BUN/Creat Ratio 27.29 Ratio (12.00-20.00); Blood Urea Nitrogen 19.1 mg/dL (9.0-27.0); Carbon Dioxide 17.3 mmol/L (21.6-31.8); Chloride 117 mmol/L (96-109); Glucose 107 mg/dL (70-110); Potassium 3.7 mmol/L (3.5-5.5); Sodium 144 mmol/L (135-145)
[2023-12-06 09:30] LABS: ALT 7 U/L (8-44); AST 24 U/L (13-35); Albumin 3.3 g/dL (3.8-4.9); Albumin/Globulin Ratio 2.06 Ratio (1.60-3.17); Alkaline Phosphatase 46 U/L (41-126); Calcium 8.8 mg/dL (8.7-10.3); Globulin 1.6 g/dL (1.6-3.3); Total Bilirubin 0.2 mg/dL (0.3-1.2); Total Protein 4.9 g/dL (6.2-8.2)
--- NOTE | 2023-12-06 10:22 | P.CN ---
Psychiatric Consult - . Consult date: 12/06/23 Consult:: 12/06/23 10:16 Patient Name: Chantal Rome Date of : 72 Patient Status: Inpatient Attending Provider: Scot Lacy Initialization Date: 12/05/23 15:44 Psychiatric Consult Consult date: 12/06/23 Consult:: Assessment and mental status examination This is a follow-up on the psychiatric consultation on Chantal rome This is a 53-year-old female who was requested for a psychiatric assessment The reason for follow-up was given as psych history When seen today patient was sitting up in the Alaina chair She seemed to be slightly tremulous and anxious She was watching a cartoon show and the language was in [place] although patient does not understand any [place] She also has several coloring books all around her She was pleasant and greeted this web content writer with a loud hello Her responses were slow and punctuated and delayed Patient was able to express that she was here for seizures She could not give any further information beyond that When asked about where she will live patient continues to stutter about trying to find a word and then said several times as 'to how can I put it "" When I asked if she was living in a prison she immediately agreed and seemed to be struggling to find the word Patient was unable to give any other information when asked about any siblings patient stated after a long delay that she has 1 brother When asked about her parents she stated that she does not know Patient struggles with expressing herself and seemed to get stuck after the first word Thinking remains very concrete and simple Patient has significant speech impediment and delayed responses as well as difficulty forming words She is alert and oriented to place and person Patient denied depression or anxiety Diagnostic impression: Major neurocognitive disorder/delirium improved Developmental disorder Plan: Although we do not know her baseline level of functioning the patient most likely appears to be at her baseline level as far as her mental status is concerned At this time I do not believe that we can provide any more services from the psychiatric point of view and that she is already on psychotropic medications and does not seem to be exhibiting any side effects Patient is also in a prison where she is monitored and help with her ADLs and her basic needs Psychiatry will sign off Thank you very much for your kind referral and please feel free to contact me if you have any further questions Harmeet Jony MD
--- NOTE | 2023-12-06 10:41 | P.CNNES ---
History of Present Illness Consult date: 12/05/23 Requesting physician: Palomo Jefferson Reason for Consult: Carlos's History of Present Illness: Patient is a 53-year-old female with history of developmental delays, but very functional at baseline, seizure disorder, [facility], he is also highly functional, was brought to the hospital by ambulance yesterday at 8:51 AM. As per EMS flow sheet, it was reported that caregiver has mentioned that over the last 2 weeks, patient has been having behavioral changes, becoming increasing sensitive to touch, more aggressive behavior and increasing difficulty ambulating. Today patient has difficulty standing and is unable to ambulate. Patient is awake, alert oriented to her no rmal, history of developmental disability. Patient has no signs of distress or trauma. Tremors noted in the arms and legs. Patient has history of Parkinson's disease. Per staff, the tremors have increased in the last 2 weeks. Patient's blood glucose was 87 mg/dL. Her blood pressure was 84/42, and the repeat one was 86/51, pulse rate 77, respirations 16 and saturation 99%. Her blood test shows normal CBC with elevated MCV 100.3. PT/PTT normal, basic metabolic panel is normal. Hepatic panel normal. Ammonia was 119, which came up to 128. Troponin negative. TSH is normal, ceruloplasmin is 24.6. UA is negative. Depakote level is 65.4. EKG shows sinus rhythm, chest x-ray revealed perihilar interstitial changes could be on the basis of reduced inspiration. Mild venous congestion or interstitial pneumonitis not excluded. I spoke to patient's caregiver on the phone at the senior care, who provided extensive history. She mentions about her baseline level functioning as below. She states that although patient's memory is not the best, but she is very interactive, always wants to do something. She mentions that patient gets up every morning, makes her bed and wants to go shopping, walks fine. She goes to get her errands, goes to cooking classes, and is very independent. She does a lot of knitting, crocheting, fixes her own snacks or lunch. She is very bubbly, Jessica and always smiling. The caregiver knows her for last 4 years. She lives in a senior care, and no family has contacted. She has history of tremor for years. Patient has history of seizure disorder for a long time. She gets grand mal seizures, in which she falls and the seizure lasts for about 5-8 minutes. About 9 out of 10 times they have to call the EMS for prolonged seizure. The last seizure was documented on 09/26/2023. And prior to that was in June 2023. Patient usually gets her seizures about every 4-6 weeks although lately has been improved and less frequent. She does have a walker, but hardly ever uses it. She walks independently even when she goes out in the mall. Patient currently on Briviact, Aptiom, Depakote and Topamax for seizure disorder. She mentions that patient's condition has been declining for the last 8 months and has seen numerous doctors and has been to the hospital multiple times. Her condition is slowly deteriorating. After workup, she was found to have elevated ammonia in 200 range. Lactulose was started. The ammonia comes down and she becomes better, but then she gets worse in the ammonia level goes up again. Patient has been on Depakote for "TKA date". Patient lately has been screaming, hollering, kicking which is very unusual. She is not able to attend cooking classes because of mentation. Patient had undergone colonoscopy and has no abnormality found. Lactulose is not helping, as the ammonia continues to climb up. Review of Systems Patient is very groggy, not able to answer questions. She denies any headache, chest pain or abdominal pain. Rest of the review of systems very unreliable. The rest as mentioned by her caregiver. ROS unobtainable: due to mental status Past Medical History Past Medical History: GERD/Reflux, Musculoskeletal Disorder, Neurologic Disorder, Osteoarthritis (OA), Pneumonia, Seizure Disorder, Thyroid Disorder Additional Past Medical History / Comment(s): Pt is developmentally challenged and has a [facility] public legal guardian, Bambi Davis, who states to get PMH etc from caregiver, Alison Chaudhry. TREMORS FROM MEDS, hypothyroid, falls, head injury r/t fall, PARKINSONS, OCCASIONAL DIZZY SPELLS, PAST RIGHT LEG CELLULITIS, AND DARKENED PIGMENTATION RIGHT LEG, last seizure 09/26/23 History of Any Multi-Drug Resistant Organisms: None Reported Past Surgical History: Heart Catheterization With Stent Additional Past Surgical History / Comment(s): possible cardiac stent, tooth extraction [facility] 11/04/23, bilateral cataract surgery in 2018 Past Anesthesia/Blood Transfusion Reactions: No Reported Reaction Additional Past Anesthesia/Blood Transfusion Reaction / Comment(s): NEVER HAD AA Date of Last Stent Placement:: 2017 or 2018 Past Psychological History: Anxiety, Depression, PTSD Additional Psychological History / Comment(s): DEVELOPEMENTALLY CHALLENGED. LG states pt lives in home of her own with another residence at [facility]. She has caregivers that take care of her. Performs her own ADLs and feeds herself. Her caretakers manage her medications. She uses walker occasionally. She does not drive-caretakers take her to appts. Smoking Status: Never smoker Past Alcohol Use History: None Reported Past Drug Use History: None Reported - Past Family History Father Additional Family Medical History / Comment(s): WAS A DRINKER FROM CIRRHOSIS Mother Family Medical History: Cancer Additional Family Medical History / Comment(s): BREAST-mother is living. Medications and Allergies Home Medications Medication Instructions Recorded Confirmed Type Folic Acid 1 mg PO DAILY@0800 02/10/15 12/04/23 History Loratadine [Claritin] 10 mg PO DAILY@0800 09/13/16 12/04/23 History fluvoxaMINE MALEATE [Luvox] 100 mg PO BID@799,199909/13/16 12/04/23 History Levothyroxine Sodium [Synthroid] 112 mcg PO DAILY@0800 03/26/17 12/04/23 History Atorvastatin [Lipitor] 10 mg PO HS@199905/29/21 12/04/23 History Cholecalciferol [Vitamin D3 (25 50 mcg PO HS@199905/29/21 12/04/23 History Mcg = 1000 Iu)] Divalproex Sodium [Depakote] 500 mg PO BID@0800,199905/29/21 12/04/23 History Docusate [Colace] 100 mg PO BID@08,199905/29/21 12/04/23 History Famotidine 20 mg PO BID@0800,199905/29/21 12/04/23 History Fenofibrate [Lofibra] 54 mg PO HS@199905/29/21 12/04/23 History Montelukast [Singulair] 10 mg PO HS@199905/29/21 12/04/23 History Multivitamins, Thera [Multivitamin 1 tab PO HS@199905/29/21 12/04/23 History (formulary)] Aspirin [Adult Low Dose Aspirin EC] 81 mg PO DAILY@0800 11/23/23 12/04/23 History Lactulose [Cephulac] 30 ml PO QID@08,12,14,20 11/23/23 12/04/23 History PARoxetine HCL 30 mg PO DAILY@0800 11/23/23 12/04/23 History Pregabalin [Lyrica] 150 mg PO TID@0800,1400,199911/23/23 12/04/23 History rOPINIRole HCL [Requip] 3 mg PO TID@0800,1400,199911/23/23 12/04/23 History ARIPiprazole [Abilify] 10 mg PO DAILY@0800 12/04/23 12/04/23 History Brivaracetam [Briviact] 100 mg PO BID@0800,199912/04/23 12/04/23 History Eslicarbazepine Acetate [Aptiom] 800 mg PO HS@199912/04/23 12/04/23 History Sennosides [Senokot] 8.6 mg PO HS@199912/04/23 12/04/23 History Topiramate [Topamax] 100 mg PO BID@0800,199912/04/23 12/04/23 History diazePAM [Valtoco] 15 mg NASAL DIRECTED PRN 12/04/23 12/04/23 History Allergies Allergy/AdvReac Type Severity Reaction Status Date / Time Barbiturates Allergy Unknown Verified 12/04/23 11:44 carbamazepine [From Tegretol] Allergy Unknown Verified 12/04/23 11:44 clindamycin palmitate HCl Allergy Unknown Verified 12/04/23 11:44 [From Cleocin] clindamycin phosphate Allergy Unknown Verified 12/04/23 11:44 [From Cleocin] lincomycin Allergy Unknown Verified 12/04/23 11:44 Penicillins Allergy Unknown Verified 12/04/23 11:44 phenobarbital Allergy Unknown Verified 12/04/23 11:44 phenytoin [From Dilantin] Allergy Unknown Verified 12/04/23 11:44 primidone [From Mysoline] Allergy Unknown Verified 12/04/23 11:44 Physical Examination - Vital Signs Vital Signs: Vital Signs Temp Pulse Resp BP Pulse Ox 12/05/23 17:09 77 92/59 12/05/23 14:32 73 86/56 12/05/23 13:01 97.8 F 64 17 88/53 98 12/05/23 07:04 97.6 F 74 17 82/51 100 12/05/23 02:00 16 88/55 97 12/04/23 18:18 97.4 F L 75 19 92/52 98 Intake and Output 12/05/23 12/05/23 12/05/23 06:59 14:59 22:59 Other: Voiding Method Incontinent External Catheter # Voids 1 3 # Bowel Movements 2 Patient is a middle aged female, who appears obviously encephalopathic, lethargic, very inattentive. Patient is lethargic, encephalopathic, does wake up to calling her name. She could not tell the current month or the year. She knows that she is in [facility]. Speech is slightly slurred due to mentation and language functions difficult to assess because of mentation. Attention, concentration is severely reduced and fund of knowledge cannot be assessed because of mentation. Patient does have developmental delays and some memory problems at baseline. . On cranial nerve examination, pupils are equal, round and reacting to light, visual salgado are full on confrontation, with no neglect on double simultaneous stimulation. Extraocular muscles are intact with no nystagmus. Face is symmetric, tongue protrudes to the midline. Palatal elevation and sensation normal, hearing and shoulder shrug normal, facial sensation normal. On muscle strength testing, patient did not cooperate well with the examination. Patient had very inconsistent response, and was giving sometimes suboptimal response. What I gather is that upper extremities are normal. Hip flexion 4+, ankle dorsiflexion 4+. Plantar flexion 5. Deep tendon reflexes are symmetric 1+ in the upper extremities, 2 at the knees and plantars are withdrawal. Sensory to touch is equal although somewhat unreliable. Cerebellar function revealed tremulousness. She has some wing beating tremor. Patient has very prominent asterixis of both outstretched hands. Tone and bulk of muscles normal. Gait deferred.. On general examination, there is no carotid bruit or murmur, S1-S2 audible. Chest is clear on consultation. Abdomen is soft nontender. No organomegaly, bowel sounds present. Peripheral pulses are present. No peripheral edema. Results - Laboratory Findings CBC and BMP: 12/05/23 07:11 12/06/23 04:28 Abnormal Lab Findings: Abnormal Labs 12/04/23 12/04/23 12/04/23 11:00 11:20 11:20 RBC 3.61 L Hgb MCV 100.3 H Plt Count 90 L Chloride 114 H Carbon Dioxide BUN 23 H Glucose 71 L Plasma Lactic Acid Ankur Ammonia Total Protein 6.1 L Albumin Urine Appearance Cloudy H Ur Leukocyte Esterase Moderate H Urine WBC 14 H Amorphous Sediment Occasional H Urine Bacteria Moderate H Urine Mucus Rare H 12/04/23 12/05/23 12/05/23 11:20 07:11 07:11 RBC 3.33 L Hgb 11.0 L MCV 103.2 H Plt Count 79 L Chloride 116 H Carbon Dioxide 20 L BUN 24 H Glucose Plasma Lactic Acid Ankur Ammonia 119 H Total Protein 5.2 L Albumin 3.1 L Urine Appearance Ur Leukocyte Esterase Urine WBC Amorphous Sediment Urine Bacteria Urine Mucus 12/05/23 12/05/23 07:11 15:13 RBC Hgb MCV Plt Count Chloride Carbon Dioxide BUN Glucose Plasma Lactic Acid Ankur 0.5 L Ammonia 128 H Total Protein Albumin Urine Appearance Ur Leukocyte Esterase Urine WBC Amorphous Sediment Urine Bacteria Urine Mucus Assessment and Plan Assessment: * Altered mental status, likely due to hepatic encephalopathy. Patient's ammonia is elevated 128. Elevated ammonia possibly related to Depakote. Rule out underlying liver disease. Excessive somnolence could be related to polypharmacy. Patient is on very high dose Requip 3 mg 3 times a day, which can make a person sleepy as well. * Seizure disorder, controlled * Developmental delays, but high functioning at baseline * Tremors, probably metabolic. Patient has prominent asterixis. Plan: * Resume her seizure medications including Briviact 100 mg twice a day, Aptiom 800 mg at bedtime, Topamax 100 mg twice a day. * Stop Depakote, as it is likely contributing to elevated ammonia. * Continue lactulose 30 g 4 times a day. * Follow ammonia levels. * Doubt Carlos's disease, as serum ceruloplasmin is normal 24.6 (20-60). Await copper level. May need 24-hour urine for copper. * Decrease Requip from 3 mg 3 times a day down to 1 mg 3 times a day because of excessive somnolence. * Check EEG * TSH is normal 0.886. We will check B12, folate. * Dr. Burciaga Will resume neurology service on Thursday. * Thank you for the consult. Time with Patient: Greater than 30
[2023-12-06 11:47] LABS: Basophils # (M) 0 X 10*3/uL (0.00-0.10); Eosinophils # (M) 0.38 X 10*3/uL (0.04-0.35); HGB 9.6 g/dL (12.0-15.0); Immature Platelet Fraction 12.6 % (1.1-6.1); Lymphocytes # (M) 2.17 X 10*3/uL (0.90-5.00); MCH 31.7 pg (27.0-32.0); MCV 102.3 FL (80.0-97.0); Mean Platelet Volume 13.2 FL (9.5-12.2); Monocytes # (M) 0.19 X 10*3/uL (0.20-1.00); NRBC Per 100 WBC 0 X 10*3/uL (0.00-0.01); Neutrophils # (M) 1.98 X 10*3/uL (1.80-7.70); Neutrophils % (M) 42 %; Platelet Count 72 X 10*3/uL (140-440); RBC 3.03 X 10*6/uL (4.10-5.20); RDW 14.7 % (11.5-14.5); WBC 4.72 X 10*3/uL (4.50-10.00)
[2023-12-06] MEDS: FLUDROCORTISONE 0.1 MG TAB PO SCH (12:05)
--- NOTE | 2023-12-06 12:18 | P.CRDCN ---
History of Present Illness Consult date: 12/06/23 Reason for Consult (text): Hypotension History of present illness: This is Wander Antony NP, I'm dictating on behalf of Dr. Vences's H&P and A&P The patient was interviewed and examined. HPI: Patient is a pleasant 53-year-old female with a past medical history that includes developmental disability, tremors, hypothyroid, frequent falls, Par kinson's disease, cellulitis, and osteoarthritis who presents to the hospital with complaints of weakness and confusion. Patient apparently has had multiple hospitalizations for bouts of hyperammonemia, which they feel may be secondary to her medications. Patient was found to have a significantly elevated ammonia upon arrival at [facility]. Patient already takes lactulose daily. Cardiology was consulted due to the patient's apparent hypotension. Pertinent home medications include diazepam, pregabalin, paroxetine, topiramate, aripiprazole, fenofibrate, atorvastatin, fluvoxamine, levothyroxine, eslicarbazepine, and divalproex. Previous CT scans of the head have suggested possible Parkinson's disease. Infectious diseases on consultation secondary to possible sepsis secondary to urinary tract infection. This morning the patient reports that she is doing okay. Outside of this she is unable to give us any further information about her current medical status. Review of her chart does demonstrate hypotensive readings. ROS: [No fever, chills, or rigors] [no cough, phlegm, or expectoration] [no nausea, vomiting, or diarrhea] [no hematuria, dysuria] [no musculoskelatal complaints] [no strokes or seizures] [no skin lesions] EXAMINATION: GENERAL: Well-appearing, well-nourished and in no acute distress. NECK: Supple without JVD or thyromegaly. LUNGS: Breath sounds clear to auscultation bilaterally. Respiration equal and unlabored. No wheezes, rales or rhonchi. HEART: Regular rate and rhythm without murmurs, rubs or gallops. S1 and S2 heard. EXTREMITIES: Normal range of motion, no edema. No clubbing or cyanosis. Peripheral pulses intact and strong. REVIEW OF LABS, ECG & MEDICAL DATA: LABS: White count 4.4, hemoglobin 11, platelets 79, sodium 144, potassium 3.7, BUN 19.1, creatinine 0.7, magnesium 2.1, troponin less than 0.012, TSH 0.886 EKG: Sinus mechanism IMAGING: Chest x-ray dated 12/04/2023 demonstrates perihilar interstitial changes could be on the basis of reduced inspiration, mild venous congestion or interstitial pneumonitis not excluded. Chest x-ray dated 12/05/2023 shows no acute pulmonary process. VITALS: Temp 98.7, pulse 76, respirations 17, blood pressure 86/53, O2 saturation 98% on room air IMPRESSION: 1. Hyperammonemia 2. Developmental disability 3. Parkinson's disease 4. Hypotension 5. Possible sepsis PLAN: At this time we will start Florinef 0.1 mg daily. Possible that patient's hypotension is secondary to dysautonomia secondary to he r Parkinson's disease. It is also possible the hypotension is secondary to an underlying sepsis, how ever less likely based on her normal white blood cell count. Cultures are currently pending on her urine. Infectious diseases on consult. Further recommendations based on patient's clinical course. Thank you for the consult and allowing us to participate in the care of this patient. Past Medical History Past Medical History: GERD/Reflux, Musculoskeletal Disorder, Neurologic Disorder, Osteoarthritis (OA), Pneumonia, Seizure Disorder, Thyroid Disorder Additional Past Medical History / Comment(s): Pt is developmentally challenged and has a [facility] public legal guardian, Bambi Davis, who states to get PMH etc from caregiver, Alison Chaudhry. TREMORS FROM MEDS, hypothyroid, falls, head injury r/t fall, PARKINSONS, OCCASIONAL DIZZY SPELLS, PAST RIGHT LEG CELLULITIS, AND DARKENED PIGMENTATION RIGHT LEG, last seizure 09/26/23 History of Any Multi-Drug Resistant Organisms: None Reported Past Surgical History: Heart Catheterization With Stent Additional Past Surgical History / Comment(s): possible cardiac stent, tooth extraction [facility] 11/04/23, bilateral cataract surgery in 2018 Past Anesthesia/Blood Transfusion Reactions: No Reported Reaction Additional Past Anesthesia/Blood Transfusion Reaction / Comment(s): NEVER HAD AA Date of Last Stent Placement:: 2017 or 2018 Past Psychological History: Anxiety, Depression, PTSD Additional Psychological History / Comment(s): DEVELOPEMENTALLY CHALLENGED. states pt lives in home of her own with another residence at [facility]. She has caregivers that take care of her. Performs her own ADLs and feeds herself. Her caretakers manage her medications. She uses walker occasionally. She does not drive-caretakers take her to appts. Smoking Status: Never smoker Past Alcohol Use History: None Reported Past Drug Use History: None Reported - Past Family History Father Additional Family Medical History / Comment(s): WAS A DRINKER FROM CIRRHOSIS Mother Family Medical History: Cancer Additional Family Medical History / Comment(s): BREAST-mother is living. Medications and Allergies Home Medications Medication Instructions Recorded Confirmed Type Folic Acid 1 mg PO DAILY@0800 02/10/15 12/04/23 History Loratadine [Claritin] 10 mg PO DAILY@0800 09/13/16 12/04/23 History fluvoxaMINE MALEATE [Luvox] 100 mg PO BID@0800,199909/13/16 12/04/23 History Levothyroxine Sodium [Synthroid] 112 mcg PO DAILY@0800 03/26/17 12/04/23 History Atorvastatin [Lipitor] 10 mg PO HS@199905/29/21 12/04/23 History Cholecalciferol [Vitamin D3 (25 50 mcg PO HS@199905/29/21 12/04/23 History Mcg = 1000 Iu)] Divalproex Sodium [Depakote] 500 mg PO BID@0800,199905/29/21 12/04/23 History Docusate [Colace] 100 mg PO BID@0800,199905/29/21 12/04/23 History Famotidine 20 mg PO BID@0800,199905/29/21 12/04/23 History Fenofibrate [Lofibra] 54 mg PO HS@199905/29/21 12/04/23 History Montelukast [Singulair] 10 mg PO HS@199905/29/21 12/04/23 History Multivitamins, Thera [Multivitamin 1 tab PO HS@199905/29/21 12/04/23 History (formulary)] Aspirin [Adult Low Dose Aspirin EC] 81 mg PO DAILY@0800 11/23/23 12/04/23 History Lactulose [Cephulac] 30 ml PO QID@08,12,14,20 11/23/23 12/04/23 History PARoxetine HCL 30 mg PO DAILY@0800 11/23/23 12/04/23 History Pregabalin [Lyrica] 150 mg PO TID@0800,1400,199911/23/23 12/04/23 History rOPINIRole HCL [Requip] 3 mg PO TID@0800,1400,199911/23/23 12/04/23 History ARIPiprazole [Abilify] 10 mg PO DAILY@0800 12/04/23 12/04/23 History Brivaracetam [Briviact] 100 mg PO BID@0800,199912/04/23 12/04/23 History Eslicarbazepine Acetate [Aptiom] 800 mg PO HS@199912/04/23 12/04/23 History Sennosides [Senokot] 8.6 mg PO HS@199912/04/23 12/04/23 History Topiramate [Topamax] 100 mg PO BID@0800,199912/04/23 12/04/23 History diazePAM [Valtoco] 15 mg NASAL DIRECTED PRN 12/04/23 12/04/23 History Allergies Allergy/AdvReac Type Severity Reaction Status Date / Time Barbiturates Allergy Unknown Verified 12/04/23 11:44 carbamazepine [From Tegretol] Allergy Unknown Verified 12/04/23 11:44 clindamycin palmitate HCl Allergy Unknown Verified 12/04/23 11:44 [From Cleocin] clindamycin phosphate Allergy Unknown Verified 12/04/23 11:44 [From Cleocin] lincomycin Allergy Unknown Verified 12/04/23 11:44 Penicillins Allergy Unknown Verified 12/04/23 11:44 phenobarbital Allergy Unknown Verified 12/04/23 11:44 phenytoin [From Dilantin] Allergy Unknown Verified 12/04/23 11:44 primidone [From Mysoline] Allergy Unknown Verified 12/04/23 11:44 Physical Exam Vitals: Vital Signs Temp Pulse Resp BP Pulse Ox 12/06/23 07:04 98.7 F 76 17 86/53 98 12/06/23 01:34 98.1 F 70 15 91/54 98 12/05/23 19:21 97.6 F 75 17 93/58 99 12/05/23 17:09 77 92/59 12/05/23 14:32 73 86/56 12/05/23 13:01 97.8 F 64 17 88/53 98 Intake and Output 12/05/23 12/06/23 12/06/23 22:59 06:59 14:59 Other: Voiding Method Incontinent Diaper External Catheter Incontinent # Voids 3 4 # Bowel Movements 3 Results 12/06/23 04:28 12/06/23 04:28 Cardiac Enzymes 12/06/23 Range/Units 04:28 AST 24 (13-35) U/L Comprehensive Metabolic Panel 12/06/23 Range/Units 04:28 Sodium 144 (135-145) mmol/L Potassium 3.7 (3.5-5.5) mmol/L Chloride 117 H (96-109) mmol/L Carbon Dioxide 17.3 L (21.6-31.8) mmol/L BUN 19.1 (9.0-27.0) mg/dL Creatinine 0.7 (0.6-1.5) mg/dL Glucose 107 (70-110) mg/dL Calcium 8.8 (8.7-10.3) mg/dL AST 24 (13-35) U/L ALT 7 L (8-44) U/L Alkaline Phosphatase 46 (41-126) U/L Total Protein 4.9 L (6.2-8.2) g/dL Albumin 3.3 L (3.8-4.9) g/dL Current Medications Generic Name Dose Route Start Last Admin Trade Name Freq PRN Reason Stop Dose Admin Acetaminophen 650 mg 12/05/23 16:59 12/05/23 18:22 Acetaminophen Tab 325 Mg Tab PO 650 mg Q6HR PRN Administration Fever and/ or Mild Pain Aripiprazole 10 mg 12/05/23 08:00 12/06/23 09:19 Aripiprazole 10 Mg Tab PO 10 mg DAILY@0800 [facility] Administration Aspirin 81 mg 12/05/23 08:00 12/06/23 09:19 Aspirin 81 Mg PO 81 mg DAILY@0800 [facility] Administration Atorvastatin Calcium 10 mg 12/04/23 20:00 12/05/23 21:15 Atorvastatin 10 Mg Tab PO 10 mg HS@1999 [facility] Administration Cholecalciferol 50 mcg 12/04/23 20:00 12/05/23 21:15 Cholecalciferol 25 Mcg (1000 Iu) Tablet PO 50 mcg HS@1999 [facility] Administration Docusate Sodium 100 mg 12/04/23 20:00 12/06/23 09:19 Docusate 100 Mg Cap PO 100 mg BID@ [facility] Administration Famotidine 20 mg 12/04/23 20:00 12/06/23 09:19 Famotidine 20 Mg Tab PO 20 mg BID@ [facility] Administration Fenofibrate 54 mg 12/04/23 20:00 12/05/23 21:18 Fenofibrate 54 Mg Tab PO 54 mg HS@1999 [facility] Administration Fludrocortisone Acetate 0.1 mg 12/06/23 11:45 Fludrocortisone 0.1 Mg Tab PO DAILY [facility] Fluvoxamine Maleate 100 mg 12/04/23 20:00 12/06/23 09:20 Fluvoxamine 50 Mg Tab PO 100 mg BID@ [facility] Administration Folic Acid 1 mg 12/05/23 08:00 12/06/23 09:18 Folic Acid 1 Mg Tab PO 1 mg DAILY@08 [facility] Administration Sodium Chloride 1,000 mls @ 100 mls/hr 12/04/23 14:30 12/05/23 23:48 Saline 0.9% IV Not Given .Q10H [facility] Ceftriaxone Sodium 1 gm/ 50 mls @ 100 mls/hr 12/05/23 15:00 12/05/23 15:46 Sodium Chloride IVPB 100 mls/hr Q24H [facility] Administration Protocol Lactulose 30 gm 12/04/23 14:30 12/06/23 09:21 Lactulose 20 Gm/30 Ml Cup PO 30 gm QID [facility] Administration Levothyroxine Sodium 112 mcg 12/05/23 08:00 12/06/23 09:19 Levothyroxine 112 Mcg Tab PO 112 mcg DAILY@0800 [facility] Administration Loratadine 10 mg 12/05/23 08:00 12/06/23 09:19 Loratadine 10 Mg Tab PO 10 mg DAILY@0800 [facility] Administration Montelukast Sodium 10 mg 12/04/23 20:00 12/05/23 21:15 Montelukast 10 Mg Tab PO 10 mg HS@1999 [facility] Administration Multivitamins 1 each 12/04/23 20:00 12/05/23 21:15 Multivitamins, Thera 1 Each Tab PO 1 each HS@1999 [facility] Administration Naloxone HCl 0.2 mg 12/04/23 14:25 Naloxone 0.4 Mg/Ml 1 Ml Vial IV Q2M PRN Opioid Reversal Non-Formulary Medication 15 mg 12/04/23 14:23 Diazepam [Valtoco] MISCELLANE DAILY PRN seizure Eslicarbazepine 800 mg 12/04/23 20:00 12/05/23 21:16 Acetate [Aptiom] 800 PO 800 mg Mg Tablet) HS@1999 [facility] Administration Brivaracetam [ 100 mg 12/05/23 20:00 12/06/23 09:19 Briviact] 100 Mg PO 100 mg Tablet BID@ [facility] Administration Paroxetine HCl 30 mg 12/05/23 08:00 12/06/23 09:20 Paroxetine 10 Mg Tab PO 30 mg DAILY@0800 [facility] Administration Petrolatum 1 applic 12/05/23 17:15 12/06/23 09:21 Zinc Oxide Paste (Z-Guard) 1 Applic TOPICAL 1 applic DAILY [facility] Administration Protocol Pregabalin 150 mg 12/04/23 20:00 12/06/23 09:18 Pregabalin 75 Mg Cap PO 150 mg TID@0800, [facility] Administration Ropinirole HCl 1 mg 12/05/23 20:00 12/06/23 09:18 Ropinirole Hcl 1 Mg Tab PO 1 mg TID@0800, [facility] Administration Senna 8.6 mg 12/04/23 20:00 12/05/23 21:15 Sennosides 8.6 Mg Tab PO 8.6 mg HS@1999 [facility] Administration Topiramate 100 mg 12/04/23 20:00 12/06/23 09:19 Topiramate 100 Mg Tab PO 100 mg BID@ [facility] Administration Intake and Output 12/05/23 12/06/23 12/06/23 22:59 06:59 14:59 Other: Voiding Method Incontinent Diaper External Catheter Incontinent # Voids 3 4 # Bowel Movements 3 12/05/23 07:11 12/06/23 04:28
--- NOTE | 2023-12-06 14:40 | P.CNPUL ---
History of Present Illness Consult date: 12/06/23 Requesting physician: Scot Lacy Reason for consult: other (Hypotension) Chief complaint: Altered mental status, weakness History of present illness: This is a 53-year-old female patient with a known history of seizure disorder, cirrhosis of the liver, hypothyroidism, coronary disease with previous stent placement, anxiety/depression, previous hyperammonemia. He presented here to the emergency room on 12/04/2023 altered mental status and confusion. Ammonia level was 119. Yesterday it was up to 128 and today is 109. Her procalcitonin was negative at 0.04. White count 4.7. Hemoglobin 9.6. Platelets 72,000. Sodium 144. Potassium 3.7. Bicarb 17. BUN 19. Creatinine 0.7. Glucose 107. Consulted today due to episodes of hypotension and concern for possible ICU admission. Apparently the patient normally has low blood pressure. She is seen in consultation on the regular medical floor. She is sitting up in a chair. She is awake and alert in no acute distress. Her mean arterial pressures have been in the 60s and 70s. She is maintaining good O2 saturations in the 90s on room air. She has been afebrile. She has no complaints of dizziness or lightheadedness. She is incontinent and in a brief and unable to determine exact urine output. Review of Systems REVIEW OF SYSTEMS: CONSTITUTIONAL: Altered mental status and confusion. Denies any recent significant weight loss or weight gain. EYES: Denies change in vision. EARS, NOSE, MOUTH, THROAT: Denies headaches, denies sore throat. CARDIOVASCULAR: Denies chest pain, palpitations or syncopal episodes. RESPIRATORY: Denies shortness of breath, cough, congestion or hemoptysis. GASTROINTESTINAL: Denies change in appetite, denies abdominal pain GENITOURINARY: Denies hematuria, denies infections. MUSKULOSKELETAL: Denies pain, denies swelling. INTEGUMENTARY: Denies rash, denies eczema. NEUROLOGICAL: Positive for altered mental status and confusion, no recent seizure activity. PSYCHIATRIC: Denies anxiety, denies depression. HEMATOLOGIC/LYMPHATIC: Denies anemia, denies enlarged lymph nodes. Past Medical History Past Medical History: GERD/Reflux, Musculoskeletal Disorder, Neurologic Disorder, Osteoarthritis (OA), Pneumonia, Seizure Disorder, Thyroid Disorder Additional Past Medical History / Comment(s): Pt is developmentally challenged and has a [facility] public legal guardian, Bambi Davis, who states to get PMH etc from caregiver, Alison Chaudhry. TREMORS FROM MEDS, hypothyroid, falls, head injury r/t fall, PARKINSONS, OCCASIONAL DIZZY SPELLS, PAST RIGHT LEG CELLULITIS, AND DARKENED PIGMENTATION RIGHT LEG, last seizure 09/26/23 History of Any Multi-Drug Resistant Organisms: None Reported Past Surgical History: Heart Catheterization With Stent Additional Past Surgical History / Comment(s): possible cardiac stent, tooth extraction [facility] 11/04/23, bilateral cataract surgery in 2018 Past Anesthesia/Blood Transfusion Reactions: No Reported Reaction Additional Past Anesthesia/Blood Transfusion Reaction / Comment(s): NEVER HAD AA Date of Last Stent Placement:: 2017 or 2018 Past Psychological History: Anxiety, Depression, PTSD Additional Psychological History / Comment(s): DEVELOPEMENTALLY CHALLENGED. states pt lives in home of her own with another residence at [facility]. She has caregivers that take care of her. Performs her own ADLs and feeds herself. Her caretakers manage her medications. She uses walker occasionally. She does not drive-caretakers take her to appts. Smoking Status: Never smoker Past Alcohol Use History: None Reported Past Drug Use History: None Reported - Past Family History Father Additional Family Medical History / Comment(s): WAS A DRINKER FROM CIRRHOSIS Mother Family Medical History: Cancer Additional Family Medical History / Comment(s): BREAST-mother is living. Medications and Allergies Home Medications Medication Instructions Recorded Confirmed Type Folic Acid 1 mg PO DAILY@0800 02/10/15 12/04/23 History Loratadine [Claritin] 10 mg PO DAILY@0809/13/16 12/04/23 History fluvoxaMINE MALEATE [Luvox] 100 mg PO BID@799,199909/13/16 12/04/23 History Levothyroxine Sodium [Synthroid] 112 mcg PO DAILY@79903/26/17 12/04/23 History Atorvastatin [Lipitor] 10 mg PO HS@199905/29/21 12/04/23 History Cholecalciferol [Vitamin D3 (25 50 mcg PO HS@199905/29/21 12/04/23 History Mcg = 1000 Iu)] Divalproex Sodium [Depakote] 500 mg PO BID@08,199905/29/21 12/04/23 History Docusate [Colace] 100 mg PO BID@0800,199905/29/21 12/04/23 History Famotidine 20 mg PO BID@0800,199905/29/21 12/04/23 History Fenofibrate [Lofibra] 54 mg PO HS@199905/29/21 12/04/23 History Montelukast [Singulair] 10 mg PO HS@199905/29/21 12/04/23 History Multivitamins, Thera [Multivitamin 1 tab PO HS@199905/29/21 12/04/23 History (formulary)] Aspirin [Adult Low Dose Aspirin EC] 81 mg PO DAILY@0800 11/23/23 12/04/23 History Lactulose [Cephulac] 30 ml PO QID@08,12,14,11/23/23 12/04/23 History PARoxetine HCL 30 mg PO DAILY@0800 11/23/23 12/04/23 History Pregabalin [Lyrica] 150 mg PO TID@0800,1400,199911/23/23 12/04/23 History rOPINIRole HCL [Requip] 3 mg PO TID@0800,1400,199911/23/23 12/04/23 History ARIPiprazole [Abilify] 10 mg PO DAILY@0800 12/04/23 12/04/23 History Brivaracetam [Briviact] 100 mg PO BID@0800,199912/04/23 12/04/23 History Eslicarbazepine Acetate [Aptiom] 800 mg PO HS@199912/04/23 12/04/23 History Sennosides [Senokot] 8.6 mg PO HS@199912/04/23 12/04/23 History Topiramate [Topamax] 100 mg PO BID@0800,199912/04/23 12/04/23 History diazePAM [Valtoco] 15 mg NASAL DIRECTED PRN 12/04/23 12/04/23 History Allergies Allergy/AdvReac Type Severity Reaction Status Date / Time Barbiturates Allergy Unknown Verified 12/04/23 11:44 carbamazepine [From Tegretol] Allergy Unknown Verified 12/04/23 11:44 clindamycin palmitate HCl Allergy Unknown Verified 12/04/23 11:44 [From Cleocin] clindamycin phosphate Allergy Unknown Verified 12/04/23 11:44 [From Cleocin] lincomycin Allergy Unknown Verified 12/04/23 11:44 Penicillins Allergy Unknown Verified 12/04/23 11:44 phenobarbital Allergy Unknown Verified 12/04/23 11:44 phenytoin [From Dilantin] Allergy Unknown Verified 12/04/23 11:44 primidone [From Mysoline] Allergy Unknown Verified 12/04/23 11:44 Physical Exam Vitals: Vital Signs Temp Pulse Resp BP Pulse Ox 12/06/23 13:18 98.1 F 81 17 88/49 98 12/06/23 07:04 98.7 F 76 17 86/53 98 12/06/23 01:34 98.1 F 70 15 91/54 98 12/05/23 19:21 97.6 F 75 17 93/58 99 12/05/23 17:09 77 92/59 12/05/23 14:32 73 86/56 Intake and Output 12/05/23 12/06/23 12/06/23 22:59 06:59 14:59 Other: Voiding Method Incontinent Diaper External Catheter Incontinent # Voids 3 4 # Bowel Movements 3 GENERAL EXAM: Alert, thin 53-year-old female, poor historian, sitting in a chair, on room air, in no apparent distress. HEAD: Normocephalic. EYES: Normal reaction of pupils, equal size. NOSE: Clear with pink turbinates. THROAT: No erythema or exudates. NECK: No masses, no JVD. CHEST: No chest wall deformity. LUNGS: Equal air entry with no crackles, wheeze, rhonchi or dullness. CVS: S1 and S2 normal with no audible murmur, regular rhythm. ABDOMEN: No hepatosplenomegaly, normal bowel sounds, no guarding or rigidity. SPINE: No scoliosis or deformity SKIN: No rashes CENTRAL NERVOUS SYSTEM: No focal deficits, tone is normal in all 4 extremities. EXTREMITIES: There is no peripheral edema. No clubbing, no cyanosis. Peripheral pulses are intact. Results - Laboratory Findings CBC and BMP: 12/06/23 04:28 12/06/23 04:28 PT/INR, D-dimer PT 10.7 sec (10.0-12.5) 12/04/23 11:20 INR 1.0 (<1.2) 12/04/23 11:20 Abnormal lab findings: Abnormal Labs 12/04/23 12/04/23 12/04/23 11:00 11:20 11:20 RBC 3.61 L Hgb Hct MCV 100.3 H MCHC RDW Plt Count 90 L MPV Monocytes # (Manual) Eosinophils # (Manual) Immature Plt Fraction Chloride 114 H Carbon Dioxide BUN 23 H BUN/Creatinine Ratio Glucose 71 L Plasma Lactic Acid Ankur Total Bilirubin ALT Ammonia Total Protein 6.1 L Albumin Urine Appearance Cloudy H Ur Leukocyte Esterase Moderate H Urine WBC 14 H Amorphous Sediment Occasional H Urine Bacteria Moderate H Urine Mucus Rare H 12/04/23 12/05/23 12/05/23 11:20 07:11 07:11 RBC 3.33 L Hgb 11.0 L Hct MCV 103.2 H MCHC RDW Plt Count 79 L MPV Monocytes # (Manual) Eosinophils # (Manual) Immature Plt Fraction Chloride 116 H Carbon Dioxide 20 L BUN 24 H BUN/Creatinine Ratio Glucose Plasma Lactic Acid Ankur Total Bilirubin ALT Ammonia 119 H Total Protein 5.2 L Albumin 3.1 L Urine Appearance Ur Leukocyte Esterase Urine WBC Amorphous Sediment Urine Bacteria Urine Mucus 12/05/23 12/05/23 12/06/23 07:11 15:13 04:28 RBC Hgb Hct MCV MCHC RDW Plt Count MPV Monocytes # (Manual) Eosinophils # (Manual) Immature Plt Fraction Chloride Carbon Dioxide BUN BUN/Creatinine Ratio Glucose Plasma Lactic Acid Ankur 0.5 L Total Bilirubin ALT Ammonia 128 H 109 H Total Protein Albumin Urine Appearance Ur Leukocyte Esterase Urine WBC Amorphous Sediment Urine Bacteria Urine Mucus 12/06/23 12/06/23 04:28 04:28 RBC 3.03 L Hgb 9.6 L Hct 31.0 L MCV 102.3 H MCHC 31.0 L RDW 14.7 H Plt Count 72 L MPV 13.2 H Monocytes # (Manual) 0.19 L Eosinophils # (Manual) 0.38 H Immature Plt Fraction 12.6 H Chloride 117 H Carbon Dioxide 17.3 L BUN BUN/Creatinine Ratio 27.29 H Glucose Plasma Lactic Acid Ankur Total Bilirubin 0.2 L ALT 7 L Ammonia Total Protein 4.9 L Albumin 3.3 L Urine Appearance Ur Leukocyte Esterase Urine WBC Amorphous Sediment Urine Bacteria Urine Mucus - Diagnostic Findings Chest x-ray: image reviewed (No acute pulmonary process) Assessment and Plan Assessment: Altered mental status and confusion secondary to hyperammonemia. On lactulose 30 mg 4 times daily History of developmental delay Hypotension, asymptomatic, initiated on Florinef and no need for ICU admission at this time Parkinson's disease Frequent falls Hypothyroidism Coronary artery disease with previous stent placement Struve anxiety/depression, PTSD Lifelong non-smoker Plan: The patient was seen and evaluated Chest x-ray, labs and medications reviewed Asymptomatic hypotension Initiated on Florinef per cardiology No need for ICU admission at this time Continued on lactulose We will continue to follow and make further recommendations based on her clinical status I have personally seen and examined the patient, performed the documentation and the assessment and plan as written. Number of minutes spent on the visit: 20.
--- NOTE | 2023-12-06 17:20 | CT ---
EXAMINATION TYPE: CT brain wo con CT DLP: 1126.8 mGycm, Automated exposure control for dose reduction was used. DATE OF EXAM: 12/06/2023 4:55 PM COMPARISON: 05/29/2021. CLINICAL INDICATION:Female, 53 years old with history of cerebellar degeneration, AMS TECHNIQUE: Brain: Axial CT images of the brain were obtained with coronal and sagittal reformats created and rev iewed. Contrast used: None. Oral contrast used: None. FINDINGS: Brain: Extra-axial spaces: No abnormal extra-axial fluid collections. Ventricular system: Dilatation in proportion to cerebral atrophy. Cerebral parenchyma: Cerebral atrophy. No acute intraparenchymal hemorrhage or mass effect. The marshall -white junction is well differentiated. Cerebellum: Mild cerebral atrophy. No evidence for injury. Evaluation limited by motion. Mass effect: No evidence of midline shift. Intracranial vasculature: unremarkable Soft tissues: Normal. Calvarium/osseous structures: No depressed skull fracture. Paranasal sinuses and mastoid air cells: Mild scattered paranasal sinus disease. Visualized orbits: Orbital contents are intact. IMPRESSION: Motion limited exam No acute intracranial process.
[2023-12-06 23:28] LABS: % Iron Saturation 20.4 (12.00-45.00)
--- NOTE | 2023-12-07 02:59 | PN ---
PROGRESS NOTE DATE OF SERVICE: 12/06/2023 SUBJECTIVE: This is a 53-year-old woman, who was admitted with hyperammonemia, is confused. The patient is on empiric antibiotics also today. The exact etiology of the hyperammonemia is unknown at this time. Today, the ammonia is still elevated to 109. Lactulose is being given. PAST MEDICAL HISTORY: Reviewed. REVIEW OF SYSTEMS: Could not be taken. CURRENT MEDICATIONS: Reviewed. Neurology, psych, and surgery is also following the patient closely. OBJECTIVE: VITAL SIGNS: Pulse is 76, blood pressure 86/53, respirations 17. CHEST: Few scattered rhonchi and crackles. ABDOMEN: Soft. NERVOUS SYSTEM: No focal deficits. LABORATORY DATA: Hemoglobin 9.6, rest of the labs are noted. Serum cortisol is 7. Cultures are negative so far. Rest of the labs are noted. Serum ceruloplasmin is within normal limits. ASSESSMENT: 1. Change in mental status, weakness, and possible hyperammonemia, hepatic encephalopathy of undetermined etiology. 2. Hypertension, possibly sepsis and UTI. 3. Rule out congenital ammonia urea cycle enzyme deficiencies. 4. Possible idiopathic Parkinson's on SPECT scan recently. 5. 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 6. History of seizure disorder. 7. Family history of cirrhosis, rule out hemochromatosis. 8. History of DJD. 9. History of seizure disorder. 10.History of hypothyroidism. 11.History of CAD, stent. 12.Anxiety, depression, posttraumatic stress disorder. RECOMMENDATIONS: Recommended to continue current management, continue symptomatic treatment. I will recommend serum, iron studies, and ferritin also. Otherwise, continue to monitor. Closely follow with Neurology. Symptomatic treatment. Guarded prognosis. Further recommendations to follow. MMODL / IJN: [id number] /
[2023-12-07] MEDS: PANTOPRAZOLE 40 MG TABLET PO SCH (06:40)
[2023-12-07 08:58] LABS: ALT 8 U/L (8-44); AST 21 U/L (13-35); Albumin 3.4 g/dL (3.8-4.9); Alkaline Phosphatase 53 U/L (41-126); Blood Urea Nitrogen 26.6 mg/dL (9.0-27.0); Calcium 8.5 mg/dL (8.7-10.3); Carbon Dioxide 18.4 mmol/L (21.6-31.8); Chloride 114 mmol/L (96-109); Globulin 1.7 g/dL (1.6-3.3); Glucose 94 mg/dL (70-110); Potassium 3.9 mmol/L (3.5-5.5); Sodium 140 mmol/L (135-145); Total Bilirubin <0.2 mg/dL (0.3-1.2); Total Protein 5.1 g/dL (6.2-8.2)
[2023-12-07 09:36] LABS: Basophils # (A) 0.08 X 10*3/uL (0.00-0.10); Basophils % (A) 1.6 %; Eosinophils # (A) 0.44 X 10*3/uL (0.04-0.35); Eosinophils % (A) 8.9 %; HCT 31.2 % (37.2-46.3); HGB 9.8 g/dL (12.0-15.0); Immature Platelet Fraction 13.9 % (1.1-6.1); Lymphocytes # (A) 2.39 X 10*3/uL (0.90-5.00); Lymphocytes % (A) 48.1 %; MCH 32.7 pg (27.0-32.0); MCHC 31.4 g/dL (32.0-37.0); Mean Platelet Volume 13.2 FL (9.5-12.2); Monocytes # (A) 0.38 X 10*3/uL (0.20-1.00); Monocytes % (A) 7.6 %; NRBC Per 100 WBC 0 X 10*3/uL (0.00-0.01); Neutrophils # (A) 1.66 X 10*3/uL (1.80-7.70); Neutrophils % (A) 33.4 %; Platelet Count 68 X 10*3/uL (140-440); RDW 14.7 % (11.5-14.5); WBC 4.97 X 10*3/uL (4.50-10.00)
--- NOTE | 2023-12-07 12:28 | P.PN ---
Subjective HISTORY OF PRESENT ILLNESS: 12/05/2022 Patient is a pleasant 53-year-old female with a past medical history that includes developmental disability, tremors, hypothyroid, frequent falls, Parkinson's disease, cellulitis, and osteoarthritis who presents to the hospital with complaints of weakness and confusion. Patient apparently has had multiple hospitalizations for bouts of hyperammonemia, which they feel may be secondary to her medications. Patient was found to have a significantly elevated ammonia upon arrival at [facility]. Patient already takes lactulose daily. Cardiology was consulted due to the patient's apparent hypotension. Pertinent home medications include diazepam, pregabalin, paroxetine, topiramate, aripiprazole, fenofibrate, atorvastatin, fluvoxamine, levothyroxine, eslicarbazepine, and divalproex. Previous CT scans of the head have suggested possible Parkinson's disease. Infectious diseases on consultation secondary to possible sepsis secondary to urinary tract infection. This morning the patient reports that she is doing okay. Outside of this she is unable to give us any further information about her current medical status. Review of her chart does demonstrate hypotensive readings. 12/07/2023 Patient examined this morning at the bedside. Patient is sitting up in the chair. Patient currently denies chest pain or pressure. She denies shortness of breath. Denies dizziness or lightheadedness. Patient was seen and evaluated by cardiology yesterday. She was started on Florinef secondary to hypotension. Patient's blood pressures remain soft with a systolic between 8090. PHYSICAL EXAM: VITAL SIGNS: Reviewed. GENERAL: Well-developed in no acute distress. NECK: Supple. No JVD or thyromegaly LUNGS: Respirations even and unlabored. Lungs essentially clear to auscultation bilaterally. HEART: Regular rate and rhythm. S1 and S2 heard. EXTREMITIES: Normal range of motion. No clubbing or cyanosis. Peripheral pulses intact. No lower extremity edema ASSESSMENT: Hyperammonemia Developmental disability History of Parkinson's disease Hypotension PLAN: Continue current cardiac medications Continue to monitor blood pressure Increase Florinef to 0.2 mg daily Further recommendations pending patient course Nurse practitioner note has been reviewed by physician. Signing provider agrees with the documented findings, assessment, and plan of care documented by [employer] as a scribe. Objective - Vital Signs Vital signs: Vital Signs Temp 98.3 F 12/07/23 07:16 Pulse 85 12/07/23 07:16 Resp 19 12/07/23 07:16 BP 92/46 12/07/23 07:16 Pulse Ox 96 12/07/23 07:16 FiO2 Intake & Output 12/06/23 12/07/23 12/07/23 18:59 06:59 18:59 Other: Voiding Method Diaper Diaper Incontinent Incontinent # Voids 5 7 - Labs CBC & Chem 7: 12/07/23 06:26 12/07/23 06:26 Labs: Abnormal Lab Results - Last 24 Hours (Table) 12/06/23 12/07/23 12/07/23 Range/Units 04:28 06:26 06:26 RBC 3.03 L 3.00 L (4.10-5.20) X 10*6/uL Hgb 9.6 L 9.8 L (12.0-15.0) g/dL Hct 31.0 L 31.2 L (37.2-46.3) % MCV 102.3 H 104.0 H (80.0-97.0) FL MCH 32.7 H (27.0-32.0) pg MCHC 31.0 L 31.4 L (32.0-37.0) g/dL RDW 14.7 H 14.7 H (11.5-14.5) % Plt Count 72 L 68 L (140-440) X 10*3/uL MPV 13.2 H 13.2 H (9.5-12.2) FL Neutrophils # 1.66 L (1.80-7.70) X 10*3/uL Monocytes # (Manual) 0.19 L (0.20-1.00) X 10*3/uL Eosinophils # 0.44 H (0.04-0.35) X 10*3/uL Eosinophils # (Manual) 0.38 H (0.04-0.35) X 10*3/uL Immature Plt Fraction 12.6 H 13.9 H (1.1-6.1) % Chloride 114 H (96-109) mmol/L Carbon Dioxide 18.4 L (21.6-31.8) mmol/L BUN/Creatinine Ratio 38.00 H (12.00-20.00) Ratio Calcium 8.5 L (8.7-10.3) mg/dL Total Bilirubin <0.2 L (0.3-1.2) mg/dL Ammonia (<30) umol/L Total Protein 5.1 L (6.2-8.2) g/dL Albumin 3.4 L (3.8-4.9) g/dL 12/07/23 Range/Units 06:26 RBC (4.10-5.20) X 10*6/uL Hgb (12.0-15.0) g/dL Hct (37.2-46.3) % MCV (80.0-97.0) FL MCH (27.0-32.0) pg MCHC (32.0-37.0) g/dL RDW (11.5-14.5) % Plt Count (140-440) X 10*3/uL MPV (9.5-12.2) FL Neutrophils # (1.80-7.70) X 10*3/uL Monocytes # (Manual) (0.20-1.00) X 10*3/uL Eosinophils # (0.04-0.35) X 10*3/uL Eosinophils # (Manual) (0.04-0.35) X 10*3/uL Immature Plt Fraction (1.1-6.1) % Chloride (96-109) mmol/L Carbon Dioxide (21.6-31.8) mmol/L BUN/Creatinine Ratio (12.00-20.00) Ratio Calcium (8.7-10.3) mg/dL Total Bilirubin (0.3-1.2) mg/dL Ammonia 70 H (<30) umol/L Total Protein (6.2-8.2) g/dL Albumin (3.8-4.9) g/dL Microbiology - Last 24 Hours (Table) 12/05/23 18:45 Urine Culture - Final Urine,Voided 12/05/23 15:13 Blood Culture - Preliminary Blood
[2023-12-07] MEDS: FLUDROCORTISONE 0.1 MG TAB PO STA (15:40)
--- NOTE | 2023-12-07 16:39 | P.PN ---
Subjective Progress Note Date: 12/07/23 I am seeing the patient for the first time during this hospital. Please refer to Dr. Jeffers's note for further details. Seems the patient has altered mental status and was felt likely due to hepatic encephalopathy with elevated ammonia level. Patient is on Depakote and it was felt cause of ammonia. Objective - Vital Signs Vital signs: Vital Signs Temp 97.9 F 12/07/23 13:25 Pulse 87 12/07/23 13:25 Resp 19 12/07/23 13:25 BP 96/61 12/07/23 13:25 Pulse Ox 94 L 12/07/23 13:25 FiO2 Intake & Output 12/06/23 12/07/23 12/07/23 18:59 06:59 18:59 Other: Voiding Method Diaper Diaper Diaper Incontinent Incontinent Incontinent # Voids 5 7 - Exam General: Sitting up in a chair and is not in acute distress. Neuro: The patient is mildly drowsy but does awaken to voice. Oriented to self and stated that she is in the hospital. Is following simple commands. No facial weakness. No dysarthria. - Labs CBC & Chem 7: 12/07/23 06:26 12/07/23 06:26 Labs: Abnormal Lab Results - Last 24 Hours (Table) 12/07/23 12/07/23 12/07/23 Range/Units 06:26 06:26 06:26 RBC 3.00 L (4.10-5.20) X 10*6/uL Hgb 9.8 L (12.0-15.0) g/dL Hct 31.2 L (37.2-46.3) % MCV 104.0 H (80.0-97.0) FL MCH 32.7 H (27.0-32.0) pg MCHC 31.4 L (32.0-37.0) g/dL RDW 14.7 H (11.5-14.5) % Plt Count 68 L (140-440) X 10*3/uL MPV 13.2 H (9.5-12.2) FL Neutrophils # 1.66 L (1.80-7.70) X 10*3/uL Eosinophils # 0.44 H (0.04-0.35) X 10*3/uL Immature Plt Fraction 13.9 H (1.1-6.1) % Chloride 114 H (96-109) mmol/L Carbon Dioxide 18.4 L (21.6-31.8) mmol/L BUN/Creatinine Ratio 38.00 H (12.00-20.00) Ratio Calcium 8.5 L (8.7-10.3) mg/dL Total Bilirubin <0.2 L (0.3-1.2) mg/dL Ammonia 70 H (<30) umol/L Total Protein 5.1 L (6.2-8.2) g/dL Albumin 3.4 L (3.8-4.9) g/dL Microbiology - Last 24 Hours (Table) 12/05/23 18:45 Urine Culture - Final Urine,Voided 12/05/23 15:13 Blood Culture - Preliminary Blood Assessment and Plan Assessment: * Altered mental status, likely due to hepatic encephalopathy. Patient's ammonia is elevated 128. Elevated ammonia possibly related to Depakote. Rule out underlying liver disease. Excessive somnolence could be related to polypharmacy. Patient is on very high dose Requip 3 mg 3 times a day, which can make a person sleepy as well. * Seizure disorder, controlled * Developmental delays, but high functioning at baseline * Tremors, probably metabolic. Patient has prominent asterixis. Plan: * Resume her seizure medications including Briviact 100 mg twice a day, Aptiom 800 mg at bedtime, Topamax 100 mg twice a day. * Per Dr. Jeffers, stop Depakote, as it is likely contributing to elevated ammonia. * Continue lactulose 30 g 4 times a day. * Follow ammonia levels. * Doubt Carlos's disease, as serum ceruloplasmin is normal 24.6 (20-60). Await copper level. May need 24-hour urine for copper. * Decrease Requip from 3 mg 3 times a day down to 1 mg 3 times a day because of excessive somnolence. * Check EEG * TSH is normal 0.886. B12: 535 , folate: >20. The plan is discussed with patient. ADDENDUM: Routine EEG preliminary study: Is abnormal. The background slowing suggestive of moderate encephalopathy. There is no epileptifomr discharges or seizure on the EEG. Time with Patient: Less than 30
--- NOTE | 2023-12-07 17:31 | CA ---
Transthoracic Echo Report Name: Chanatl Rome Age: 53 Gender: F : 1970 Exam Date: 12/07/2023 15:40 Exam Location: [place] [facility] Ht (in): 67 Wt (lb): 158 Ordering Physician: Palomo Jefferson MD Attending/Referring Phys: Food Expeditor Raquel Phillips RDCS Procedure CPT: Indications: Hypotension Cardiac Hx: Technical Quality: Good Contrast 1: Total Dose (mL): Contrast 2: Total Dose (mL): MEASUREMENTS (Male / Female) Normal Values 2D ECHO LV Diastolic Diameter PLAX 3.8 cm 4.2 - 5.9 / 3.9 - 5.3 cm LV Systolic Diameter PLAX 2.1 cm IVS Diastolic Thickness 0.8 cm 0.6 - 1.0 / 0.6 - 0.9 cm LVPW Diastolic Thickness 0.9 cm 0.6 - 1.0 / 0.6 - 0.9 cm LV Relative Wall Thickness 0.5 RV Internal Dim ED PLAX 3.8 cm LA Systolic Diameter LX 4.2 cm 3.0 - 4.0 / 2.7 - 3.8 cm LA Volume 66.3 cm??? 18 - 58 / 22 - 52 cm??? LA Volume Index 35.8 cm???/m??? 16 - 28 cm???/m??? M-MODE Aortic Root Diameter MM 2.7 cm AV Cusp Separation MM 1.8 cm DOPPLER AV Peak Velocity 152.6 cm/s AV Peak Gradient 9.3 mmHg MV Area PHT 6.6 cm??? Mitral E Point Velocity 133.8 cm/s Mitral A Point Velocity 66.9 cm/s Mitral E to A Ratio 2.0 MV Deceleration Time 115.0 ms TR Peak Velocity 229.3 cm/s TR Peak Gradient 21.0 mmHg Right Ventricular Systolic Press 26.0 mmHg FINDINGS Left Ventricle Left ventricular ejection fraction is estimated at 60-65 %. Small left ventricular cavity. Left ventricular wall thickness normal. Normal left ventricular wall motion. Right Ventricle Mild right ventricular dilatation. Right ventricular systolic pressure within normal limits. Right Atrium Normal right atrial size. No right atrial thrombus or mass seen. Left Atrium Mildly increased left atrial diameter. Moderately increased left atrial volume. Mildly increased left atrial area. Mitral Valve Structurally normal mitral valve. Trace to mild mitral regurgitation. Aortic Valve Trileaflet aortic valve. No aortic valve stenosis or regurgitation. Tricuspid Valve Structurally normal tricuspid valve. Mild tricuspid regurgitation. Pulmonic Valve Pulmonic valve not well visualized. No pulmonic regurgitation. Pericardium No pericardial or pleural effusion. Aorta Normal size aortic root and proximal ascending aorta. CONCLUSIONS Normal LV function Dilated left atrium Previewed by: Dr. Ashish Parker MD (Electronically Signed) Final Date: 07 December 2023 17:30
--- NOTE | 2023-12-07 23:33 | EEG ---
ELECTROENCEPHALOGRAM REPORT CLINICAL HISTORY: This is a 53-year-old woman with altered mental status. The video EEG is obtained to evaluate for seizure epileptiform activity. RELEVANT MEDICATIONS: 1. Lyrica. 2. Paxil. 3. Abilify. EEG TYPE: A routine EEG is obtained to evaluate for seizure epileptiform activity. DESCRIPTION: Wakefulness and brief drowsiness is obtained. During awake state, the background consists of [id number] voltage of 5 to 6 hertz activity. There is no physiological stage 2 sleep architecture. There is no focal slowing. Interictal and ictal is none. ACTIVATION PROCEDURE: Photic stimulation did not evoke a posterior driving response. There is no abnormality during the photic stimulation. Hyperventilation is not performed. CLINICAL INTERPRETATION: This is an abnormal routine EEG. The background slowing is suggestive of moderate encephalopathy. Otherwise, there is no focal slowing, epileptiform discharge, or seizure on the EEG. Clinical correlation is recommended. JARVIS / SHANTELL: [id number] / KARLEE
--- NOTE | 2023-12-08 00:03 | PN ---
PROGRESS NOTE DATE OF SERVICE: 12/07/2023 SUBJECTIVE: This 53-year-old woman was admitted with hyperammonemia and hepatic encephalopathy, is being closely monitored at this time. The patient also had possible UTI and sepsis also. Multiple consultants are following the patient closely. A CT brain repeated, did not show any acute abnormality. The EEG has been done. The patient is on lactulose. The patient had low blood pressure, which was thought to be asymptomatic per Dr. Ling. Today's ammonia is like 70 which is slightly improving. PAST MEDICAL HISTORY: Reviewed. REVIEW OF SYSTEMS: A 14-point review is negative except as mentioned earlier. CURRENT MEDICATIONS: Reviewed. PHYSICAL EXAMINATION: VITAL SIGNS: Pulse is 85, blood pressure 90/43, respirations 19. CHEST: Few scattered rhonchi and crackles. ABDOMEN: Soft. LEGS: No edema, no swelling. NERVOUS SYSTEM: Abnormal movements, otherwise no focal deficits. LABORATORY DATA: Reviewed. ASSESSMENT: 1. Change in mental status, weakness, possibly hyperammonemia and hepatic encephalopathy of undetermined etiology. 2. Hypotension with possible sepsis and UTI, stable. 3. Rule out congenital pneumonia, urea cycle abnormality. 4. Possible idiopathic Parkinson's on SPECT scan recently. 5. 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 6. History of seizure disorder. 7. Family history of cirrhosis, rule out cirrhosis. 8. History of DJD. 9. History of seizure disorder. 10.History of hypothyroidism. 11.History of CAD stent. 12.Anxiety, depression, posttraumatic stress disorder. RECOMMENDATIONS AND DISCUSSION: Recommended to continue current management, continue symptomatic treatment. Otherwise at this time, I would recommend to continue with the current medications. Continue symptomatic treatment. Closely follow with multiple consultants and continue with lactulose. Repeat ammonia. Prognosis extremely guarded because of multiple complex medical issues and further recommendations to follow. MMODL / IJN: [id number] /
[2023-12-08] MEDS: FLUDROCORTISONE 0.1 MG TAB PO SCH (07:59)
[2023-12-08 09:00] LABS: ALT 10 U/L (8-44); AST 39 U/L (13-35); Albumin 3.5 g/dL (3.8-4.9); Alkaline Phosphatase 53 U/L (41-126); BUN/Creat Ratio 31.29 Ratio (12.00-20.00); Blood Urea Nitrogen 21.9 mg/dL (9.0-27.0); Calcium 8.4 mg/dL (8.7-10.3); Carbon Dioxide 19.5 mmol/L (21.6-31.8); Chloride 112 mmol/L (96-109); Globulin 1.4 g/dL (1.6-3.3); Glucose 92 mg/dL (70-110); Sodium 140 mmol/L (135-145); Total Bilirubin <0.2 mg/dL (0.3-1.2); Total Protein 4.9 g/dL (6.2-8.2)
[2023-12-08 10:04] LABS: Basophils # (A) 0.08 X 10*3/uL (0.00-0.10); Basophils % (A) 1.5 %; Eosinophils # (A) 0.59 X 10*3/uL (0.04-0.35); HCT 28.2 % (37.2-46.3); HGB 9.2 g/dL (12.0-15.0); Immature Platelet Fraction 13.8 % (1.1-6.1); MCH 31.9 pg (27.0-32.0); MCHC 32.6 g/dL (32.0-37.0); MCV 97.9 FL (80.0-97.0); Mean Platelet Volume 13.5 FL (9.5-12.2); Monocytes # (A) 0.36 X 10*3/uL (0.20-1.00); Monocytes % (A) 6.7 %; NRBC Per 100 WBC 0 X 10*3/uL (0.00-0.01); Neutrophils % (A) 37.4 %; Platelet Count 69 X 10*3/uL (140-440); RBC 2.88 X 10*6/uL (4.10-5.20); RDW 14.8 % (11.5-14.5); WBC 5.35 X 10*3/uL (4.50-10.00)
--- NOTE | 2023-12-08 10:38 | P.PN ---
Subjective HISTORY OF PRESENT ILLNESS: 12/05/2022 Patient is a pleasant 53-year-old female with a past medical history that includes developmental disability, tremors, hypothyroid, frequent falls, Parkinson's disease, cellulitis, and osteoarthritis who presents to the hospital with complaints of weakness and confusion. Patient apparently has had multiple hospitalizations for bouts of hyperammonemia, which they feel may be secondary to her medications. Patient was found to have a significantly elevated ammonia upon arrival at [facility]. Patient already takes lactulose daily. Cardiology was consulted due to the patient's apparent hypotension. Pertinent home medications include diazepam, pregabalin, paroxetine, topiramate, aripiprazole, fenofibrate, atorvastatin, fluvoxamine, levothyroxine, eslicarbazepine, and divalproex. Previous CT scans of the head have suggested possible Parkinson's disease. Infectious diseases on consultation secondary to possible sepsis secondary to urinary tract infection. This morning the patient reports that she is doing okay. Outside of this she is unable to give us any further information about her current medical status. Review of her chart does demonstrate hypotensive readings. 12/07/2023 Patient examined this morning at the bedside. Patient is sitting up in the chair. Patient currently denies chest pain or pressure. She denies shortness of breath. Denies dizziness or lightheadedness. Patient was seen and evaluated by cardiology yesterday. She was started on Florinef secondary to hypotension. Patient's blood pressures remain soft with a systolic between 8090. 12/08/2023 Patient examined this morning. She is sitting up in the chair. Patient currently denies chest pain or pressure. She denies shortness of breath. Denies dizziness or lightheadedness. Patient remains hypotensive this morning with a blood pressure between 7090. PHYSICAL EXAM: VITAL SIGNS: Reviewed. GENERAL: Well-developed in no acute distress. NECK: Supple. No JVD or thyromegaly LUNGS: Respirations even and unlabored. Lungs essentially clear to auscultation bilaterally. HEART: Regular rate and rhythm. S1 and S2 heard. EXTREMITIES: Normal range of motion. No clubbing or cyanosis. Peripheral pulses intact. No lower extremity edema ASSESSMENT: Hyperammonemia Developmental disability History of Parkinson's disease Hypotension PLAN: Continue current cardiac medications Continue to monitor blood pressure Continue Florinef 0.2 mg daily Add midodrine 5 mg 3 times a day Further recommendations pending patient course Nurse practitioner note has been reviewed by physician. Signing provider agrees with the documented findings, assessment, and plan of care documented by P[employer]ACKER as a scribe. Objective - Vital Signs Vital signs: Vital Signs Temp 98.3 F 12/08/23 06:50 Pulse 61 12/08/23 06:50 Resp 14 12/08/23 06:50 BP 71/38 12/08/23 06:50 Pulse Ox 93 L 12/08/23 06:50 FiO2 Intake & Output 12/07/23 12/08/23 12/08/23 18:59 06:59 18:59 Other: Voiding Method Diaper Incontinent Incontinent # Voids 4 6 - Labs CBC & Chem 7: 12/08/23 04:35 12/08/23 04:35 Labs: Abnormal Lab Results - Last 24 Hours (Table) 12/08/23 12/08/23 12/08/23 Range/Units 04:35 04:35 04:35 RBC 2.88 L (4.10-5.20) X 10*6/uL Hgb 9.2 L (12.0-15.0) g/dL Hct 28.2 L (37.2-46.3) % MCV 97.9 H (80.0-97.0) FL RDW 14.8 H (11.5-14.5) % Plt Count 69 L (140-440) X 10*3/uL MPV 13.5 H (9.5-12.2) FL Eosinophils # 0.59 H (0.04-0.35) X 10*3/uL Immature Plt Fraction 13.8 H (1.1-6.1) % Chloride 112 H (96-109) mmol/L Carbon Dioxide 19.5 L (21.6-31.8) mmol/L BUN/Creatinine Ratio 31.29 H (12.00-20.00) Ratio Calcium 8.4 L (8.7-10.3) mg/dL Total Bilirubin <0.2 L (0.3-1.2) mg/dL AST 39 H (13-35) U/L Ammonia 45 H (<30) umol/L Total Protein 4.9 L (6.2-8.2) g/dL Albumin 3.5 L (3.8-4.9) g/dL Globulin 1.4 L (1.6-3.3) g/dL Microbiology - Last 24 Hours (Table) 12/05/23 15:13 Blood Culture - Preliminary Blood
[2023-12-08] MEDS: MIDODRINE 5 MG TAB PO SCH (13:32)
--- NOTE | 2023-12-08 21:50 | P.PN ---
Subjective Patient is a pleasant 53 years old female with past medical history of multiple medical problem including developmental delay and seizure disorder. Close she was living on a assisted or personal care facility. She presents because of altered mental status which was thought secondary to hyperammonia level. Also patient Depakote was discontinued by neurologist for suspicions of contributing to hyperammonemia. Patient also with chronic bicytopenia and possible urinary tract infection and treated currently with ceftriaxone Also she is on Normal Saline 100 mL/h Spindle Carver on the case as well. She is currently on aspirin 81 mg, midodrine added today because systolic blood pressures 70-90 and diastolic 50-65. Patient remains on lactulose 30 mg 4 times a day and ammonia level is coming down to 45 today. Urine culture is negative EEG showed no epileptiform discharge Ejection fraction 60 to 65% TSH is normal. Patient currently sitting up in chair, looks relaxed and comfortable. No tachypnea or chest pain Patient she knows she is in the hospital and in [place]. She is disoriented to time and person. However she is able to follow commands easily. She has some insight into her illness. She denies weakness or numbness. No dysuria or urgency. Objective - Vital Signs Vital signs: Vital Signs Temp 98.3 F 12/08/23 06:50 Pulse 61 12/08/23 06:50 Resp 14 12/08/23 06:50 BP 71/38 12/08/23 06:50 Pulse Ox 93 L 12/08/23 06:50 FiO2 Intake & Output 12/07/23 12/08/23 12/08/23 18:59 06:59 18:59 Other: Voiding Method Diaper Incontinent Incontinent # Voids 4 6 - Exam -GENERAL: The patient is alert and oriented x1 to place clearly. Not in any acute distress. Well developed, well nourished. HEENT: Pupils are round and equally reacting to light. EOMI. No scleral icterus. No conjunctival pallor. Normocephalic, atraumatic. No pharyngeal erythema. No thyromegaly. CARDIOVASCULAR: S1 and S2 present. No murmurs, rubs, or gallops. PULMONARY: Chest is clear to auscultation, no wheezing , no crackles. ABDOMEN: Soft, nontender, nondistended, normoactive bowel sounds. No palpable organomegaly. MUSCULOSKELETAL: No joint swelling or deformity. EXTREMITIES: No cyanosis, clubbing, or pedal edema. NEUROLOGICAL: Gross neurological examination did not reveal any focal deficits. SKIN: No rashes. no petechiae. - Labs CBC & Chem 7: 12/08/23 04:35 12/08/23 04:35 Labs: Abnormal Lab Results - Last 24 Hours (Table) 12/08/23 12/08/23 12/08/23 Range/Units 04:35 04:35 04:35 RBC 2.88 L (4.10-5.20) X 10*6/uL Hgb 9.2 L (12.0-15.0) g/dL Hct 28.2 L (37.2-46.3) % MCV 97.9 H (80.0-97.0) FL RDW 14.8 H (11.5-14.5) % Plt Count 69 L (140-440) X 10*3/uL MPV 13.5 H (9.5-12.2) FL Eosinophils # 0.59 H (0.04-0.35) X 10*3/uL Immature Plt Fraction 13.8 H (1.1-6.1) % Chloride 112 H (96-109) mmol/L Carbon Dioxide 19.5 L (21.6-31.8) mmol/L BUN/Creatinine Ratio 31.29 H (12.00-20.00) Ratio Calcium 8.4 L (8.7-10.3) mg/dL Total Bilirubin <0.2 L (0.3-1.2) mg/dL AST 39 H (13-35) U/L Ammonia 45 H (<30) umol/L Total Protein 4.9 L (6.2-8.2) g/dL Albumin 3.5 L (3.8-4.9) g/dL Globulin 1.4 L (1.6-3.3) g/dL Microbiology - Last 24 Hours (Table) 12/05/23 15:13 Blood Culture - Preliminary Blood Assessment and Plan Assessment: Metabolic encephalopathy secondary to hyperammonemia Hyperammonemia Seizure disorder on multiple seizure medication Bicytopenia, with anemia thrombocytopenia Possible urinary tract infection. Urine culture showed no growth. Plan: Continue with antibiotic gentle hydration Neurology team on the case PEG is open From chart review. Depakote was discontinued while continuing, while continuing other seizure medications per neurologist Labs and medication were reviewed.. Continue same treatment. Continue with symptomatic treatment. Resume home medication. Monitor labs and vitals. DVT and GI prophylaxis. Further recommendations as per clinical course of the patient PT/OT Prognosis is guarded
--- NOTE | 2023-12-09 09:30 | P.PN ---
Subjective HISTORY OF PRESENT ILLNESS: 12/05/2022 Patient is a pleasant 53-year-old female with a past medical history that includes developmental disability, tremors, hypothyroid, frequent falls, Parkinson's disease, cellulitis, and osteoarthritis who presents to the hospital with complaints of weakness and confusion. Patient apparently has had multiple hospitalizations for bouts of hyperammonemia, which they feel may be secondary to her medications. Patient was found to have a significantly elevated ammonia upon arrival at [facility]. Patient already takes lactulose daily. Cardiology was consulted due to the patient's apparent hypotension. Pertinent home medications include diazepam, pregabalin, paroxetine, topiramate, aripiprazole, fenofibrate, atorvastatin, fluvoxamine, levothyroxine, eslicarbazepine, and divalproex. Previous CT scans of the head have suggested possible Parkinson's disease. Infectious diseases on consultation secondary to possible sepsis secondary to urinary tract infection. This morning the patient reports that she is doing okay. Outside of this she is unable to give us any further information about her current medical status. Review of her chart does demonstrate hypotensive readings. 12/07/2023 Patient examined this morning at the bedside. Patient is sitting up in the chair. Patient currently denies chest pain or pressure. She denies shortness of breath. Denies dizziness or lightheadedness. Patient was seen and evaluated by cardiology yesterday. She was started on Florinef secondary to hypotension. Patient's blood pressures remain soft with a systolic between 8090. 12/08/2023 Patient examined this morning. She is sitting up in the chair. Patient currently denies chest pain or pressure. She denies shortness of breath. Denies dizziness or lightheadedness. Patient remains hypotensive this morning with a blood pressure between 7090. 12/09/2023 Patient examined this morning the bedside. Patient denies chest pain or pressure. She denies shortness of breath. Patient's blood pressures remain low with a systolic in the 80s. She is currently asymptomatic. She denies any dizziness or lightheadedness. PHYSICAL EXAM: VITAL SIGNS: Reviewed. GENERAL: Well-developed in no acute distress. NECK: Supple. No JVD or thyromegaly LUNGS: Respirations even and unlabored. Lungs essentially clear to auscultation bilaterally. HEART: Regular rate and rhythm. S1 and S2 heard. EXTREMITIES: Normal range of motion. No clubbing or cyanosis. Peripheral pulses intact. No lower extremity edema ASSESSMENT: Hyperammonemia Developmental disability History of Parkinson's disease Hypotension PLAN: Continue current cardiac medications Continue to monitor blood pressure Continue Florinef 0.2 mg daily Increase midodrine to 10 mg 3 times a day Further recommendations pending patient course Nurse practitioner note has been reviewed by physician. Signing provider agrees with the documented findings, assessment, and plan of care documented by [employer] as a scribe. Objective - Vital Signs Vital signs: Vital Signs Temp 97.9 F 12/09/23 07:01 Pulse 78 12/09/23 07:01 Resp 14 12/09/23 07:01 BP 80/51 12/09/23 07:01 Pulse Ox 98 12/09/23 08:27 FiO2 Intake & Output 12/08/23 12/09/23 12/09/23 18:59 06:59 18:59 Intake Total 1000 Balance 1000 Intake: Intake, IV Titration 1000 Amount Sodium Chloride 0.9% 1, 1000 000 ml @ 100 mls/hr IV . Q10H [facility] Rx#:[id number] Other: Voiding Method Incontinent # Voids 3 10 - Labs CBC & Chem 7: 12/08/23 04:35 12/08/23 04:35 Labs: Abnormal Lab Results - Last 24 Hours (Table) 12/08/23 12/09/23 Range/Units 04:35 04:47 RBC 2.88 L (4.10-5.20) X 10*6/uL Hgb 9.2 L (12.0-15.0) g/dL Hct 28.2 L (37.2-46.3) % MCV 97.9 H (80.0-97.0) FL RDW 14.8 H (11.5-14.5) % Plt Count 69 L (140-440) X 10*3/uL MPV 13.5 H (9.5-12.2) FL Eosinophils # 0.59 H (0.04-0.35) X 10*3/uL Immature Plt Fraction 13.8 H (1.1-6.1) % Ammonia 44 H (<30) umol/L Microbiology - Last 24 Hours (Table) 12/05/23 15:13 Blood Culture - Preliminary Blood
--- NOTE | 2023-12-09 09:39 | P.PN ---
Subjective Progress Note Date: 12/06/23 Principal diagnosis: Reason for follow-up is confusion and question of UTI Patient is a 53-year-old female with a past medical history significant for developmentally challenged and did have a public guardian history of seizure disorder pneumonia and reflux patient has been brought into the hospital for evaluation of weakness and confusion did have elevated ammonia and also positive UA with a possible component of UTI. On today's evaluation that is 12/06/2023, patient has been afebrile, patient is breathing comfortably and is currently on room air, patient denies having any significant cough no chest pain shortness of breath, patient denies nausea vomiting or diarrhea and no abdominal pain. Patient white count is 4.72 creatinine is 0.7, ammonia level is 109, procalcitonin 0.04 Objective - Vital Signs Vital signs: Vital Signs Temp 98.1 F 12/06/23 13:18 Pulse 81 12/06/23 13:18 Resp 17 12/06/23 13:18 BP 88/49 12/06/23 13:18 Pulse Ox 98 12/06/23 13:18 FiO2 Intake & Output 12/05/23 12/06/23 12/06/23 18:59 06:59 18:59 Other: Voiding Method Incontinent Incontinent Diaper External Catheter External Catheter Incontinent # Voids 3 4 # Bowel Movements 3 - Exam GENERAL DESCRIPTION: Middle-aged female lying in bed in no distress RESPIRATORY SYSTEM: Unlabored breathing , decreased breath sounds at bases HEART: S1 S2 regular rate and rhythm , ABDOMEN: Soft , no tenderness EXTREMITIES: No edema feet - Labs CBC & Chem 7: 12/08/23 04:35 12/08/23 04:35 Labs: Abnormal Lab Results - Last 24 Hours (Table) 12/05/23 12/06/23 12/06/23 Range/Units 15:13 04:28 04:28 RBC 3.03 L (4.10-5.20) X 10*6/uL Hgb 9.6 L (12.0-15.0) g/dL Hct 31.0 L (37.2-46.3) % MCV 102.3 H (80.0-97.0) FL MCHC 31.0 L (32.0-37.0) g/dL RDW 14.7 H (11.5-14.5) % Plt Count 72 L (140-440) X 10*3/uL MPV 13.2 H (9.5-12.2) FL Monocytes # (Manual) 0.19 L (0.20-1.00) X 10*3/uL Eosinophils # (Manual) 0.38 H (0.04-0.35) X 10*3/uL Immature Plt Fraction 12.6 H (1.1-6.1) % Chloride (96-109) mmol/L Carbon Dioxide (21.6-31.8) mmol/L BUN/Creatinine Ratio (12.00-20.00) Ratio Plasma Lactic Acid Ankur 0.5 L (0.7-2.0) mmol/L Total Bilirubin (0.3-1.2) mg/dL ALT (8-44) U/L Ammonia 109 H (<30) umol/L Total Protein (6.2-8.2) g/dL Albumin (3.8-4.9) g/dL 12/06/23 Range/Units 04:28 RBC (4.10-5.20) X 10*6/uL Hgb (12.0-15.0) g/dL Hct (37.2-46.3) % MCV (80.0-97.0) FL MCHC (32.0-37.0) g/dL RDW (11.5-14.5) % Plt Count (140-440) X 10*3/uL MPV (9.5-12.2) FL Monocytes # (Manual) (0.20-1.00) X 10*3/uL Eosinophils # (Manual) (0.04-0.35) X 10*3/uL Immature Plt Fraction (1.1-6.1) % Chloride 117 H (96-109) mmol/L Carbon Dioxide 17.3 L (21.6-31.8) mmol/L BUN/Creatinine Ratio 27.29 H (12.00-20.00) Ratio Plasma Lactic Acid Ankur (0.7-2.0) mmol/L Total Bilirubin 0.2 L (0.3-1.2) mg/dL ALT 7 L (8-44) U/L Ammonia (<30) umol/L Total Protein 4.9 L (6.2-8.2) g/dL Albumin 3.3 L (3.8-4.9) g/dL Assessment and Plan (1) UTI (urinary tract infection) Current Visit: Yes Status: Acute Code(s): N39.0 - URINARY TRACT INFECTION, SITE NOT SPECIFIED SNOMED Code(s): 37625354 (2) Altered mental status Current Visit: No Status: Acute Code(s): R41.82 - ALTERED MENTAL STATUS, UNSPECIFIED SNOMED Code(s): 055032026 Plan: 1patient presented to hospital with mental status changes in this patient who did have evidence of elevated ammonia level and apparently did have previous admission to the hospital with similar symptoms patient is currently not running any fever or any elevated white count mildly hypotensive did have a positive UA concerning for possible component of symptomatic UTI as currently no other obvious focus of infection abdomen was soft on clinical examination chest x-ray negative no evidence of any cellulitis or joint swelling 2-patient with multiple antibiotic ALLERGIES that would limit the number of antibiotic safe to use 3-patient did have a normal procalcitonin UA was positive culture pending, patient to continue with Rocephin while waiting for the culture to finalize Dictation was produced using [employer] dictation software. please excuse any grammatical, word or spelling errors. Time with Patient: Less than 30
--- NOTE | 2023-12-09 09:40 | P.PN ---
Subjective Progress Note Date: 12/07/23 Principal diagnosis: Reason for follow-up is confusion and question of UTI Patient is a 53-year-old female with a past medical history significant for developmentally challenged and did have a public guardian history of seizure disorder pneumonia and reflux patient has been brought into the hospital for evaluation of weakness and confusion did have elevated ammonia and also positive UA with a possible component of UTI. On today's evaluation that is 12/07/2023,the patient denies any fever or any chills, patient is breathing comfortably on room air, the patient denies chest pain shortness of breath and no significant cough, patient denies abdominal pain, no nausea vomiting or diarrhea. Patient white count is 4.97 creatinine 0.7, ammonia level is down to 70 Objective - Vital Signs Vital signs: Vital Signs Temp 97.9 F 12/07/23 13:25 Pulse 87 12/07/23 13:25 Resp 19 12/07/23 13:25 BP 96/61 12/07/23 13:25 Pulse Ox 94 L 12/07/23 13:25 FiO2 Intake & Output 12/06/23 12/07/23 12/07/23 18:59 06:59 18:59 Other: Voiding Method Diaper Diaper Diaper Incontinent Incontinent Incontinent # Voids 5 7 - Exam GENERAL DESCRIPTION: Middle-aged female lying in bed in no distress RESPIRATORY SYSTEM: Unlabored breathing , decreased breath sounds at bases HEART: S1 S2 regular rate and rhythm , ABDOMEN: Soft , no tenderness EXTREMITIES: No edema feet - Labs CBC & Chem 7: 12/08/23 04:35 12/08/23 04:35 Labs: Abnormal Lab Results - Last 24 Hours (Table) 12/07/23 12/07/23 12/07/23 Range/Units 06:26 06:26 06:26 RBC 3.00 L (4.10-5.20) X 10*6/uL Hgb 9.8 L (12.0-15.0) g/dL Hct 31.2 L (37.2-46.3) % MCV 104.0 H (80.0-97.0) FL MCH 32.7 H (27.0-32.0) pg MCHC 31.4 L (32.0-37.0) g/dL RDW 14.7 H (11.5-14.5) % Plt Count 68 L (140-440) X 10*3/uL MPV 13.2 H (9.5-12.2) FL Neutrophils # 1.66 L (1.80-7.70) X 10*3/uL Eosinophils # 0.44 H (0.04-0.35) X 10*3/uL Immature Plt Fraction 13.9 H (1.1-6.1) % Chloride 114 H (96-109) mmol/L Carbon Dioxide 18.4 L (21.6-31.8) mmol/L BUN/Creatinine Ratio 38.00 H (12.00-20.00) Ratio Calcium 8.5 L (8.7-10.3) mg/dL Total Bilirubin <0.2 L (0.3-1.2) mg/dL Ammonia 70 H (<30) umol/L Total Protein 5.1 L (6.2-8.2) g/dL Albumin 3.4 L (3.8-4.9) g/dL Microbiology - Last 24 Hours (Table) 12/05/23 18:45 Urine Culture - Final Urine,Voided 12/05/23 15:13 Blood Culture - Preliminary Blood Assessment and Plan (1) Hyperammonemia Current Visit: Yes Status: Acute Code(s): E72.20 - DISORDER OF UREA CYCLE METABOLISM, UNSPECIFIED SNOMED Code(s): 7591611 (2) UTI (urinary tract infection) Current Visit: Yes Status: Acute Code(s): N39.0 - URINARY TRACT INFECTION, SITE NOT SPECIFIED SNOMED Code(s): 49459264 (3) Acute encephalopathy Current Visit: No Status: Acute Code(s): G93.40 - ENCEPHALOPATHY, UNSPECIFIED SNOMED Code(s): 36328968 Plan: 1patient presented to hospital with mental status changes in this patient who did have evidence of elevated ammonia level and apparently did have previous admission to the hospital with similar symptoms patient is currently not running any fever or any elevated white count mildly hypotensive did have a positive UA concerning for possible component of symptomatic UTI as currently no other obvious focus of infection abdomen was soft on clinical examination chest x-ray negative no evidence of any cellulitis or joint swelling 2-patient with multiple antibiotic ALLERGIES that would limit the number of antibiotic safe to use 3-patient did have a normal procalcitonin UA was positive culture pending, patient did have some improvement in her mentation to continue with Rocephin while waiting for the culture to finalize Dictation was produced using [employer] dictation software. please excuse any grammatical, word or spelling errors. Time with Patient: Less than 30
--- NOTE | 2023-12-09 09:41 | P.PN ---
Subjective Progress Note Date: 12/08/23 Principal diagnosis: Reason for follow-up is confusion and question of UTI Patient is a 53-year-old female with a past medical history significant for developmentally challenged and did have a public guardian history of seizure disorder pneumonia and reflux patient has been brought into the hospital for evaluation of weakness and confusion did have elevated ammonia and also positive UA with a possible component of UTI. On today's evaluation that is 12/08/2023,the patient remains to be afebrile, patient is on room air not requiring supplemental oxygen and denies any shortness of breath no chest pain or cough.Patient denies having any nausea or vomiting, no abdominal pain and no diarrhea has been reported. Patient white count is 5.35 creatinine 0.7 ammonia level is 45 Objective - Vital Signs Vital signs: Vital Signs Temp 98.3 F 12/08/23 06:50 Pulse 61 12/08/23 06:50 Resp 14 12/08/23 06:50 BP 71/38 12/08/23 06:50 Pulse Ox 93 L 12/08/23 06:50 FiO2 Intake & Output 12/07/23 12/08/23 12/08/23 18:59 06:59 18:59 Other: Voiding Method Diaper Incontinent Incontinent # Voids 4 6 - Exam GENERAL DESCRIPTION: Middle-aged female lying in bed in no distress RESPIRATORY SYSTEM: Unlabored breathing , decreased breath sounds at bases HEART: S1 S2 regular rate and rhythm , ABDOMEN: Soft , no tenderness EXTREMITIES: No edema feet - Labs CBC & Chem 7: 12/08/23 04:35 12/08/23 04:35 Labs: Abnormal Lab Results - Last 24 Hours (Table) 12/08/23 12/08/23 12/08/23 Range/Units 04:35 04:35 04:35 RBC 2.88 L (4.10-5.20) X 10*6/uL Hgb 9.2 L (12.0-15.0) g/dL Hct 28.2 L (37.2-46.3) % MCV 97.9 H (80.0-97.0) FL RDW 14.8 H (11.5-14.5) % Plt Count 69 L (140-440) X 10*3/uL MPV 13.5 H (9.5-12.2) FL Eosinophils # 0.59 H (0.04-0.35) X 10*3/uL Immature Plt Fraction 13.8 H (1.1-6.1) % Chloride 112 H (96-109) mmol/L Carbon Dioxide 19.5 L (21.6-31.8) mmol/L BUN/Creatinine Ratio 31.29 H (12.00-20.00) Ratio Calcium 8.4 L (8.7-10.3) mg/dL Total Bilirubin <0.2 L (0.3-1.2) mg/dL AST 39 H (13-35) U/L Ammonia 45 H (<30) umol/L Total Protein 4.9 L (6.2-8.2) g/dL Albumin 3.5 L (3.8-4.9) g/dL Globulin 1.4 L (1.6-3.3) g/dL Microbiology - Last 24 Hours (Table) 12/05/23 15:13 Blood Culture - Preliminary Blood Assessment and Plan (1) Hyperammonemia Current Visit: Yes Status: Acute Code(s): E72.20 - DISORDER OF UREA CYCLE METABOLISM, UNSPECIFIED SNOMED Code(s): 7178110 (2) Hypotension Current Visit: Yes Status: Acute Code(s): I95.9 - HYPOTENSION, UNSPECIFIED SNOMED Code(s): 88273945 (3) Acute encephalopathy Current Visit: No Status: Acute Code(s): G93.40 - ENCEPHALOPATHY, UNSPECIFIED SNOMED Code(s): 35183323 Plan: 1patient presented to hospital with mental status changes in this patient who did have evidence of elevated ammonia level and apparently did have previous admission to the hospital with similar symptoms patient is currently not running any fever or any elevated white count mildly hypotensive did have a positive UA concerning for possible component of symptomatic UTI as currently no other obvious focus of infection abdomen was soft on clinical examination chest x-ray negative no evidence of any cellulitis or joint swelling 2-patient with multiple antibiotic ALLERGIES that would limit the number of antibiotic safe to use 3-patient did have positive culture pending, patient did have clinical improvement in her mentation, patient to continue with Rocephin while waiting for the culture to finalize Dictation was produced using [employer] dictation software. please excuse any grammatical, word or spelling errors. Time with Patient: Less than 30
--- NOTE | 2023-12-09 10:03 | P.PN ---
Subjective Patient is a pleasant 53 years old female with past medical history of multiple medical problem including developmental delay and seizure disorder. Close she was living on a senior living or personal care facility. She presents because of altered mental status which was thought secondary to hyperammonia level. Also patient Depakote was discontinued by neurologist for suspicions of contributing to hyperammonemia. Patient also with chronic bicytopenia and possible urinary tract infection and treated currently with ceftriaxone Also she is on Normal Saline 100 mL/h Manager State on the case as well. She is currently on aspirin 81 mg, midodrine added today because systolic blood pressures 70-90 and diastolic 50-65. Patient remains on lactulose 30 mg 4 times a day and ammonia level is coming down to 45 today. Urine culture is negative EEG showed no epileptiform discharge Ejection fraction 60 to 65% TSH is normal. Patient currently sitting up in chair, looks relaxed and comfortable. No tachypnea or chest pain Patient she knows she is in the hospital and in [place]. She is disoriented to time and person. However she is able to follow commands easily. She has some insight into her illness. She denies weakness or numbness. No dysuria or urgency. 12/09/2023 Patient is awake and alert, she is sitting in bed looks relaxed, she is eating chips with enjoyment. She knows she is in [facility] but she is disoriented to time and date, she could not tell the name of the president. However she follows commands appropriately and she has insight to why she is here in the hospital. Also she intends to follow-up with her doctor both PCP and neurologist after discharge indicating plan for her health upon discharge. Patient states she keeps improving She has good appetite denies abdominal pain or chest pain. Stating that her only problem is the seizure. Also she is on ceftriaxone for UTI Patient informed that Depakote was discontinued She remains on lactulose 30 mg 4 times a day and continued on other seizure medication. Neurologist Also patient blood pressure is remains borderline midodrine was increased to 10 mg 3 times daily today. Cardiology team following closely No IV fluids Objective - Vital Signs Vital signs: Vital Signs Temp 97.9 F 12/09/23 07:01 Pulse 78 12/09/23 07:01 Resp 14 12/09/23 07:01 BP 80/51 12/09/23 07:01 Pulse Ox 98 12/09/23 08:27 FiO2 Intake & Output 12/08/23 12/09/23 12/09/23 18:59 06:59 18:59 Intake Total 1000 Balance 1000 Intake: Intake, IV Titration 1000 Amount Sodium Chloride 0.9% 1, 1000 000 ml @ 100 mls/hr IV . Q10H [facility] Rx#:[id number] Other: Voiding Method Incontinent # Voids 3 10 - Exam -GENERAL: The patient is alert and oriented x1 to place clearly. Not in any acute distress. Well developed, well nourished. HEENT: Pupils are round and equally reacting to light. EOMI. No scleral icterus. No conjunctival pallor. Normocephalic, atraumatic. No pharyngeal erythema. No thyromegaly. CARDIOVASCULAR: S1 and S2 present. No murmurs, rubs, or gallops. PULMONARY: Chest is clear to auscultation, no wheezing , no crackles. ABDOMEN: Soft, nontender, nondistended, normoactive bowel sounds. No palpable organomegaly. MUSCULOSKELETAL: No joint swelling or deformity. EXTREMITIES: No cyanosis, clubbing, or pedal edema. NEUROLOGICAL: Gross neurological examination did not reveal any focal deficits. SKIN: No rashes. no petechiae. - Labs CBC & Chem 7: 12/08/23 04:35 12/08/23 04:35 Labs: Abnormal Lab Results - Last 24 Hours (Table) 12/08/23 12/09/23 Range/Units 04:35 04:47 RBC 2.88 L (4.10-5.20) X 10*6/uL Hgb 9.2 L (12.0-15.0) g/dL Hct 28.2 L (37.2-46.3) % MCV 97.9 H (80.0-97.0) FL RDW 14.8 H (11.5-14.5) % Plt Count 69 L (140-440) X 10*3/uL MPV 13.5 H (9.5-12.2) FL Eosinophils # 0.59 H (0.04-0.35) X 10*3/uL Immature Plt Fraction 13.8 H (1.1-6.1) % Ammonia 44 H (<30) umol/L Microbiology - Last 24 Hours (Table) 12/05/23 15:13 Blood Culture - Preliminary Blood Assessment and Plan Assessment: Metabolic encephalopathy secondary to hyperammonemia Hyperammonemia Seizure disorder on multiple seizure medication Borderline hypotension, asymptomatic Bicytopenia, with anemia thrombocytopenia Possible urinary tract infection. Urine culture showed no growth. Plan: Continue with antibiotic gentle hydration Continue seizure medication per neurologist on the case Depakote was discontinued while continuing, while continuing other seizure medications per neurologist Midodrine 10 mg added Labs and medication were reviewed.. Continue same treatment. Continue with symptomatic treatment. Resume home medication. Monitor labs and vitals. DVT and GI prophylaxis. Further recommendations as per clinical course of the p atient PT/OT Prognosis is guarded
[2023-12-09] MEDS: MIDODRINE 5 MG TAB PO SCH (12:46)
--- NOTE | 2023-12-10 12:26 | P.PN ---
Subjective HISTORY OF PRESENT ILLNESS: 12/05/2022 Patient is a pleasant 53-year-old female with a past medical history that includes developmental disability, tremors, hypothyroid, frequent falls, Parkinson's disease, cellulitis, and osteoarthritis who presents to the hospital with complaints of weakness and confusion. Patient apparently has had multiple hospitalizations for bouts of hyperammonemia, which they feel may be secondary to her medications. Patient was found to have a significantly elevated ammonia upon arrival at [facility]. Patient already takes lactulose daily. Cardiology was consulted due to the patient's apparent hypotension. Pertinent home medications include diazepam, pregabalin, paroxetine, topiramate, aripiprazole, fenofibrate, atorvastatin, fluvoxamine, levothyroxine, eslicarbazepine, and divalproex. Previous CT scans of the head have suggested possible Parkinson's disease. Infectious diseases on consultation secondary to possible sepsis secondary to urinary tract infection. This morning the patient reports that she is doing okay. Outside of this she is unable to give us any further information about her current medical status. Review of her chart does demonstrate hypotensive readings. 12/07/2023 Patient examined this morning at the bedside. Patient is sitting up in the chair. Patient currently denies chest pain or pressure. She denies shortness of breath. Denies dizziness or lightheadedness. Patient was seen and evaluated by cardiology yesterday. She was started on Florinef secondary to hypotension. Patient's blood pressures remain soft with a systolic between 8090. 12/08/2023 Patient examined this morning. She is sitting up in the chair. Patient currently denies chest pain or pressure. She denies shortness of breath. Denies dizziness or lightheadedness. Patient remains hypotensive this morning with a blood pressure between 7090. 12/09/2023 Patient examined this morning the bedside. Patient denies chest pain or pressure. She denies shortness of breath. Patient's blood pressures remain low with a systolic in the 80s. She is currently asymptomatic. She denies any dizziness or lightheadedness. 12/10/2023 Patient examined this morning the bedside. Patient denies chest pain or pressure. She denies shortness of breath. Blood pressures have improved with a systolic between 10172. PHYSICAL EXAM: VITAL SIGNS: Reviewed. GENERAL: Well-developed in no acute distress. NECK: Supple. No JVD or thyromegaly LUNGS: Respirations even and unlabored. Lungs essentially clear to auscultation bilaterally. HEART: Regular rate and rhythm. S1 and S2 heard. EXTREMITIES: Normal range of motion. No clubbing or cyanosis. Peripheral pulses intact. No lower extremity edema ASSESSMENT: Hyperammonemia Developmental disability History of Parkinson's disease Hypotension PLAN: Continue current cardiac medications Continue to monitor blood pressure Patient is currently stable from a cardiac standpoint with no further inpatient recommendations We will sign off. Please reconsult if needed. Nurse practitioner note has been reviewed by physician. Signing provider agrees with the documented findings, assessment, and plan of care documented by SUPERVISOR [employer] as a scribe. Objective - Vital Signs Vital signs: Vital Signs Temp 98.2 F 12/10/23 07:00 Pulse 56 L 12/10/23 07:00 Resp 16 12/10/23 07:00 BP 104/69 12/10/23 07:00 Pulse Ox 99 12/10/23 07:00 FiO2 Intake & Output 12/09/23 12/10/23 12/10/23 18:59 06:59 18:59 Other: Voiding Method Incontinent # Voids 1 2 - Labs CBC & Chem 7: 12/08/23 04:35 12/08/23 04:35
--- NOTE | 2023-12-10 15:09 | P.PN ---
Subjective Progress Note Date: 12/10/23 I am following-up with patient and feel she is improving. Denies of headache. Objective - Vital Signs Vital signs: Vital Signs Temp 98.2 F 12/10/23 07:00 Pulse 83 12/10/23 14:41 Resp 16 12/10/23 07:00 BP 76/42 12/10/23 14:41 Pulse Ox 99 12/10/23 07:00 FiO2 Intake & Output 12/09/23 12/10/23 12/10/23 18:59 06:59 18:59 Other: Voiding Method Incontinent Incontinent # Voids 1 2 - Exam General: Lying in bed and is not in acute Neuro: The patient is mildly drowsy but does awaken to voice. Oriented to self and stated that she is in the hospital. Is following simple commands. No facial weakness. No dysarthria. - Labs CBC & Chem 7: 12/08/23 04:35 12/08/23 04:35 Labs: Abnormal Lab Results - Last 24 Hours (Table) 12/10/23 Range/Units 09:10 Ammonia 57 H (<30) umol/L Assessment and Plan Assessment: * Altered mental status, likely due to hepatic encephalopathy. Patient's ammonia is elevated 128. Elevated ammonia possibly related to Depakote. Rule out underlying liver disease. Excessive somnolence could be related to polypharmacy. Patient is on very high dose Requip 3 mg 3 times a day, which can make a person sleepy as well. * Seizure disorder, controlled * Developmental delays, but high functioning at baseline * Tremors, probably metabolic. Patient has prominent asterixis. Plan: * Resume her seizure medications including Briviact 100 mg twice a day, Aptiom 800 mg at bedtime, Topamax 100 mg twice a day. * Per Dr. Jeffers, stop Depakote, as it is likely contributing to elevated amm onia. * Continue lactulose 30 g 4 times a day. * Follow ammonia levels. * Doubt Carlos's disease, as serum ceruloplasmin is normal 24.6 (20-60). Copper level: 1091 (normal). May need 24-hour urine for copper per Dr. Jeffers. * Decrease Requip from 3 mg 3 times a day down to 1 mg 3 times a day because of excessive somnolence. * Routine EEG: Is abnormal. The background slowing suggestive of moderate enc ephalopathy. Otherwise there is no focal slowing, abnormal discharge or seizure on the EEG. * TSH is normal 0.886. B12: 535 , folate: >20. * Recommend the patient to follow-up with a neurologist as an outpatient within 2 weeks. The plan is discussed with patient. Will follow-up with patient sporadically. Time with Patient: Less than 30
[2023-12-10] MEDS: SODIUM CHLORIDE 0.9% 500 ML 500 ML IV ONE (16:01)
--- NOTE | 2023-12-10 16:45 | P.PN ---
Subjective Progress Note Date: 12/09/23 Principal diagnosis: Reason for follow-up is confusion and question of UTI Patient is a 53-year-old female with a past medical history significant for developmentally challenged and did have a public guardian history of seizure disorder pneumonia and reflux patient has been brought into the hospital for evaluation of weakness and confusion did have elevated ammonia and also positive UA with a possible component of UTI. On today's evaluation that is 12/09/2023, the patient continues to be afebrile, the patient is on room air and breathing comfortably, the Pt denies having any chest pain or cough, the patient denies having any abdominal pain no vomiting or any diarrhea, patient mention feeling better No new labs has been obtained today except ammonia 44 Objective - Vital Signs Vital signs: Vital Signs Temp 98.2 F 12/09/23 14:00 Pulse 61 12/09/23 14:00 Resp 18 12/09/23 14:00 BP 88/57 12/09/23 14:00 Pulse Ox 98 12/09/23 14:00 FiO2 - Exam GENERAL DESCRIPTION: Middle-aged female lying in bed in no distress RESPIRATORY SYSTEM: Unlabored breathing , decreased breath sounds at bases HEART: S1 S2 regular rate and rhythm , ABDOMEN: Soft , no tenderness EXTREMITIES: No edema feet - Labs CBC & Chem 7: 12/08/23 04:35 12/08/23 04:35 Labs: Abnormal Lab Results - Last 24 Hours (Table) 12/10/23 Range/Units 09:10 Ammonia 57 H (<30) umol/L Assessment and Plan (1) Hyperammonemia Current Visit: Yes Status: Acute Code(s): E72.20 - DISORDER OF UREA CYCLE METABOLISM, UNSPECIFIED SNOMED Code(s): 1527831 (2) Hypotension Current Visit: Yes Status: Acute Code(s): I95.9 - HYPOTENSION, UNSPECIFIED SNOMED Code(s): 39247210 (3) Acute encephalopathy Current Visit: No Status: Acute Code(s): G93.40 - ENCEPHALOPATHY, UNSPECIFIED SNOMED Code(s): 55081113 Plan: 1patient presented to hospital with mental status changes in this patient who did have evidence of elevated ammonia level and apparently did have previous admission to the hospital with similar symptoms patient is currently not running any fever or any elevated white count mildly hypotensive did have a positive UA concerning for possible component of symptomatic UTI as currently no other obvious focus of infection abdomen was soft on clinical examination chest x-ray negative no evidence of any cellulitis or joint swelling 2-patient with multiple antibiotic ALLERGIES that would limit the number of antibiotic safe to use 3-patient did have positive UA however culture has been negative so far, patient did have clinical improvement in her mentation, patient to continue with Rocephin and monitor clinical course closely Dictation was produced using [employer] dictation software. please excuse any grammatical, word or spelling errors. Time with Patient: Less than 30
--- NOTE | 2023-12-10 16:46 | P.PN ---
Subjective Progress Note Date: 12/10/23 Principal diagnosis: Reason for follow-up is confusion and question of UTI Patient is a 53-year-old female with a past medical history significant for developmentally challenged and did have a public guardian history of seizure disorder pneumonia and reflux patient has been brought into the hospital for evaluation of weakness and confusion did have elevated ammonia and also positive UA with a possible component of UTI. On today's evaluation that is 12/10/2023, Patient is afebrile patient is currently on room air and denies having any shortness of breath, the patient denies any chest pain or cough, the patient denies any nausea vomiting did not have any abdominal pain and no diarrhea, no new symptoms feeling better. Patient ammonia is 57 no CBC was done today culture has been negative Objective - Vital Signs Vital signs: Vital Signs Temp 98.2 F 12/10/23 07:00 Pulse 60 12/10/23 12:54 Resp 16 12/10/23 07:00 BP 85/51 12/10/23 12:54 Pulse Ox 99 12/10/23 07:00 FiO2 Intake & Output 12/09/23 12/10/23 12/10/23 18:59 06:59 18:59 Other: Voiding Method Incontinent Incontinent # Voids 1 2 - Exam GENERAL DESCRIPTION: Middle-aged female lying in bed in no distress RESPIRATORY SYSTEM: Unlabored breathing , decreased breath sounds at bases HEART: S1 S2 regular rate and rhythm , ABDOMEN: Soft , no tenderness EXTREMITIES: No edema feet - Labs CBC & Chem 7: 12/08/23 04:35 12/08/23 04:35 Labs: Abnormal Lab Results - Last 24 Hours (Table) 12/10/23 Range/Units 09:10 Ammonia 57 H (<30) umol/L Assessment and Plan (1) Hyperammonemia Current Visit: Yes Status: Acute Code(s): E72.20 - DISORDER OF UREA CYCLE METABOLISM, UNSPECIFIED SNOMED Code(s): 1333087 (2) Hypotension Current Visit: Yes Status: Acute Code(s): I95.9 - HYPOTENSION, UNSPECIFIED SNOMED Code(s): 39915683 (3) Acute encephalopathy Current Visit: No Status: Acute Code(s): G93.40 - ENCEPHALOPATHY, UNSP ECIFIED SNOMED Code(s): 28017955 Plan: 1patient presented to hospital with mental status changes in this patient who did have evidence of elevated ammonia level and apparently did have previous admission to the hospital with similar symptoms patient is currently not running any fever or any elevated white count mildly hypotensive did have a positive UA concerning for possible component of symptomatic UTI as currently no other obvious focus of infection abdomen was soft on clinical examination chest x-ray negative no evidence of any cellulitis or joint swelling 2-patient with multiple antibiotic ALLERGIES that would limit the number of antibiotic safe to use 3-patient did have positive UA however culture has been negative so far,We will go ahead and discontinue Rocephin and monitor the patient closely off antibiotic therapy Dictation was produced using [employer] dictation software. please excuse any grammatical, word or spelling errors. Time with Patient: Less than 30
[2023-12-10 20:22] LABS: Appearance,Urine Clear (Clear); Bilirubin,Urine Negative (Negative); Blood,Urine Negative (Negative); Color,Urine Colorless; Glucose,Urine (UA) Negative (Negative); Ketones,Urine Negative (Negative); Leukocyte Esterase,Urine Negative (Negative); Nitrite,Urine Negative (Negative); Protein,Urine Negative (Negative); Urobilinogen,Urine <2.0 mg/dL (<2.0)
[2023-12-11 07:36] VITALS: BMI 24.7
--- NOTE | 2023-12-11 08:36 | P.PN ---
Subjective Patient is a pleasant 53 years old female with past medical history of multiple medical problem including developmental delay and seizure disorder. Close she was living on a jail or personal care facility. She presents because of altered mental status which was thought secondary to hyperammonia level. Also patient Depakote was discontinued by neurologist for suspicions of contributing to hyperammonemia. Patient also with chronic bicytopenia and possible urinary tract infection and treated currently with ceftriaxone Also she is on Normal Saline 100 mL/h Sales Specialist on the case as well. She is currently on aspirin 81 mg, midodrine added today because systolic blood pressures 70-90 and diastolic 50-65. Patient remains on lactulose 30 mg 4 times a day and ammonia level is coming down to 45 today. Urine culture is negative EEG showed no epileptiform discharge Ejection fraction 60 to 65% TSH is normal. Patient currently sitting up in chair, looks relaxed and comfortable. No tachypnea or chest pain Patient she knows she is in the hospital and in [place]. She is disoriented to time and person. However she is able to follow commands easily. She has some insight into her illness. She denies weakness or numbness. No dysuria or urgency. 12/09/2023 Patient is awake and alert, she is sitting in bed looks relaxed, she is eating chips with enjoyment. She knows she is in [facility] but she is disoriented to time and date, she could not tell the name of the president. However she follows commands appropriately and she has insight to why she is here in the hospital. Also she intends to follow-up with her doctor both PCP and neurologist after discharge indicating plan for her health upon discharge. Patient states she keeps improving She has good appetite denies abdominal pain or chest pain. Stating that her only problem is the seizure. Also she is on ceftriaxone for UTI Patient informed that Depakote was discontinued She remains on lactulose 30 mg 4 times a day and continued on other seizure medication. Neurologist Also patient blood pressure is remains borderline midodrine was increased to 10 mg 3 times daily today. Cardiology team following closely No IV fluids 12/10/2023 Today patient is calm alert, still mildly confused, earlier she pulled out her IV line, several times now. Midline will be ordered Patient no chest pain or dyspnea Repeat urine analysis is normal Patient also was hypotensive requiring a bolus of 500 cc. Blood pressure improved Will continue monitoring Repeat labs in the morning Objective - Vital Signs Vital signs: Vital Signs Temp 98.2 F 12/10/23 07:00 Pulse 60 12/10/23 12:54 Resp 16 12/10/23 07:00 BP 85/51 12/10/23 12:54 Pulse Ox 99 12/10/23 07:00 FiO2 Intake & Output 12/09/23 12/10/23 12/10/23 18:59 06:59 18:59 Other: Voiding Method Incontinent Incontinent # Voids 1 2 - Exam -GENERAL: The patient is alert and oriented x1 to place clearly. Not in any acute distress. Well developed, well nourished. HEENT: Pupils are round and equally reacting to light. EOMI. No scleral icterus. No conjunctival pallor. Normocephalic, atraumatic. No pharyngeal erythema. No thyromegaly. CARDIOVASCULAR: S1 and S2 present. No murmurs, rubs, or gallops. PULMONARY: Chest is clear to auscultation, no wheezing , no crackles. ABDOMEN: Soft, nontender, nondistended, normoactive bowel sounds. No palpable organomegaly. MUSCULOSKELETAL: No joint swelling or deformity. EXTREMITIES: No cyanosis, clubbing, or pedal edema. NEUROLOGICAL: Gross neurological examination did not reveal any focal deficits. SKIN: No rashes. no petechiae. - Labs CBC & Chem 7: 12/08/23 04:35 12/08/23 04:35 Labs: Abnormal Lab Results - Last 24 Hours (Table) 12/10/23 Range/Units 09:10 Ammonia 57 H (<30) umol/L Assessment and Plan Assessment: Metabolic encephalopathy secondary to hyperammonemia Hyperammonemia Seizure disorder on multiple seizure medication Borderline hypotension, asymptomatic Bicytopenia, with anemia thrombocytopenia Possible urinary tract infection. Urine culture showed no growth. Plan: Continue with antibiotic gentle hydration Continue seizure medication per neurologist on the case Depakote was discontinued while continuing, while continuing other seizure medications per neurologist Midodrine 10 mg added Labs and medication were reviewed.. Continue same treatment. Continue with symptomatic treatment. Resume home medication. Monitor labs and vitals. DVT and GI prophylaxis. Further recommendations as per clinical course of the patient PT/OT Prognosis is guarded
[2023-12-11 11:44] LABS: Basophils # (A) 0.06 X 10*3/uL (0.00-0.10); Basophils % (A) 0.9 %; Eosinophils # (A) 0.52 X 10*3/uL (0.04-0.35); Eosinophils % (A) 7.4 %; HCT 30.6 % (37.2-46.3); HGB 9.8 g/dL (12.0-15.0); Lymphocytes # (A) 2.98 X 10*3/uL (0.90-5.00); Lymphocytes % (A) 42.6 %; MCH 32.6 pg (27.0-32.0); MCV 101.7 FL (80.0-97.0); Mean Platelet Volume 14.2 FL (9.5-12.2); Monocytes # (A) 0.33 X 10*3/uL (0.20-1.00); Monocytes % (A) 4.7 %; NRBC Per 100 WBC 0 X 10*3/uL (0.00-0.01); Neutrophils # (A) 3.09 X 10*3/uL (1.80-7.70); Neutrophils % (A) 44.1 %; Platelet Count 74 X 10*3/uL (140-440); RBC 3.01 X 10*6/uL (4.10-5.20); RDW 14.5 % (11.5-14.5)
[2023-12-11 11:45] LABS: RBC Morphology Normal (Normal)
[2023-12-11 12:02] LABS: ALT 36 U/L (8-44); AST 189 U/L (13-35); Albumin 3.6 g/dL (3.8-4.9); Alkaline Phosphatase 47 U/L (41-126); BUN/Creat Ratio 10.56 Ratio (12.00-20.00); Bilirubin, Conjugated <0.20 mg/dL (0.20-0.40); Bilirubin,Unconjugated >0.10 mg/dL (0.20-1.00); Blood Urea Nitrogen 9.5 mg/dL (9.0-27.0); Carbon Dioxide 19.6 mmol/L (21.6-31.8); Chloride 99 mmol/L (96-109); Glucose 67 mg/dL (70-110); Potassium 4.1 mmol/L (3.5-5.5); Sodium 131 mmol/L (135-145); Total Bilirubin 0.3 mg/dL (0.3-1.2); Total Protein 5.6 g/dL (6.2-8.2)
[2023-12-11] MEDS: ONDANSETRON 4 MG TAB PO PRN (15:04)
[2023-12-11] MEDS: HYDROcodone/APAP 10-325MG 1 EACH TAB PO PRN (18:05)
--- NOTE | 2023-12-11 20:13 | P.PN ---
Subjective Progress Note Date: 12/11/23 Principal diagnosis: Reason for follow-up is confusion and question of UTI Patient is a 53-year-old female with a past medical history significant for developmentally challenged and did have a public guardian history of seizure disorder pneumonia and reflux patient has been brought into the hospital for evaluation of weakness and confusion did have elevated ammonia and also positive UA with a possible component of UTI. On today's evaluation that is 12/11/2023, patient has been afebrile, patient is breathing comfortably and is currently on room air, patient denies having any significant cough no chest pain shortness of breath, patient complaining of some nausea and epigastric discomfort no diarrhea. Patient white count is 7.0 creatinine 0.9 repeat urine has been negative Objective - Vital Signs Vital signs: Vital Signs Temp 97.4 F L 12/11/23 14:00 Pulse 71 12/11/23 14:00 Resp 16 12/11/23 14:00 BP 93/49 12/11/23 18:04 Pulse Ox 95 12/11/23 14:00 FiO2 Intake & Output 12/11/23 12/11/23 12/12/23 06:59 18:59 06:59 Weight 71.668 kg Other: # Voids 6 # Bowel Movements 2 1 - Exam GENERAL DESCRIPTION: Middle-aged female lying in bed in no distress RESPIRATORY SYSTEM: Unlabored breathing , decreased breath sounds at bases HEART: S1 S2 regular rate and rhythm , ABDOMEN: Soft , no tenderness EXTREMITIES: No edema feet - Labs CBC & Chem 7: 12/11/23 06:03 12/11/23 06:03 Labs: Abnormal Lab Results - Last 24 Hours (Table) 12/11/23 12/11/23 Range/Units 06:03 06:03 RBC 3.01 L (4.10-5.20) X 10*6/uL Hgb 9.8 L (12.0-15.0) g/dL Hct 30.6 L (37.2-46.3) % MCV 101.7 H (80.0-97.0) FL MCH 32.6 H (27.0-32.0) pg Plt Count 74 L (140-440) X 10*3/uL MPV 14.2 H (9.5-12.2) FL Eosinophils # 0.52 H (0.04-0.35) X 10*3/uL Immature Plt Fraction 20.0 H (1.1-6.1) % Sodium 131 L (135-145) mmol/L Carbon Dioxide 19.6 L (21.6-31.8) mmol/L Anion Gap 12.40 H (4.00-12.00) mmol/L BUN/Creatinine Ratio 10.56 L (12.00-20.00) Ratio Glucose 67 L (70-110) mg/dL Unconjugated Bilirubin >0.10 L (0.20-1.00) mg/dL AST 189 H (13-35) U/L Total Protein 5.6 L (6.2-8.2) g/dL Albumin 3.6 L (3.8-4.9) g/dL Microbiology - Last 24 Hours (Table) 12/05/23 15:13 Blood Culture - Final Blood Assessment and Plan (1) Hyperammonemia Current Visit: Yes Status: Acute Code(s): E72.20 - DISORDER OF UREA CYCLE METABOLISM, UNSPECIFIED SNOMED Code(s): 6976245 (2) Hypotension Current Visit: Yes Status: Acute Code(s): I95.9 - HYPOTENSION, UNSPECIFIED SNOMED Code(s): 97478696 (3) Acute encephalopathy Current Visit: No Status: Acute Code(s): G93.40 - ENCEPHALOPATHY, UNSPE CIFIED SNOMED Code(s): 85581268 Plan: 1patient presented to hospital with mental status changes in this patient who did have evidence of elevated ammonia level and apparently did have previous admission to the hospital with similar symptoms patient is currently not running any fever or any elevated white count mildly hypotensive did have a positive UA concerning for possible component of symptomatic UTI as currently no other obvious focus of infection abdomen was soft on clinical examination chest x-ray negative no evidence of any cellulitis or joint swelling 2-patient with multiple antibiotic ALLERGIES that would limit the number of antibiotic safe to use 3-patient did have positive UA however culture has been negative so far, repeat UA has been negative no need for antibiotic therapy at this point Dictation was produced using [employer] software. please excuse any grammatical, word or spelling errors. Time with Patient: Less than 30
[2023-12-13 13:38] LABS: African American GFR (CKD) 81 (>60 ml/min/1.73 sqM); Anion Gap 2 mmol/L; Blood Urea Nitrogen 26 mg/dL (7-17); Calcium 8.7 mg/dL (8.4-10.2); Carbon Dioxide 23 mmol/L (22-30); Chloride 111 mmol/L (98-107); Glucose 89 mg/dL (74-99); Non-African American GFR(CKD) 70 (>60 ml/min/1.73 sqM); Potassium 4.4 mmol/L (3.5-5.1); Sodium 136 mmol/L (137-145)
--- NOTE | 2023-12-13 16:32 | P.PN ---
Subjective Progress Note Date: 12/11/23 53 years old female with past medical history of multiple medical problem including developmental delay and seizure disorder. Close she was living on a long-term or personal care facility. She presents because of altered mental status which was thought secondary to hyperammonia level. Also patient Depakote was discontinued by neurologist for suspicions of contributing to hyperammonemia. Patient also with chronic bicytopenia and possible urinary tract infection and treated currently with ceftriaxone Also she is on Normal Saline 100 mL/h Oracle Fusion Developer on the case as well. She is currently on aspirin 81 mg, midodrine added today because systolic blood pressures 70-90 and diastolic 50-65. Patient remains on lactulose 30 mg 4 times a day and ammonia level is coming down to 45 today. Urine culture is negative EEG showed no epileptiform discharge Ejection fraction 60 to 65% TSH is normal. Patient currently sitting up in chair, looks relaxed and comfortable. No tachypnea or chest pain Patient she knows she is in the hospital and in [place]. She is disoriented to time and person. However she is able to follow commands easily. She has some insight into her illness. She denies weakness or numbness. No dysuria or urgency. Objective - Vital Signs Vital signs: Vital Signs Temp 97.8 F 12/11/23 06:57 Pulse 68 12/11/23 06:57 Resp 20 12/11/23 06:57 BP 109/66 12/11/23 06:57 Pulse Ox 93 L 12/11/23 06:57 FiO2 Intake & Output 12/10/23 12/11/23 12/11/23 18:59 06:59 18:59 Output Total 49 Balance -49 Weight 71.668 kg Output: Post Void Residual 49 Other: Voiding Method Incontinent # Voids 5 6 # Bowel Movements 4 2 - Exam -GENERAL: The patient is alert and oriented x1 to place clearly. Not in any acute distress. Well developed, well nourished. HEENT: Pupils are round and equally reacting to light. EOMI. No scleral icterus. No conjunctival pallor. Normocephalic, atraumatic. No pharyngeal erythema. No thyromegaly. CARDIOVASCULAR: S1 and S2 present. No murmurs, rubs, or gallops. PULMONARY: Chest is clear to auscultation, no wheezing , no crackles. ABDOMEN: Soft, nontender, nondistended, normoactive bowel sounds. No palpable organomegaly. MUSCULOSKELETAL: No joint swelling or deformity. EXTREMITIES: No cyanosis, clubbing, or pedal edema. NEUROLOGICAL: Gross neurological examination did not reveal any focal deficits. SKIN: No rashes. no petechiae. - Labs CBC & Chem 7: 12/11/23 06:03 12/13/23 13:12 Labs: Abnormal Lab Results - Last 24 Hours (Table) 12/11/23 12/11/23 Range/Units 06:03 06:03 RBC 3.01 L (4.10-5.20) X 10*6/uL Hgb 9.8 L (12.0-15.0) g/dL Hct 30.6 L (37.2-46.3) % MCV 101.7 H (80.0-97.0) FL MCH 32.6 H (27.0-32.0) pg Plt Count 74 L (140-440) X 10*3/uL MPV 14.2 H (9.5-12.2) FL Eosinophils # 0.52 H (0.04-0.35) X 10*3/uL Immature Plt Fraction 20.0 H (1.1-6.1) % Sodium 131 L (135-145) mmol/L Carbon Dioxide 19.6 L (21.6-31.8) mmol/L Anion Gap 12.40 H (4.00-12.00) mmol/L BUN/Creatinine Ratio 10.56 L (12.00-20.00) Ratio Glucose 67 L (70-110) mg/dL Unconjugated Bilirubin >0.10 L (0.20-1.00) mg/dL AST 189 H (13-35) U/L Total Protein 5.6 L (6.2-8.2) g/dL Albumin 3.6 L (3.8-4.9) g/dL Microbiology - Last 24 Hours (Table) 12/05/23 15:13 Blood Culture - Final Blood Assessment and Plan Assessment: Metabolic encephalopathy secondary to hyperammonemia Hyperammonemia Seizure disorder on multiple seizure medication Borderline hypotension, asymptomatic Bicytopenia, with anemia thrombocytopenia Possible urinary tract infection. Urine culture showed no growth. Plan: Continue with antibiotic gentle hydration Continue seizure medication per neurologist on the case Depakote was discontinued while continuing, while continuing other seizure medications per neurologist Midodrine 10 mg added Labs and medication were reviewed.. Continue same treatment. Continue with symptomatic treatment. Resume home medication. Monitor labs and vitals. DVT and GI prophylaxis. Further recommendations as per clinical course of the patient PT/OT Prognosis is guarded
--- NOTE | 2023-12-13 16:36 | P.PN ---
Subjective Progress Note Date: 12/12/23 53 years old female with past medical history of multiple medical problem including developmental delay and seizure disorder. Close she was living on a [facility] or personal care facility. She presents because of altered mental status which was thought secondary to hyperammonia level. Also patient Depakote was discontinued by neurologist for suspicions of contributing to hyperammonemia. Patient also with chronic bicytopenia and possible urinary tract infection and treated currently with ceftriaxone Also she is on Normal Saline 100 mL/h Machine Room Operator on the case as well. She is currently on aspirin 81 mg, midodrine added today because systolic blood pressures 70-90 and diastolic 50-65. Patient remains on lactulose 30 mg 4 times a day and ammonia level is coming down to 45 today. Urine culture is negative EEG showed no epileptiform discharge Ejection fraction 60 to 65% TSH is normal. Patient currently sitting up in chair, looks relaxed and comfortable. No tachypnea or chest pain Patient she knows she is in the hospital and in [place]. She is disoriented to time and person. However she is able to follow commands easily. She has some insight into her illness. She denies weakness or numbness. No dysuria or urgency. 12/12/2023 - patient is seen and evaluated in room at bedside; has been afebrile, patient is breathing comfortably and is currently on room air, patient denies having any significant cough no chest pain shortness of breath, patient complaining of some nausea and epigastric discomfort no diarrhea. Patient white count is 7.0 creatinine 0.9 repeat urine has been negative patient presented to hospital with mental status changes in this patient who did have evidence of elevated ammonia level and apparently did have previous admission to the hospital with similar symptoms patient is currently not running any fever or any elevated white count mildly hypotensive did have a positive UA concerning for possible component of symptomatic UTI as currently no other obvious focus of infection abdomen was soft on clinical examination chest x-ray negative no evidence of any cellulitis or joint swelling -patient with multiple antibiotic ALLERGIES that would limit the number of antibiotic safe to use -patient did have positive UA however culture has been negative so far, repeat UA has been negative no need for antibiotic therapy at this point Objective - Vital Signs Vital signs: Vital Signs Temp 98.5 F 12/12/23 07:31 Pulse 73 12/12/23 08:40 Resp 18 12/12/23 07:31 BP 95/60 12/12/23 08:40 Pulse Ox 95 12/12/23 07:31 FiO2 Intake & Output 12/11/23 12/12/23 12/12/23 18:59 06:59 18:59 Weight 71.668 kg Other: # Voids 7 1 # Bowel Movements 1 - Exam -GENERAL: The patient is alert and oriented x1 to place clearly. Not in any acute distress. Well developed, well nourished. HEENT: Pupils are round and equally reacting to light. EOMI. No scleral icterus. No conjunctival pallor. Normocephalic, atraumatic. No pharyngeal erythema. No thyromegaly. CARDIOVASCULAR: S1 and S2 present. No murmurs, rubs, or gallops. PULMONARY: Chest is clear to auscultation, no wheezing , no crackles. ABDOMEN: Soft, nontender, nondistended, normoactive bowel sounds. No palpable organomegaly. MUSCULOSKELETAL: No joint swelling or deformity. EXTREMITIES: No cyanosis, clubbing, or pedal edema. NEUROLOGICAL: Gross neurological examination did not reveal any focal deficits. SKIN: No rashes. no petechiae. - Labs CBC & Chem 7: 12/11/23 06:03 12/13/23 13:12 Labs: Abnormal Lab Results - Last 24 Hours (Table) 12/12/23 Range/Units 07:07 Ammonia 35 H (<30) umol/L Assessment and Plan Assessment: Metabolic encephalopathy secondary to hyperammonemia Hyperammonemia Seizure disorder on multiple seizure medication Borderline hypotension, asymptomatic Bicytopenia, with anemia thrombocytopenia Possible urinary tract infection. Urine culture showed no growth. Plan: Continue with antibiotic gentle hydration Continue seizure medication per neurologist on the case Depakote was discontinued while continuing, while continuing other seizure me dications per neurologist Midodrine 10 mg added Labs and medication were reviewed.. Continue same treatment. Continue with symptomatic treatment. Resume home medication. Monitor labs and vitals. DVT and GI prophylaxis. Further recommendations as per clinical course of the patient PT/OT Prognosis is guarded
--- NOTE | 2023-12-13 16:38 | P.PN ---
Subjective Progress Note Date: 12/13/23 53 years old female with past medical history of multiple medical problem including developmental delay and seizure disorder. Close she was living on a [facility] or personal care facility. She presents because of altered mental status which was thought secondary to hyperammonia level. Also patient Depakote was discontinued by neurologist for suspicions of contributing to hyperammonemia. Patient also with chronic bicytopenia and possible urinary tract infection and treated currently with ceftriaxone Also she is on Normal Saline 100 mL/h Data Entry Specialist on the case as well. She is currently on aspirin 81 mg, midodrine added today because systolic blood pressures 70-90 and diastolic 50-65. Patient remains on lactulose 30 mg 4 times a day and ammonia level is coming down to 45 today. Urine culture is negative EEG showed no epileptiform discharge Ejection fraction 60 to 65% TSH is normal. Patient currently sitting up in chair, looks relaxed and comfortable. No tachypnea or chest pain Patient she knows she is in the hospital and in [place]. She is disoriented to time and person. However she is able to follow commands easily. She has some insight into her illness. She denies weakness or numbness. No dysuria or urgency. 12/12/2023 - patient is seen and evaluated in room at bedside; has been afebrile, patient is breathing comfortably and is currently on room air, patient denies having any significant cough no chest pain shortness of breath, patient complaining of some nausea and epigastric discomfort no diarrhea. Patient white count is 7.0 creatinine 0.9 repeat urine has been negative patient presented to hospital with mental status changes in this patient who did have evidence of elevated ammonia level and apparently did have previous admission to the hospital with similar symptoms patient is currently not running any fever or any elevated white count mildly hypotensive did have a positive UA concerning for possible component of symptomatic UTI as currently no other obvious focus of infection abdomen was soft on clinical examination chest x-ray negative no evidence of any cellulitis or joint swelling -patient with multiple antibiotic ALLERGIES that would limit the number of antibiotic safe to use -patient did have positive UA however culture has been negative so far, repeat UA has been negative no need for antibiotic therapy at this point 12/13/2023 Patient with physical room at bedside; remains somewhat confused Vital signs are reviewed reveal temperature of 97.7, pulse 77, respiration 19 and blood pressure of 89/56 with O2 saturation 97% on room air Lab review shows sodium 136, potassium 4.4, BUNs/creatinine of 26/0.94, ammonia level stable at 36 --Patient resides at a [facility]; admitted with altered mental status likely secondary to hyperammonemia; patient has been evaluated by neurology and Depa kote has been discontinued for suspicion of contributing to hyperammonemia -- Ammonia level remains stable at 35; plan is to continue with current dose of lactulose with close monitoring of ammonia levels -- Patient may be discharged back to [facility] in next 24 hours Objective - Vital Signs Vital signs: Vital Signs Temp 97.8 F 12/13/23 06:53 Pulse 75 12/13/23 06:53 Resp 18 12/13/23 06:53 BP 76/40 12/13/23 06:53 Pulse Ox 99 12/13/23 09:45 FiO2 Intake & Output 12/12/23 12/13/23 12/13/23 18:59 06:59 18:59 Other: # Voids 4 6 - Exam -GENERAL: The patient is alert and oriented x1 to place clearly. Not in any acute distress. Well developed, well nourished. HEENT: Pupils are round and equally reacting to light. EOMI. No scleral icterus. No conjunctival pallor. Normocephalic, atraumatic. No pharyngeal erythema. No thyromegaly. CARDIOVASCULAR: S1 and S2 present. No murmurs, rubs, or gallops. PULMONARY: Chest is clear to auscultation, no wheezing , no crackles. ABDOMEN: Soft, nontender, nondistended, normoactive bowel sounds. No palpable organomegaly. MUSCULOSKELETAL: No joint swelling or deformity. EXTREMITIES: No cyanosis, clubbing, or pedal edema. NEUROLOGICAL: Gross neurological examination did not reveal any focal deficits. SKIN: No rashes. no petechiae. - Labs CBC & Chem 7: 12/11/23 06:03 12/13/23 13:12 Assessment and Plan Assessment: Metabolic encephalopathy secondary to hyperammonemia Hyperammonemia Seizure disorder on multiple seizure medication Borderline hypotension, asymptomatic Bicytopenia, with anemia thrombocytopenia Possible urinary tract infection. Urine culture showed no growth. Plan: Continue with antibiotic gentle hydration Continue seizure medication per neurologist on the case Depakote was discontinued while continuing, while continuing other seizure medications per neurologist Midodrine 10 mg added Labs and medication were reviewed.. Continue same treatment. Continue with symptomatic treatment. Resume home medication. Monitor labs and vitals. DVT and GI prophylaxis. Further recommendations as per clinical course of the patient PT/OT Prognosis is guarded
[2023-12-14 07:24] VITALS: TEMP 97.8
[2023-12-14 09:45] LABS: BUN/Creat Ratio 26.25 Ratio (12.00-20.00); Calcium 8.6 mg/dL (8.7-10.3); Carbon Dioxide 21.1 mmol/L (21.6-31.8); Chloride 106 mmol/L (96-109); Glucose 82 mg/dL (70-110); Sodium 137 mmol/L (135-145)
[2023-12-14 14:48] VITALS: BP 101/61; PULSE 76; RESP 16
== END 2023-12-14 20:50 | disposition home health service (06) | DRG 441 ==
LOC: EC 08:51 → 4SSUR 14:25 → UNDODISIN 12-12 12:24
PROVIDERS: ADMIT Internal Medicine; ATTEND Internal Medicine
PROC: 05HY33Z Insertion of Infusion Device into Upper Vein, Percutaneous Approach (ICD-10-PCS; principal; 2023-12-10 09:00)
DX: K76.82 Hepatic encephalopathy (principal); G93.41 Metabolic encephalopathy; E72.20 Disorder of urea cycle metabolism, unspecified; N39.0 Urinary tract infection, site not specified; F02.83 Dementia in other diseases classified elsewhere, unspecified severity, with mood disturbance; F02.84 Dementia in other diseases classified elsewhere, unspecified severity, with anxiety; K59.09 Other constipation; R32 Unspecified urinary incontinence; K74.60 Unspecified cirrhosis of liver; F89 Unspecified disorder of psychological development; I25.10 Atherosclerotic heart disease of native coronary artery without angina pectoris; I95.9 Hypotension, unspecified; F32.A Depression, unspecified; F43.10 Post-traumatic stress disorder, unspecified; E03.9 Hypothyroidism, unspecified; M19.90 Unspecified osteoarthritis, unspecified site; I10 Essential (primary) hypertension; D64.9 Anemia, unspecified; D69.6 Thrombocytopenia, unspecified; G31.9 Degenerative disease of nervous system, unspecified; G40.409 Other generalized epilepsy and epileptic syndromes, not intractable, without status epilepticus; T42.6X5A Adverse effect of other antiepileptic and sedative-hypnotic drugs, initial encounter; G20.A1 Parkinson's disease without dyskinesia, without mention of fluctuations; K21.9 Gastro-esophageal reflux disease without esophagitis; R29.6 Repeated falls; Z87.01 Personal history of pneumonia (recurrent); Z71.3 Dietary counseling and surveillance; Z88.8 Allergy status to other drugs, medicaments and biological substances; Z88.0 Allergy status to penicillin; Z88.1 Allergy status to other antibiotic agents; Z95.5 Presence of coronary angioplasty implant and graft; Z79.899 Other long term (current) drug therapy; Z79.890 Hormone replacement therapy; Z79.82 Long term (current) use of aspirin
CPT/HCPCS: 36410; 36415; 70450; 71045; 71046; 76937; 80048; 80053; 80076; 80164; 81001; 81003; 82140; 82390; 82525; 82533; 82607; 82728; 82746; 83540; 83550; 83605; 83735; 84100; 84145; 84443; 84484; 85025; 85610; 85730; 87040; 87086; 93005; 93306; 94760; 95816; 96360; 96361; 99285

== ENCOUNTER 2023-12-30 11:46 | Emergency (ER) | payer MEDICARE, OTHER ==
[2023-12-30 11:53] VITALS: TEMP 98.4
--- NOTE | 2023-12-30 12:26 | ED ---
General Adult HPI - General Chief complaint: Abdominal Pain Stated complaint: Constipation Time Seen by Provider: 12/30/23 11:54 Source: patient, Caregiver Mode of arrival: ambulatory Limitations: no limitations - History of Present Illness Initial comments: Dictation was produced using [employer] dictation software. please excuse any grammatical, word or spelling errors. Chief Complaint: 53-year-old female presents to the emergency department for constipation and concerns of hyperammonia History of Present Illness: Patient 53-year-old mentally debilitated female from the long term. She is provided to the emergency department by long term staff. To the emergency department by long term staff. Staff member provides the entirety of the history present illness states that patient has not had a bowel movement 2 to 3 days. She has history of elevated ammonia for unknown cause. She takes lactulose daily. Patient has been evaluated and admitted for elevated ammonia levels in the past. At this point staff member believes that there is no known cause for it except perhaps may be when she becomes constipated her ammonia levels increased. Patient has seem to be showing early signs of hyperammonia according to staff member. She is concerned that patient is constipated. The ROS documented in this emergency department record has been reviewed and confirmed by me. Those systems with pertinent positive or negative responses have been documented in the HPI. All other systems are other negative and/or noncontributory. - Related Data Home Medications Medication Instructions Recorded Confirmed Folic Acid 1 mg PO DAILY@0800 02/10/15 12/04/23 Loratadine [Claritin] 10 mg PO DAILY@0800 09/13/16 12/04/23 fluvoxaMINE MALEATE [Luvox] 100 mg PO BID@08,199909/13/16 12/04/23 Levothyroxine Sodium [Synthroid] 112 mcg PO DAILY@0800 03/26/17 12/04/23 Atorvastatin [Lipitor] 10 mg PO HS@199905/29/21 12/04/23 Cholecalciferol [Vitamin D3 (25 50 mcg PO HS@199905/29/21 12/04/23 Mcg = 1000 Iu)] Docusate [Colace] 100 mg PO BID@0800,199905/29/21 12/04/23 Famotidine 20 mg PO BID@08,199905/29/21 12/04/23 Fenofibrate [Lofibra] 54 mg PO HS@199905/29/21 12/04/23 Montelukast [Singulair] 10 mg PO HS@199905/29/21 12/04/23 Multivitamins, Thera [Multivitamin 1 tab PO HS@199905/29/21 12/04/23 (formulary)] Aspirin [Adult Low Dose Aspirin EC] 81 mg PO DAILY@0800 11/23/23 12/04/23 Lactulose [Cephulac] 30 ml PO QID@08,12,14,11/23/23 12/04/23 PARoxetine HCL 30 mg PO DAILY@0800 11/23/23 12/04/23 Pregabalin [Lyrica] 150 mg PO TID@0800,1400,199911/23/23 12/04/23 ARIPiprazole [Abilify] 10 mg PO DAILY@0800 12/04/23 12/04/23 Brivaracetam [Briviact] 100 mg PO BID@0800,199912/04/23 12/04/23 Eslicarbazepine Acetate [Aptiom] 800 mg PO HS@199912/04/23 12/04/23 Sennosides [Senokot] 8.6 mg PO HS@199912/04/23 12/04/23 Topiramate [Topamax] 100 mg PO BID@0800,199912/04/23 12/04/23 diazePAM [Valtoco] 15 mg NASAL DIRECTED PRN 12/04/23 12/04/23 Previous Rx's Medication Instructions Recorded Fludrocortisone [Florinef] 0.2 mg PO DAILY #30 tab 12/14/23 Midodrine [ProAmatine] 10 mg PO AC-TID #90 tab 12/14/23 rOPINIRole HCL [Requip] 1 mg PO TID@0800,1400,1999 #90 tab 12/14/23 Allergies Allergy/AdvReac Type Severity Reaction Status Date / Time Barbiturates Allergy Unknown Verified 12/30/23 11:53 carbamazepine [From Tegretol] Allergy Unknown Verified 12/30/23 11:53 clindamycin palmitate HCl Allergy Unknown Verified 12/30/23 11:53 [From Cleocin] clindamycin phosphate Allergy Unknown Verified 12/30/23 11:53 [From Cleocin] lincomycin Allergy Unknown Verified 12/30/23 11:53 Penicillins Allergy Unknown Verified 12/30/23 11:53 phenobarbital Allergy Unknown Verified 12/30/23 11:53 phenytoin [From Dilantin] Allergy Unknown Verified 12/30/23 11:53 primidone [From Mysoline] Allergy Unknown Verified 12/30/23 11:53 Review of Systems ROS Statement: Those systems with pertinent positive or pertinent negative responses have been documented in the HPI. ROS Other: All systems not noted in ROS Statement are negative. Past Medical History Past Medical History: GERD/Reflux, Musculoskeletal Disorder, Neurologic Disorder, Osteoarthritis (OA), Pneumonia, Seizure Disorder, Thyroid Disorder Additional Past Medical History / Comment(s): Pt is developmentally challenged and has a [facility] public legal guardian, Bambi Davis, who states to get PMH etc from caregiver, Alison Chaudhry. TREMORS FROM MEDS, hypothyroid, falls, head injury r/t fall, PARKINSONS, OCCASIONAL DIZZY SPELLS, PAST RIGHT LEG CELLULITIS, AND DARKENED PIGMENTATION RIGHT LEG, last seizure 09/26/23 History of Any Multi-Drug Resistant Organisms: None Reported Past Surgical History: Heart Catheterization With Stent Additional Past Surgical History / Comment(s): possible cardiac stent, tooth extraction [facility] 11/04/23, bilateral cataract surgery in 2018 Past Anesthesia/Blood Transfusion Reactions: No Reported Reaction Additional Past Anesthesia/Blood Transfusion Reaction / Comment(s): NEVER HAD AA Date of Last Stent Placement:: 2017 or 2018 Past Psychological History: Anxiety, Depression, PTSD Smoking Status: Never smoker Past Alcohol Use History: None Reported Past Drug Use History: None Reported - Past Family History Father Additional Family Medical History / Comment(s): WAS A DRINKER FROM CIRRHOSIS Mother Family Medical History: Cancer Additional Family Medical History / Comment(s): BREAST-mother is living. General Exam - General Exam Comments Initial Comments: PHYSICAL EXAM: General Impression: tremulous, not in acute distress HEENT: Normocephalic atraumatic, extra-ocular movements intact, pupils equal and reactive to light bilaterally, mucous membranes moist. Cardiovascular: Heart regular rate and rhythm Chest: Clear to auscultation bilaterally, no retractions, no tachypnea Abdomen: abdomen soft, non-tender, non-distended, no organomegaly Musculoskeletal: Pulses present and equal in all extremities, no peripheral edema Motor: no focal deficits noted Neurological: Symmetrical face, moves all extremities grossly no focal motor or sensory deficits noted Skin: Intact with no visualized rashes Limitations: no limitations Course Vital Signs 12/30/23 11:49 Temperature 98.4 F Pulse Rate 95 Respiratory 16 Rate Blood Pressure 125/52 O2 Sat by Pulse 97 Oximetry Medical Decision Making - Medical Decision Making Was pt. sent in by a medical professional or institution (, PA, LIMNOLOGIST, urgent care, hospital, or [facility]...) When possible be specific @ -No Did you speak to anyone other than the patient for history (EMS, parent, family, police, friend...)? What history was obtained from this source @ -See above Did you review nursing and triage notes (agree or disagree)? Why? @ -I reviewed and agree with nursing and triage notes Were old charts reviewed (outside hosp., previous admission, EMS record, old EKG, old radiological studies, urgent care reports/EKG's, [facility] records)? Report findings @ -No old charts were reviewed Differential Diagnosis (chest pain, altered mental status, abdominal pain women, abdominal pain men, vaginal bleeding, musculoskeletal, weakness, fever, dyspnea, syncope, headache, dizziness, GI bleed, back pain, seizure, CVA, palpatations, mental health)? @ -Differential Abdominal Pain Women: Appendicitis, Cholecystitis, diverticulosis, ischemic bowel, pancreatitis, hepatitis, UTI, gastroenteritis, AAA, incarcerated hernia, bowel obstruction, constipation, inflammatory bowel, hepatitis, peptic ulcer disease, splenic infarction, perforated viscus, vulvitis, ovarian torsion, PID, kidney stone, placenta abruption, this is not meant to be an all-inclusive list EKG interpreted by me (3pts min.). @ -None done X-rays interpreted by me (1pt min.). @ -Abdominal x-ray is nonacute CT interpreted by me (1pt min.). @ -None done U/S interpreted by me (1pt. min.). @ -None done What testing was considered but not performed or refused? (CT, X-rays, U/S, labs)? Why? @ -None What meds were considered but not given or refused? Why? @ -None Was smoking cessation discussed for >3mins.? @ -No Were there social determinants of health that impacted care today? How? (Homelessness, low income, unemployed, alcoholism, drug addiction, transportation, low edu. Level, literacy, decrease access to med. care, [facility], rehab)? @ -No Was there de-escalation of care discussed even if they declined (Discuss DNR or withdrawal of care, Hospice)? DNR status @ -No What co-morbidities impacted this encounter? (DM, HTN, Smoking, COPD, CAD, Cancer, CVA, ARF, Chemo, Hep., AIDS, mental health diagnosis, sleep apnea, morbid obesity)? @ -None Was patient admitted / discharged? Hospital course, mention meds given and route, prescriptions, significant lab abnormalities, going to OR and other pe rtinent info. @ -54-year-old female presents to the emergency department for concerns of constipation. [facility] staff provides entirety of history of present illness. Vital signs stable. There is no concern about patient's mentation. Patient has chronic history of elevated ammonia levels. Most recently her ammonia levels were 50 checked outpatient. Group staff: Member states that patient's mentation is significantly improved. Laboratory evaluation obtained. CBC is with acceptable limits. Metabolic panel is negative. Ammonia is 32. Patient given lactulose enema. Patient had very large volume bowel movement. Patient feels improved. Patient be discharged back to long term Did you discuss the management of the patient with other professionals (professionals i.e. , PA, LIMNOLOGIST, lab, RT, psych nurse, manager social responsibility, guard dance hall, teacher, dog license officer supervisor, case supervisor)? Give summary @ -No Was critical care preformed (if so, how long)? @ -No Undiagnosed new problem with uncertain prognosis? @ -No Drug Therapy requiring intensive monitoring for toxicity (Heparin, Nitro, Insulin, Cardizem)? @ -No Were any procedures done? @ -No Diagnosis/symptom? Acute, or Chronic, or Acute on Chronic? Uncomplicated (without systemic symptoms) or Complicated (systemic symptoms)? @ -Constipation Side effects of treatment? @ -No Exacerbation, Progression, or Severe Exacerbation? @ -No Poses a threat to life or bodily function? How? (Chest pain, USA, GA, pneumonia, PE, COPD, DKA, ARF, appy, cholecystitis, CVA, Diverticulitis, Homicidal, Suicidal, threat to staff... and all critical care pts) @ -No - Lab Data Result diagrams: 12/30/23 12:01 12/30/23 12:01 Lab Results 12/30/23 12/30/23 12/30/23 Range/Units 12:01 12:01 12:01 WBC 3.8 (3.8-10.6) k/uL RBC 3.59 L (3.80-5.40) m/uL Hgb 11.3 L (11.4-16.0) gm/dL Hct 36.9 (34.0-46.0) % MCV 102.7 H (80.0-100.0) fL MCH 31.4 (25.0-35.0) pg MCHC 30.6 L (31.0-37.0) g/dL RDW 13.4 (11.5-15.5) % Plt Count 146 L D (150-450) k/uL MPV 10.4 Hypochromasia Slight Macrocytosis Slight Sodium 142 (137-145) mmol/L Potassium 4.6 (3.5-5.1) mmol/L Chloride 114 H (98-107) mmol/L Carbon Dioxide 22 (22-30) mmol/L Anion Gap 6 mmol/L BUN 23 H (7-17) mg/dL Creatinine 0.76 (0.52-1.04) mg/dL Est GFR (CKD-EPI)AfAm >90 (>60 ml/min/1.73 sqM) Est GFR (CKD-EPI)NonAf >90 (>60 ml/min/1.73 sqM) Glucose 78 (74-99) mg/dL Calcium 9.8 (8.4-10.2) mg/dL Ammonia 32 H (<30) umol/L Disposition Clinical Impression: Constipation Disposition: HOME SELF-CARE Condition: Good Instructions (If sedation given, give patient instructions): Constipation (ED) Is patient prescribed a controlled substance at d/c from ED?: No Referrals: Zuly Vega FNPBC [Primary Care Provider] - 1-2 days Time of Disposition: 14:02
[2023-12-30 12:55] LABS: Basophils % (A) 1 %; Eosinophils # (A) 0.1 k/uL (0-0.7); Eosinophils % (A) 2 %; HCT 36.9 % (34.0-46.0); HGB 11.3 gm/dL (11.4-16.0); Hypochromasia Slight; Lymphocytes # (A) 1.5 k/uL (1.0-4.8); Lymphocytes % (A) 41 %; MCH 31.4 pg (25.0-35.0); MCHC 30.6 g/dL (31.0-37.0); MCV 102.7 fL (80.0-100.0); Macrocytosis Slight; Mean Platelet Volume 10.4; Monocytes # (A) 0.1 k/uL (0-1.0); Monocytes % (A) 3 %; Neutrophils % (A) 52 %; RBC 3.59 m/uL (3.80-5.40); RDW 13.4 % (11.5-15.5); WBC 3.8 k/uL (3.8-10.6)
--- NOTE | 2023-12-30 12:56 | XR ---
EXAMINATION TYPE: XR abdomen 1V DATE OF EXAM: 12/30/2023 12:53 PM CLINICAL INDICATION:Female, 53 years old with history of constipation; [facility] COMPARISON: None. TECHNIQUE: One radiographic view of the abdomen was obtained. FINDINGS: The bowel gas pattern is nonspecific without dilated loops of small or large bowel. There i s no evidence for organomegaly or pneumoperitoneum. The osseous structures are intact. No abnormal calcifications are present. Fecal material and gas are demonstrated throughout the colon and rectum. IMPRESSION: Nonspecific bowel gas pattern without radiographic evidence for acute process.
[2023-12-30 12:59] LABS: Platelet Count 146 k/uL (150-450)
[2023-12-30] MEDS: LACTULOSE 200 GM/300 ML (FROM 1/2 GAL JUG) RECTAL ONE (13:00)
[2023-12-30 13:07] LABS: African American GFR (CKD) >90 (>60 ml/min/1.73 sqM); Anion Gap 6 mmol/L; Blood Urea Nitrogen 23 mg/dL (7-17); Calcium 9.8 mg/dL (8.4-10.2); Carbon Dioxide 22 mmol/L (22-30); Chloride 114 mmol/L (98-107); Glucose 78 mg/dL (74-99); Non-African American GFR(CKD) >90 (>60 ml/min/1.73 sqM); Potassium 4.6 mmol/L (3.5-5.1); Sodium 142 mmol/L (137-145)
[2023-12-30 14:20] VITALS: BP 128/65; PULSE 76; RESP 17
== END 2023-12-30 14:20 | disposition home or self-care (01) ==
LOC: EC 11:46
DX: K59.00 Constipation, unspecified (principal); Z88.0 Allergy status to penicillin; Z88.1 Allergy status to other antibiotic agents; Z88.2 Allergy status to sulfonamides; Z88.8 Allergy status to other drugs, medicaments and biological substances
CPT/HCPCS: 36415; 74018; 80048; 82140; 85025; 99284

== ENCOUNTER → 2024-01-14 | Outpatient (CLI) | payer MEDICARE, OTHER ==
--- NOTE | 2024-01-21 21:58 | MM ---
Reason for Exam: Screening (asymptomatic). Last screening mammogram was performed 12 month(s) ago. Patient History: Menarche at age 13. Patient has no children. Used Hormonal Contraceptives. Risk Values: Fifi 5 year model risk: 1.2%. NCI Lifetime model risk: 9.6%. Prior Study Comparison: 04/03/2017 Bilateral Screening Mammogram, [facility]. 01/02/2022 Bilateral MG screening mammo w CAD, [facility]. 01/12/2023 Bilateral MG screening mammo w CAD, [facility]. Tissue Density: The breasts are heterogeneously dense, which may obscure small masses. Findings: Analyzed By CAD. Unchanged asymmetric density subareolar right cc view. Unchanged asymmetric density inferior right MLO view of middle to posterior depth. Some axillary calcifications on the right remain unchanged as well. There is no suspicious group of microcalcifications or new suspicious mass in either breast. Overall Assessment: Benign, BI-RAD 2 Management: Screening Mammogram of both breasts in 1 year. . Patient should continue monthly self-breast exams. A clinical breast exam by your physician is recommended on an annual basis. This exam should not preclude additional follow-up of suspicious palpable abnormalities. Note on Fifi scores and lifetime risk: 1. A Fifi score greater than 3% is considered moderate risk. If this is the case, consider specialist referral to assess eligibility for a risk reducing agent. 2. If overall lifetime risk for the development of breast cancer is 20% or higher, the patient may qualify for future screening with alternating mammogram and breast MRI. Electronically signed and approved by: Pamela Novoa M.D. Radiologist
== END | disposition home or self-care (01) ==
LOC: RADMAMWWP 09:58
PROVIDERS: ATTEND Family Medicine
DX: Z12.31 Encounter for screening mammogram for malignant neoplasm of breast (principal); R92.333 Mammographic heterogeneous density, bilateral breasts
CPT/HCPCS: 77063; 77067

== ENCOUNTER → 2024-03-22 | Outpatient (CLI) | payer MEDICARE, OTHER | END | disposition home or self-care (01) | LOC: LABWHC1 10:23 | PROVIDERS: ATTEND Nurse Practitioner Family | DX: E72.20 Disorder of urea cycle metabolism, unspecified (principal) | CPT/HCPCS: 36415; 82140 ==

== ENCOUNTER → 2025-01-17 | Outpatient (CLI) | payer MEDICARE, OTHER ==
--- NOTE | 2025-01-17 10:06 | MM ---
Reason for Exam: Screening (asymptomatic). Last screening mammogram was performed 12 month(s) ago. Patient History: Menarche at age 13. Patient has no children. Used Hormonal Contraceptives. Risk Values: Iffi 5 year model risk: 1.2%. NCI Lifetime model risk: 9.4%. Prior Study Comparison: 04/03/2017 Bilateral Screening Mammogram, [facility]. 01/02/2022 Bilateral MG screening mammo w CAD, [facility]. 01/12/2023 Bilateral MG screening mammo w CAD, [facility]. 01/14/2024 Bilateral MG 3D screening mammo w/cad, [facility]. Tissue Density: The breasts are heterogeneously dense, which may obscure small masses. Findings: Analyzed By CAD. There is no suspicious group of microcalcifications or new suspicious mass in either breast. Overall Assessment: Benign, BI-RAD 2 Management: Screening Mammogram of both breasts in 1 year. . Patient should continue monthly self-breast exams. A clinical breast exam by your physician is recommended on an annual basis. This exam should not preclude additional follow-up of suspicious palpable abnormalities. Note on Fifi scores and lifetime risk: 1. A Fifi score greater than 3% is considered moderate risk. If this is the case, consider specialist referral to assess eligibility for a risk reducing agent. 2. If overall lifetime risk for the development of breast cancer is 20% or higher, the patient may qualify for future screening with alternating mammogram and breast MRI. [facility], , 01/17/2025 10:03 AM. Electronically signed and approved by: Jamey Tavares M.D. Rad[facility]
== END | disposition home or self-care (01) ==
LOC: RADMAMWWP 08:08
PROVIDERS: ATTEND Family Medicine
DX: Z12.31 Encounter for screening mammogram for malignant neoplasm of breast (principal); R92.333 Mammographic heterogeneous density, bilateral breasts; Z92.0 Personal history of contraception
CPT/HCPCS: 77067